=== PATIENT | female | born 1965 | race Caucasian/White ===

== ENCOUNTER → 2019-04-11 10:49 | Outpatient (BNVA) | payer MEDICARE, MEDICAID, SELFPAY | PROVIDERS: Family Provider Nurse Practitioner Family; PCP Nurse Practitioner Family | DX: N39.0 Urinary tract infection, site not specified (principal) | CPT/HCPCS: 87086 ==

== ENCOUNTER → 2019-04-29 16:14 | Outpatient (BNVA) | payer MEDICARE, MEDICAID, SELFPAY | PROVIDERS: PCP Nurse Practitioner Family; Visit Provider Nurse Practitioner Family | DX: E11.65 Type 2 diabetes mellitus with hyperglycemia (principal); Z79.4 Long term (current) use of insulin; I10 Essential (primary) hypertension; E03.9 Hypothyroidism, unspecified; H66.90 Otitis media, unspecified, unspecified ear | CPT/HCPCS: 80053; 83036; 84443 ==

== ENCOUNTER → 2019-04-30 09:46 | Outpatient (BNVA) | payer MEDICARE, MEDICAID, SELFPAY | PROVIDERS: PCP Nurse Practitioner Family; Visit Provider Nurse Practitioner Family | DX: E11.65 Type 2 diabetes mellitus with hyperglycemia (principal); Z79.4 Long term (current) use of insulin; I10 Essential (primary) hypertension; E03.9 Hypothyroidism, unspecified; H66.90 Otitis media, unspecified, unspecified ear | CPT/HCPCS: 82044 ==

== ENCOUNTER → 2019-05-22 00:01 | Outpatient (BNVA) | payer MEDICARE, MEDICAID, SELFPAY | PROVIDERS: PCP Nurse Practitioner Family; Visit Provider Nurse Practitioner Family | DX: N39.0 Urinary tract infection, site not specified (principal) | CPT/HCPCS: 87077; 87086; 87186 ==

== ENCOUNTER → 2019-08-01 10:38 | Outpatient (BNVA) | payer MEDICARE, MEDICAID, SELFPAY | PROVIDERS: Family Provider Nurse Practitioner Family; PCP Nurse Practitioner Family; Visit Provider Nurse Practitioner Family | DX: E11.9 Type 2 diabetes mellitus without complications (principal) | CPT/HCPCS: 80053; 80061; 83036 ==

== ENCOUNTER → 2019-08-02 10:33 | Outpatient (BNVA) | payer MEDICARE, MEDICAID, SELFPAY | PROVIDERS: Family Provider Nurse Practitioner Family; PCP Nurse Practitioner Family; Visit Provider Nurse Practitioner Family | DX: N39.0 Urinary tract infection, site not specified (principal); E11.9 Type 2 diabetes mellitus without complications; E11.51 Type 2 diabetes mellitus with diabetic peripheral angiopathy without gangrene; E11.65 Type 2 diabetes mellitus with hyperglycemia | CPT/HCPCS: 81000; 82044 ==

== ENCOUNTER → 2019-08-13 10:17 | Outpatient (BNVA) | payer MEDICARE, MEDICAID, SELFPAY | PROVIDERS: Family Provider Nurse Practitioner Family; PCP Nurse Practitioner Family; Visit Provider Nurse Practitioner Family | DX: N39.0 Urinary tract infection, site not specified (principal) | CPT/HCPCS: 81000 ==

== ENCOUNTER → 2019-08-27 10:22 | Outpatient (BNVA) | payer MEDICARE, MEDICAID, SELFPAY | PROVIDERS: Family Provider Nurse Practitioner Family; PCP Nurse Practitioner Family; Visit Provider Nurse Practitioner Family | DX: E11.8 Type 2 diabetes mellitus with unspecified complications (principal); S21.009A Unspecified open wound of unspecified breast, initial encounter; N61.1 Abscess of the breast and nipple; L03.90 Cellulitis, unspecified; X58.XXXA Exposure to other specified factors, initial encounter | CPT/HCPCS: 87070; 87077; 87186 ==

== ENCOUNTER → 2019-10-28 09:58 | Outpatient (BNVA) | payer MEDICARE, MEDICAID, SELFPAY | PROVIDERS: Family Provider Nurse Practitioner Family; PCP Nurse Practitioner Family; Visit Provider Nurse Practitioner Family | DX: R31.9 Hematuria, unspecified (principal) | CPT/HCPCS: 80053; 87077; 87086; 87186 ==

== ENCOUNTER → 2019-11-18 11:35 | Outpatient (BNVA) | payer MEDICARE, MEDICAID, SELFPAY | PROVIDERS: Family Provider Nurse Practitioner Family; PCP Nurse Practitioner Family; Visit Provider Nurse Practitioner Family | DX: E11.8 Type 2 diabetes mellitus with unspecified complications (principal); N39.0 Urinary tract infection, site not specified; R31.9 Hematuria, unspecified | CPT/HCPCS: 81000; 83036 ==

== ENCOUNTER → 2019-12-03 14:40 | Outpatient (BNVA) | payer MEDICARE, MEDICAID, SELFPAY | PROVIDERS: Family Provider Nurse Practitioner Family; PCP Nurse Practitioner Family; Visit Provider Nurse Practitioner Family | DX: L02.91 Cutaneous abscess, unspecified (principal); L03.90 Cellulitis, unspecified; G89.28 Other chronic postprocedural pain | CPT/HCPCS: 87070; 87077; 87186 ==

== ENCOUNTER → 2020-01-29 09:03 | Outpatient (BNVA) | payer MEDICARE, MEDICAID, SELFPAY | PROVIDERS: Family Provider Nurse Practitioner Family; PCP Nurse Practitioner Family; Visit Provider Nurse Practitioner Family | DX: R31.9 Hematuria, unspecified (principal) | CPT/HCPCS: 80053; 87077; 87086; 87184 ==

== ENCOUNTER → 2020-02-06 14:27 | Outpatient (BNVA) | payer MEDICARE, MEDICAID, SELFPAY | PROVIDERS: Family Provider Nurse Practitioner Family; PCP Nurse Practitioner Family; Visit Provider Family Medicine | DX: G89.28 Other chronic postprocedural pain (principal); G54.6 Phantom limb syndrome with pain; M06.9 Rheumatoid arthritis, unspecified; E11.65 Type 2 diabetes mellitus with hyperglycemia; Z79.4 Long term (current) use of insulin; R32 Unspecified urinary incontinence | CPT/HCPCS: 80053 ==

== ENCOUNTER → 2020-02-24 14:24 | Outpatient (BNVA) | payer MEDICARE, MEDICAID, SELFPAY | PROVIDERS: Family Provider Nurse Practitioner Family; PCP Nurse Practitioner Family; Visit Provider Nurse Practitioner Family | DX: N39.0 Urinary tract infection, site not specified (principal); R32 Unspecified urinary incontinence | CPT/HCPCS: 81003; 87077; 87086; 87184 ==

== ENCOUNTER → 2020-04-08 13:50 | Outpatient (BNVA) | payer MEDICARE, MEDICAID, SELFPAY | PROVIDERS: Family Provider Nurse Practitioner Family; PCP Nurse Practitioner Family; Visit Provider Urology | DX: N39.0 Urinary tract infection, site not specified (principal); R32 Unspecified urinary incontinence | CPT/HCPCS: 81003 ==

== ENCOUNTER → 2020-04-14 11:34 | Outpatient (BNVA) | payer MEDICARE, MEDICAID, SELFPAY | PROVIDERS: Family Provider Nurse Practitioner Family; PCP Nurse Practitioner Family; Visit Provider Nurse Practitioner Family | DX: Z03.818 Encounter for observation for suspected exposure to other biological agents ruled out (principal); R05 Cough | CPT/HCPCS: 87635 ==

== ENCOUNTER → 2020-04-23 10:09 | Outpatient (BNVA) | payer MEDICARE, MEDICAID, SELFPAY | PROVIDERS: Family Provider Nurse Practitioner Family; PCP Nurse Practitioner Family; Visit Provider Nurse Practitioner Family | DX: R04.0 Epistaxis (principal); J01.90 Acute sinusitis, unspecified; J01.10 Acute frontal sinusitis, unspecified | CPT/HCPCS: 85025 ==

== ENCOUNTER → 2020-05-08 11:09 | Outpatient (BNVA) | payer MEDICARE, MEDICAID, SELFPAY | PROVIDERS: Family Provider Nurse Practitioner Family; PCP Nurse Practitioner Family; Visit Provider Nurse Practitioner Family | DX: N39.0 Urinary tract infection, site not specified (principal); E11.8 Type 2 diabetes mellitus with unspecified complications; E03.9 Hypothyroidism, unspecified; Z51.81 Encounter for therapeutic drug level monitoring | CPT/HCPCS: 80053; 82550; 83036; 84443; 87077; 87086; 87184 ==

== ENCOUNTER → 2020-06-12 09:24 | Outpatient (BNVA) | payer MEDICARE, MEDICAID, SELFPAY | PROVIDERS: Family Provider Nurse Practitioner Family; PCP Nurse Practitioner Family; Referring Provider Nurse Practitioner Family; Visit Provider Internal Medicine | DX: B37.3 Candidiasis of vulva and vagina (principal); E03.9 Hypothyroidism, unspecified; E11.9 Type 2 diabetes mellitus without complications; N39.0 Urinary tract infection, site not specified | CPT/HCPCS: 95251; 99204 ==

== ENCOUNTER → 2020-07-02 13:32 | Outpatient (BNVA) | payer OTHER, SELFPAY | PROVIDERS: Family Provider Nurse Practitioner Family; PCP Nurse Practitioner Family; Visit Provider Psychiatry & Neurology Psychiatry | DX: F33.2 Major depressive disorder, recurrent severe without psychotic features (principal); Z79.899 Other long term (current) drug therapy | CPT/HCPCS: 80061; 83036 ==

== ENCOUNTER → 2020-07-13 10:02 | Outpatient (BNVA) | payer MEDICAID, SELFPAY ==
[2020-07-06 14:19] VITALS: BP 105/68
== END ==
PROVIDERS: Family Provider Nurse Practitioner Family; PCP Nurse Practitioner Family; Visit Provider Nurse Practitioner Family
DX: R31.9 Hematuria, unspecified (principal)
CPT/HCPCS: 87077; 87086; 87184

== ENCOUNTER → 2020-07-16 08:52 | Outpatient (BNVA) | payer MEDICAID, SELFPAY ==
[2020-07-06 14:19] VITALS: BP 105/68
== END ==
PROVIDERS: Family Provider Nurse Practitioner Family; PCP Nurse Practitioner Family; Visit Provider Nurse Practitioner Family
DX: R04.0 Epistaxis (principal)
CPT/HCPCS: 85025

== ENCOUNTER → 2020-08-04 13:27 | Outpatient (BNVA) | payer SELFPAY ==
[2020-07-06 14:19] VITALS: BP 105/68
== END ==
PROVIDERS: Family Provider Nurse Practitioner Family; PCP Nurse Practitioner Family; Visit Provider Psychiatry & Neurology Psychiatry
DX: F33.2 Major depressive disorder, recurrent severe without psychotic features (principal); Z72.820 Sleep deprivation; F41.9 Anxiety disorder, unspecified
CPT/HCPCS: 90792

== ENCOUNTER → 2020-08-10 10:34 | Outpatient (BNVA) | payer MEDICARE, MEDICAID, SELFPAY ==
[2020-07-06 14:19] VITALS: BP 105/68
== END ==
PROVIDERS: Family Provider Nurse Practitioner Family; PCP Nurse Practitioner Family; Visit Provider Nurse Practitioner Family
DX: N39.41 Urge incontinence (principal)
CPT/HCPCS: 87086

== ENCOUNTER → 2020-08-24 11:11 | Outpatient (BNVA) | payer MEDICARE, MEDICAID, SELFPAY ==
[2020-07-06 14:19] VITALS: BP 105/68
== END ==
PROVIDERS: Family Provider Nurse Practitioner Family; PCP Nurse Practitioner Family; Visit Provider Nurse Practitioner Family
DX: N39.0 Urinary tract infection, site not specified (principal)
CPT/HCPCS: 87077; 87086; 87184

== ENCOUNTER → 2020-09-29 13:49 | Outpatient (BNVA) | payer MEDICARE, MEDICAID, SELFPAY ==
[2020-07-06 14:19] VITALS: BP 105/68
== END ==
PROVIDERS: Family Provider Nurse Practitioner Family; PCP Nurse Practitioner Family; Visit Provider Nurse Practitioner
DX: F33.2 Major depressive disorder, recurrent severe without psychotic features (principal)
CPT/HCPCS: 99214

== ENCOUNTER → 2020-10-21 10:25 | Outpatient (BNVA) | payer MEDICARE, MEDICAID, SELFPAY ==
[2020-10-21 10:02] VITALS: BP 105/68
== END ==
PROVIDERS: Family Provider Nurse Practitioner Family; PCP Nurse Practitioner Family; Visit Provider Nurse Practitioner Family
DX: N39.0 Urinary tract infection, site not specified (principal)
CPT/HCPCS: 81000; 87077; 87086; 87184; A9270

== ENCOUNTER → 2020-11-02 14:26 | Outpatient (BNVA) | payer MEDICARE, MEDICAID, SELFPAY ==
[2020-10-21 10:02] VITALS: BP 105/68
== END ==
PROVIDERS: Family Provider Nurse Practitioner Family; PCP Nurse Practitioner Family; Visit Provider Nurse Practitioner Family
DX: R31.9 Hematuria, unspecified (principal); N39.0 Urinary tract infection, site not specified; L03.90 Cellulitis, unspecified
CPT/HCPCS: 87070; 87077; 87086; 87184

== ENCOUNTER → 2020-11-12 09:46 | Outpatient (BNVA) | payer MEDICARE, MEDICAID, SELFPAY ==
[2020-10-21 10:02] VITALS: BP 105/68
== END ==
PROVIDERS: Family Provider Nurse Practitioner Family; PCP Nurse Practitioner Family; Visit Provider Internal Medicine
DX: E11.65 Type 2 diabetes mellitus with hyperglycemia (principal); E03.9 Hypothyroidism, unspecified; Z79.4 Long term (current) use of insulin
CPT/HCPCS: 83036; 84439; 84443

== ENCOUNTER → 2020-11-24 11:31 | Outpatient (BNVA) | payer MEDICARE, MEDICAID, SELFPAY ==
[2020-10-21 10:02] VITALS: BP 105/68
== END ==
PROVIDERS: Family Provider Nurse Practitioner Family; PCP Nurse Practitioner Family; Visit Provider Nurse Practitioner Family
DX: N39.0 Urinary tract infection, site not specified (principal); R35.0 Frequency of micturition
CPT/HCPCS: 81000; 87086

== ENCOUNTER → 2020-12-31 08:29 | Outpatient (BNVA) | payer MEDICARE, MEDICAID, SELFPAY ==
[2020-10-21 10:02] VITALS: BP 105/68
== END ==
PROVIDERS: Family Provider Nurse Practitioner Family; PCP Nurse Practitioner Family; Visit Provider Nurse Practitioner Family
DX: N39.0 Urinary tract infection, site not specified (principal)
CPT/HCPCS: 87086

== ENCOUNTER → 2021-01-19 09:28 | Outpatient (BNVA) | payer MEDICARE, MEDICAID, SELFPAY ==
[2020-10-21 10:02] VITALS: BP 105/68
== END ==
PROVIDERS: Family Provider Nurse Practitioner Family; PCP Nurse Practitioner Family; Visit Provider Nurse Practitioner Family
DX: R39.9 Unspecified symptoms and signs involving the genitourinary system (principal); R31.9 Hematuria, unspecified; N39.0 Urinary tract infection, site not specified
CPT/HCPCS: 81000; 87077; 87086; 87184

== ENCOUNTER → 2021-02-16 10:11 | Outpatient (BNVA) | payer MEDICARE, MEDICAID, SELFPAY ==
[2020-10-21 10:02] VITALS: BP 105/68
== END ==
PROVIDERS: Family Provider Nurse Practitioner Family; PCP Nurse Practitioner Family; Visit Provider Internal Medicine
DX: E03.9 Hypothyroidism, unspecified (principal); E11.65 Type 2 diabetes mellitus with hyperglycemia; N39.0 Urinary tract infection, site not specified; Z79.4 Long term (current) use of insulin
CPT/HCPCS: 80053; 80061; 83036; 84439; 84443; 87077; 87086; 87184

== ENCOUNTER → 2021-02-18 07:57 | Outpatient (BNVA) | payer MEDICARE, MEDICAID, SELFPAY ==
[2020-10-21 10:02] VITALS: BP 105/68
== END ==
PROVIDERS: Family Provider Nurse Practitioner Family; PCP Nurse Practitioner Family; Visit Provider Nurse Practitioner
DX: F41.9 Anxiety disorder, unspecified (principal); F33.2 Major depressive disorder, recurrent severe without psychotic features; Z72.820 Sleep deprivation
CPT/HCPCS: 99214

== ENCOUNTER → 2021-02-25 08:50 | Outpatient (BNVA) | payer MEDICARE, MEDICAID, SELFPAY ==
[2020-10-21 10:02] VITALS: BP 105/68
== END ==
PROVIDERS: Family Provider Nurse Practitioner Family; PCP Nurse Practitioner Family; Visit Provider Nurse Practitioner Family
DX: N39.0 Urinary tract infection, site not specified (principal)
CPT/HCPCS: 87086

== ENCOUNTER → 2021-03-19 10:33 | Outpatient (BNVA) | payer MEDICARE, MEDICAID, SELFPAY ==
[2020-10-21 10:02] VITALS: BP 105/68
== END ==
PROVIDERS: Family Provider Nurse Practitioner Family; PCP Nurse Practitioner Family; Visit Provider Nurse Practitioner Family
DX: E78.2 Mixed hyperlipidemia (principal); E03.9 Hypothyroidism, unspecified; E11.65 Type 2 diabetes mellitus with hyperglycemia; Z79.4 Long term (current) use of insulin
CPT/HCPCS: 80053; 83036

== ENCOUNTER → 2021-03-24 14:32 | Outpatient (BNVA) | payer MEDICARE, MEDICAID, SELFPAY ==
[2020-10-21 10:02] VITALS: BP 105/68
== END ==
PROVIDERS: Family Provider Nurse Practitioner Family; PCP Nurse Practitioner Family; Visit Provider Internal Medicine
DX: E11.8 Type 2 diabetes mellitus with unspecified complications (principal); E03.9 Hypothyroidism, unspecified; N39.0 Urinary tract infection, site not specified; Z79.4 Long term (current) use of insulin; F17.210 Nicotine dependence, cigarettes, uncomplicated
CPT/HCPCS: 99214

== ENCOUNTER → 2021-06-30 15:02 | Outpatient (BNVA) | payer MEDICARE, MEDICAID, SELFPAY ==
[2020-10-21 10:02] VITALS: BP 105/68
== END ==
PROVIDERS: Family Provider Nurse Practitioner Family; PCP Nurse Practitioner Family; Visit Provider Internal Medicine Cardiovascular Disease
DX: L03.90 Cellulitis, unspecified (principal); I25.10 Atherosclerotic heart disease of native coronary artery without angina pectoris; I10 Essential (primary) hypertension; F17.210 Nicotine dependence, cigarettes, uncomplicated
CPT/HCPCS: 99213

== ENCOUNTER → 2021-07-20 13:50 | Outpatient (BNVA) | payer MEDICARE, MEDICAID, SELFPAY ==
[2020-10-21 10:02] VITALS: BP 105/68
== END ==
PROVIDERS: Family Provider Nurse Practitioner Family; PCP Nurse Practitioner Family; Visit Provider Nurse Practitioner
DX: F33.2 Major depressive disorder, recurrent severe without psychotic features (principal); F41.9 Anxiety disorder, unspecified; Z72.820 Sleep deprivation
CPT/HCPCS: 99214

== ENCOUNTER → 2021-07-22 14:16 | Outpatient (BNVA) | payer MEDICARE, MEDICAID, SELFPAY ==
[2021-07-20 15:27] VITALS: BP 94/67
== END ==
PROVIDERS: Family Provider Nurse Practitioner Family; PCP Nurse Practitioner Family; Visit Provider Family Medicine
DX: N39.0 Urinary tract infection, site not specified (principal)
CPT/HCPCS: 81000; 87077; 87086; 87184

== ENCOUNTER → 2021-09-14 13:53 | Outpatient (BNVA) | payer MEDICARE, MEDICAID, SELFPAY ==
[2021-07-20 15:27] VITALS: BP 94/67
== END ==
PROVIDERS: Family Provider Nurse Practitioner Family; PCP Nurse Practitioner Family; Visit Provider Internal Medicine
DX: E11.9 Type 2 diabetes mellitus without complications (principal); E03.9 Hypothyroidism, unspecified; E78.2 Mixed hyperlipidemia; I25.10 Atherosclerotic heart disease of native coronary artery without angina pectoris; N39.0 Urinary tract infection, site not specified; F17.210 Nicotine dependence, cigarettes, uncomplicated; Z79.4 Long term (current) use of insulin
CPT/HCPCS: 99214

== ENCOUNTER → 2022-01-12 10:57 | Outpatient (BNVA) | payer MEDICARE, MEDICAID, SELFPAY ==
[2021-07-20 15:27] VITALS: BP 94/67
== END ==
PROVIDERS: Family Provider Nurse Practitioner Family; PCP Nurse Practitioner Family; Visit Provider Nurse Practitioner Family
DX: N39.0 Urinary tract infection, site not specified (principal); R31.9 Hematuria, unspecified
CPT/HCPCS: 81000; 87077; 87086; 87184

== ENCOUNTER → 2022-01-13 14:24 | Outpatient (BNVA) | payer MEDICARE, MEDICAID, SELFPAY ==
[2022-01-13 15:31] VITALS: BP 94/67
== END ==
PROVIDERS: Family Provider Nurse Practitioner Family; PCP Nurse Practitioner Family; Visit Provider Internal Medicine
DX: E11.8 Type 2 diabetes mellitus with unspecified complications (principal); E03.9 Hypothyroidism, unspecified; E78.2 Mixed hyperlipidemia; I25.10 Atherosclerotic heart disease of native coronary artery without angina pectoris; F33.2 Major depressive disorder, recurrent severe without psychotic features; N39.0 Urinary tract infection, site not specified; Z79.4 Long term (current) use of insulin; F17.210 Nicotine dependence, cigarettes, uncomplicated
CPT/HCPCS: 99214

== ENCOUNTER → 2022-01-21 10:31 | Outpatient (BNVA) | payer MEDICARE, MEDICAID, SELFPAY ==
[2022-01-13 15:31] VITALS: BP 94/67
== END ==
PROVIDERS: Family Provider Nurse Practitioner Family; PCP Nurse Practitioner Family; Visit Provider Nurse Practitioner Family
DX: N39.0 Urinary tract infection, site not specified (principal)
CPT/HCPCS: 87077; 87086; 87184

== ENCOUNTER → 2022-02-02 09:55 | Outpatient (BNVA) | payer MEDICAID, SELFPAY ==
[2022-01-13 15:31] VITALS: BP 94/67
== END ==
PROVIDERS: Family Provider Nurse Practitioner Family; PCP Nurse Practitioner Family; Visit Provider Nurse Practitioner Family
DX: R31.9 Hematuria, unspecified (principal)
CPT/HCPCS: 87077; 87086; 87184

== ENCOUNTER → 2022-02-21 10:46 | Outpatient (BNVA) | payer MEDICAID, SELFPAY ==
[2022-01-13 15:31] VITALS: BP 94/67
== END ==
PROVIDERS: Family Provider Nurse Practitioner Family; PCP Nurse Practitioner Family; Visit Provider Nurse Practitioner Family
DX: N39.0 Urinary tract infection, site not specified (principal)
CPT/HCPCS: 87086

== ENCOUNTER 2022-04-02 14:16 | Inpatient (IN) | payer MEDICARE, MEDICAID, SELFPAY ==
[2022-01-13 15:31] VITALS: BP 94/67
[2022-04-02] VITALS (42 sets, daily range): BP systolic 61–116; BP diastolic 38–90; PULSE 109–130; RESP 12–33; O2SAT 84–100; BMI 82.0
--- NOTE | 2022-04-02 14:25 | XRR_ITS ---
PROCEDURE INFORMATION: Exam: XR Chest Exam date and time: 04/02/2022 2:35 PM Age: 56 years old Clinical indication: Cough and dyspnea; Prior surgery; Surgery type: Both arms and legs; Additional info: Dyspnea/cough TECHNIQUE: Imaging protocol: Radiologic exam of the chest. Views: 1 view. COMPARISON: CR XR chest 1V [id number] 01/13/2017 3:30 PM FINDINGS: Lungs: Ill-defined patchy opacities in bilateral lung bases may suggest bilateral pneumonia. Pleural spaces: Unremarkable. No pleural effusion. No pneumothorax. Heart/Mediastinum: No cardiomegaly. Bones/joints: No acute findings. XR/XR chest 1V portable [id number] IMPRESSION: Ill-defined patchy opacities in bilateral lung bases may suggest bilateral pneumonia.
--- NOTE | 2022-04-02 14:25 | ECG_ITS ---
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 Measurements Intervals [place] Rate: 125 P: 12 MD: 168 QRS: -62 QRSD: 95 T: 68 QT: 322 QTc: 464 Interpretive Statements SINUS TACHYCARDIA LOW QRS VOLTAGE IN PRECORDIAL LEADS [QRS DEFLECTION < 1.0 mV IN CHEST LEADS] POSSIBLE ANTERIOR MYOCARDIAL INFARCTION , OF INDETERMINATE AGE [30 ms Q WAVE IN V3/V4, OR R < 0.2 mV IN V4] INFERIOR MYOCARDIAL INFARCTION , PROBABLY OLD Compared to ECG 01/13/2017 17:23:20 Low QRS voltage now present Myocardial infarct finding still present Electronically Signed On 04-03-2022 8:20:34 BENCH MOLDER APPRENTICE by Elsa Sebastian M.D. [id number] f
--- NOTE | 2022-04-02 14:26 | ECG_ITS ---
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 Measurements Intervals [place] Rate: 125 P: 8 MD: 163 QRS: -65 QRSD: 98 T: 72 QT: 327 QTc: 473 Interpretive Statements SINUS TACHYCARDIA LOW QRS VOLTAGE IN PRECORDIAL LEADS [QRS DEFLECTION < 1.0 mV IN CHEST LEADS] POSSIBLE ANTERIOR MYOCARDIAL INFARCTION , OF INDETERMINATE AGE [30 ms Q WAVE IN V3/V4, OR R < 0.2 mV IN V4] INFERIOR MYOCARDIAL INFARCTION , PROBABLY OLD Compared to ECG 01/13/2017 17:23:20 Low QRS voltage now present Myocardial infarct finding still present Electronically Signed On 04-03-2022 8:20:52 PATHOLOGY TECHNICIAN by Elsa Sebastian M.D. [id number] f
--- NOTE | 2022-04-02 14:34 | W.ED.GENADLT ---
HPI - General Adult General: Chief complaint: ER Hold Stated complaint: CHEST PAIN Time Seen by Provider: 04/02/22 14:24 Source: patient Mode of arrival: EMS History of Present Illness: 56-year-old female transferred to our ER from [place]. Patient was sent here as a possible STEMI. She has not had chest pain in more than a week. She does have history of coronary disease and multiple previous stents. She presented to the emergency room there complaining of shortness of breath. When I asked her if she had any chest pain at all today she said she did not her heart rate and an EKG there was in the 140s and 150s and showed a showed rate related changes this time EKG was done she did not have any chest pain. She did past positive for flu and COVID and was hypoxic normally does not wear oxygen is now requiring oxygen at 3 L/min. Patient has a history of previous hospitalization for sepsis with prolonged treatment with vasopressors resulting in amputation of all 4 extremities she does have an upper arm stump bilaterally that were able to get her blood pressure is on. She has a positional IV in the stump on the left. She remains tachycardic. This most recent illness began over the last 2-3 days. On arrival here patient is hypotensive and tachycardic Onset (ago): day(s) Relieving factors: none Exacerbating factors: none Associated symptoms: Reports cough, decreased appetite, dyspnea, fevers/chills, headache(s), malaise, nausea, palpitations, short of breath and weakness; Deny chest pain, confusion, diaphoresis, rash or vomiting Treatments prior to arrival: none Review of Systems Const: Reports: fever(s), chills, fatigue and malaise; Denies: diaphoresis ENMT: Denies: throat pain, ear or mastoid pain, nasal discharge or nasal congestion Card: Reports: palpitations; Denies: chest pain Resp: Reports: dyspnea GI: Reports: nausea; Denies: abdominal pain, vomiting or diarrhea : Denies: flank pain, difficulty voiding, dysuria, urinary frequency or urinary urgency Skin/Breast: Denies: rash or pruritus Neuro: Reports: headache(s); Denies: confusion PFSH ED PFSH: Medical History Above knee amputation of left lower extremity Above knee amputation of right lower extremity Amputation, hand, bilateral Anxiety Below-elbow amputation of left upper extremity Below-elbow amputation of right upper extremity Chronic pain Complete amputation of bilateral legs Coronary artery disease DM type 2 causing complication Enrolled in chronic care management History of amputation of lower extremity HTN (hypertension), benign Hx of sepsis Hyperlipemia, mixed Hypothyroidism Major depressive disorder, 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 Polyuria Psychiatric care Recurrent UTI Rheumatoid arthritis Urgency incontinence 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 Surgical History History of amputation of finger of both hands History of appendectomy Family History Father , at age 47 CAD (coronary artery disease) Hypertension Mother , at age 64 Diabetes Sister Diabetes Brother Diabetes Social History Smoking and tobacco status: current every day smoker cigarettes Packs smoked per day: 1.5 Years cigarettes smoked: 44 Quit status (tobacco): has tried quititng Number of times tried to quit tobacco: 3 Second hand smoke exposure: Yes Alcohol intake: current Alcohol intake frequency: holidays/special occasions only Alcohol type: wine Desire information about substance/drug rehabilitation?: No Adopted: No Caregiver/support person: No Lives independently: Yes Household members: significant other and family Housing: House Marital status: Single Marital status details: Life partner of 43 years Number of children: 0 Number of grandchildren: 0 Highest education level completed: High School Graduate service: No Current occupational status: disabled Pets and animals: Yes (lab, yorkie, beagle) Pets & animals: dog(s) History of recent travel: No Leisure activites: art and other Leisure activities details: writing, watch TV Sexually active: Yes Current gender identity: Female Keyonna/Synagogue: None Special keyonna needs: No Agree to transfusion: Yes Financial difficulty paying for basics: Not Very Hard Female Reproductive History: Para: 0 Physical Exam Const: GENERAL APPEARANCE: cooperative and comfortable ORIENTATION/CONSCIOUSNESS: Yes awake, Yes oriented to person, Yes oriented to place and Yes oriented to time HENMT: COMMON NORMALS: normocephalic, atraumatic and hearing grossly normal bilaterally HEAD & SCALP: normocephalic and atraumatic Eye: COMMON NORMALS: Equal, round and reactive pupils present, EOMs intact bilaterally, conjunctivae normal and no scleral icterus CONJUNCTIVA: Yes conjunctivae normal PUPIL: Yes Equal, round and reactive pupils present Neck/C-Spine: COMMON NORMALS: full ROM, no lymphadenopathy and supple Lymph: LYMPHATIC: no lymphadenopathy noted and no lymphedema noted Resp: AUSCULTATION: rhonchi and wheezes Cardio: RATE: tachycardic GI: COMMON NORMALS: Soft to palpation and No hepatosplenomegaly present AUSCULTATION: Yes normoactive bowel sounds PALPATION: Yes Soft to palpation, No Tenderness to palpation present (GI), No Guarding due to palpation present (GI) and Yes No hepatosplenomegaly present Extremity: OTHER: Amputation of all 4 extremities all 4 extremities at the stumps are cyanotic appearing this is chronic. Neuro: SENSORIUM/ORIENTATION: Yes oriented to person, Yes oriented to place and Yes oriented to time Skin: OTHER: Decubitus ulcer left buttock Procedures Central Line Placement Right IJ: Time Out Performed: Yes Patient Placed on Monitor/Pulse Ox: Yes MD Prep: mask, gown and gloves Central Line Prep: Chlorhexidine scrub Local Anesthetic: lidocaine 1% Amount of anesthesia used (mL): 5 Ultrasound Used for Placement: Yes Central Line Lumen Inserted: triple Post Procedure: sutured in place, good blood return, all ports aspirated, flushed, capped and sterile dressing applied Post Procedure X-Ray: tip of catheter in good position and no pneumothorax seen Patient Tolerated Procedure: well Complications: none Course Vital Signs: Vital signs: Vital Signs Temperature 99.9 F H 04/04/22 03:05 Pulse Rate 84 04/04/22 05:30 Respiratory Rate 13 04/04/22 05:30 Blood Pressure 91/53 04/04/22 05:30 Pulse Oximetry 94 04/04/22 05:30 Oxygen Delivery Me thod 04/04/22 03:05 Oxygen Flow Rate 6 04/03/22 23:30 Fraction of Inspir ed Oxygen 45 04/04/22 04:00 MDM - General Adult Medical Decision Making COVID and influenza B positive. The EKG changes were rate related and resolved with fluids. Central line placed early in the course there was a positional peripheral line in the stump on the right but we could not get it to except significant amounts of fluid which the patient did require. She was given several liters of fluid in the emergency room then converted to a maintenance dose. Started on pressors will admit to the ICU as her blood pressure has been weak. She has been started on remdesivir and Decadron because of the COVID will cover with Zithromax and ceftriaxone. Her Chirinos was replaced and urine repeated and will be cultured. Discussed with the hospitalist orders written Medical Records I reviewed the patient's medical records. Lab Data I reviewed the patient's lab results. 04/02/22 15:20 04/02/22 15:20 Radiology Impressions Chest X-Ray 04/02/22 16:22 IMPRESSION: 1. Bilateral pulmonary opacities are similar to the prior study. 2. Tip of the central venous catheter projects over the right atrium. Chest/Abdomen/Pelvis CT 04/02/22 18:05 IMPRESSION: 1. Bilateral pneumonia. 2. Multivessel atherosclerotic disease which involves the coronary arteries. IMPRESSION: No acute findings.Non acute findings as described above. Laboratory Results WBC 6.8 10^3/uL (4.0-10.0) 04/02/22 15:20 RBC 4.58 10^6/uL (4.1-5.3) 04/02/22 15:20 Hgb 12.8 g/dL (11.5-15.3) 04/02/22 15:20 Hct 38.5 % (37.0-47.0) 04/02/22 15:20 MCV 84.1 fl (81-99) 04/02/22 15:20 MCH 27.9 pg (28.0-34.0) L 04/02/22 15:20 MCHC 33.2 g/dL (30.0-36.0) 04/02/22 15:20 RDW 16.3 % (12.1-15.1) H 04/02/22 15:20 Plt Count 313 10^3/cmm (130-400) 04/02/22 15:20 MPV 10.4 fL (7.4-10.4) 04/02/22 15:20 Neut % (Auto) 81.3 % 04/02/22 15:20 Lymph % (Auto) 11.7 % 04/02/22 15:20 [place] % (Auto) 6.1 % 04/02/22 15:20 Eos % (Auto) 0.1 % 04/02/22 15:20 Baso % (Auto) 0.1 % 04/02/22 15:20 Neut # (Auto) 5.48 10^3/uL (1.8-7.7) 04/02/22 15:20 Lymph # (Auto) 0.8 10^3/uL (0.8-4.8) 04/02/22 15:20 [place] # (Auto) 0.4 10^3/uL (0.2-0.9) 04/02/22 15:20 Eos # (Auto) 0.0 10^3/uL (0.0-0.8) 04/02/22 15:20 Baso # (Auto) 0.0 10^3/uL (0.0-0.1) 04/02/22 15:20 Nucleated RBC % (auto) 0 % 04/02/22 15:20 Nucleated RBCs # 0.0 /100WBC 04/02/22 15:20 D-Dimer 7.66 ug/mIFEU (0-0.59) H 04/02/22 15:20 Sodium 132 mmol/L (136-145) L 04/02/22 15:20 Potassium 4.3 mmol/L (3.5-5.1) 04/02/22 15:20 Chloride 103 mmol/L (98-107) 04/02/22 15:20 Carbon Dioxide 18 mmol/L (22-29) L 04/02/22 15:20 Anion Gap 15.3 (5-19) 04/02/22 15:20 BUN 33 mg/dL (6-20) H 04/02/22 15:20 Creatinine 1.4 mg/dL (0.5-0.9) H 04/02/22 15:20 GFR Calculation 38.6 mL/min (90-130) L 04/02/22 15:20 Glucose 289 mg/dL (65-115) H 04/02/22 15:20 Calculated Osmolality 292 mOsm/kg (285-295) 04/02/22 15:20 Lactic Acid 1.4 mmol/L (0.5-2.2) 04/02/22 15:20 Calcium 7.2 mg/dL (8.5-10.5) L 04/02/22 15:20 Magnesium 1.8 mg/dL (1.7-2.3) 04/02/22 15:20 Total Bilirubin 0.5 mg/dL (0.15-1.2) 04/02/22 15:20 AST 33 U/L (0-32) H 04/02/22 15:20 ALT 19 U/L (0-33) 04/02/22 15:20 Alkaline Phosphatase 106 U/L (35-105) H 04/02/22 15:20 Creatine Kinase 852 U/L (26-192) H* 04/02/22 15:20 Troponin T Baseline 83 ng/L (0-10) H 04/02/22 15:20 NT-Pro-B Natriuret Pep 434 pg/mL (0-125) H 04/02/22 15:20 Total Protein 5.2 g/dL (6.6-8.7) L 04/02/22 15:20 Albumin 2.4 g/dL (3.5-5.2) L 04/02/22 15:20 Globulin 2.8 g/dL (1.3-4.6) 04/02/22 15:20 Procalcitonin 22.10 ng/mL (0-0.5) H 04/02/22 15:20 TSH 1.08 uIU/mL (0.27-4.20) 04/02/22 15:20 Random Cortisol 37.41 ug/dL (2.47-19.5) H 04/02/22 15:20 Urine Color Yellow (Yellow) 04/02/22 17:25 Urine Appearance Sl hazy (CLEAR) A 04/02/22 17:25 Urine pH 5 (5-7) 04/02/22 17:25 Ur Specific [place] 1.010 (1.005-1.030) 04/02/22 17:25 Urine Protein Neg (Negative) 04/02/22 17:25 Urine Glucose (UA) Trace (Normal) H 04/02/22 17:25 Urine Ketones Negative (Negative) 04/02/22 17:25 Urine Blood 2+ (Negative) H 04/02/22 17:25 Urine Nitrate Negative (Negative) 04/02/22 17:25 Urine Bilirubin Neg (Negative) 04/02/22 17:25 Urine Urobilinogen Norm mg/dL (Negative) 04/02/22 17:25 Ur Leukocyte Esterase Negative (Negative) 04/02/22 17:25 Ur Microscopic Indic Cancelled 04/02/22 17:25 Urine RBC 0-4 /hpf (0-2) H 04/02/22 17:25 Urine WBC 15-25 /hpf (0-5) H 04/02/22 17:25 Ur Squamous Epith Cells 0-4 /hpf (0-5) H 04/02/22 17:25 Amorphous Sediment Not Reportable 04/02/22 17:25 Urine Bacteria 1+ /hpf (NONE) H 04/02/22 17:25 Urine Yeast Trace /hpf 04/02/22 17:25 Urine Opiates Screen Positive ng/mL (Negative) H 04/02/22 00:05 Ur Barbiturates Screen Negative ng/mL (Negative) 04/02/22 00:05 Ur Phencyclidine Scrn Negative ng/mL (Negative) 04/02/22 00:05 Ur Amphetamines Screen Negative ng/mL (Negative) 04/02/22 00:05 U Benzodiazepines Scrn Negative ng/mL (Negative) 04/02/22 00:05 Urine Cocaine Screen Negative ng/mL (Negative) 04/02/22 00:05 U Marijuana (THC) Screen Negative ng/mL (Negative) 04/02/22 00:05 Critical Care Time Critical Care Time: Critical Care Time: Yes Total Critical Care Time: 45 Attestation: The high probability of a clinically significant, sudden or life threatening deterioration of the patient's cardiovascular respiratory system(s) required my full and direct attention, intervention and personal management. The critical care time is as shown. This time is in addition to time spent performing any reported procedures but includes the following: [x] Data and vital sign review and interpretation [x] Patient assessment, examination and intervention [x] Documentation [x] Medication orders and management Discharge Plan Discharge Patient Disposition: Admitted As Inpatient Admit Provider: Haylie Tobar Clinical Impression: Influenza B, Hypovolemic shock, COVID-19, Diabetes mellitus, Bilateral pneumonia, Recurrent UTI, Stage II pressure ulcer of left buttock Condition: Stable Coding Level of Care Code ED Instrumentation And Controls Technician for Chg Fwd Exam Comprehensive
[2022-04-02] MEDS: sodium chloride 0.9% 1,000 ML 999 ML IV ×2 (14:44→15:31)
[2022-04-02 15:01] LABS: Add Urine Microscopic? YES; Bilirubin Urine 1+ (Negative); Blood Urine 3+ (Negative); Glucose Urine UA 2+ (Normal); Ketones Urine 1+ (Negative); Leukocyte Esterase Urine 2+ (Negative); Nitrate Urine Positive (Negative); Protein Urine 1+ (Negative); Urine Appearance Cloudy (CLEAR); Urine Color Dark Yellow (Yellow); Urobilinogen Urine 1 mg/dL (Negative); pH Urine 5 (5-7)
[2022-04-02 15:05] LABS: Add Urine Culture? Yes; Bacteria Urine 2+ /hpf; WBC Urine >100 /hpf (0-5)
[2022-04-02 15:35] LABS: Basophils % 0.1 %; Eosinophils % 0.1 %; Hematocrit 38.5 % (37.0-47.0); Hemoglobin 12.8 g/dL (11.5-15.3); Lymphocytes # 0.8 10^3/uL (0.8-4.8); Lymphocytes % 11.7 %; Mean Corpuscular HGB Conc 33.2 g/dL (30.0-36.0); Mean Corpuscular Hemoglobin 27.9 pg (28.0-34.0); Mean Corpuscular Volume 84.1 fl (81-99); Mean Platelet Volume 10.4 fL (7.4-10.4); Monocytes # 0.4 10^3/uL (0.2-0.9); Monocytes % 6.1 %; Neutrophils # 5.48 10^3/uL (1.8-7.7); Neutrophils % 81.3 %; Nucleated Red Blood Cells % 0 %; Platelet Count 313 10^3/cmm (130-400); Red Blood Count 4.58 10^6/uL (4.1-5.3); Red Cell Distribution Width 16.3 % (12.1-15.1); White Blood Count 6.8 10^3/uL (4.0-10.0)
[2022-04-02 16:04] LABS: Lactic Sepsis W/Reflex 1.4 mmol/L (0.5-2.2)
[2022-04-02 16:05] LABS: Alanine Aminotransferase 19 U/L (0-33); Albumin Level 2.4 g/dL (3.5-5.2); Alkaline Phosphatase 106 U/L (35-105); Anion Gap 15.3 (5-19); Aspartate Amino Transferase 33 U/L (0-32); Blood Urea Nitrogen 33 mg/dL (6-20); Calcium 7.2 mg/dL (8.5-10.5); Carbon Dioxide 18 mmol/L (22-29); Chloride 103 mmol/L (98-107); Globulin 2.8 g/dL (1.3-4.6); Glomerular Filtration Rate 38.6 mL/min (90-130); Glucose 289 mg/dL (65-115); Magnesium 1.8 mg/dL (1.7-2.3); Osmolality Calculated 292 mOsm/kg (285-295); Potassium 4.3 mmol/L (3.5-5.1); Sodium 132 mmol/L (136-145); Total Bilirubin 0.5 mg/dL (0.15-1.2); Total Protein 5.2 g/dL (6.6-8.7)
[2022-04-02 16:06] LABS: Troponin(5th) Baseline 83 ng/L (0-10)
[2022-04-02 16:21] LABS: Creatine Phosphokinase 852 U/L (26-192)
--- NOTE | 2022-04-02 16:22 | XRR_ITS ---
PROCEDURE INFORMATION: Exam: XR Chest Exam date and time: 04/02/2022 4:30 PM Age: 56 years old Clinical indication: Device placement; Other: Central line placement; Prior surgery TECHNIQUE: Imaging protocol: Radiologic exam of the chest. Views: 1 view. COMPARISON: CR (CHEST, ) 04/02/2022 2:35 PM FINDINGS: Tubes, catheters and devices: Tip of the central venous catheter projects over the right atrium. Lungs: Bilateral pulmonary opacities are similar to the prior study. Pleural spaces: Unremarkable. No pleural effusion. No pneumothorax. Heart/Mediastinum: Unremarkable. No cardiomegaly. Bones/joints: Unremarkable. XR/XR chest 1V portable [id number] IMPRESSION: 1. Bilateral pulmonary opacities are similar to the prior study. 2. Tip of the central venous catheter projects over the right atrium.
--- NOTE | 2022-04-02 16:23 | ECG_ITS ---
[facility] Test Date: 2022-04-02 Pat Name: Delia Winter Department: Room: Gender: Female Processing Associate: : 1965 Requested By: Cecil Faith Order Number: [id number] Reid MD: Elsa Sebastian M.D. Measurements Intervals [place] Rate: 113 P: 26 TX: 186 QRS: -48 QRSD: 101 T: 60 QT: 338 QTc: 464 Interpretive Statements SINUS TACHYCARDIA LOW QRS VOLTAGE IN PRECORDIAL LEADS [QRS DEFLECTION < 1.0 mV IN CHEST LEADS] LEFT ANTERIOR FASCICULAR BLOCK [QRS AXIS <= -45, QR IN I, RS IN II] POSSIBLE ANTERIOR MYOCARDIAL INFARCTION , OF INDETERMINATE AGE [30 ms Q WAVE IN V3/V4, OR R < 0.2 mV IN V4] Compared to ECG 04/02/2022 14:23:05 Left anterior fascicular block now present Myocardial infarct finding still present Electronically Signed On 04-03-2022 8:27:26 BATTING MACHINE OPERATOR INSULATION by Elsa Sebastian M.D. [id number]
[2022-04-02 17:26] LABS: D Dimer 7.66 ug/mIFEU (0-0.59)
[2022-04-02 17:34] LABS: NT Pro B Type Natriuretic Pept 434 pg/mL (0-125); Thyroid Stimulating Hormone 1.08 uIU/mL (0.27-4.20)
[2022-04-02 17:35] LABS: Cortisol Random 37.41 ug/dL (2.47-19.5)
[2022-04-02] MEDS: dexamethasone 10 mg/mL INJ IVP (17:45)
[2022-04-02] MEDS: remdesivir 200 MG in sodium chloride 0.9% (100 ml) 60 ML 100 MG IV (17:45)
[2022-04-02 17:51] LABS: Bilirubin Urine Neg (Negative); Blood Urine 2+ (Negative); Glucose Urine UA Trace (Normal); Ketones Urine Negative (Negative); Leukocyte Esterase Urine Negative (Negative); Nitrate Urine Negative (Negative); Protein Urine Neg (Negative); RBC Urine 0-4 /hpf (0-2); Urine Appearance SL Hazy (CLEAR); Urine Color Yellow (Yellow); Urobilinogen Urine Norm (Negative); pH Urine 5 (5-7)
[2022-04-02 17:52] LABS: Bacteria Urine 1+ /hpf; Squamous Epithelial Cell Urine 0-4 /hpf (0-5); WBC Urine 15-25 /hpf (0-5)
[2022-04-02 17:53] LABS: Add Urine Culture? Yes
--- NOTE | 2022-04-02 18:03 | PM.HP ---
Providers/Chief Complaint Primary Care Provider: ANUJ Hernández Chief Complaint: CHEST PAIN History of Present Illness Delia Winter is a 56 year old female Medications/Allergies Home Medications Medication Instructions Recorded Confirmed Last Taken Type prosthetic hands Bilateral #1 ea 05/02/19 03/30/22 Unknown Rx nitroglycerin 0.4 mg sublingual 0.4 mg sublingual Q5M PRN chest 01/28/20 03/30/22 Unknown Rx tablet pain #30 tabs blood-glucose sensor #3 ea 05/08/20 03/30/22 Unknown Rx flash glucose scanning reader #1 ea 06/14/20 03/30/22 Unknown Rx (FreeStyle Maria M 2 [place]) pen needle, diabetic 31 gauge x #450 ea 07/01/20 03/30/22 Unknown Rx 3/16 (Sure-Fine Pen [place]) prosthetic legs #1 ea 12/11/20 03/30/22 Unknown Rx methenamine hippurate 1 gram tablet 1 g PO BID #60 tabs 03/19/21 03/30/22 Unknown Rx liraglutide 0.6 mg/0.1 mL (18 mg/3 See Rx Instructions SUBCUT DAILY 06/01/21 03/30/22 Unknown Rx mL) subcutaneous pen injector #27 mL (TapInkoza 3-Christiano) fenofibrate 160 mg tablet 160 mg PO DAILY #90 tabs 06/02/21 03/30/22 Unknown Rx insulin lispro 100 unit/mL See Rx Instructions SUBCUT TID 06/11/21 03/30/22 Unknown History subcutaneous pen (Humalog KwikPen (U-100) Insulin) albuterol sulfate 2.5 mg/3 mL 2.5 mg inhalation Q6H PRN 06/30/21 03/30/22 Unknown History (0.083 %) solution for nebulization mupirocin 2 % topical ointment 1 applic topical BID PRN 06/30/21 03/30/22 Unknown History fluticasone propionate 50 1 spray intranasal Q12H #15.8 mL 07/22/21 03/30/22 Unknown Rx mcg/actuation nasal spray,suspension calcium alginate-honey 4 X 5 #10 ea 08/20/21 03/30/22 Unknown Rx bandage (MediHoney (calcium alginate-honey)) insulin detemir U-100 100 unit/mL 100 unit SUBCUT BID #170 mL 09/15/21 03/30/22 Unknown Rx (3 mL) subcutaneous pen (Levemir FlexTouch U-100 Insulin) rivaroxaban 20 mg tablet (Xarelto) See Rx Instructions .Route 10/12/21 03/30/22 Unknown Rx .COMPLEX #90 tabs flash glucose sensor (FreeStyle #6 ea 10/19/21 03/30/22 Unknown Rx Maria M 2 Sensor kit) albuterol sulfate 2.5 mg/3 mL 2.5 mg (3 mL) inhalation QID PRN 11/19/21 03/30/22 Unknown Rx (0.083 %) solution for nebulization shortness of breath or wheezing #180 mL aripiprazole 5 mg tablet (Abilify) 5 mg PO DAILY #30 tabs 12/14/21 03/30/22 Unknown Rx clonazepam 0.5 mg tablet 0.5 mg PO DAILY PRN anxiety 30 12/14/21 03/30/22 Unknown Rx days #30 tabs duloxetine 60 mg capsule,delayed 60 mg PO BID #60 caps 12/14/21 03/30/22 Unknown Rx release zolpidem 5 mg tablet 5 mg PO .qhs PRN insomnia 30 days 12/14/21 03/30/22 Unknown Rx #30 tabs clopidogrel 75 mg tablet See Rx Instructions .Route 01/19/22 03/30/22 Unknown Rx .COMPLEX #90 tabs lovastatin 40 mg tablet See Rx Instructions .Route 01/31/22 03/30/22 Unknown Rx .COMPLEX #90 tabs metoprolol tartrate 25 mg tablet See Rx Instructions .Route 02/14/22 03/30/22 Unknown Rx .COMPLEX #90 tabs gabapentin 600 mg tablet See Rx Instructions .Route 03/10/22 03/30/22 Unknown Rx .COMPLEX #90 tabs lisinopril 20 mg tablet See Rx Instructions .Route 03/14/22 03/30/22 Unknown Rx .COMPLEX #90 tabs oxycodone 10 mg tablet 10 mg PO TID PRN pain 30 days #70 03/14/22 03/30/22 Unknown Rx tabs azithromycin 250 mg tablet See Rx Instructions PO .COMPLEX #6 03/30/22 03/30/22 Unknown Rx (Zithromax Z-Christiano) tabs levothyroxine 112 mcg tablet See Rx Instructions .Route 03/30/22 Unknown Rx .COMPLEX #90 tabs promethazine-DM 6.25 mg-15 mg/5 mL 5 ml PO Q6H #118 mL 03/30/22 03/30/22 Unknown Rx oral syrup Allergies Allergy/AdvReac Type Severity Reaction Status Date / Time cephalexin [From Keflex] Allergy Mild DIARRHEA Verified 04/02/22 14:29 metformin Allergy Mild SWELLING Verified 04/02/22 14:29 PFSH Acute PFSH: Medical History Above knee amputation of left lower extremity Above knee amputation of right lower extremity Amputation, hand, bilateral Anxiety Below-elbow amputation of left upper extremity Below-elbow amputation of right upper extremity Chronic pain Complete amputation of bilateral legs Coronary artery disease DM type 2 causing complication Enrolled in chronic care management History of amputation of lower extremity HTN (hypertension), benign Hx of sepsis Hyperlipemia, mixed Hypothyroidism Major depressive disorder, 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 Polyuria Psychiatric care Recurrent UTI Rheumatoid arthritis Urgency incontinence 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 Surgical History History of amputation of finger of both hands History of appendectomy Family History Father , at age 47 CAD (coronary artery disease) Hypertension Mother , at age 64 Diabetes Sister Diabetes Brother Diabetes Social History Smoking and tobacco status: current every day smoker cigarettes Packs smoked per day: 1.5 Years cigarettes smoked: 44 Quit status (tobacco): has tried quititng Number of times tried to quit tobacco: 3 Second hand smoke exposure: Yes Alcohol intake: current Alcohol intake frequency: holidays/special occasions only Alcohol type: wine Desire information about substance/drug rehabilitation?: No Adopted: No Caregiver/support person: No Lives independently: Yes Household members: significant other and family Housing: House Marital status: Single Marital status details: Life partner of 43 years Number of children: 0 Number of grandchildren: 0 Highest education level completed: High School Graduate service: No Current occupational status: disabled Pets and animals: Yes (lab, yorkie, beagle) Pets & animals: dog(s) History of recent travel: No Leisure activites: art and other Leisure activities details: writing, watch TV Sexually active: Yes Current gender identity: Female Keyonna/Jain: None Special keyonna needs: No Agree to transfusion: Yes Financial difficulty paying for basics: Not Very Hard Female Reproductive History: Para: 0 Vitals/I&O/Wt Last Vital Signs Pulse 117 H 04/02/22 17:45 Resp 25 H 04/02/22 17:45 BP 80/59 04/02/22 17:45 Pulse Ox 84 L 04/02/22 17:45 O2 Del Method 04/02/22 17:00 O2 Flow Rate 4 04/02/22 17:00 04/02/22 04/02/22 04/02/22 06:59 14:59 22:59 Intake Total 4585.75 / 4585.75 Balance 4585.75 / 4585.75 Weight last 48 hrs Weight 93.44 kg Data 04/02/22 15:20 04/02/22 15:20 Micro: Microbiology 04/02/22 15:20 Blood Culture - Preliminary Blood SPECIMEN COLLECTED Coding Level of Care Code Acute Regulatory Affairs Assistant for Chg Janna
--- NOTE | 2022-04-02 18:05 | CTR_ITS ---
PROCEDURE INFORMATION: Exam: CTA Chest With Contrast Exam date and time: 04/02/2022 6:47 PM Age: 56 years old Clinical indication: Other: Shock TECHNIQUE: Imaging protocol: Computed tomographic angiography of the chest with contrast. 3D rendering (Not supervised by radiologist): MIP and/or 3D reconstructed images were created by the technologist. Radiation optimization: All CT scans at this facility use at least one of these dose optimization techniques: automated exposure control; mA and/or kV adjustment per patient size (includes targeted exams where dose is matched to clinical indication); or iterative reconstruction. Contrast material: OMNI 350; Contrast volume: 75 ml; Contrast route: INTRAVENOUS (IV); COMPARISON: CT angio chest PE protcl [id number] 01/13/2017 5:40 PM RADIATION DOSE METRICS: Total DLP (mGy-cm): 1428.33 FINDINGS: Tubes, catheters and devices: Right jugular approach central venous catheter tip terminates in the right atrium. Pulmonary arteries: Images are somewhat suboptimal/grainy making evaluation for pulmonary embolus difficult. No pulmonary embolus is visualized. Aorta: Unremarkable. No aortic aneurysm. No aortic dissection. Lungs: Multifocal patchy bilateral pulmonary infiltrates. Pleural spaces: Unremarkable. No pneumothorax. No pleural effusion. Heart: Unremarkable. No cardiomegaly. No pericardial effusion. Coronary arteries: Multivessel atherosclerotic disease which involves the coronary arteries. Lymph nodes: Multiple mediastinal and perihilar lymph nodes. Largest lymph node is pretracheal and measures 2.4 x 2.4 cm. Bones/joints: Unremarkable. No acute fracture. Soft tissues: Unremarkable. PROCEDURE INFORMATION: Exam: CT Abdomen And Pelvis With Contrast Exam date and time: 04/02/2022 6:47 PM Age: 56 years old Clinical indication: Other: Shock TECHNIQUE: Imaging protocol: Computed tomography of the abdomen and pelvis with contrast. Radiation optimization: All CT scans at this facility use at least one of these dose optimization techniques: automated exposure control; mA and/or kV adjustment per patient size (includes targeted exams where dose is matched to clinical indication); or iterative reconstruction. Contrast material: OMNI 350; Contrast volume: 75 ml; Contrast route: INTRAVENOUS (IV); COMPARISON: CT angio chest PE protcl [id number] 01/13/2017 5:40 PM RADIATION DOSE METRICS: Total DLP (mGy-cm): 1428.33 FINDINGS: Liver: The liver is enlarged measuring 17.6 cm. Gallbladder and bile ducts: Normal. No calcified stones. No ductal dilation. Pancreas: Normal. No ductal dilation. Spleen: Normal. No splenomegaly. Adrenal glands: Normal. No mass. Kidneys and ureters: Normal. No hydronephrosis. Stomach and bowel: Unremarkable. No obstruction. No mucosal thickening. Appendix: No evidence of appendicitis. Intraperitoneal space: Unremarkable. No free air. No significant fluid collection. Vasculature: Unremarkable. No abdominal aortic aneurysm. Lymph nodes: Unremarkable. No enlarged lymph nodes. Urinary bladder: There is a Chirinos catheter and air in the bladder. Reproductive: Unremarkable as visualized. Bones/joints: There are degenerative changes in the visualized spine. There are degenerative changes across the hip joints. There are degenerative changes in the visualized spine. Soft tissues: Right spigelian hernia. Other findings: Motion artifact does moderately limit the sensitivity of this examination. CT/CT angio chest w abd pel w con IMPRESSION: 1. Bilateral pneumonia. 2. Multivessel atherosclerotic disease which involves the coronary arteries. IMPRESSION: No acute findings.Non acute findings as described above.
--- NOTE | 2022-04-02 18:13 | PM.CONSULT ---
Providers/Reason For Consult Primary Care Provider: ANUJ Hernández History of Present Illness History of Present Illness Delia Winter is a 56 year old female Medications/Allergies Home Medications Medication Instructions Recorded Confirmed Last Taken Type prosthetic hands Bilateral #1 ea 05/02/19 03/30/22 Unknown Rx nitroglycerin 0.4 mg sublingual 0.4 mg sublingual Q5M PRN chest 01/28/20 03/30/22 Unknown Rx tablet pain #30 tabs blood-glucose sensor #3 ea 05/08/20 03/30/22 Unknown Rx flash glucose scanning reader #1 ea 06/14/20 03/30/22 Unknown Rx (FreeStyle Maria M 2 [place]) pen needle, diabetic 31 gauge x #450 ea 07/01/20 03/30/22 Unknown Rx 3/16 (Sure-Fine Pen [place]) prosthetic legs #1 ea 12/11/20 03/30/22 Unknown Rx methenamine hippurate 1 gram tablet 1 g PO BID #60 tabs 03/19/21 03/30/22 Unknown Rx liraglutide 0.6 mg/0.1 mL (18 mg/3 See Rx Instructions SUBCUT DAILY 06/01/21 03/30/22 Unknown Rx mL) subcutaneous pen injector #27 mL (Lloydgoff.comza 3-Christiano) fenofibrate 160 mg tablet 160 mg PO DAILY #90 tabs 06/02/21 03/30/22 Unknown Rx insulin lispro 100 unit/mL See Rx Instructions SUBCUT TID 06/11/21 03/30/22 Unknown History subcutaneous pen (Humalog KwikPen (U-100) Insulin) albuterol sulfate 2.5 mg/3 mL 2.5 mg inhalation Q6H PRN 06/30/21 03/30/22 Unknown History (0.083 %) solution for nebulization mupirocin 2 % topical ointment 1 applic topical BID PRN 06/30/21 03/30/22 Unknown History fluticasone propionate 50 1 spray intranasal Q12H #15.8 mL 07/22/21 03/30/22 Unknown Rx mcg/actuation nasal spray,suspension calcium alginate-honey 4 X 5 #10 ea 08/20/21 03/30/22 Unknown Rx bandage (MediHoney (calcium alginate-honey)) insulin detemir U-100 100 unit/mL 100 unit SUBCUT BID #170 mL 09/15/21 03/30/22 Unknown Rx (3 mL) subcutaneous pen (Levemir FlexTouch U-100 Insulin) rivaroxaban 20 mg tablet (Xarelto) See Rx Instructions .Route 10/12/21 03/30/22 Unknown Rx .COMPLEX #90 tabs flash glucose sensor (FreeStyle #6 ea 10/19/21 03/30/22 Unknown Rx Maria M 2 Sensor kit) albuterol sulfate 2.5 mg/3 mL 2.5 mg (3 mL) inhalation QID PRN 11/19/21 03/30/22 Unknown Rx (0.083 %) solution for nebulization shortness of breath or wheezing #180 mL aripiprazole 5 mg tablet (Abilify) 5 mg PO DAILY #30 tabs 12/14/21 03/30/22 Unknown Rx clonazepam 0.5 mg tablet 0.5 mg PO DAILY PRN anxiety 30 12/14/21 03/30/22 Unknown Rx days #30 tabs duloxetine 60 mg capsule,delayed 60 mg PO BID #60 caps 12/14/21 03/30/22 Unknown Rx release zolpidem 5 mg tablet 5 mg PO .qhs PRN insomnia 30 days 12/14/21 03/30/22 Unknown Rx #30 tabs clopidogrel 75 mg tablet See Rx Instructions .Route 01/19/22 03/30/22 Unknown Rx .COMPLEX #90 tabs lovastatin 40 mg tablet See Rx Instructions .Route 01/31/22 03/30/22 Unknown Rx .COMPLEX #90 tabs metoprolol tartrate 25 mg tablet See Rx Instructions .Route 02/14/22 03/30/22 Unknown Rx .COMPLEX #90 tabs gabapentin 600 mg tablet See Rx Instructions .Route 03/10/22 03/30/22 Unknown Rx .COMPLEX #90 tabs lisinopril 20 mg tablet See Rx Instructions .Route 03/14/22 03/30/22 Unknown Rx .COMPLEX #90 tabs oxycodone 10 mg tablet 10 mg PO TID PRN pain 30 days #70 03/14/22 03/30/22 Unknown Rx tabs azithromycin 250 mg tablet See Rx Instructions PO .COMPLEX #6 03/30/22 03/30/22 Unknown Rx (Zithromax Z-Christiano) tabs levothyroxine 112 mcg tablet See Rx Instructions .Route 03/30/22 Unknown Rx .COMPLEX #90 tabs promethazine-DM 6.25 mg-15 mg/5 mL 5 ml PO Q6H #118 mL 03/30/22 03/30/22 Unknown Rx oral syrup Allergies Allergy/AdvReac Type Severity Reaction Status Date / Time cephalexin [From Keflex] Allergy Mild DIARRHEA Verified 04/02/22 14:29 metformin Allergy Mild SWELLING Verified 04/02/22 14:29 Current Medications Generic Name Dose Route Start Last Admin Trade Name Hellen PRN Reason Stop Dose Admin Remdesivir 200 mg/ Sodium 100 mls @ 100 mls/hr 04/02/22 18:00 04/02/22 17:45 Chloride IV 04/02/22 18:59 100 mls/hr ONCE ONE Administration PFSH Acute PFSH: Medical History Above knee amputation of left lower extremity Above knee amputation of right lower extremity Amputation, hand, bilateral Anxiety Below-elbow amputation of left upper extremity Below-elbow amputation of right upper extremity Chronic pain Complete amputation of bilateral legs Coronary artery disease DM type 2 causing complication Enrolled in chronic care management History of amputation of lower extremity HTN (hypertension), benign Hx of sepsis Hyperlipemia, mixed Hypothyroidism Major depressive disorder, 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 Polyuria Psychiatric care Recurrent UTI Rheumatoid arthritis Urgency incontinence 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 Surgical History History of amputation of finger of both hands History of appendectomy Family History Father , at age 47 CAD (coronary artery disease) Hypertension Mother , at age 64 Diabetes Sister Diabetes Brother Diabetes Social History Smoking and tobacco status: current every day smoker cigarettes Packs smoked per day: 1.5 Years cigarettes smoked: 44 Quit status (tobacco): has tried quititng Number of times tried to quit tobacco: 3 Second hand smoke exposure: Yes Alcohol intake: current Alcohol intake frequency: holidays/special occasions only Alcohol type: wine Desire information about substance/drug rehabilitation?: No Adopted: No Caregiver/support person: No Lives independently: Yes Household members: significant other and family Housing: House Marital status: Single Marital status details: Life partner of 43 years Number of children: 0 Number of grandchildren: 0 Highest education level completed: High School Graduate service: No Current occupational status: disabled Pets and animals: Yes (lab, yorkie, beagle) Pets & animals: dog(s) History of recent travel: No Leisure activites: art and other Leisure activities details: writing, watch TV Sexually active: Yes Current gender identity: Female Keyonna/Restoration: None Special keyonna needs: No Agree to transfusion: Yes Financial difficulty paying for basics: Not Very Hard Female Reproductive History: Para: 0 Vitals/I&O/Wt Last Vital Signs Pulse 117 H 04/02/22 17:45 Resp 25 H 04/02/22 17:45 BP 80/59 04/02/22 17:45 Pulse Ox 84 L 04/02/22 17:45 O2 Del Method 04/02/22 17:00 O2 Flow Rate 4 04/02/22 17:00 04/02/22 04/02/22 04/02/22 06:59 14:59 22:59 Intake Total 4585.75 / 4585.75 Balance 4585.75 / 4585.75 Weight last 48 hrs Weight 93.44 kg Data 04/02/22 15:20 04/02/22 15:20 Micro: Microbiology 04/02/22 15:20 Blood Culture - Preliminary Blood SPECIMEN COLLECTED Coding Level of Care Code Acute 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
[2022-04-02] MEDS: iohexol 350 mg/mL 500 mL Btl (per mL) IV (18:16)
--- NOTE | 2022-04-02 19:11 | PC.NURSE ---
After this nurse completed the sepsis bolus, the patient started to have audible crackles and increased WOB. This nurse then increased the NC from 3L to 6L. after 30 minutes the patient started to have decreased WOB and the crackles was no longer audible.
--- NOTE | 2022-04-02 19:36 | P.HP_ITS ---
Providers/Chief Complaint Admitting Physician: Haylie Tobar MD Primary Care Provider: ANUJ Hernández Chief Complaint: CHEST PAIN History of Present Illness Delia Winter is a 56 year old female who got transferred from [place] [facility] for concern of STEMI. 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 In last 24 hours he has noticed 3-4 episodes of emesis. Her shortness of breath gradually got worse. She experienced 1 episode of chest pain on Monday only, which she is describing as sharp pain which did not recur. She was evaluated by Dr. Mcelroy in the ER she does not have EKG changes consistent with STEMI She is extremely hypertensive, she seems to be in hypovolemic shock Received multiple boluses of IV fluid No leukocytosis or fever does not meet sepsis criteria however she has been given antibiotics for possible pneumonia In the ER she has been diagnosed with COVID-19 pneumonia I have requested CTA chest abdomen pelvis after seeing high D-dimer which did not show PE it is consistent with bilateral pneumonia No active chest pain, no signs of obstructive shock, hemoglobin is stable no signs of bleeding, Baseline troponin 83, without significant delta 434 BNP, UA showing signs of UTI Review of Systems Const: Reports: fever(s) and chills Eyes: Denies: change in vision ENMT: Denies: throat pain Card: Reports: chest pain and orthopnea Resp: Reports: dyspnea and productive cough GI: Reports: abdominal pain, nausea and diarrhea : Denies: flank pain Musc: Denies: neck pain Skin/Breast: Denies: skin tenderness Neuro: Denies: headache(s) Psych: Reports: anxiety Endo: Denies: polyuria [place]/Lymph: Denies: easy bruising All/Imm: Denies: urticaria Medications/Allergies Home Medications Medication Instructions Recorded Confirmed Last Taken Type prosthetic hands Bilateral #1 ea 05/02/19 03/30/22 Unknown Rx nitroglycerin 0.4 mg sublingual 0.4 mg sublingual Q5M PRN chest 01/28/20 03/30/22 Unknown Rx tablet pain #30 tabs blood-glucose sensor #3 ea 05/08/20 03/30/22 Unknown Rx flash glucose scanning reader #1 ea 06/14/20 03/30/22 Unknown Rx (FreeStyle Maria M 2 [place]) pen needle, diabetic 31 gauge x #450 ea 07/01/20 03/30/22 Unknown Rx 3/16 (Sure-Fine Pen [place]) prosthetic legs #1 ea 12/11/20 03/30/22 Unknown Rx methenamine hippurate 1 gram tablet 1 g PO BID #60 tabs 03/19/21 03/30/22 Unknown Rx liraglutide 0.6 mg/0.1 mL (18 mg/3 See Rx Instructions SUBCUT DAILY 06/01/21 03/30/22 Unknown Rx mL) subcutaneous pen injector #27 mL (Victoza 3-Christiano) fenofibrate 160 mg tablet 160 mg PO DAILY #90 tabs 06/02/21 03/30/22 Unknown Rx insulin lispro 100 unit/mL See Rx Instructions SUBCUT TID 06/11/21 03/30/22 Unknown History subcutaneous pen (Humalog KwikPen (U-100) Insulin) albuterol sulfate 2.5 mg/3 mL 2.5 mg inhalation Q6H PRN 06/30/21 03/30/22 Unknown History (0.083 %) solution for nebulization mupirocin 2 % topical ointment 1 applic topical BID PRN 06/30/21 03/30/22 Unknown History fluticasone propionate 50 1 spray intranasal Q12H #15.8 mL 07/22/21 03/30/22 Unknown Rx mcg/actuation nasal spray,suspension calcium alginate-honey 4 X 5 #10 ea 08/20/21 03/30/22 Unknown Rx bandage (MediHoney (calcium alginate-honey)) insulin detemir U-100 100 unit/mL 100 unit SUBCUT BID #170 mL 09/15/21 03/30/22 Unknown Rx (3 mL) subcutaneous pen (Levemir FlexTouch U-100 Insulin) rivaroxaban 20 mg tablet (Xarelto) See Rx Instructions .Route 10/12/21 03/30/22 Unknown Rx .COMPLEX #90 tabs flash glucose sensor (FreeStyle #6 ea 10/19/21 03/30/22 Unknown Rx Maria M 2 Sensor kit) albuterol sulfate 2.5 mg/3 mL 2.5 mg (3 mL) inhalation QID PRN 11/19/21 03/30/22 Unknown Rx (0.083 %) solution for nebulization shortness of breath or wheezing #180 mL aripiprazole 5 mg tablet (Abilify) 5 mg PO DAILY #30 tabs 12/14/21 03/30/22 Unknown Rx clonazepam 0.5 mg tablet 0.5 mg PO DAILY PRN anxiety 30 12/14/21 03/30/22 Unknown Rx days #30 tabs duloxetine 60 mg capsule,delayed 60 mg PO BID #60 caps 12/14/21 03/30/22 Unknown Rx release zolpidem 5 mg tablet 5 mg PO .qhs PRN insomnia 30 days 12/14/21 03/30/22 Unknown Rx #30 tabs clopidogrel 75 mg tablet See Rx Instructions .Route 01/19/22 03/30/22 Unknown Rx .COMPLEX #90 tabs lovastatin 40 mg tablet See Rx Instructions .Route 01/31/22 03/30/22 Unknown Rx .COMPLEX #90 tabs metoprolol tartrate 25 mg tablet See Rx Instructions .Route 02/14/22 03/30/22 Unknown Rx .COMPLEX #90 tabs gabapentin 600 mg tablet See Rx Instructions .Route 03/10/22 03/30/22 Unknown Rx .COMPLEX #90 tabs lisinopril 20 mg tablet See Rx Instructions .Route 03/14/22 03/30/22 Unknown Rx .COMPLEX #90 tabs oxycodone 10 mg tablet 10 mg PO TID PRN pain 30 days #70 03/14/22 03/30/22 Unknown Rx tabs azithromycin 250 mg tablet See Rx Instructions PO .COMPLEX #6 03/30/22 03/30/22 Unknown Rx (Zithromax Z-Christiano) tabs levothyroxine 112 mcg tablet See Rx Instructions .Route 03/30/22 Unknown Rx .COMPLEX #90 tabs promethazine-DM 6.25 mg-15 mg/5 mL 5 ml PO Q6H #118 mL 03/30/22 03/30/22 Unknown Rx oral syrup Allergies Allergy/AdvReac Type Severity Reaction Status Date / Time cephalexin [From Keflex] Allergy Mild DIARRHEA Verified 04/02/22 14:29 metformin Allergy Mild SWELLING Verified 04/02/22 14:29 PFSH Acute PFSH: Medical History Above knee amputation of left lower extremity Above knee amputation of right lower extremity Amputation, hand, bilateral Anxiety Below-elbow amputation of left upper extremity Below-elbow amputation of right upper extremity Chronic pain Complete amputation of bilateral legs Coronary artery disease DM type 2 causing complication Enrolled in chronic care management History of amputation of lower extremity HTN (hypertension), benign Hx of sepsis Hyperlipemia, mixed Hypothyroidism Major depressive disorder, 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 Polyuria Psychiatric care Recurrent UTI Rheumatoid arthritis Urgency incontinence 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 Surgical History History of amputation of finger of both hands History of appendectomy Family History Father , at age 47 CAD (coronary artery disease) Hypertension Mother , at age 64 Diabetes Sister Diabetes Brother Diabetes Social History Smoking and tobacco status: current every day smoker cigarettes Packs smoked per day: 1.5 Years cigarettes smoked: 44 Quit status (tobacco): has tried quititng Number of times tried to quit tobac co: 3 Second hand smoke exposure: Yes Alcohol intake: current Alcohol intake frequency: holidays/special occasions only Alcohol type: wine Desire information about substance/drug rehabilitation?: No Adopted: No Caregiver/support person: No Lives independently: Yes Household members: significant other and family Housing: House Marital status: Single Marital status details: Life partner of 43 years Number of children: 0 Number of grandchildren: 0 Highest education level completed: High School Graduate service: No Current occupational status: disabled Pets and animals: Yes (lab, yorkie, beagle) Pets & animals: dog(s) History of recent travel: No Leisure activites: art and other Leisure activities details: writing, watch TV Sexually active: Yes Current gender identity: Female Keyonna/Zoroastrianism: None Special keyonna needs: No Agree to transfusion: Yes Financial difficulty paying for basics: Not Very Hard Female Reproductive History: Para: 0 Vitals/I&O/Wt Last Vital Signs Pulse 128 H 04/02/22 19:15 Resp 33 H 04/02/22 19:15 BP 116/90 04/02/22 18:15 Pulse Ox 89 L 04/02/22 19:15 O2 Del Method 04/02/22 18:58 O2 Flow Rate 6 04/02/22 18:58 04/02/22 04/02/22 04/02/22 06:59 14:59 22:59 Intake Total 4685.75 / 4685.75 Balance 4685.75 / 4685.75 Weight last 48 hrs Weight 93.44 kg Physical Exam Narrative: Patient is currently on 6 L nasal cannula Bilateral breath sounds with crackles and rhonchi Awake and alert GCS 15 No respiratory distress no conversational dyspnea at the time of evaluation Skin is mottled towards her back She has not complaining every chest pain S1, S2 sinus tachycardia, no signs of active fluid overload EOMI, PERRLA Nonfocal neuro exam Quadruple limb amputation noted Abdomen distended, visceral obesity nontender Chirinos catheter draining concentrated urine Clinically patient looks dehydrated Anxious. Significant other at the bedside Right-sided IJ in place Urinary Catheter Management: Chirinos: Cath Placed During This Visit: yes Reason for Continuing Indwelling Catheter: Accurate Measurement of Urinary Output in Critically Ill Patients Urinary Catheter Date of Insertion: 04/02/22 Urinary Catheter Time of Insertion: 16:50 Data 04/02/22 15:20 04/02/22 15:20 Micro: Microbiology 04/02/22 18:22 Blood Culture - Preliminary Blood SPECIMEN COLLECTED 04/02/22 15:20 Blood Culture - Preliminary Blood SPECIMEN COLLECTED A&P Assessment and plan (1) Hypovolemic shock: (2) COVID-19: (3) UTI (urinary tract infection): (4) Pressure sore on buttocks: (5) Stage II pressure ulcer of left buttock: (6) Amputation leg, bilat: Qualifiers: Encounter type: sequela Qualified Code(s): S88.911S - Complete traumatic amputation of right lower leg, level unspecified, sequela; S88.912S - Complete traumatic amputation of left lower leg, level unspecified, sequela (7) Anxiety: (8) Major depressive disorder, recurrent severe without psychotic features: (9) Recurrent UTI: (10) Rheumatoid arthritis: Qualifiers: Rheumatoid arthritis location: multiple sites Rheumatoid factor presence: unspecified presence Qualified Code(s): M06.9 - Rheumatoid arthritis, unspecified (11) DM type 2 causing complication: (12) HTN (hypertension), benign: (13) Hypothyroidism: (14) Diabetes mellitus: Qualifiers: Diabetes mellitus type: type 2 Diabetes mellitus snf insulin use: with termite control representative use Diabetes mellitus complication status: with hyperglycemia Qualified Code(s): E11.65 - Type 2 diabetes mellitus with hyperglycemia; Z79.4 - vermin exterminator (current) use of insulin Plan Hypovolemic shock Patient is responding to IV fluids Cortisol normal, TSH normal No active chest pain, no signs of PE No signs of bleeding This most likely is related to hypovolemia, related to poor p.o. intake, diarrhea Admit to ICU Use vasopressors if needed Right IJ placed by the ER physician Check echo in the morning Mild normal anion gap metabolic acidosis could be related to diarrhea, mild hyponatremia noted as well with high chloride level UTI: No active signs of sepsis, abnormal UA noted, no signs of hydronephrosis, lactic acid is normal no leukocytosis Currently on antibiotic COVID-19 related pneumonia Acute hypoxia related to COVID-19 Currently on 6 L Requested ABG High D-dimer however no signs of PE She takes Xarelto at home If her creatinine worsens more than 1.5, creatinine clearance decreasing less than 30 we might have to change Xarelto dose or switch to heparin Start remdesivir and Decadron Concern for postviral bacterial pneumonia procalcitonin is high, added cefepime and vancomycin, check MRSA PCR Type 2 diabetes Reduce the dose of long-acting insulin because of poor p.o. intake Moderate dose sliding scale Consistent carb diet Active smoker: No acute agitation Would use nicotine patch if needed Sinus tachycardia: No signs of STEMI, troponin without significant delta No active chest pain Patient is full code discussed with her and her significant other Attestations Medical Necessity Statement*: Anticipating more than 2 midnights for management of hypovolemic shock Time Spent in Patient Care: 40 Coding Level of Care Code Acute Concession Cashier for Sidra Saldivar Diagnoses Hypovolemic shock R57.1 COVID-19 U07.1 UTI (urinary tract infection) N39.0 Pressure sore on buttocks L89.309 Stage II pressure ulcer of left buttock L89.322 Amputation leg, bilat S88.911S; S88.912S Encounter type: sequela Anxiety F41.9 Major depressive disorder, recurrent severe without psychotic features F33.2 Recurrent UTI N39.0 Rheumatoid arthritis M06.9 Rheumatoid arthritis location: multiple sites Rheumatoid factor presence: unspecified presence DM type 2 causing complication E11.8 HTN (hypertension), benign I10 Hypothyroidism E03.9 Diabetes mellitus E11.65; Z79.4 Diabetes mellitus type: type 2 Diabetes mellitus termite control representative insulin use: with termite control representative use Diabetes mellitus complication status: with hyperglycemia
[2022-04-02 20:06] LABS: ABG PCO2 27.5 mmHg (35-45); ABG PH Result 7.31 (7.35-7.45); Arterial Blood Gas Hematocrit 38.6 % (37-47); Base Excess ABG -10.8 mmol/L (-2.0-2.0); Blood Gas Allen Test Pos; Blood Gas Sample Site Brachial, right; Blood Gas Sample Type Arterial; HCO3 ABG 13.9 mmol/L (22-26); Oxygen Device NC
[2022-04-02] MEDS: morphine IR 15 mg Tablet PO (20:21)
--- NOTE | 2022-04-02 20:26 | ECG_ITS ---
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 Measurements Intervals [place] Rate: 119 P: 262 FL: 128 QRS: -37 QRSD: 98 T: 37 QT: 355 QTc: 501 Interpretive Statements SINUS TACHYCARDIA LEFT AXIS DEVIATION [QRS AXIS < -30] LOW QRS VOLTAGE IN PRECORDIAL LEADS [QRS DEFLECTION < 1.0 mV IN CHEST LEADS] POSSIBLE ANTERIOR MYOCARDIAL INFARCTION , OF INDETERMINATE AGE [30 ms Q WAVE IN V3/V4, OR R < 0.2 mV IN V4] Compared to ECG 04/02/2022 16:23:12 Left-axis deviation now present Sinus tachycardia no longer present Left anterior fascicular block no longer present Myocardial infarct finding still present Electronically Signed On 04-03-2022 8:25:13 HAIR CUTTER by Elsa Sebastian M.D. [id number]
[2022-04-02] MEDS: albuterol 2.5 mg/3 mL Neb INHALATION (20:37)
[2022-04-02 21:19] LABS: Lactate (Lactic Acid level) 2.1 mmol/L (0.5-2.2)
[2022-04-02 21:21] LABS: Troponin 5 6HR 86.36 ng/L (0-10)
[2022-04-02 21:22] LABS: Troponin 5 6HR Delta 3.36 ng/L (0-12)
[2022-04-02 21:39] LABS: Procalcitonin 33.73 ng/mL (0-0.5); Thyroid Stimulating Hormone 0.79 uIU/mL (0.27-4.20); Vitamin B12 462 pg/mL (232-1245)
[2022-04-02] MEDS: sodium bicarbonate 8.4% 1 mEq/mL 50mL Syr 100 MEQ IVP (21:39)
[2022-04-02 21:50] LABS: Alanine Aminotransferase 30 U/L (0-33); Albumin Level 2.3 g/dL (3.5-5.2); Alkaline Phosphatase 122 U/L (35-105); Anion Gap 16.9 (5-19); Aspartate Amino Transferase 64 U/L (0-32); Blood Urea Nitrogen 23 mg/dL (6-20); Calcium 6.8 mg/dL (8.5-10.5); Carbon Dioxide 13 mmol/L (22-29); Chloride 106 mmol/L (98-107); Globulin 3.5 g/dL (1.3-4.6); Glomerular Filtration Rate 56.9 mL/min (90-130); Glucose 314 mg/dL (65-115); Osmolality Calculated 288 mOsm/kg (285-295); Potassium 4.9 mmol/L (3.5-5.1); Sodium 131 mmol/L (136-145); Total Bilirubin 0.6 mg/dL (0.15-1.2); Total Protein 5.8 g/dL (6.6-8.7)
[2022-04-02] MEDS: calcium gluconate 0.9% NaCL 1 GM/50 ML PREMIX IV (21:53)
[2022-04-02] MEDS: cefepime 1,000 MG in sodium chloride 0.9% (plus) 50 ML 100 MG IV (21:53)
[2022-04-02] MEDS: sodium bicarbonate 150 MEQ in dextrose 5% 1,000 ML 100 MEQ IV (22:58)
[2022-04-02] MEDS: vancomycin 500 MG in sodium chloride 0.9% (plus) 100 ML 200 MG IV (23:07)
[2022-04-02] MEDS: sodium chloride 0.9% 1,000 ML 100 ML IV (23:23)
[2022-04-03] VITALS (84 sets, daily range): BP systolic 77–135; BP diastolic 45–98; PULSE 92–126; RESP 11–43; TEMP 36.8–38.6; O2SAT 64–99; BMI 44.4
[2022-04-03] MEDS: acetaminophen 325 mg Tablet 650 MG PO (01:21)
[2022-04-03 01:51] LABS: Base Excess VBG -4.6 mmol/L (-3.0-3.0); Blood Gas Operator Identificat JB; Blood Gas Sample Site Not specified; Blood Gas Sample Type Venous; HCO3 VBG 19.3 mmol/L (24-28); Oxygen Device HAG; PCO2 VBG 30.9 mmHg (41-51); PO2 VBG 38.1 mmHg (25-40)
[2022-04-03 01:53] LABS: Hematocrit 34.9 % (37.0-47.0); Hemoglobin 11.4 g/dL (11.5-15.3); Mean Corpuscular HGB Conc 32.7 g/dL (30.0-36.0); Mean Corpuscular Hemoglobin 27.3 pg (28.0-34.0); Mean Corpuscular Volume 83.5 fl (81-99); Mean Platelet Volume 10.6 fL (7.4-10.4); Platelet Count 338 10^3/cmm (130-400); Red Blood Count 4.18 10^6/uL (4.1-5.3); Red Cell Distribution Width 16.6 % (12.1-15.1); White Blood Count 8.1 10^3/uL (4.0-10.0)
[2022-04-03 02:04] LABS: Amphetamines Screen Urine Negative (Negative); Barbiturates Screen Urine Negative (Negative); Benzodiazepines Screen Urine Negative (Negative); Cocaine Screen Urine Negative (Negative); Opiate Screen Urine Positive (Negative); PCP Screen Urine Negative (Negative); THC Screen Urine Negative (Negative)
[2022-04-03 02:22] LABS: Alanine Aminotransferase 28 U/L (0-33); Albumin Level 2.1 g/dL (3.5-5.2); Alkaline Phosphatase 97 U/L (35-105); Anion Gap 18.5 (5-19); Aspartate Amino Transferase 47 U/L (0-32); Blood Urea Nitrogen 19 mg/dL (6-20); C Reactive Protein 226.8 mg/L (0.0-4.9); Calcium 7.4 mg/dL (8.5-10.5); Carbon Dioxide 17 mmol/L (22-29); Chloride 101 mmol/L (98-107); Globulin 3.6 g/dL (1.3-4.6); Glomerular Filtration Rate 73.7 mL/min (90-130); Glucose 322 mg/dL (65-115); Magnesium 1.6 mg/dL (1.7-2.3); Osmolality Calculated 289 mOsm/kg (285-295); Phosphorus 2.2 mg/dL (2.5-4.5); Potassium 4.5 mmol/L (3.5-5.1); Sodium 132 mmol/L (136-145); Total Bilirubin 0.6 mg/dL (0.15-1.2); Total Protein 5.7 g/dL (6.6-8.7)
[2022-04-03] MEDS: morphine IR 15 mg Tablet PO (02:22)
[2022-04-03 02:24] LABS: Lactate (Lactic Acid level) 2.3 mmol/L (0.5-2.2)
[2022-04-03 02:35] LABS: Slide Review Slide Review Perform
[2022-04-03 02:40] LABS: Absolute Neutrophil 6.7 10^3/cmm (1.4-6.5); Absolute Segmented Neutrophil 3.2 10/cmm (1.6-7.1); Band Neutrophils Absolute 3.6 10^3/cmm (0.0-1.2); Eosinophils 0 %; Lymphocytes 5 %; Lymphocytes Absolute 0.4 10^3/cmm (1.2-3.4); Monocytes Absolute 0.4 10^3/cmm (0.1-0.6); Platelet Estimate Normal (Normal); Segmented Neutrophils 39 %; Total Cells Counted 100 (0-100); Toxic Granulation 2+
[2022-04-03 04:12] LABS: Glucose Point of Care 369 mg/dL (70-110)
--- NOTE | 2022-04-03 04:17 | PC.NURSE ---
Pt arrived to ICU 10 from ER via stretcher on continuos monitoring and oxygen via NC 11L @0318. Continuos monitoring continued. Oxygen decreased to 6L NC. HR 103. SpO2. 99%. RR 16.
--- NOTE | 2022-04-03 06:00 | USCV_ITS ---
Delia Winter Age: 56 Gender: F : 1965 Exam Date: 04/03/2022 06:34 Ordering Phys: Haylie Tobar MD Technologist: Espinoza Resendiz [place] [facility] [place]: [place] BP: 94 / 57 HR: 99 Rhythm: Sinus Technical Quality: Adequate MEASUREMENTS (Male / Female) Normal Values 2D ECHO LV Diastolic Diameter PLAX 3.6 cm 4.2 - 5.9 / 3.9 - 5.3 cm LV Systolic Diameter PLAX 2.6 cm IVS Diastolic Thickness 0.9 cm 0.6 - 1.0 / 0.6 - 0.9 cm IVS Systolic Thickness 1.6 cm LVPW Diastolic Thickness 1.1 cm 0.6 - 1.0 / 0.6 - 0.9 cm LVPW Systolic Thickness 1.3 cm LVOT Diameter 2.1 cm LV Ejection Fraction 2D Teich 54.2 % LA Diameter 3.5 cm IVC Diameter 1.3 cm M-MODE Aortic Annulus Diameter 3.3 cm LA Ao Ratio MM 1.3 MV E Point Septal Separation 0.3 cm DOPPLER AV Peak Velocity 147.0 cm/s LVOT Peak Velocity 90.0 cm/s AV Area Cont Eq vti 2.7 cm squared AV Area Cont Eq pk 2.0 cm squared MV Area PHT 5.0 cm squared Mitral E to A Ratio 4.8 MV E' Velocity 70.0 cm/s Mitral E to MV E' Ratio 23.0 Mitral E to LV E' Lateral Ratio 21.2 Mitral E to LV E' Septal Ratio 25.7 TR Peak Velocity 130.0 cm/s TR Peak Gradient 6.8 mmHg TV Peak E Velocity 132.0 cm/s Right Atrial Pressure 3.0 mmHg Pulmonary Artery Systolic Pressu 9.8 mmHg PV Peak Velocity 77.0 cm/s RV Acceleration Time 0.1 s FINDINGS Left Ventricle Normal left ventricular size, systolic function and wall thickness, with no regional wall motion abnormalities. Left ventricular ejection fraction is estimated at 65 %. EA fusion due to tachycardia. Right Ventricle Normal right ventricular size and systolic function. RVSP could not be calculated due to incomplete tricuspid regurgitation velocity profile. Right Atrium Normal right atrial size. Left Atrium Normal left atrial size. Mitral Valve Structurally normal mitral valve. No mitral valve stenosis. No mitral valve regurgitation. Aortic Valve Aortic valve not well visualized. No aortic valve stenosis. No aortic valve regurgitation. Tricuspid Valve Structurally normal tricuspid valve. No tricuspid valve stenosis. Trace tricuspid valve regurgitation. Pulmonic Valve Pulmonic valve not well visualized. No pulmonary valve stenosis. No pulmonary valve regurgitation. Pericardium No pericardial effusion. Aorta Normal size aortic root and proximal ascending aorta. IVC Normal IVC dimension with >50% respiratory change of the inferior vena cava. CONCLUSIONS 1. Normal left ventricular size, systolic function and wall thickness, with no regional wall motion abnormalities. Left ventricular ejection fraction is estimated at 65 %. 2. Normal right ventricular size and systolic function. 3. No prior similar studies to compare. Elsa Sebastian MD (Electronically Signed) Final Date: 03 April 2022 11:10 S
[2022-04-03 06:25] LABS: Ferritin 641 ng/mL (15-150)
[2022-04-03 08:29] LABS: Glucose Point of Care 332 mg/dL (70-110)
[2022-04-03] MEDS: sodium chloride 0.9% 1,000 ML 100 ML IV (08:33)
[2022-04-03] MEDS: cefepime 1,000 MG in sodium chloride 0.9% (plus) 50 ML 100 MG IV ×2 (08:33→19:12)
[2022-04-03] MEDS: ascorbic acid 500 mg Tablet PO (08:34)
[2022-04-03] MEDS: insulin lispro 100 unit/1 mL SUBCUT ×3 (08:34→17:34)
[2022-04-03] MEDS: zinc gluconate 50 mg Tablet PO (08:35)
[2022-04-03] MEDS: pantoprazole 40 mg SDV IVP ×2 (08:35→17:34)
[2022-04-03] MEDS: levothyroxine 112 mcg Tablet PO (08:35)
[2022-04-03] MEDS: rivaroxaban 10 mg Tablet 20 MG PO (08:35)
[2022-04-03] MEDS: calcium gluconate 0.9% NaCL 1 GM/50 ML PREMIX IV (08:35)
[2022-04-03] MEDS: dexamethasone 4 mg Tablet 6 MG PO (08:36)
[2022-04-03 09:41] LABS: ABG PCO2 35.1 mmHg (35-45); ABG PH Result 7.43 (7.35-7.45); Arterial Blood Gas Hematocrit 37.5 % (37-47); Base Excess ABG -0.6 mmol/L (-2.0-2.0); Blood Gas Operator Identificat GD; Blood Gas Sample Site Brachial, right; Blood Gas Sample Type Arterial; HCO3 ABG 23.3 mmol/L (22-26); Oxygen Device NC; PO2 ABG 56.8 mmHg (80.0-100.0)
[2022-04-03] MEDS: sodium bicarbonate 150 MEQ in dextrose 5% 1,000 ML 100 MEQ IV (09:54)
[2022-04-03] MEDS: insulin glargine 100 units/1 mL 64 UNIT SUBCUT ×2 (09:54→17:34)
--- NOTE | 2022-04-03 10:11 | PM.PN ---
Subjective Subjective: Seen this morning. Patient has been on a bicarb drip since last night. Urine culture positive for gram-negative rods. She is still on 4 mics of Levophed at this time. However awake alert sitting up in bed appearing comfortable. On 3 L nasal cannula. Does not use any nasal cannula at home. Chirinos catheter was placed on admission. Patient currently on cefepime along with vancomycin. Patient is COVID-positive. Vitals/I&O/Wt Last Vital Signs Temp 99.0 F 04/03/22 05:30 Pulse 102 H 04/03/22 08:57 Resp 18 04/03/22 08:57 BP 85/49 04/03/22 06:00 Pulse Ox 95 04/03/22 08:57 O2 Del Method 04/03/22 08:57 O2 Flow Rate 2 04/03/22 08:57 FiO2 60 04/03/22 01:33 04/02/22 04/03/22 04/03/22 22:59 06:59 14:59 Intake Total 4685.75 / 4685.75 532.296 / 5218.046 2075.532 / 2075.532 Output Total 3550 / 3550 Balance 4685.75 / 4685.75 -3017.704 / 9236.945 8077.532 / 2075.532 Weight last 48 hrs Weight 50.53 kg Weight 93.44 kg Physical Exam Narrative: Patient is currently on 3 L nasal cannula Lungs mainly clear to auscultation with very mild rhonchi present. I do not appreciate any crackles at this time. Patient not in any respiratory distress, no conversational dyspnea. Appears fairly comfortable. Denies any chest pain at this time. Nonfocal neuro exam. Regular rate and rhythm, S1-S2. Quadruple limb palpitation noted. Abdomen obese rounded, nontender, no guarding present. Chirinos catheter draining concentrated urine. Patient appears somewhat euvolemic. Right-sided IJ in place Urinary Catheter Management: Chirinos: Cath Placed During This Visit: yes Reason for Continuing Indwelling Catheter: Accurate Measurement of Urinary Output in Critically Ill Patients Urinary Catheter Date of Insertion: 04/02/22 Urinary Catheter Time of Insertion: 16:50 Data 04/03/22 01:45 04/03/22 01:45 Micro: Microbiology 04/02/22 17:25 Urine Culture - Preliminary Urine,Clean Catch Gram Negative Rods 04/02/22 17:25 Bacterial Antigens - Final Urine,Voided 04/02/22 17:25 Legionella Urinary Antigen - Final Urine Catheterized 04/02/22 18:22 Blood Culture - Preliminary Blood SPECIMEN COLLECTED 04/02/22 15:20 Blood Culture - Preliminary Blood SPECIMEN COLLECTED A&P Assessment and plan (1) Hypovolemic shock: (2) COVID-19: (3) UTI (urinary tract infection): (4) Pressure sore on buttocks: (5) Stage II pressure ulcer of left buttock: (6) Amputation leg, bilat: Qualifiers: Encounter type: sequela Qualified Code(s): S88.911S - Complete traumatic amputation of right lower leg, level unspecified, sequela; S88.912S - Complete traumatic amputation of left lower leg, level unspecified, sequela (7) Anxiety: (8) Major depressive disorder, recurrent severe without psychotic features: (9) Recurrent UTI: (10) Rheumatoid arthritis: Qualifiers: Rheumatoid arthritis location: multiple sites Rheumatoid factor presence: unspecified presence Qualified Code(s): M06.9 - Rheumatoid arthritis, unspecified (11) DM type 2 causing complication: (12) HTN (hypertension), benign: (13) Hypothyroidism: (14) Diabetes mellitus: Qualifiers: Diabetes mellitus type: type 2 Diabetes mellitus half-way insulin use: with long term care social worker use Diabetes mellitus complication status: with hyperglycemia Qualified Code(s): E11.65 - Type 2 diabetes mellitus with hyperglycemia; Z79.4 - snf (current) use of insulin Plan #Septic shock #Hypovolemic shock #Sepsis secondary to UTI #COVID-19 related pneumonia #Acute hypoxia related to COVID-19 #Diabetes type 2 #Insulin-dependent #History of coronary artery disease #Hypothyroidism #Reported arthritis #Chronic pain #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 Await sensitivity ? Positive for bandemia, severe metabolic acidosis ? Hypovolemic shock responsive to fluids and eventually requiring pressors ? Cortisol normal, TSH normal. ? PE ruled out ? Patient also reported diarrhea at home however that has improved at this time. This is most likely secondary to COVID. ? Stop bicarb drip at this time as bicarb has normalized. ? Wean off Levophed as able ? Continue remdesivir and Decadron ? Continue vancomycin, cefepime, check MRSA nares PCR ? Moderate dose sliding scale ? Consistent carbohydrate diet ? Patient actively smoke. ? Continue aripiprazole, Plavix, levothyroxine, metoprolol tartrate 25 daily, Xarelto. Full code DVT prophylaxis: On Xarelto Attestations Medical Necessity Statement*: Continue care in the ICU. Patient is critically ill requiring vasopressor support. Expect 48 to 72-hour stay in the hospital. Critical Care Time: 60 Coding Level of Care Code Acute Pharmacy Graduate Intern for g Fwd Diagnoses Hypovolemic shock R57.1 COVID-19 U07.1 UTI (urinary tract infection) N39.0 Pressure sore on buttocks L89.309 Stage II pressure ulcer of left buttock L89.322 Amputation leg, bilat S88.911S; S88.912S Encounter type: sequela Anxiety F41.9 Major depressive disorder, recurrent severe without psychotic features F33.2 Recurrent UTI N39.0 Rheumatoid arthritis M06.9 Rheumatoid arthritis location: multiple sites Rheumatoid factor presence: unspecified presence DM type 2 causing complication E11.8 HTN (hypertension), benign I10 Hypothyroidism E03.9 Diabetes mellitus E11.65; Z79.4 Diabetes mellitus type: type 2 Diabetes mellitus half-way insulin use: with half-way use Diabetes mellitus complication status: with hyperglycemia
[2022-04-03 12:06] LABS: Glucose Point of Care 300 mg/dL (70-110)
[2022-04-03 15:44] LABS: Basophils # 0.1 10^3/uL (0.0-0.1); Basophils % 0.7 %; Hematocrit 33.8 % (37.0-47.0); Hemoglobin 11.6 g/dL (11.5-15.3); Lymphocytes # 0.9 10^3/uL (0.8-4.8); Lymphocytes % 8.7 %; Mean Corpuscular HGB Conc 34.3 g/dL (30.0-36.0); Mean Corpuscular Volume 81.4 fl (81-99); Monocytes # 0.3 10^3/uL (0.2-0.9); Monocytes % 2.8 %; Neutrophils # 8.12 10^3/uL (1.8-7.7); Neutrophils % 77.6 %; Nucleated Red Blood Cells % 0 %; Platelet Count 311 10^3/cmm (130-400); Red Blood Count 4.15 10^6/uL (4.1-5.3); Red Cell Distribution Width 16.2 % (12.1-15.1); White Blood Count 10.5 10^3/uL (4.0-10.0)
[2022-04-03] MEDS: sodium chloride 0.9% 1,000 ML 30 ML IV (15:50)
[2022-04-03 16:06] LABS: Alanine Aminotransferase 25 U/L (0-33); Albumin Level 2.1 g/dL (3.5-5.2); Alkaline Phosphatase 99 U/L (35-105); Anion Gap 12.1 (5-19); Aspartate Amino Transferase 34 U/L (0-32); Blood Urea Nitrogen 14 mg/dL (6-20); Calcium 8.1 mg/dL (8.5-10.5); Carbon Dioxide 27 mmol/L (22-29); Chloride 100 mmol/L (98-107); Creatinine Clr Calc Pharmacy 97.8317; Globulin 3.7 g/dL (1.3-4.6); Glomerular Filtration Rate 126.7 mL/min (90-130); Glucose 286 mg/dL (65-115); Osmolality Calculated 291 mOsm/kg (285-295); Potassium 4.1 mmol/L (3.5-5.1); Sodium 135 mmol/L (136-145); Total Bilirubin 0.5 mg/dL (0.15-1.2); Total Protein 5.8 g/dL (6.6-8.7)
[2022-04-03 16:13] LABS: Procalcitonin 21.94 ng/mL (0-0.5)
[2022-04-03 17:33] LABS: Glucose Point of Care 241 mg/dL (70-110)
[2022-04-03] MEDS: remdesivir 100 MG in sodium chloride 0.9% (100 ml) 100 ML IV (18:00)
[2022-04-03] MEDS: ipratropium-albuterol 3 mL Neb INHALATION (18:36)
[2022-04-03 21:24] LABS: Glucose Point of Care 181 mg/dL (70-110)
[2022-04-03] MEDS: vancomycin 500 MG in sodium chloride 0.9% (plus) 100 ML 200 MG IV (22:20)
--- NOTE | 2022-04-03 22:49 | PC.NURSE ---
During 2200 assessment patient's lungs were noticeably more crackled throughout. Patient reported difficulty breathing, however Sp02 was in the low 90s. Dr. Delacruz was contacted and order to stop fluids and one time dose of lasix received.
[2022-04-03] MEDS: FUROsemide 10 mg/mL SDV 4mL 40 MG IVP (23:00)
--- NOTE | 2022-04-03 23:29 | P.MISC_ITS ---
Miscellaneous Note Purpose of Documentation: response to CDI query for admission 04/02/2022 Note: patient came in from [facility] for concern of STEMI. At that hospital, she was found to be covid positive. We did not repeat test once patient arrived here. She had COVID 19 pneumonia.
[2022-04-04] VITALS (81 sets, daily range): BP systolic 91–171; BP diastolic 45–101; PULSE 65–97; RESP 9–30; TEMP 36.4–36.9; O2SAT 86–99
[2022-04-04] MEDS: morphine IR 15 mg Tablet PO ×3 (02:04→22:06)
--- NOTE | 2022-04-04 03:57 | PM.PN ---
Subjective Subjective: Afebrile since04/03 Overnight IV fluids were held, she was given Lasix, negative fluid balance Mild leukocytosis Echo showed preserved ejection fraction Acidosis has improved Bicarb drip turned off Currently on 6 L nasal cannula Vitals/I&O/Wt Last Vital Signs Temp 98.2 F 04/03/22 19:00 Pulse 90 04/04/22 00:15 Resp 26 H 04/04/22 02:04 BP 118/63 04/04/22 00:15 Pulse Ox 90 04/04/22 02:04 O2 Del Method 04/03/22 23:30 O2 Flow Rate 6 04/03/22 23:30 FiO2 60 04/03/22 01:33 04/03/22 04/03/22 04/04/22 14:59 22:59 06:59 Intake Total 2939.644 / 2939.644 200 / 3139.644 Output Total 1800 / 1800 900 / 2700 300 / 3000 Balance 1139.644 / 1139.644 -700 / 439.644 -300 / 139.644 Weight last 48 hrs Weight 50.53 kg Weight 93.44 kg Physical Exam Narrative: History of extremity amputation related to vasospastic complication related to vasopressors in the past Skin mottling has improved Currently on 6 L nasal cannula Crackles noted on lung auscultation Right IJ in place Abdomen soft nontender Indwelling Chirinos catheter EOMI, PERRLA Awake alert x3 GCS 15 No significant skin ulcers Urinary Catheter Management: Chirinos: Cath Placed During This Visit: yes Reason for Continuing Indwelling Catheter: Accurate Measurement of Urinary Output in Critically Ill Patients Urinary Catheter Date of Insertion: 04/02/22 Urinary Catheter Time of Insertion: 16:50 Data 04/03/22 15:10 04/03/22 15:10 Micro: Microbiology 04/02/22 18:22 Blood Culture - Preliminary Blood 04/02/22 15:20 Blood Culture - Preliminary Blood NEGATIVE TO DATE 04/03/22 01:45 MRSA Culture - Final Nose 04/02/22 17:25 Urine Culture - Preliminary Urine,Clean Catch Gram Negative Rods 04/02/22 17:25 Bacterial Antigens - Final Urine,Voided 04/02/22 17:25 Legionella Urinary Antigen - Final Urine Catheterized A&P Assessment and plan (1) Hypovolemic shock: (2) COVID-19: (3) UTI (urinary tract infection): (4) Pressure sore on buttocks: (5) Stage II pressure ulcer of left buttock: (6) Amputation leg, bilat: Qualifiers: Encounter type: sequela Qualified Code(s): S88.911S - Complete traumatic amputation of right lower leg, level unspecified, sequela; S88.912S - Complete traumatic amputation of left lower leg, level unspecified, sequela (7) Anxiety: (8) Major depressive disorder, recurrent severe without psychotic features: (9) Recurrent UTI: (10) Rheumatoid arthritis: Qualifiers: Rheumatoid arthritis location: multiple sites Rheumatoid factor presence: unspecified presence Qualified Code(s): M06.9 - Rheumatoid arthritis, unspecified (11) DM type 2 causing complication: (12) HTN (hypertension), benign: (13) Hypothyroidism: (14) Diabetes mellitus: Qualifiers: Diabetes mellitus complication status: with hyperglycemia Diabetes mellitus half-way insulin use: with half-way use Diabetes mellitus type: type 2 Qualified Code(s): E11.65 - Type 2 diabetes mellitus with hyperglycemia; Z79.4 - alf (current) use of insulin Assessment & Plan (1) Hypovolemic shock: Code(s): R57.1 - Hypovolemic shock Category: Medical Status: Acute (2) COVID-19: Code(s): U07.1 - COVID-19 Category: Medical Status: Acute (3) UTI (urinary tract infection): Code(s): N39.0 - Urinary tract infection, site not specified Category: Medical Status: Acute (4) Pressure sore on buttocks: Code(s): L89.309 - Pressure ulcer of unspecified buttock, unspecified stage Category: Medical Status: Acute (5) Stage II pressure ulcer of left buttock: Code(s): L89.322 - Pressure ulcer of left buttock, stage 2 Category: Medical Status: Acute (6) Amputation leg, bilat: Code(s): S88.911A - Complete traumatic amputation of right lower leg, level unspecified, initial encounter; S88.912A - Complete traumatic amputation of left lower leg, level unspecified, initial encounter Category: Medical Qualifiers: Encounter type: sequela Qualified Code(s): S88.911S - Complete traumatic amputation of right lower leg, level unspecified, sequela; S88.912S - Complete traumatic amputation of left lower leg, level unspecified, sequela Status: Acute (7) Anxiety: Code(s): F41.9 - Anxiety disorder, unspecified Category: Medical Status: Acute (8) Major depressive disorder, recurrent severe without psychotic features: Code(s): F33.2 - Major depressive disorder, recurrent severe without psychotic features Category: Medical Status: Acute (9) Recurrent UTI: Code(s): N39.0 - Urinary tract infection, site not specified Category: Medical Status: Acute (10) Rheumatoid arthritis: Code(s): M06.9 - Rheumatoid arthritis, unspecified Category: Medical Qualifiers: Rheumatoid arthritis location: multiple sites Rheumatoid factor presence: unspecified presence Qualified Code(s): M06.9 - Rheumatoid arthritis, unspecified Status: Acute (11) DM type 2 causing complication: Code(s): E11.8 - Type 2 diabetes mellitus with unspecified complications Category: Medical Status: Acute (12) HTN (hypertension), benign: Code(s): I10 - Essential (primary) hypertension Category: Medical Status: Acute (13) Hypothyroidism: Code(s): E03.9 - Hypothyroidism, unspecified Category: Medical Status: Acute (14) Diabetes mellitus: Code(s): E11.9 - Type 2 diabetes mellitus without complications Category: Medical Qualifiers: Diabetes mellitus complication status: with hyperglycemia Diabetes mellitus half-way insulin use: with half-way use Diabetes mellitus type: type 2 Qualified Code(s): E11.65 - Type 2 diabetes mellitus with hyperglycemia; 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.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 Status: Acute Patient Instructions: Sepsis/hypovolemic shock Vasopressors weaned off Urine culture gram-negative rods, blood culture most likely contamination Gram-positive delmis Continue cefepime and vancomycin MRSA PCR negative once we have final blood culture report then will discontinue vancomycin Continue cefepime for Metabolic acidosis related to lactic acidemia improved bicarb drip turned off COVID-19 related hypoxia Currently on 6 L nasal cannula Monitor for superimposed bacterial infection high procalcitonin noted Finish 5 days remdesivir and Decadron course Type 2 diabetes with hyperglycemia, adjust insulin regimen Patient is on Xarelto Creatinine has not worsened, continue same dose Full code Consistent carb diet Fluids turned off today she was given 1 dose of Lasix monitor for any signs of fluid overload with underlying COVID-19 which can develop into ARDS She can potentially be transferred out of ICU however last night she required Levophed for short amount of time, hopefully will be able to transfer out by tomorrow Did tell the patient that we will be able to discharge her if her oxygen saturations remains above 92% on supplemental oxygen below 5 L Attestations Medical Necessity Statement*: Continue ICU management Time Spent in Patient Care: 40 Critical Care Time: 35mins Coding Level of Care Code Acute Lollypop Machine Operator for g Fwd Diagnoses Hypovolemic shock R57.1 COVID-19 U07.1 UTI (urinary tract infection) N39.0 Pressure sore on buttocks L89.309 Stage II pressure ulcer of left buttock L89.322 Amputation leg, bilat S88.911S; S88.912S Encounter type: sequela Anxiety F41.9 Major depressive disorder, recurrent severe without psychotic features F33.2 Recurrent UTI N39.0 Rheumatoid arthritis M06.9 Rheumatoid arthritis location: multiple sites Rheumatoid factor presence: unspecified presence DM type 2 causing complication E11.8 HTN (hypertension), benign I10 Hypothyroidism E03.9 Diabetes mellitus E11.65; Z79.4 Diabetes mellitus complication status: with hyperglycemia Diabetes mellitus half-way insulin use: with termite treater use Diabetes mellitus type: type 2
[2022-04-04 04:20] LABS: Creatine Phosphokinase 167 U/L (26-192); Lactate Dehydrogenase 432 U/L (135-214)
[2022-04-04 04:22] LABS: Anion Gap 11.9 (5-19); Blood Urea Nitrogen 16 mg/dL (6-20); Calcium 8.5 mg/dL (8.5-10.5); Carbon Dioxide 29 mmol/L (22-29); Chloride 101 mmol/L (98-107); Glomerular Filtration Rate 102.7 mL/min (90-130); Glucose 134 mg/dL (65-115); Osmolality Calculated 289 mOsm/kg (285-295); Potassium 3.9 mmol/L (3.5-5.1); Sodium 138 mmol/L (136-145)
[2022-04-04 04:34] LABS: Troponin(5th) Baseline 39 ng/L (0-10)
[2022-04-04 04:41] LABS: Basophils # 0.1 10^3/uL (0.0-0.1); Basophils % 0.7 %; Eosinophils % 0.2 %; Hematocrit 34.8 % (37.0-47.0); Hemoglobin 11.7 g/dL (11.5-15.3); Lymphocytes # 1.4 10^3/uL (0.8-4.8); Lymphocytes % 10.9 %; Mean Corpuscular HGB Conc 33.6 g/dL (30.0-36.0); Mean Corpuscular Hemoglobin 27.1 pg (28.0-34.0); Mean Corpuscular Volume 80.7 fl (81-99); Mean Platelet Volume 11.3 fL (7.4-10.4); Monocytes # 0.5 10^3/uL (0.2-0.9); Monocytes % 3.7 %; Neutrophils # 10.47 10^3/uL (1.8-7.7); Neutrophils % 81.5 %; Nucleated Red Blood Cells % 0 %; Platelet Count 298 10^3/cmm (130-400); Red Blood Count 4.31 10^6/uL (4.1-5.3); Red Cell Distribution Width 16.1 % (12.1-15.1); White Blood Count 12.8 10^3/uL (4.0-10.0)
[2022-04-04] MEDS: sodium chloride 0.9% 250 ML IV (05:04)
[2022-04-04 05:16] LABS: Slide Review Slide Review Perform
[2022-04-04 07:42] LABS: Troponin 5 2HR 33.86 ng/L (0-10)
[2022-04-04 07:43] LABS: Troponin 5 2HR Delta -5.14 ABS# (0-10)
--- NOTE | 2022-04-04 07:46 | ECG_ITS ---
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 Measurements Intervals [place] Rate: 87 P: 47 RI: 214 QRS: -21 QRSD: 104 T: 21 QT: 390 QTc: 471 Interpretive Statements SINUS RHYTHM WITH FIRST DEGREE AV BLOCK WITH OCCASIONAL VENTRICULAR PREMATURE COMPLEXES LOW QRS VOLTAGE [QRS DEFLECTION < 0.5/1.0 mV IN LIMB/CHEST LEADS] POSSIBLE ANTERIOR MYOCARDIAL INFARCTION , OF INDETERMINATE Compared to ECG 04/02/2022 20:37:32 Ventricular premature complex(es) now present First degree AV block now present Sinus tachycardia no longer present Left-axis deviation no longer present Myocardial infarct finding still present Electronically Signed On 04-04-2022 6:05:35 RETAIL ASSISTANT STORE MANAGER by Elsa Sebastian M.D. [id number]
[2022-04-04] MEDS: rivaroxaban 10 mg Tablet 20 MG PO (08:09)
[2022-04-04] MEDS: zinc gluconate 50 mg Tablet PO (08:09)
[2022-04-04] MEDS: dexamethasone 4 mg Tablet 6 MG PO (08:09)
[2022-04-04] MEDS: ascorbic acid 500 mg Tablet PO (08:09)
[2022-04-04] MEDS: levothyroxine 112 mcg Tablet PO (08:09)
[2022-04-04 08:10] LABS: Glucose Point of Care 94 mg/dL (70-110)
[2022-04-04] MEDS: pantoprazole 40 mg SDV IVP ×2 (08:10→17:39)
[2022-04-04] MEDS: insulin glargine 100 units/1 mL 64 UNIT SUBCUT ×2 (08:10→17:39)
[2022-04-04] MEDS: cefepime 1,000 MG in sodium chloride 0.9% (plus) 50 ML 100 MG IV (08:10)
--- NOTE | 2022-04-04 09:37 | PC.CHAP ---
Pastoral Care Encounter/Spiritual Assessment Type of Contact [] Declined hall director visit [] Patient/Family/Request visit [] Outpatient visit [] Follow-up visit [] Physician referral [] Code/Alert [x] Routine visit [] Staff referral [] Actively dying [] Patient sleeping [] Family support [] [] Out of room [] Palliative care [] [x] Receiving care in room [] Pre-surgical visit [] Trauma [] Long length of stay [x] ICU visit [] Other: Relational/Emotional Strength [] Patient feels connected with others/family/visitors/staff [] Distress [] Loneliness/isolation [] Abandonment Spirituality of Patient [] Person of Keyonna [] Attends Yarsani of their Keyonna [] Believes in Prayer [] Reads Bible or Christianity materials [] There are Spiritual issues to be addressed Can Line Operator Interventions [x] Prayer [] Active listening [] Non-anxious presence [] Spiritual/emotional support [] Crisis/trauma care [] Spiritual counseling [] Bereavement support [] Provided bereavement packet [] Provided Bible/devotional materials [] Provided toy/stuffed animal, coloring book to patient or family member [] Provided Communion [] Anointing/[place] [] Salvation [x] Completed spiritual assessment [] Other: Impact on Illness or Injury [] Angry [] Fearful [] Anxious [] Often cries [] Exhaustion [] Unable to work [] Unable to attend amish [] Unable to walk/stand [] Unable to read [] Unable to drive [] Unable to eat/drink [] Unable to sleep [] Unable to be with family [] Patient intubated [] Other: Summary Time spent with patient
--- NOTE | 2022-04-04 10:30 | PC.RESP ---
pt unable to give sputum sample at this time
[2022-04-04 11:30] LABS: Troponin 5 6HR 32.92 ng/L (0-10)
[2022-04-04 11:35] LABS: Troponin 5 6HR Delta -6.08 ng/L (0-12)
[2022-04-04 12:47] LABS: Glucose Point of Care 137 mg/dL (70-110)
[2022-04-04 16:40] LABS: Glucose Point of Care 138 mg/dL (70-110)
[2022-04-04] MEDS: remdesivir 100 MG in sodium chloride 0.9% (100 ml) 80 ML IV (18:03)
[2022-04-04 21:36] LABS: Glucose Point of Care 125 mg/dL (70-110)
[2022-04-04 21:53] LABS: Vancomycin Trough < 4.0 ug/mL (10-15)
[2022-04-04] MEDS: vancomycin 500 MG in sodium chloride 0.9% (plus) 100 ML 100 MG IV (22:09)
[2022-04-05] VITALS (40 sets, daily range): BP systolic 135–181; BP diastolic 71–98; PULSE 60–86; RESP 12–29; TEMP 36.4–36.8; O2SAT 88–98
[2022-04-05 02:10] LABS: Basophils % 0.2 %; Hematocrit 32.8 % (37.0-47.0); Lymphocytes # 1.7 10^3/uL (0.8-4.8); Lymphocytes % 12.9 %; Mean Corpuscular HGB Conc 33.5 g/dL (30.0-36.0); Mean Corpuscular Hemoglobin 27.4 pg (28.0-34.0); Mean Corpuscular Volume 81.8 fl (81-99); Mean Platelet Volume 10.5 fL (7.4-10.4); Monocytes # 0.5 10^3/uL (0.2-0.9); Monocytes % 3.7 %; Neutrophils # 10.84 10^3/uL (1.8-7.7); Neutrophils % 82.9 %; Nucleated Red Blood Cells % 0 %; Platelet Count 278 10^3/cmm (130-400); Red Blood Count 4.01 10^6/uL (4.1-5.3); Red Cell Distribution Width 16.2 % (12.1-15.1); White Blood Count 13.1 10^3/uL (4.0-10.0)
[2022-04-05 02:39] LABS: Anion Gap 9.8 (5-19); Blood Urea Nitrogen 20 mg/dL (6-20); Calcium 8.6 mg/dL (8.5-10.5); Carbon Dioxide 29 mmol/L (22-29); Chloride 100 mmol/L (98-107); Creatine Phosphokinase 59 U/L (26-192); Creatinine Clr Calc Pharmacy 97.8317; Glomerular Filtration Rate 126.7 mL/min (90-130); Glucose 115 mg/dL (65-115); Lactate Dehydrogenase 396 U/L (135-214); Osmolality Calculated 284 mOsm/kg (285-295); Potassium 3.8 mmol/L (3.5-5.1); Sodium 135 mmol/L (136-145)
[2022-04-05] MEDS: morphine IR 15 mg Tablet PO ×2 (06:12→21:05)
[2022-04-05 08:23] LABS: Glucose Point of Care 124 mg/dL (70-110)
[2022-04-05] MEDS: cefepime 1,000 MG in sodium chloride 0.9% (plus) 50 ML 100 MG IV (08:24)
[2022-04-05] MEDS: pantoprazole 40 mg SDV IVP ×2 (09:24→17:38)
[2022-04-05] MEDS: levothyroxine 112 mcg Tablet PO (09:24)
[2022-04-05] MEDS: rivaroxaban 10 mg Tablet 20 MG PO (09:24)
[2022-04-05] MEDS: ascorbic acid 500 mg Tablet PO (09:24)
[2022-04-05] MEDS: zinc gluconate 50 mg Tablet PO (09:24)
[2022-04-05] MEDS: acetaminophen 325 mg Tablet 650 MG PO (09:25)
[2022-04-05] MEDS: insulin glargine 100 units/1 mL 64 UNIT SUBCUT ×2 (09:25→17:54)
--- NOTE | 2022-04-05 10:56 | PC.CHAP ---
Pastoral Care Encounter/Spiritual Assessment Type of Contact [] Declined field assembly supervisor visit [] Patient/Family/Request visit [] Outpatient visit [] Follow-up visit [] Physician referral [] Code/Alert [x] Routine visit [] Staff referral [] Actively dying [] Patient sleeping [] Family support [] [] Out of room [] Palliative care [] [x] Receiving care in room [] Pre-surgical visit [] Trauma [] Long length of stay [x] ICU visit [x] Other: not resting well... pt has no hands Relational/Emotional Strength [] Patient feels connected with others/family/visitors/staff [] Distress [] Loneliness/isolation [] Abandonment Spirituality of Patient [] Person of Keyonna [] Attends Bahai of their Keyonna [] Believes in Prayer [] Reads Bible or Faith materials [] There are Spiritual issues to be addressed Osteologist Interventions [x] Prayer [] Active listening [] Non-anxious presence [] Spiritual/emotional support [] Crisis/trauma care [] Spiritual counseling [] Bereavement support [] Provided bereavement packet [] Provided Bible/devotional materials [] Provided toy/stuffed animal, coloring book to patient or family member [] Provided Communion [] Anointing/[place] [] Salvation [x] Completed spiritual assessment [] Other: Impact on Illness or Injury [] Angry [] Fearful [] Anxious [] Often cries [] Exhaustion [] Unable to work [] Unable to attend evangelical [] Unable to walk/stand [] Unable to read [] Unable to drive [] Unable to eat/drink [] Unable to sleep [] Unable to be with family [] Patient intubated [] Other: Summary Time spent with patient
[2022-04-05 11:25] LABS: Glucose Point of Care 96 mg/dL (70-110)
--- NOTE | 2022-04-05 12:35 | PM.PN ---
Subjective Subjective: Patient is doing well on 5 L nasal cannula Good adequate urine output Diarrhea improved No significant febrile events in last 24 hours Patient can be moved out of ICU to [facility] [place] As per the nursing staff she required Levophed for short period of time last night Vitals/I&O/Wt Last Vital Signs Temp 97.6 F 04/05/22 08:00 Pulse 74 04/05/22 08:00 Resp 20 H 04/05/22 08:00 BP 165/80 04/05/22 08:00 Pulse Ox 97 04/05/22 08:00 O2 Del Method 04/05/22 08:00 O2 Flow Rate 4 04/05/22 08:00 FiO2 45 04/04/22 04:00 04/04/22 04/05/22 04/05/22 22:59 06:59 14:59 Intake Total 220 / 870 100 / 970 120 / 120 Output Total 550 / 550 600 / 1150 Balance -330 / 320 -500 / -180 120 / 120 Physical Exam Narrative: Patient is not complaining of active pain Rash noted on her face Currently doing well on 5 L nasal cannula Abdomen soft Nonfocal neuro exam Hemodynamically stable Pleasant and cooperative Skin mottling has improved Urine catheter draining yellow-colored urine Urinary Catheter Management: Chirinos: Cath Placed During This Visit: yes Reason for Continuing Indwelling Catheter: Accurate Measurement of Urinary Output in Critically Ill Patients Urinary Catheter Date of Insertion: 04/02/22 Urinary Catheter Time of Insertion: 16:50 Data 04/05/22 01:55 04/05/22 01:55 Micro: Microbiology 04/02/22 17:25 Urine Culture - Final Urine,Clean Catch Enterobacter cloacae A&P Assessment and plan (1) Influenza B: (2) Bilateral pneumonia: (3) UTI (urinary tract infection): (4) COVID-19: (5) Hypovolemic shock: (6) UTI (urinary tract infection): Qualifiers: Urinary tract infection type: acute cystitis Hematuria presence: with hematuria Qualified Code(s): N30.01 - Acute cystitis with hematuria (7) Anxiety: (8) Major depressive disorder, recurrent severe without psychotic features: Plan Hypovolemic and sepsis/Shock Resolved Leukocytosis related to his use of Decadron Patient has been afebrile in last 24 hours discontinue vancomycin continue cefepime, MRSA PCR Urine culture showing Enterobacter Blood culture negative Most likely will need Levaquin at the time of discharge Patient requires vasopressors on and off however I think it is related to blood pressure cuff on her system Hemodynamically stable I will transfer her out of ICU to [facility] [place] COVID-19 pneumonia finished remdesivir and Decadron regimen Hypoxia related to COVID-19 currently doing well on 5 L nasal cannula Continue Xarelto Full code Consistent carb diet IV fluids discontinued Attestations Medical Necessity Statement*: Possible discharge in next 40 hours Critical Care Time: 30 Coding Level of Care Code 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
--- NOTE | 2022-04-05 13:01 | PC.SOCIAL ---
Imm update Imm updated with friend Mckenna by phone. Copy of page 2 provided. Mckenna verbalized understanding. Copy in chart initialed, dated and timed.
--- NOTE | 2022-04-05 13:35 | PC.NURSE ---
1315 Got patient up into bedside chair via goldy lift. Tolerated well. Call light and phone in patients reach.
[2022-04-05] MEDS: vancomycin 750 MG in sodium chloride 0.9% 250 ML 250 MG IV (14:04)
--- NOTE | 2022-04-05 15:31 | PC.NURSE ---
1515 Placed patient back into bed via goldy lift. Tolerated well. Got patient comfortable and phone and call light in reach.
[2022-04-05 16:48] LABS: Glucose Point of Care 49 mg/dL (70-110)
[2022-04-05] MEDS: remdesivir 100 MG in sodium chloride 0.9% (100 ml) 80 ML IV (17:38)
[2022-04-05 21:46] LABS: Glucose Point of Care 60 mg/dL (70-110)
--- NOTE | 2022-04-05 22:43 | PC.NURSE ---
TRANSFER FROM ICU Pt was transferred to floor from ICU. Is alert and oriented. Anxious and reported that she calls for nurses west. Already has asked if we can sit and talk with her. Pt has amputations of all 4 extremties. Can use the flat call light provided. Uses stylus in R arm stump to use phone. Needs assist with drinks. Fan in room and air down low. She likes room to be cold. Stumps of both of her arms turn dark purple and says this is normal for her. O2 in place at 5l per NC. Has triple lumen CVL to R IJ. On isolation for COVIC and FLU+. Chirinos cath in place.
[2022-04-06] VITALS (8 sets, daily range): BP systolic 113–173; BP diastolic 56–94; PULSE 77–89; RESP 17–22; TEMP 36.4–36.6; O2SAT 88–98
[2022-04-06 00:28] LABS: Glucose Point of Care 49 mg/dL (70-110)
--- NOTE | 2022-04-06 00:46 | PC.NURSE ---
[facility] ICU had called to say BS earlier was 60 and had not received anything for it. Accucheck done and was 49. Pt alert and able to drink. Drinking juice and snack offered but did not want anything to eat. Consented to drink carton of Ensure. Will recheck Zach
[2022-04-06 01:21] LABS: Glucose Point of Care 99 mg/dL (70-110)
--- NOTE | 2022-04-06 01:21 | PC.NURSE ---
ACCUCHECK Accucheck is now 99
[2022-04-06] MEDS: morphine IR 15 mg Tablet PO (03:01)
[2022-04-06 04:26] LABS: Basophils % 0.3 %; Eosinophils % 0.1 %; Hematocrit 37.5 % (37.0-47.0); Hemoglobin 12.6 g/dL (11.5-15.3); Lymphocytes # 2.9 10^3/uL (0.8-4.8); Lymphocytes % 19.3 %; Mean Corpuscular HGB Conc 33.6 g/dL (30.0-36.0); Mean Corpuscular Hemoglobin 27.2 pg (28.0-34.0); Mean Platelet Volume 10.7 fL (7.4-10.4); Monocytes # 0.5 10^3/uL (0.2-0.9); Monocytes % 3.2 %; Neutrophils # 11.51 10^3/uL (1.8-7.7); Neutrophils % 76.6 %; Nucleated Red Blood Cells % 0 %; Platelet Count 308 10^3/cmm (130-400); Red Blood Count 4.63 10^6/uL (4.1-5.3); Red Cell Distribution Width 16.4 % (12.1-15.1)
[2022-04-06 04:49] LABS: Anion Gap 11.1 (5-19); Blood Urea Nitrogen 14 mg/dL (6-20); Calcium 8.2 mg/dL (8.5-10.5); Carbon Dioxide 27 mmol/L (22-29); Chloride 98 mmol/L (98-107); Creatine Phosphokinase 59 U/L (26-192); Glomerular Filtration Rate 163.9 mL/min (90-130); Glucose 112 mg/dL (65-115); Lactate Dehydrogenase 373 U/L (135-214); Osmolality Calculated 277 mOsm/kg (285-295); Potassium 3.1 mmol/L (3.5-5.1); Sodium 133 mmol/L (136-145)
[2022-04-06 06:33] LABS: Glucose Point of Care 43 mg/dL (70-110)
--- NOTE | 2022-04-06 06:45 | PC.NURSE ---
ACCUCHECK Accucheck back to 43 this morning. Awake and drank 8oz Anderson juice. Will recheck
[2022-04-06 07:29] LABS: Glucose Point of Care 81 mg/dL (70-110)
[2022-04-06] MEDS: ascorbic acid 500 mg Tablet PO (08:48)
[2022-04-06] MEDS: levothyroxine 112 mcg Tablet PO (08:49)
[2022-04-06] MEDS: zinc gluconate 50 mg Tablet PO (08:49)
[2022-04-06] MEDS: rivaroxaban 10 mg Tablet 20 MG PO (08:49)
[2022-04-06] MEDS: pantoprazole 40 mg SDV IVP (08:49)
[2022-04-06] MEDS: cefepime 1,000 MG in sodium chloride 0.9% (plus) 50 ML 100 MG IV (09:56)
[2022-04-06] MEDS: ipratropium-albuterol 3 mL Neb INHALATION (10:04)
[2022-04-06 10:43] LABS: Glucose Point of Care 141 mg/dL (70-110)
--- NOTE | 2022-04-06 11:17 | P.DS_ITS ---
Discharge Providers Date of Admission: 04/02/22 18:04 Date of Discharge: April 06, 2022 Attending Provider at Admission: Haylie Tobar MD Attending Provider at Discharge: Haylie Tobar MD Primary Care Provider: ANUJ Hernández Diagnoses at Discharge Discharge Diagnosis (1) Influenza B: Status: Acute (2) Bilateral pneumonia: Status: Acute (3) UTI (urinary tract infection): Status: Acute (4) COVID-19: Status: Acute (5) Hypovolemic shock: Status: Acute (6) UTI (urinary tract infection): Status: Acute Qualifiers: Hematuria presence: with hematuria Urinary tract infection type: acute cystitis Qualified Code(s): N30.01 - Acute cystitis with hematuria (7) Anxiety: Status: Acute (8) Major depressive disorder, recurrent severe without psychotic features: Status: Acute Reason for Visit Reason for Visit: CHEST PAIN Hospital Course Hospital Course 56-year female with 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 She was admitted to ICU for septic shock received aggressive IV fluid hydration along Levophed. Urine culture showed Enterobacter, pansensitive. Her oxygen requirement was 6 L on admission which gradually improved to 4 L at the time of discharge. Blood culture showing contamination. Please note she was transferred from an outside facility for concern of STEMI however there was no ischemic or infarctive changes on EKG she was evaluated by the bench machine operator in the ER. CTA did not show any signs of PE. She has high D- dimer related to sepsis. She never complained of any chest pain. Echo showed EF 65%. Patient will be discharged home on 4 L nasal cannula, Levaquin for her UTI. She does have inhalers at home, she was counseled not to smoke. She does not want to go to any skilled nursing. Chirinos catheter will be removed before discharge Physical Exam Narrative: Patient is not complaining of active pain Rash noted on her face Currently doing well on 4 L nasal cannula Abdomen soft Nonfocal neuro exam Hemodynamically stable Pleasant and cooperative Skin mottling has improved Urine catheter draining yellow-colored urine Urinary Catheter Management: Chirinos: Cath Placed During This Visit: yes, but has since been removed by the nurse Reason for Continuing Indwelling Catheter: Decision to DC Catheter Urinary Catheter Date of Insertion: 04/02/22 Urinary Catheter Time of Insertion: 16:50 Date Urinary Catheter Removed: 04/06/22 Time Urinary Catheter Discontinued: 09:50 Discharge Data Studies Completed and Pending Completed Studies During Hospitalization Category Date Time Status CT angio chest w abd pel w con Stat Cat Scan 04/02/22 18:05 Completed XR chest 1V portable [id number] Stat Exams 04/02/22 14:25 Completed XR chest 1V portable [id number] Stat Exams 04/02/22 16:22 Completed CV. echo complete* [id number] Routine Ultrasound 04/03/22 06:00 Completed Pending at discharge Category Date Time Status Blood Culture Stat Lab 04/02/22 18:22 Results Sputum Culture and Gram Stain Stat Lab 04/02/22 16:35 Uncollected Sputum Culture and Gram Stain Stat Lab 04/02/22 19:50 Uncollected Sputum Culture and Gram Stain Stat Lab 04/03/22 14:53 Uncollected Radiology Impressions Chest X-Ray 04/02/22 16:22 IMPRESSION: 1. Bilateral pulmonary opacities are similar to the prior study. 2. Tip of the central venous catheter projects over the right atrium. Chest/Abdomen/Pelvis CT 04/02/22 18:05 IMPRESSION: 1. Bilateral pneumonia. 2. Multivessel atherosclerotic disease which involves the coronary arteries. IMPRESSION: No acute findings.Non acute findings as described above. Laboratory Results WBC 15.0 10^3/uL (4.0-10.0) H 04/06/22 04:02 RBC 4.63 10^6/uL (4.1-5.3) 04/06/22 04:02 Hgb 12.6 g/dL (11.5-15.3) 04/06/22 04:02 Hct 37.5 % (37.0-47.0) 04/06/22 04:02 MCV 81.0 fl (81-99) 04/06/22 04:02 MCH 27.2 pg (28.0-34.0) L 04/06/22 04:02 MCHC 33.6 g/dL (30.0-36.0) 04/06/22 04:02 RDW 16.4 % (12.1-15.1) H 04/06/22 04:02 Plt Count 308 10^3/cmm (130-400) 04/06/22 04:02 MPV 10.7 fL (7.4-10.4) H 04/06/22 04:02 Neut % (Auto) 76.6 % 04/06/22 04:02 Lymph % (Auto) 19.3 % 04/06/22 04:02 [place] % (Auto) 3.2 % 04/06/22 04:02 Eos % (Auto) 0.1 % 04/06/22 04:02 Baso % (Auto) 0.3 % 04/06/22 04:02 Neut # (Auto) 11.51 10^3/uL (1.8-7.7) H 04/06/22 04:02 Lymph # (Auto) 2.9 10^3/uL (0.8-4.8) 04/06/22 04:02 [place] # (Auto) 0.5 10^3/uL (0.2-0.9) 04/06/22 04:02 Eos # (Auto) 0.0 10^3/uL (0.0-0.8) 04/06/22 04:02 Baso # (Auto) 0.0 10^3/uL (0.0-0.1) 04/06/22 04:02 Nucleated RBC % (auto) 0 % 04/06/22 04:02 Total Counted 100 (0-100) 04/03/22 01:45 Atypical Lymphs % 0.0 % (0-5) 04/03/22 01:45 Absolute Neutrophils 6.7 10^3/cmm (1.4-6.5) H 04/03/22 01:45 Segmented Neutrophils 39 % 04/03/22 01:45 Abs Segm Neuts (Man) 3.2 10/cmm (1.6-7.1) 04/03/22 01:45 Band Neutrophils 44.0 % 04/03/22 01:45 Abs Band Neuts (Man) 3.6 10^3/cmm (0.0-1.2) H 04/03/22 01:45 Absolute Lymphocytes 0.4 10^3/cmm (1.2-3.4) L 04/03/22 01:45 Lymphocytes (Manual) 5 % 04/03/22 01:45 Monocytes (Manual) 5.0 % 04/03/22 01:45 Absolute Monocytes 0.4 10^3/cmm (0.1-0.6) 04/03/22 01:45 Eosinophils (Manual) 0 % 04/03/22 01:45 Absolute Eosinophils 0.0 10^3/cmm (0.0-0.7) 04/03/22 01:45 Basophils (Manual) 0.0 % 04/03/22 01:45 Absolute Basophils 0.0 10^3/cmm (0.0-0.2) 04/03/22 01:45 Metamyelocytes 6.0 % 04/03/22 01:45 Myelocytes 1.0 % 04/03/22 01:45 Nucleated RBCs # 0.0 /100WBC 04/06/22 04:02 Toxic Granulation 2+ H 04/03/22 01:45 Platelet Estimate Normal (Normal) 04/03/22 01:45 D-Dimer 7.66 ug/mIFEU (0-0.59) H 04/02/22 15:20 Specimen Type Arterial 04/03/22 09:20 Sample Site Brachial, right 04/03/22 09:20 ABG pH 7.43 (7.35-7.45) 04/03/22 09:20 ABG pCO2 35.1 mmHg (35-45) 04/03/22 09:20 ABG pO2 56.8 mmHg (80.0-100.0) L 04/03/22 09:20 ABG HCO3 23.3 mmol/L (22-26) 04/03/22 09:20 ABG Base Excess -0.6 mmol/L (-2.0-2.0) 04/03/22 09:20 Eduard Test N/a 04/03/22 09:20 VBG pH 7.40 (7.32-7.42) 04/03/22 01:45 VBG pCO2 30.9 mmHg (41-51) L 04/03/22 01:45 VBG pO2 38.1 mmHg (25-40) 04/03/22 01:45 VBG HCO3 19.3 mmol/L (24-28) L 04/03/22 01:45 VBG Base Excess -4.6 mmol/L (-3.0-3.0) L 04/03/22 01:45 VBG Hematocrit 36.0 % (37-47) L 04/03/22 01:45 Hematocrit 37.5 % (37-47) 04/03/22 09:20 O2 Delivery Device Nc 04/03/22 09:20 O2 Liters/Min 2.0 % 04/03/22 09:20 FiO2 28.0 % 04/03/22 09:20 Optical Instrument Specialist ID Gd 04/03/22 09:20 Sodium 133 mmol/L (136-145) L 04/06/22 04:02 Potassium 3.1 mmol/L (3.5-5.1) L 04/06/22 04:02 Chloride 98 mmol/L (98-107) 04/06/22 04:02 Carbon Dioxide 27 mmol/L (22-29) 04/06/22 04:02 Anion Gap 11.1 (5-19) 04/06/22 04:02 BUN 14 mg/dL (6-20) 04/06/22 04:02 Creatinine 0.4 mg/dL (0.5-0.9) L 04/06/22 04:02 GFR Calculation 163.9 mL/min (90-130) H 04/06/22 04:02 Glucose 112 mg/dL (65-115) 04/06/22 04:02 POC Glucose 141 mg/dL (70-110) H 04/06/22 10:36 Calculated Osmolality 277 mOsm/kg (285-295) L 04/06/22 04:02 Lactic Acid 1.4 mmol/L (0.5-2.2) 04/02/22 15:20 Lactate 2.3 mmol/L (0.5-2.2) H 04/03/22 01:45 Calcium 8.2 mg/dL (8.5-10.5) L 04/06/22 04:02 Phosphorus 2.2 mg/dL (2.5-4.5) L 04/03/22 01:45 Magnesium 1.6 mg/dL (1.7-2.3) L 04/03/22 01:45 Ferritin 641 ng/mL (15-150) H 04/03/22 01:45 Total Bilirubin 0.5 mg/dL (0.15-1.2) 04/03/22 15:10 AST 34 U/L (0-32) H 04/03/22 15:10 ALT 25 U/L (0-33) 04/03/22 15:10 Alkaline Phosphatase 99 U/L (35-105) 04/03/22 15:10 Lactate Dehydrogenase 373 U/L (135-214) H 04/06/22 04:02 Creatine Kinase 59 U/L (26-192) 04/06/22 04:02 Troponin T Baseline 39 ng/L (0-10) H 04/04/22 02:13 Troponin T 120 Minute 33.86 ng/L (0-10) H 04/04/22 06:36 Delta Troponin T -5.14 ABS# (0-10) L 04/04/22 06:36 Troponin T Hi Sens 6Hr 32.92 ng/L (0-10) H 04/04/22 10:26 Troponin T Hi Sens 6Hr Delta -6.08 ng/L (0-12) L 04/04/22 10:26 C-Reactive Protein 226.8 mg/L (0.0-4.9) H 04/03/22 01:45 NT-Pro-B Natriuret Pep 434 pg/mL (0-125) H 04/02/22 15:20 Total Protein 5.8 g/dL (6.6-8.7) L 04/03/22 15:10 Albumin 2.1 g/dL (3.5-5.2) L 04/03/22 15:10 Globulin 3.7 g/dL (1.3-4.6) 04/03/22 15:10 Vitamin B12 462 pg/mL (232-1245) 04/02/22 20:50 Procalcitonin 21.94 ng/mL (0-0.5) H 04/03/22 15:10 TSH 0.79 uIU/mL (0.27-4.20) 04/02/22 20:50 Random Cortisol 37.41 ug/dL (2.47-19.5) H 04/02/22 15:20 Urine Color Yellow (Yellow) 04/02/22 17:25 Urine Appearance Sl hazy (CLEAR) A 04/02/22 17:25 Urine pH 5 (5-7) 04/02/22 17:25 Ur Specific [place] 1.010 (1.005-1.030) 04/02/22 17:25 Urine Protein Neg (Negative) 04/02/22 17:25 Urine Glucose (UA) Trace (Normal) H 04/02/22 17:25 Urine Ketones Negative (Negative) 04/02/22 17:25 Urine Blood 2+ (Negative) H 04/02/22 17:25 Urine Nitrate Negative (Negative) 04/02/22 17:25 Urine Bilirubin Neg (Negative) 04/02/22 17:25 Urine Urobilinogen Norm mg/dL (Negative) 04/02/22 17:25 Ur Leukocyte Esterase Negative (Negative) 04/02/22 17:25 Ur Microscopic Indic Cancelled 04/02/22 17:25 Urine RBC 0-4 /hpf (0-2) H 04/02/22 17:25 Urine WBC 15-25 /hpf (0-5) H 04/02/22 17:25 Ur Squamous Epith Cells 0-4 /hpf (0-5) H 04/02/22 17:25 Amorphous Sediment Not Reportable 04/02/22 17:25 Urine Bacteria 1+ /hpf (NONE) H 04/02/22 17:25 Urine Yeast Trace /hpf 04/02/22 17:25 Vancomycin Trough < 4.0 ug/mL (10-15) L 04/04/22 21:13 Urine Opiates Screen Positive ng/mL (Negative) H 04/02/22 00:05 Ur Barbiturates Screen Negative ng/mL (Negative) 04/02/22 00:05 Ur Phencyclidine Scrn Negative ng/mL (Negative) 04/02/22 00:05 Ur Amphetamines Screen Negative ng/mL (Negative) 04/02/22 00:05 U Benzodiazepines Scrn Negative ng/mL (Negative) 04/02/22 00:05 Urine Cocaine Screen Negative ng/mL (Negative) 04/02/22 00:05 U Marijuana (THC) Screen Negative ng/mL (Negative) 04/02/22 00:05 Vitals Last Vital Signs Temp 97.5 F L 04/06/22 03:43 Pulse 89 04/06/22 10:17 Resp 18 04/06/22 10:05 BP 173/94 04/06/22 07:28 Pulse Ox 96 04/06/22 10:05 O2 Del Method 04/06/22 10:05 O2 Flow Rate 4 04/06/22 10:05 FiO2 45 04/04/22 04:00 Discharge Plan Discharge Patient Disposition: Home Condition: Stable Prescriptions: New albuterol sulfate 90 mcg/actuation HFA aerosol inhaler 2 inh inhalation Q8H PRN (Reason: shortness of breath or wheezing) Qty: 8.5 2RF levofloxacin 750 mg tablet 750 mg PO DAILY 7 Days Qty: 7 0RF Continued (DME) blood-glucose sensor Device See Rx Instructions .ROUTE .MEDSUPPLY Qty: 3 0RF Rx Instructions: As directed mupirocin 2 % ointment 1 applic TOPICAL BID (DME) prosthetic legs See Rx Instructions .Route .MEDSUPPLY Qty: 1 0RF Rx Instructions: As directed methenamine hippurate 1 gram tablet 1 g PO BID Qty: 60 12RF Victoza 3-Christiano 0.6 mg/0.1 mL (18 mg/3 mL) pen injector See Rx Instructions SUBCUT DAILY Qty: 27 3RF Rx Instructions: 1.8 mg subcutaneously once daily fenofibrate 160 mg tablet 160 mg PO DAILY Qty: 90 3RF Rx Instructions: Take one tablet by mouth daily. insulin lispro [Humalog KwikPen Insulin] 100 unit/mL insulin pen See Rx Instructions SUBCUT TID Rx Instructions: 25 units with breakfast, 20 units at lunch, and 25 units at dinner SUBCUT, as directed per sliding scale max units 68 per day, takes with meals albuterol sulfate 2.5 mg /3 mL (0.083 %) solution for nebulization 2.5 mg INHALATION Q6H PRN (Reason: Shortness Of Breath) nitroglycerin 0.4 mg tablet, sublingual 0.4 mg SUBLINGUAL Q5M PRN (Reason: chest pain) Qty: 30 0RF (DME) FreeStyle Maria M 2 [place] Misc See Rx Instructions .ROUTE .MEDSUPPLY Qty: 1 0RF Rx Instructions: As directed clonazepam 0.5 mg tablet 0.5 mg PO DAILY PRN (Reason: anxiety) 30 Days Qty: 30 2RF aripiprazole [Abilify] 5 mg tablet 5 mg PO DAILY Qty: 30 2RF duloxetine 60 mg capsule,delayed release(DR/EC) 60 mg PO BID Qty: 60 2RF zolpidem 5 mg tablet 5 mg PO .qhs PRN (Reason: insomnia) 30 Days Qty: 30 2RF fluticasone propionate 50 mcg/actuation spray,suspension 1 spray intranasal Q12H Qty: 15.8 1RF Rx Instructions: administer into each nostril Levemir FlexTouch U-100 Insuln 100 unit/mL (3 mL) insulin pen 100 unit SUBCUT BID Qty: 170 3RF Rx Instructions: Administer 100 units subcut twice a day. promethazine-DM 6.25-15 mg/5 mL syrup 5 ml PO Q6H Qty: 118 0RF (DME) prosthetic hands Bilateral Qty: 1 0RF Rx Instructions: As directed (DME) pen needle, diabetic [Sure-Fine Pen [place]] 31 gauge x 3/16 needle See Rx Instructions .ROUTE .MEDSUPPLY Qty: 450 3RF Rx Instructions: uses 5 times a day (DME) MediHoney (hawk alginate-honey) 4 X 5 bandage See Rx Instructions .Route Qty: 10 0RF Rx Instructions: As directed Xarelto 20 mg tablet See Rx Instructions .ROUTE .COMPLEX Qty: 90 0RF Dose Instruction: Take 1 tablet by mouth once daily Rx Instructions: Take 1 tablet by mouth once daily (DME) FreeStyle Maria M 2 Sensor Kit See Rx Instructions .ROUTE .MEDSUPPLY Qty: 6 3RF Rx Instructions: Change every 14 days. albuterol sulfate 2.5 mg /3 mL (0.083 %) solution for nebulization 2.5 mg inhalation QID PRN (Reason: shortness of breath or wheezing) Qty: 180 0RF clopidogrel 75 mg tablet See Rx Instructions .ROUTE .COMPLEX Qty: 90 0RF Dose Instruction: Take 1 tablet by mouth once daily Rx Instructions: Take 1 tablet by mouth once daily lovastatin 40 mg tablet See Rx Instructions .ROUTE .COMPLEX Qty: 90 0RF Dose Instruction: Take 1 tablet by mouth once daily Rx Instructions: Take 1 tablet by mouth once daily metoprolol tartrate 25 mg tablet See Rx Instructions .ROUTE .COMPLEX Qty: 90 0RF Dose Instruction: Take 1 tablet by mouth once daily Rx Instructions: Take 1 tablet by mouth once daily gabapentin 600 mg tablet See Rx Instructions .ROUTE .COMPLEX Qty: 90 0RF Dose Instruction: TAKE 1 TABLET BY MOUTH THREE TIMES DAILY Rx Instructions: TAKE 1 TABLET BY MOUTH THREE TIMES DAILY lisinopril 20 mg tablet See Rx Instructions .ROUTE .COMPLEX Qty: 90 0RF Dose Instruction: Take 1 tablet by mouth once daily Rx Instructions: Take 1 tablet by mouth once daily oxycodone 10 mg tablet 10 mg PO TID PRN (Reason: pain) 30 Days Qty: 70 0RF Rx Instructions: May fill if 30 days since prior Rx levothyroxine 112 mcg tablet See Rx Instructions .ROUTE .COMPLEX Qty: 90 0RF Dose Instruction: Take 1 tablet by mouth once daily Rx Instructions: Take 1 tablet by mouth once daily Discontinued azithromycin [Zithromax Z-Christiano] 250 mg tablet See Rx Instructions PO .COMPLEX Qty: 6 0RF Rx Instructions: For 250 mg dose pack: take 500 mg today (day 1), then 250 mg for 4 days (days 2-5) PO Discharge Orders: Discharge Order (Routine); Ordered 04/06/22 Ordered By: Haylie Tobar Other Ambulatory Orders: DME: Oxygen (Order) Location: None Selected Ordered By: Haylie Tobar Referrals: Franca Garza FNP [Primary Care Provider] - 04/12/22 9:45 am Discharge Diet: Cardiac Discharge Activity: Resume usual activity Patient Instructions: Opioid Safety Discharge Attestations Time Spent in Discharge Care*: less than 30 min Quality Metrics Clinical Quality Measures [ No reported AMI, CVA or VTE this stay] Coding Level of Care Code Acute [facility] note Diagnoses Influenza B J10.1 Bilateral pneumonia J18.9 UTI (urinary tract infection) N39.0 COVID-19 U07.1 Hypovolemic shock R57.1 UTI (urinary tract infection) N30.01 Hematuria presence: with hematuria Urinary tract infection type: acute cystitis Anxiety F41.9 Major depressive disorder, recurrent severe without psychotic features F33.2
== END 2022-04-06 16:42 | disposition home health service (06) | DRG 871 ==
LOC: ER 16:33 → ER IP 18:42 → ICU 04-03 01:06 → MEDSURG 04-05 22:07
PROVIDERS: Internal Medicine; Admitting Provider Internal Medicine; Emergency Provider Family Medicine; PCP Nurse Practitioner Family; Visit Provider Internal Medicine
DX: A41.9 Sepsis, unspecified organism (principal); J12.82 Pneumonia due to coronavirus disease 2019; R65.21 Severe sepsis with septic shock; U07.1 COVID-19; R57.1 Hypovolemic shock; N30.01 Acute cystitis with hematuria; E87.20 Acidosis, unspecified; B96.89 Other specified bacterial agents as the cause of diseases classified elsewhere; J10.1 Influenza due to other identified influenza virus with other respiratory manifestations; F17.210 Nicotine dependence, cigarettes, uncomplicated; J44.9 Chronic obstructive pulmonary disease, unspecified; Z79.4 Long term (current) use of insulin; Z79.51 Long term (current) use of inhaled steroids; Z79.01 Long term (current) use of anticoagulants; Z79.02 Long term (current) use of antithrombotics/antiplatelets; Z79.891 Long term (current) use of opiate analgesic; L89.322 Pressure ulcer of left buttock, stage 2; R32 Unspecified urinary incontinence; M06.9 Rheumatoid arthritis, unspecified; E03.9 Hypothyroidism, unspecified; I25.10 Atherosclerotic heart disease of native coronary artery without angina pectoris; I10 Essential (primary) hypertension; E11.65 Type 2 diabetes mellitus with hyperglycemia; Z89.612 Acquired absence of left leg above knee; Z89.611 Acquired absence of right leg above knee; Z89.212 Acquired absence of left upper limb below elbow; Z89.211 Acquired absence of right upper limb below elbow; Z95.5 Presence of coronary angioplasty implant and graft
CPT/HCPCS: 36415; 36416; 36556; 36592; 36600; 51702; 71045; 71275; 74177; 80048; 80053; 80202; 80306; 81001; 82533; 82550; 82607; 82728; 82803; 82962; 83605; 83615; 83735; 83880; 84100; 84145; 84443; 84484; 85007; 85025; 85378; 86140; 86403; 87040; 87077; 87086; 87186; 87449; 87641; 93005; 93306; 94640; 94664; 94760; 96365; 96366; 96367; 96372; 96375; 97161; 99291; C9113; J0248; J0610; J0692; J1100; J1815; J1940; J3370; J3475; J7030; J7050; J7060; J7070; J7613; J8540; Q9967

== ENCOUNTER → 2022-04-12 15:04 | Outpatient (BNVA) | payer MEDICARE, MEDICAID, SELFPAY ==
[2022-01-13 15:31] VITALS: BP 94/67
== END ==
PROVIDERS: Family Provider Nurse Practitioner Family; PCP Nurse Practitioner Family; Visit Provider Internal Medicine Cardiovascular Disease
DX: R07.9 Chest pain, unspecified (principal); I25.10 Atherosclerotic heart disease of native coronary artery without angina pectoris; I10 Essential (primary) hypertension; F17.210 Nicotine dependence, cigarettes, uncomplicated; N39.0 Urinary tract infection, site not specified
CPT/HCPCS: 81000; 87086; 87106; 99214; Q3014

== ENCOUNTER → 2022-06-08 13:47 | Outpatient (BNVA) | payer MEDICARE, MEDICAID, SELFPAY ==
[2022-05-16 08:49] VITALS: BP 94/67
== END ==
PROVIDERS: Family Provider Nurse Practitioner Family; PCP Nurse Practitioner Family; Visit Provider Nurse Practitioner Family
DX: R05.9 Cough, unspecified (principal); R39.9 Unspecified symptoms and signs involving the genitourinary system; J06.9 Acute upper respiratory infection, unspecified; N39.0 Urinary tract infection, site not specified
CPT/HCPCS: 87077; 87086; 87184

== ENCOUNTER → 2022-06-16 08:27 | Outpatient (BNVA) | payer MEDICARE, MEDICAID, SELFPAY ==
[2022-05-16 08:49] VITALS: BP 94/67
== END ==
PROVIDERS: Family Provider Nurse Practitioner Family; PCP Nurse Practitioner Family; Visit Provider Nurse Practitioner Family
DX: N39.0 Urinary tract infection, site not specified (principal); R39.81 Functional urinary incontinence
CPT/HCPCS: 81000; 87077; 87086; 87184

== ENCOUNTER → 2022-06-27 10:20 | Outpatient (BNVA) | payer MEDICARE, MEDICAID, SELFPAY ==
[2022-05-16 08:49] VITALS: BP 94/67
== END ==
PROVIDERS: Family Provider Nurse Practitioner Family; PCP Nurse Practitioner Family; Visit Provider Nurse Practitioner Family
DX: N39.0 Urinary tract infection, site not specified (principal)
CPT/HCPCS: 87077; 87086; 87184

== ENCOUNTER → 2022-07-05 16:14 | Outpatient (BNVA) | payer MEDICAID, SELFPAY ==
[2022-05-16 08:49] VITALS: BP 94/67
== END ==
PROVIDERS: Family Provider Nurse Practitioner Family; PCP Nurse Practitioner Family; Visit Provider Psychiatry & Neurology Neurology
DX: Z79.899 Other long term (current) drug therapy (principal)
CPT/HCPCS: 80061; 83036

== ENCOUNTER → 2022-07-07 08:38 | Outpatient (BNVA) | payer MEDICARE, MEDICAID, SELFPAY ==
[2022-05-16 08:49] VITALS: BP 94/67
== END ==
PROVIDERS: Family Provider Nurse Practitioner Family; PCP Nurse Practitioner Family; Visit Provider Nurse Practitioner Family
DX: N39.0 Urinary tract infection, site not specified (principal)
CPT/HCPCS: 87086

== ENCOUNTER → 2022-08-01 10:23 | Outpatient (BNVA) | payer MEDICARE, MEDICAID, SELFPAY ==
[2022-05-16 08:49] VITALS: BP 94/67
== END ==
PROVIDERS: Family Provider Nurse Practitioner Family; PCP Nurse Practitioner Family; Visit Provider Nurse Practitioner Family
DX: N39.0 Urinary tract infection, site not specified (principal)
CPT/HCPCS: 81000; 87086

== ENCOUNTER → 2022-09-06 14:13 | Outpatient (BNVA) | payer MEDICARE, MEDICAID, SELFPAY ==
[2022-08-25 11:25] VITALS: BP 94/67
== END ==
PROVIDERS: Family Provider Nurse Practitioner Family; PCP Nurse Practitioner Family; Visit Provider Nurse Practitioner Family
DX: Z51.89 Encounter for other specified aftercare (principal)
CPT/HCPCS: 99212

== ENCOUNTER → 2022-09-08 10:10 | Outpatient (BNVA) | payer MEDICARE, MEDICAID, SELFPAY ==
[2022-08-25 11:25] VITALS: BP 94/67
== END ==
PROVIDERS: Family Provider Nurse Practitioner Family; PCP Nurse Practitioner Family; Visit Provider Nurse Practitioner Family
DX: R39.9 Unspecified symptoms and signs involving the genitourinary system (principal); M06.9 Rheumatoid arthritis, unspecified
CPT/HCPCS: 81000; 87077; 87086; 87184

== ENCOUNTER → 2022-09-13 14:19 | Outpatient (BNVA) | payer MEDICARE, MEDICAID, SELFPAY ==
[2022-08-25 11:25] VITALS: BP 94/67
== END ==
PROVIDERS: Family Provider Nurse Practitioner Family; PCP Nurse Practitioner Family; Visit Provider Nurse Practitioner Family
DX: L89.153 Pressure ulcer of sacral region, stage 3 (principal)
CPT/HCPCS: 97597; A6212

== ENCOUNTER → 2022-09-20 13:38 | Outpatient (BNVA) | payer MEDICARE, MEDICAID, SELFPAY ==
[2022-08-25 11:25] VITALS: BP 94/67
== END ==
PROVIDERS: Family Provider Nurse Practitioner Family; PCP Nurse Practitioner Family; Visit Provider Nurse Practitioner Family
DX: I96 Gangrene, not elsewhere classified (principal); L89.153 Pressure ulcer of sacral region, stage 3
CPT/HCPCS: 11042

== ENCOUNTER → 2022-09-27 13:11 | Outpatient (BNVA) | payer MEDICARE, MEDICAID, SELFPAY ==
[2022-08-25 11:25] VITALS: BP 94/67
== END ==
PROVIDERS: Family Provider Nurse Practitioner Family; PCP Nurse Practitioner Family; Visit Provider Nurse Practitioner Family
DX: I96 Gangrene, not elsewhere classified (principal); L89.153 Pressure ulcer of sacral region, stage 3
CPT/HCPCS: 11042

== ENCOUNTER → 2022-10-17 14:17 | Outpatient (BNVA) | payer MEDICARE, MEDICAID, SELFPAY ==
[2022-08-25 11:25] VITALS: BP 94/67
== END ==
PROVIDERS: Family Provider Nurse Practitioner Family; PCP Nurse Practitioner Family; Visit Provider Internal Medicine Cardiovascular Disease
DX: I25.10 Atherosclerotic heart disease of native coronary artery without angina pectoris (principal); I10 Essential (primary) hypertension; E11.9 Type 2 diabetes mellitus without complications; Z79.4 Long term (current) use of insulin; F17.200 Nicotine dependence, unspecified, uncomplicated
CPT/HCPCS: 99214

== ENCOUNTER → 2022-10-18 13:46 | Outpatient (BNVA) | payer MEDICARE, MEDICAID, SELFPAY ==
[2022-08-25 11:25] VITALS: BP 94/67
== END ==
PROVIDERS: Family Provider Nurse Practitioner Family; PCP Nurse Practitioner Family; Visit Provider Nurse Practitioner Family
DX: I96 Gangrene, not elsewhere classified (principal); L89.153 Pressure ulcer of sacral region, stage 3
CPT/HCPCS: 11044; A6446

== ENCOUNTER → 2022-10-24 10:14 | Outpatient (BNVA) | payer MEDICARE, MEDICAID, SELFPAY ==
[2022-08-25 11:25] VITALS: BP 94/67
== END ==
PROVIDERS: Family Provider Nurse Practitioner Family; PCP Nurse Practitioner Family; Visit Provider Nurse Practitioner Family
DX: L89.159 Pressure ulcer of sacral region, unspecified stage (principal)
CPT/HCPCS: 80053

== ENCOUNTER → 2022-10-25 14:14 | Outpatient (BNVA) | payer MEDICARE, MEDICAID, SELFPAY ==
[2022-08-25 11:25] VITALS: BP 94/67
== END ==
PROVIDERS: Family Provider Nurse Practitioner Family; PCP Nurse Practitioner Family; Visit Provider Nurse Practitioner Family
DX: I96 Gangrene, not elsewhere classified (principal); L89.153 Pressure ulcer of sacral region, stage 3
CPT/HCPCS: 11042; A6212

== ENCOUNTER → 2022-11-01 15:13 | Outpatient (BNVA) | payer MEDICARE, MEDICAID, SELFPAY ==
[2022-08-25 11:25] VITALS: BP 94/67
== END ==
PROVIDERS: Family Provider Nurse Practitioner Family; PCP Nurse Practitioner Family; Visit Provider Nurse Practitioner Family
DX: L89.153 Pressure ulcer of sacral region, stage 3 (principal)
CPT/HCPCS: 11042; 87070; A6446

== ENCOUNTER → 2022-11-08 14:52 | Outpatient (BNVA) | payer MEDICARE, MEDICAID, SELFPAY ==
[2022-08-25 11:25] VITALS: BP 94/67
== END ==
PROVIDERS: Family Provider Nurse Practitioner Family; PCP Nurse Practitioner Family; Visit Provider Nurse Practitioner Family
DX: I96 Gangrene, not elsewhere classified (principal); L89.153 Pressure ulcer of sacral region, stage 3
CPT/HCPCS: 11042; A6237; A6446

== ENCOUNTER → 2022-11-14 14:24 | Outpatient (BNVA) | payer MEDICARE, MEDICAID, SELFPAY ==
[2022-08-25 11:25] VITALS: BP 94/67
== END ==
PROVIDERS: Family Provider Nurse Practitioner Family; PCP Nurse Practitioner Family; Visit Provider Thoracic Surgery (Cardiothoracic Vascular Surgery)
DX: I96 Gangrene, not elsewhere classified (principal); L89.153 Pressure ulcer of sacral region, stage 3
CPT/HCPCS: 11042; 87070; 87176; 87205; A6446

== ENCOUNTER → 2022-11-22 14:55 | Outpatient (BNVA) | payer MEDICARE, MEDICAID, SELFPAY ==
[2022-08-25 11:25] VITALS: BP 94/67
== END ==
PROVIDERS: Family Provider Nurse Practitioner Family; PCP Nurse Practitioner Family; Visit Provider Nurse Practitioner Family
DX: I96 Gangrene, not elsewhere classified (principal); L89.153 Pressure ulcer of sacral region, stage 3
CPT/HCPCS: 11042; A6446

== ENCOUNTER → 2022-12-06 13:53 | Outpatient (BNVA) | payer MEDICARE, MEDICAID, SELFPAY ==
[2022-08-25 11:25] VITALS: BP 94/67
== END ==
PROVIDERS: Family Provider Nurse Practitioner Family; PCP Nurse Practitioner Family; Visit Provider Nurse Practitioner Family
DX: I96 Gangrene, not elsewhere classified (principal); L89.153 Pressure ulcer of sacral region, stage 3; E11.8 Type 2 diabetes mellitus with unspecified complications; E03.9 Hypothyroidism, unspecified; E78.2 Mixed hyperlipidemia; N39.0 Urinary tract infection, site not specified; Z79.4 Long term (current) use of insulin; Z79.890 Hormone replacement therapy
CPT/HCPCS: 11042; 99214; A6446

== ENCOUNTER → 2022-12-08 13:57 | Outpatient (BNVA) | payer MEDICARE, MEDICAID, SELFPAY ==
[2022-08-25 11:25] VITALS: BP 94/67
== END ==
PROVIDERS: Family Provider Nurse Practitioner Family; PCP Nurse Practitioner Family; Visit Provider Surgery
DX: L89.309 Pressure ulcer of unspecified buttock, unspecified stage (principal)
CPT/HCPCS: 99203

== ENCOUNTER → 2022-12-13 15:32 | Outpatient (BNVA) | payer MEDICARE, MEDICAID, SELFPAY ==
[2022-08-25 11:25] VITALS: BP 94/67
== END ==
PROVIDERS: Family Provider Nurse Practitioner Family; PCP Nurse Practitioner Family; Visit Provider Nurse Practitioner Family
DX: I96 Gangrene, not elsewhere classified (principal); L89.153 Pressure ulcer of sacral region, stage 3
CPT/HCPCS: 11042

== ENCOUNTER → 2022-12-16 10:08 | Outpatient (BNVA) | payer MEDICARE, MEDICAID, SELFPAY ==
[2022-08-25 11:25] VITALS: BP 94/67
== END ==
PROVIDERS: Family Provider Nurse Practitioner Family; PCP Nurse Practitioner Family; Visit Provider Nurse Practitioner Family
DX: R05.9 Cough, unspecified (principal); R68.89 Other general symptoms and signs; Z20.822 Contact with and (suspected) exposure to COVID-19
CPT/HCPCS: 87400; 87426

== ENCOUNTER → 2022-12-27 11:20 | Outpatient (BNVA) | payer MEDICARE, MEDICAID, SELFPAY ==
[2022-08-25 11:25] VITALS: BP 94/67
== END ==
PROVIDERS: Family Provider Nurse Practitioner Family; PCP Nurse Practitioner Family; Referring Provider Nurse Practitioner Family; Visit Provider Internal Medicine Rheumatology
DX: M06.9 Rheumatoid arthritis, unspecified (principal); Z79.899 Other long term (current) drug therapy; E11.9 Type 2 diabetes mellitus without complications; Z89.612 Acquired absence of left leg above knee; Z89.611 Acquired absence of right leg above knee; Z89.212 Acquired absence of left upper limb below elbow; Z89.211 Acquired absence of right upper limb below elbow; L89.159 Pressure ulcer of sacral region, unspecified stage
CPT/HCPCS: 11042; 36415; 72040; 72100; 72170; 73070; 80076; 82306; 82565; 82947; 85025; 85651; 86140; 86200; 86431; 99205

== ENCOUNTER → 2022-12-30 10:08 | Outpatient (BNVA) | payer MEDICARE, MEDICAID, SELFPAY ==
[2022-08-25 11:25] VITALS: BP 94/67
== END ==
PROVIDERS: Family Provider Nurse Practitioner Family; PCP Nurse Practitioner Family; Visit Provider Nurse Practitioner Family
DX: R32 Unspecified urinary incontinence (principal); N39.0 Urinary tract infection, site not specified
CPT/HCPCS: 81000; 87077; 87086; 87184

== ENCOUNTER → 2023-01-10 15:29 | Outpatient (BNVA) | payer MEDICARE, MEDICAID, SELFPAY ==
[2022-08-25 11:25] VITALS: BP 94/67
== END ==
PROVIDERS: Family Provider Nurse Practitioner Family; PCP Nurse Practitioner Family; Visit Provider Nurse Practitioner Family
DX: I96 Gangrene, not elsewhere classified (principal); L89.153 Pressure ulcer of sacral region, stage 3
CPT/HCPCS: 11042; A6219

== ENCOUNTER → 2023-01-12 09:14 | Outpatient (BNVA) | payer MEDICARE, MEDICAID, SELFPAY ==
[2022-08-25 11:25] VITALS: BP 94/67
== END ==
PROVIDERS: Family Provider Nurse Practitioner Family; PCP Nurse Practitioner Family; Visit Provider Nurse Practitioner Family
DX: N39.0 Urinary tract infection, site not specified (principal)
CPT/HCPCS: 81000; 87077; 87086; 87184

== ENCOUNTER → 2023-01-24 15:30 | Outpatient (BNVA) | payer MEDICARE, MEDICAID, SELFPAY ==
[2022-08-25 11:25] VITALS: BP 94/67
== END ==
PROVIDERS: Family Provider Nurse Practitioner Family; PCP Nurse Practitioner Family; Visit Provider Nurse Practitioner Family
DX: L89.153 Pressure ulcer of sacral region, stage 3 (principal)
CPT/HCPCS: 11042; A6212

== ENCOUNTER → 2023-01-31 14:50 | Outpatient (BNVA) | payer MEDICARE, MEDICAID, SELFPAY ==
[2022-08-25 11:25] VITALS: BP 94/67
== END ==
PROVIDERS: Family Provider Nurse Practitioner Family; PCP Nurse Practitioner Family; Visit Provider Nurse Practitioner Family
DX: L89.153 Pressure ulcer of sacral region, stage 3 (principal)
CPT/HCPCS: 11042; A6212

== ENCOUNTER → 2023-02-14 15:22 | Outpatient (BNVA) | payer MEDICARE, SELFPAY ==
[2022-08-25 11:25] VITALS: BP 94/67
== END ==
PROVIDERS: Visit Provider Nurse Practitioner Family
DX: L89.153 Pressure ulcer of sacral region, stage 3 (principal)
CPT/HCPCS: 11042

== ENCOUNTER → 2023-02-15 11:14 | Outpatient (BNVA) | payer MEDICARE, SELFPAY ==
[2022-08-25 11:25] VITALS: BP 94/67
== END ==
PROVIDERS: PCP Nurse Practitioner Family; Visit Provider Nurse Practitioner Family
DX: E07.9 Disorder of thyroid, unspecified (principal); E11.9 Type 2 diabetes mellitus without complications; E55.9 Vitamin D deficiency, unspecified
CPT/HCPCS: 82306; 83036; 84443

== ENCOUNTER 2023-02-20 06:00 | Outpatient (RCR) | payer MEDICARE, SELFPAY ==
[2022-08-25 11:25] VITALS: BP 94/67
== END 2023-03-09 23:59 | disposition home or self-care (01) ==
LOC: SOT 06:00
PROVIDERS: PCP Nurse Practitioner Family; Visit Provider Nurse Practitioner Family
DX: Z89.612 Acquired absence of left leg above knee (principal); Z89.611 Acquired absence of right leg above knee; S78.11 Complete traumatic amputation at level between hip and knee; X58.XXXS Exposure to other specified factors, sequela
CPT/HCPCS: 97167

== ENCOUNTER → 2023-02-28 15:03 | Outpatient (BNVA) | payer MEDICARE, SELFPAY ==
[2022-08-25 11:25] VITALS: BP 94/67
== END ==
PROVIDERS: PCP Nurse Practitioner Family; Visit Provider Thoracic Surgery (Cardiothoracic Vascular Surgery)
DX: L89.153 Pressure ulcer of sacral region, stage 3 (principal)
CPT/HCPCS: 11042

== ENCOUNTER 2023-03-07 21:46 | Inpatient (IN) | payer MEDICARE, SELFPAY ==
[2022-08-25 11:25] VITALS: BP 94/67
--- NOTE | 2023-03-07 21:48 | ECG_ITS ---
[facility] Test Date: 2023-03-07 Pat Name: Delia Winter Department: Room: Gender: Female Doctor Of Naturopathic Medicine: : 1965 Requested By: Anil Rondon Order Number: [id number] Reid MD: Elsa Sebastian M.D. Measurements Intervals [place] Rate: 96 P: 19 WI: 183 QRS: -55 QRSD: 104 T: 78 QT: 375 QTc: 475 Interpretive Statements SINUS RHYTHM LEFT VENTRICULAR HYPERTROPHY AND ST-T CHANGE [VOLTAGE CRITERIA PLUS ST/T ABNORMALITY] POSSIBLE ANTERIOR MYOCARDIAL INFARCTION , OF INDETERMINATE AGE [30 ms Q WAVE IN V3/V4, OR R < 0.2 mV IN V4] INFERIOR MYOCARDIAL INFARCTION , OF INDETERMINATE AGE [40+ ms Q WAVE AND/OR ST/T ABNORMALITY IN II/aVF] Compared to ECG 04/04/2022 01:06:27 Left ventricular hypertrophy now present ST (T wave) deviation now present First degree AV block no longer present Myocardial infarct finding still present Electronically Signed On 03-09-2023 15:33:58 [employer] by Elsa Sebastian M.D. [email or web address]
--- NOTE | 2023-03-07 21:48 | XRR_ITS ---
PROCEDURE INFORMATION: Exam: XR Chest Exam date and time: 03/07/2023 10:08 PM Age: 57 years old Clinical indication: Pain; Other: Heartburn; Additional info: Cp TECHNIQUE: Imaging protocol: Radiologic exam of the chest. Views: 1 view. COMPARISON: CT angio chest w abd pel w con 04/02/2022 6:47 PM FINDINGS: Lungs: Mildly coarse lung markings in the bilateral lower lungs. No focal consolidation. Pleural spaces: No large pleural effusion. No pneumothorax. Heart/Mediastinum: Unremarkable cardiomediastinal silhouette. Bones/joints: No acute abnormality. XR/XR chest 1V portable [id number] IMPRESSION: Mildly coarse lung markings bilaterally, may represent scarring. No consolidation.
[2023-03-07 21:49] VITALS: BP 109/68; PULSE 93; RESP 17; TEMP 36.7; O2SAT 95; BMI 115.2
--- NOTE | 2023-03-07 21:53 | ED_ITS ---
HPI - Chest Pain 2 General: Chief Complaint: Chest Pain Stated Complaint: heartburn, chest discomfort Time Seen by Provider: 03/07/23 21:48 Source: patient and EMS Mode of arrival: EMS Limitations: no limitations History of Present Illness: 57-year-old female who has extensive his tory and states she ate some spaghetti started having some epigastric and chest pain. States she took Tums called EMS due to history of cardiac disease. States that after taking this Tums over pain resolved after about 15 minutes she has been pain-free since then denies any diaphoresis denies any nausea denies any shortness of breath. Associated symptoms: Deny abdominal pain, dyspnea, fever(s), nausea or vomiting Review of Systems 2 Const: Denies: fever(s), chills, body aches or change in appetite ENMT: Denies: throat pain or dental pain Card: Reports: chest pain Resp: Denies: dyspnea GI: Denies: abdominal pain, nausea, vomiting or diarrhea : Denies: dysuria Musc: Denies: neck pain or back pain Skin/Breast: Denies: rash Neuro: Denies: headache(s) PFSH ED 2 PFSH: Medical History Above knee amputation of left lower extremity Above knee amputation of right lower extremity Amputation leg, bilat Amputation, hand, bilateral Anxiety Below-elbow amputation of left upper extremity Below-elbow amputation of right upper extremity Bilateral pneumonia Chronic pain 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 Coronary artery disease COVID-19 Diabetes mellitus DM type 2 causing complication Enrolled in chronic care management History of amputation of lower extremity HTN (hypertension), benign Hx of sepsis Hyperlipemia, mixed Hypothyroidism Hypovolemic shock Influenza B Major depressive disorder, 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 Polyuria Pressure sore on buttocks Psychiatric care Recurrent UTI Rheumatoid arthritis Stage II pressure ulcer of left buttock Urgency incontinence 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 UTI (urinary tract infection) UTI (urinary tract infection) Surgical History History of amputation of finger of both hands History of appendectomy History of skin graft Family History Father , at age 47 CAD (coronary artery disease) Hypertension Mother , at age 64 Diabetes Lung disease Sister Diabetes Brother Diabetes Denies family history of Dementia Cancer Stroke Social History Smoking and tobacco/nicotine status: current every day tobacco/nicotine user Quit status (tobacco/nicotine): has tried quititng Second hand smoke exposure: Yes Alcohol intake: current Alcohol intake frequency: holidays/special occasions only Alcohol type: wine Substance/Drug Use: never Adopted: No Caregiver/support person: No Lives independently: Yes Household members: significant other and family Housing: House Marital status: Single Marital status details: Life partner of 43 years Number of children: 0 Number of grandchildren: 0 Highest education level completed: High School Graduate service: No Current occupational status: disabled Pets and animals: Yes (lab, yorkie, beagle) Pets & animals: dog(s) Leisure activites: art and other Leisure activities details: writing, watch TV Sexually active: Yes Do you think of yourself as: Straight/Heterosexual Current gender identity: Female Keyonna/Zoroastrianism: None Special keyonna needs: No Agree to transfusion: Yes Female Reproductive History: Para: 0 Physical Exam 2 Const: COMMON NORMALS: no acute distress, patient oriented x3 and healthy appearing HENMT: COMMON NORMALS: normocephalic and atraumatic HEAD & SCALP: n ormocephalic and atraumatic Neck/C-Spine: COMMON NORMALS: full ROM and supple Chest: COMMONS NORMALS: normal inspection of the chest and normal palpation of entire chest wall Resp: COMMON NORMALS: normal respiratory effort, No retractions, No use of accessory muscles and clear to auscultation bilaterally AUSCULTATION: clear to auscultation bilaterally Cardio: COMMON NORMALS: regular rate, regular rhythm and No murmurs present (Cardio) RATE: regular rate RHYTHM: regular rhythm GI: COMMON NORMALS: Normal to inspection, nondistended, normoactive bowel sounds present, Soft to palpation, non-tender and no masses PALPATION: Yes Soft to palpation Extremity: COMMON NORMALS: normal to inspection Neuro: COMMON NORMALS: patient oriented x3 Psych: COMMON NORMALS: mental status grossly normal, Normal thought process present and cooperative THOUGHT PROCESS: Normal thought process present Skin: COMMON NORMALS: no rashes or lesions noted and no wounds GENERAL SKIN EXAM: no rashes or lesions noted Course 2 Vital Signs: Vital signs: Vital Signs Temperature 98.1 F 03/07/23 21:49 Pulse Rate 90 03/08/23 00:39 Respiratory Rate 20 H 03/08/23 00:39 Blood Pressure 110/76 03/08/23 00:39 Pulse Oximetry 97 03/08/23 00:39 Oxygen Delivery Me thod Room Air 03/07/23 21:49 MDM - Chest Pain Medical Decision Making Patient presents here with chest pain repeat troponin did have a positive delta consistent with an NSTEMI she has been pain-free here. We will give Lovenox I spoke to the hospitalist and will admit. Medical Records I reviewed the patient's medical records. Lab Data I reviewed the patient's lab results. 03/07/23 21:57 03/07/23 21:57 Radiology Impressions Chest X-Ray 03/07/23 21:48 IMPRESSION: Mildly coarse lung markings bilaterally, may represent scarring. No consolidation. Laboratory Results WBC 7.42 10^3/uL (3.29-11.43) 03/07/23 21:57 RBC 4.84 10^6/uL (3.85-5.65) 03/07/23 21:57 Hgb 12.00 g/dL (11.27-16.99) 03/07/23 21:57 Hct 37.6 % (36-47) 03/07/23 21:57 MCV 77.7 fl (85-98) L 03/07/23 21:57 MCH 24.8 pg (27-33) L 03/07/23 21:57 MCHC 31.9 g/dL (30-55) 03/07/23 21:57 RDW 17.7 % (12.1-15.1) H 03/07/23 21:57 Plt Count 410 10^3/cmm (157-399) H 03/07/23 21:57 MPV 9.8 fL (7.4-10.4) 03/07/23 21:57 Neut % (Auto) 57.0 % 03/07/23 21:57 Lymph % (Auto) 31.0 % 03/07/23 21:57 [place] % (Auto) 6.6 % 03/07/23 21:57 Eos % (Auto) 4.6 % 03/07/23 21:57 Baso % (Auto) 0.7 % 03/07/23 21:57 Neut # (Auto) 4.23 10^3/uL (1.8-7.7) 03/07/23 21:57 Lymph # (Auto) 2.3 10^3/uL (0.8-4.8) 03/07/23 21:57 [place] # (Auto) 0.5 10^3/uL (0.2-0.9) 03/07/23 21:57 Eos # (Auto) 0.3 10^3/uL (0.0-0.8) 03/07/23 21:57 Baso # (Auto) 0.1 10^3/uL (0.0-0.1) 03/07/23 21:57 Nucleated RBC % (auto) 0 % 03/07/23 21:57 Nucleated RBCs # 0.0 /100WBC 03/07/23 21:57 Sodium 131 mmol/L (136-145) L 03/07/23 21:57 Potassium 4.2 mmol/L (3.5-5.1) 03/07/23 21:57 Chloride 94 mmol/L (98-107) L 03/07/23 21:57 Carbon Dioxide 25 mmol/L (22-29) 03/07/23 21:57 Anion Gap 16.2 (5-19) 03/07/23 21:57 BUN 13 mg/dL (6-20) 03/07/23 21:57 Creatinine 0.5 mg/dL (0.5-0.9) 03/07/23 21:57 GFR Calculation 126.3 mL/min (90-130) 03/07/23 21:57 Glucose 475 mg/dL (65-115) H 03/07/23 21:57 POC Glucose 461 mg/dL (70-110) H 03/07/23 23:24 Calculated Osmolality 293 mOsm/kg (285-295) 03/07/23 21:57 Calcium 9.0 mg/dL (8.5-10.5) 03/07/23 21:57 Total Bilirubin 0.2 mg/dL (0.15-1.2) 03/07/23 21:57 AST 17 U/L (0-32) 03/07/23 21:57 ALT 13 U/L (0-33) 03/07/23 21:57 Alkaline Phosphatase 139 U/L (35-105) H 03/07/23 21:57 Troponin T Baseline 70 ng/L (0-10) H 03/07/23 21:57 Troponin T 120 Minute 144.2 ng/L (0-10) H 03/07/23 23:45 Delta Troponin T 74.2 ABS# (0-10) H* 03/07/23 23:45 Total Protein 6.6 g/dL (6.6-8.7) 03/07/23 21:57 Albumin 2.9 g/dL (3.5-5.2) L 03/07/23 21:57 Globulin 3.7 g/dL (1.3-4.6) 03/07/23 21:57 Lipase 296 U/L (13-60) H 03/07/23 21:57 All radiology interpretation(s) finalized by discharge EKG Data EKG 1: I personally reviewed and interpreted this EKG as follows: EKG interpretation date: 03/07/23 EKG interpretation time: 21:47 Interpretation: nsr hr [address] or t wave abnormalities qrs 104 qtc 429 Discharge Plan Discharge Patient Disposition: Admitted As Inpatient Clinical Impression: Non-ST elevation [place] (NSTEMI) Condition: Stable Prescriptions: No Action (DME) blood-glucose sensor Device See Rx Instructions .ROUTE .MEDSUPPLY Qty: 3 0RF Rx Instructions: As directed (DME) prosthetic legs See Rx Instructions .Route .MEDSUPPLY Qty: 1 0RF Rx Instructions: As directed Victoza 3-Christiano 0.6 mg/0.1 mL (18 mg/3 mL) pen injector See Rx Instructions SUBCUT DAILY Qty: 27 3RF Rx Instructions: 1.8 mg subcutaneously once daily albuterol sulfate 2.5 mg /3 mL (0.083 %) solution for nebulization 2.5 mg INHALATION Q6H PRN (Reason: Shortness Of Breath) (DME) [employer] Maria M 2 [facility] [place] Rx Instructions .ROUTE .MEDSUPPLY Qty: 1 0RF Rx Instructions: As directed nitroglycerin 0.4 mg tablet, sublingual 0.4 mg SUBLINGUAL Q5M PRN (Reason: chest pain) Qty: 25 3RF albuterol sulfate 90 mcg/actuation HFA aerosol inhaler 2 puff inhalation QID PRN (Reason: shortness of breath or wheezing) Qty: 6.7 0RF aripiprazole [Abilify] 5 mg tablet 5 mg PO DAILY Qty: 30 2RF cllzvkut-yyciejehh-FB 3.5-10,000-1 mg/mL-unit/mL-% drops,suspension 4 drp otic (ear) Q8H Qty: 10 0RF Dakin's Solution 0.5 % solution 1 applic topical BID Qty: 473 0RF acetaminophen 325 mg tablet 325 mg PO QID PRN diphenhydramine HCl [Benadryl Allergy] 25 mg tablet 25 mg PO TID PRN (DME) wheelchair motorized See Rx Instructions .Route .MEDSUPPLY Qty: 1 0RF Rx Instructions: As directed ([facility]) prosthetic hands Bilateral Qty: 1 0RF Rx Instructions: As directed ([facility]) pen needle, diabetic [Sure-Fine Pen [place]] 31 gauge x 3/16 needle See Rx Instructions .ROUTE .MEDSUPPLY Qty: 450 3RF Rx Instructions: uses 5 times a day ([facility]) FreeStyle Maria M 2 Sensor Kit See Rx Instructions .ROUTE .MEDSUPPLY Qty: 6 3RF Rx Instructions: Change every 14 days. ([facility]) Ear Pulse Ox See Rx Instructions .Route .MEDSUPPLY Qty: 1 0RF Rx Instructions: As directed; continuous pulse ox clonazepam 0.5 mg tablet 0.5 mg PO DAILY PRN (Reason: anxiety) 30 Days Qty: 30 2RF zolpidem 5 mg tablet 5 mg PO .qhs PRN (Reason: insomnia) 30 Days Qty: 30 2RF lovastatin 40 mg tablet See Rx Instructions .ROUTE .COMPLEX Qty: 90 1RF Dose Instruction: Take 1 tablet by mouth once daily Rx Instructions: Take 1 tablet by mouth once daily gabapentin 600 mg tablet See Rx Instructions .ROUTE .COMPLEX Qty: 90 2RF Dose Instruction: TAKE 1 TABLET BY MOUTH THREE TIMES DAILY Rx Instructions: TAKE 1 TABLET BY MOUTH THREE TIMES DAILY leflunomide 20 mg tablet 20 mg PO DAILY Qty: 30 3RF nitrofurantoin monohyd/m-cryst [Macrobid] 100 mg capsule 100 mg PO Q12H 7 Days Qty: 14 0RF Rx Instructions: must administer with a meal/food Humulin R U-500 (Conc) Kwikpen 500 unit/mL (3 mL) insulin pen 100 unit SUBCUT BID 90 Days Qty: 36 0RF Xarelto 20 mg tablet See Rx Instructions .ROUTE .COMPLEX Qty: 90 0RF Dose Instruction: Take 1 tablet by mouth once daily Rx Instructions: Take 1 tablet by mouth once daily levothyroxine 112 mcg tablet See Rx Instructions .ROUTE .COMPLEX Qty: 90 0RF Dose Instruction: Take 1 tablet by mouth once daily Rx Instructions: Take 1 tablet by mouth once daily oxycodone 10 mg tablet 10 mg PO TID PRN (Reason: pain) 30 Days Qty: 70 0RF cholecalciferol (vitamin D3) 1,250 mcg (50,000 unit) capsule 50,000 unit PO .weekly Qty: 4 2RF fenofibrate 160 mg tablet See Rx Instructions .ROUTE .COMPLEX Qty: 90 0RF Dose Instruction: Take 1 tablet by mouth once daily Rx Instructions: Take 1 tablet by mouth once daily clopidogrel 75 mg tablet See Rx Instructions .ROUTE .COMPLEX Qty: 90 0RF Dose Instruction: Take 1 tablet by mouth once daily Rx Instructions: Take 1 tablet by mouth once daily duloxetine 60 mg capsule,delayed release(DR/EC) See Rx Instructions .ROUTE .COMPLEX Qty: 60 2RF Dose Instruction: Take 1 capsule by mouth twice daily Rx Instructions: Take 1 capsule by mouth twice daily bupropion HCl [Wellbutrin XL] 150 mg tablet extended release 24 hr 150 mg PO QAM Qty: 30 2RF Referrals: Franca Garza FNP [Primary Care Provider] - Coding Level of Care Code ED Admissions Gate Attendant for Sidra Saldivar
[2023-03-07 22:02] LABS: Basophils # 0.1 10^3/uL (0.0-0.1); Basophils % 0.7 %; Eosinophils # 0.3 10^3/uL (0.0-0.8); Eosinophils % 4.6 %; Hematocrit 37.6 % (36-47); Lymphocytes # 2.3 10^3/uL (0.8-4.8); Mean Corpuscular HGB Conc 31.9 g/dL (30-55); Mean Corpuscular Hemoglobin 24.8 pg (27-33); Mean Corpuscular Volume 77.7 fl (85-98); Mean Platelet Volume 9.8 fL (7.4-10.4); Monocytes # 0.5 10^3/uL (0.2-0.9); Monocytes % 6.6 %; Neutrophils # 4.23 10^3/uL (1.8-7.7); Nucleated Red Blood Cells % 0 %; Platelet Count 410 10^3/cmm (157-399); Red Blood Count 4.84 10^6/uL (3.85-5.65); Red Cell Distribution Width 17.7 % (12.1-15.1); White Blood Count 7.42 10^3/uL (3.29-11.43)
[2023-03-07 22:17] LABS: Alanine Aminotransferase 13 U/L (0-33); Albumin Level 2.9 g/dL (3.5-5.2); Alkaline Phosphatase 139 U/L (35-105); Anion Gap 16.2 (5-19); Aspartate Amino Transferase 17 U/L (0-32); Blood Urea Nitrogen 13 mg/dL (6-20); Carbon Dioxide 25 mmol/L (22-29); Chloride 94 mmol/L (98-107); Globulin 3.7 g/dL (1.3-4.6); Glomerular Filtration Rate 126.3 mL/min (90-130); Glucose 475 mg/dL (65-115); Lipase 296 U/L (13-60); Osmolality Calculated 293 mOsm/kg (285-295); Potassium 4.2 mmol/L (3.5-5.1); Sodium 131 mmol/L (136-145); Total Bilirubin 0.2 mg/dL (0.15-1.2); Total Protein 6.6 g/dL (6.6-8.7)
[2023-03-07 22:20] LABS: Troponin(5th) Baseline 70 ng/L (0-10)
--- NOTE | 2023-03-07 23:25 | ECG_ITS ---
[facility] Test Date: 2023-03-07 Pat Name: Delia Winter Department: Room: Gender: Female Communications Technician: : 1965 Requested By: Anil Rondon Order Number: [id number] Reid MD: Elsa Sebastian M.D. Measurements Intervals [place] Rate: 86 P: 3 SD: 206 QRS: -67 QRSD: 97 T: 66 QT: 397 QTc: 476 Interpretive Statements SINUS RHYTHM LOW QRS VOLTAGE IN PRECORDIAL LEADS [QRS DEFLECTION < 1.0 mV IN CHEST LEADS] LEFT ANTERIOR FASCICULAR BLOCK [QRS AXIS <= -45, QR IN I, RS IN II] POSSIBLE ANTERIOR MYOCARDIAL INFARCTION , PROBABLY OLD [30 ms Q WAVE IN V3/V4, OR R < 0.2 mV IN V4] Compared to ECG 04/04/2022 01:06:27 Left anterior fascicular block now present First degree AV block no longer present Myocardial infarct finding still present Electronically Signed On 03-09-2023 15:32:47 BAG END SEWER by Elsa Sebastian M.D. [email or web address]
--- NOTE | 2023-03-07 23:28 | PC.NURSE ---
blood sugar 461. Dr. Rondon aware.
[2023-03-07 23:31] LABS: Glucose Point of Care 461 mg/dL (70-110)
[2023-03-07] MEDS: insulin regular-human 100 units/1 mL 8 UNIT IVP (23:32)
[2023-03-07] MEDS: sodium chloride 0.9% 1,000 ML 999 ML IV (23:35)
[2023-03-07 23:48] VITALS: BP 96/52; PULSE 84; RESP 17; O2SAT 98
[2023-03-08] VITALS (27 sets, daily range): BP systolic 92–156; BP diastolic 51–106; PULSE 79–106; RESP 12–28; TEMP 37–37.1; O2SAT 95–100
[2023-03-08 00:19] LABS: Troponin 5 2HR 144.2 ng/L (0-10)
[2023-03-08 00:22] LABS: Troponin 5 2HR Delta 74.2 ABS# (0-10)
[2023-03-08] MEDS: enoxaparin 80 mg/0.8 mL Syringe 70 MG SUBCUT ×2 (01:32→14:20)
--- NOTE | 2023-03-08 03:48 | ECG_ITS ---
[facility] Test Date: 2023-03-08 Pat Name: Delia Winter Department: Room: EDIP Gender: Female Technical Architect: : 1965 Requested By: Anil Rondon Order Number: [id number] Reid MD: Elsa Sebastian M.D. Measurements Intervals [place] Rate: 90 P: 1 [place]: 205 QRS: -59 QRSD: 99 T: 116 QT: 385 QTc: 473 Interpretive Statements SINUS RHYTHM LEFT ANTERIOR FASCICULAR BLOCK [QRS AXIS <= -45, QR IN I, RS IN II] POSSIBLE ANTERIOR MYOCARDIAL INFARCTION , PROBABLY OLD [30 ms Q WAVE IN V3/V4, OR R < 0.2 mV IN V4] Compared to ECG 03/07/2023 23:25:13 No significant changes Electronically Signed On 03-09-2023 15:32:23 GROCERY WORKER by Elsa Sebastian M.D. [id number]
[2023-03-08 04:33] LABS: Troponin 5 6HR 201.1 ng/L (0-10); Troponin 5 6HR Delta 131.1 ng/L (0-12)
--- NOTE | 2023-03-08 05:56 | P.HP_ITS ---
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 Patient is stating that she has 6-7 stents, she is an active smoker. Lives with her family. Patient is stating that after supper she started experiencing epigastric discomfort at 6:30 PM which she is describing as burning, got relieved with Tums. Patient never had recurrence of symptoms, she did not experience nausea, vomiting diaphoresis or radiation of her chest discomfort. In the ER she was diagnosed with non-STEMI considering significant delta troponin she was given therapeutic Lovenox. Review of Systems 2 Const: Denies: fever(s) Eyes: Denies: change in vision ENMT: Denies: throat pain Card: Reports: chest pain Resp: Denies: dyspnea GI: Reports: bloating; Denies: abdominal pain Medications/Allergies Home Medications Medication Instructions Recorded Confirmed Last Taken Type prosthetic hands Bilateral #1 ea 05/02/19 02/15/23 Unknown Rx blood-glucose sensor #3 ea 05/08/20 02/15/23 Unknown Rx flash glucose scanning reader #1 ea 06/14/20 02/15/23 Unknown Rx (FreeStyle Maria M 2 [place]) pen needle, diabetic 31 gauge x #450 ea 07/01/20 02/15/23 Unknown Rx 3/16 (Sure-Fine Pen [place]) prosthetic legs #1 ea 12/11/20 02/15/23 Unknown Rx liraglutide 0.6 mg/0.1 mL (18 mg/3 See Rx Instructions SUBCUT DAILY 06/01/21 02/15/23 Unknown Rx mL) subcutaneous pen injector #27 mL (Victoza 3-Christiano) albuterol sulfate 2.5 mg/3 mL 2.5 mg inhalation Q6H PRN 06/30/21 02/15/23 Unknown History (0.083 %) solution for nebulization Shortness Of Breath flash glucose sensor (FreeStyle #6 ea 10/19/21 02/15/23 Unknown Rx Maria M 2 Sensor kit) nitroglycerin 0.4 mg sublingual 0.4 mg sublingual Q5M PRN chest 04/12/22 02/15/23 Unknown Rx tablet pain #25 tabs Ear Pulse Ox #1 ea 04/25/22 02/15/23 Unknown Rx albuterol sulfate 90 mcg/actuation 2 puff inhalation QID PRN 06/08/22 02/15/23 Unknown Rx aerosol inhaler shortness of breath or wheezing #6.7 grams clonazepam 0.5 mg tablet 0.5 mg PO DAILY PRN anxiety 30 09/21/22 02/15/23 Unknown Rx days #30 tabs zolpidem 5 mg tablet 5 mg PO .qhs PRN insomnia 30 days 09/21/22 02/15/23 Unknown Rx #30 tabs acetaminophen 325 mg tablet 325 mg PO QID PRN 10/17/22 02/15/23 Unknown History diphenhydramine HCl 25 mg tablet 25 mg PO TID PRN 10/17/22 02/15/23 Unknown History (Benadryl Allergy) lovastatin 40 mg tablet See Rx Instructions .Route 11/17/22 02/15/23 Unknown Rx .COMPLEX #90 tabs towwghpt-zlxscjfbe-kpcbwgvpf 3.5 4 drp otic (ear) Q8H #10 mL 11/21/22 02/15/23 Unknown Rx mg-10,000 unit/mL-1 % ear drops,susp wheelchair motorized #1 ea 12/16/22 02/15/23 Unknown Rx gabapentin 600 mg tablet See Rx Instructions .Route 12/19/22 02/15/23 Unknown Rx .COMPLEX #90 tabs aripiprazole 5 mg tablet (Abilify) 5 mg PO DAILY #30 tabs 12/28/22 02/15/23 Unknown Rx leflunomide 20 mg tablet 20 mg PO DAILY #30 tabs 01/04/23 02/15/23 Unknown Rx nitrofurantoin 100 mg PO Q12H 7 days #14 caps 01/16/23 02/15/23 Unknown Rx monohydrate/macrocrystals 100 mg capsule (Macrobid) insulin regular hum U-500 conc 500 100 unit (0.2 mL) SUBCUT BID 90 01/30/23 02/15/23 Unknown Rx unit/mL(3 mL) subcut pen (Humulin days #36 mL R U-500 (Conc) Insulin Kwikpen) sodium hypochlorite 0.5 % solution 1 applic topical BID #473 mL 01/31/23 02/15/23 Unknown Rx (Dakin's Solution) levothyroxine 112 mcg tablet See Rx Instructions .Route 02/13/23 02/15/23 Unknown Rx .COMPLEX #90 tabs oxycodone 10 mg tablet 10 mg PO TID PRN pain 30 days #70 02/13/23 02/15/23 Unknown Rx tabs rivaroxaban 20 mg tablet (Xarelto) See Rx Instructions .Route 02/13/23 02/15/23 Unknown Rx .COMPLEX #90 tabs cholecalciferol (vitamin D3) 1,250 50,000 unit PO .weekly #4 caps 02/16/23 Unknown Rx mcg (50,000 unit) capsule fenofibrate 160 mg tablet See Rx Instructions .Route 02/17/23 Unknown Rx .COMPLEX #90 tabs clopidogrel 75 mg tablet See Rx Instructions .Route 02/23/23 Unknown Rx .COMPLEX #90 tabs bupropion HCl 150 mg 24 hr tablet, 150 mg PO QAM #30 tabs 02/27/23 Unknown Rx extended release (Wellbutrin XL) duloxetine 60 mg capsule,delayed See Rx Instructions .Route 02/27/23 Unknown Rx release .COMPLEX #60 ea Allergies Allergy/AdvReac Type Severity Reaction Status Date / Time cephalexin [From Keflex] Allergy Mild DIARRHEA Verified 02/15/23 10:40 metformin Allergy Mild SWELLING Verified 02/15/23 10:40 PFSH Acute 2 PFSH: Medical History Bilateral pneumonia Influenza B UTI (urinary tract infection) COVID-19 Hypovolemic shock Pressure sore on buttocks Stage II pressure ulcer of left buttock UTI (urinary tract infection) Amputation leg, bilat Psychiatric care Anxiety Major depressive disorder, recurrent severe without psychotic features Coronary artery disease Polyuria Polydipsia Urgency incontinence Recurrent UTI Below-elbow amputation of right upper extremity Below-elbow amputation of left upper extremity 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 Enrolled in chronic care management Rheumatoid arthritis History of amputation of lower extremity Phantom pain after amputation of lower extremity Chronic pain 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 Diabetes mellitus Hypothyroidism Hyperlipemia, mixed HTN (hypertension), benign DM type 2 causing complication 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, hand, bilateral Hx of sepsis Surgical History History of skin graft History of appendectomy History of amputation of finger of both hands Family History Father , at age 47 CAD (coronary artery disease) Hypertension Mother , at age 64 Diabetes Lung disease Sister Diabetes Brother Diabetes Denies family history of Dementia Cancer Stroke Social History Smoking and tobacco/nicotine status: current every day tobacco/nicotine user Quit status (tobacco/nicotine): has tried quititng Second hand smoke exposure: Yes Alcohol intake: current Alcohol intake frequency: holidays/special occasions only Alcohol type: wine Substance/Drug Use: never Adopted: No Caregiver/support person: No Lives independently: Yes Household members: significant other and family Housing: House Marital status: Single Marital status details: Life partner of 43 years Number of children: 0 Number of grandchildren: 0 Highest education level completed: High School Graduate service: No Current occupational status: disabled Pets and animals: Yes (lab, yorkie, beagle) Pets & animals: dog(s) Leisure activites: art and other Leisure activities details: writing, watch TV Sexually active: Yes Do you think of yourself as: Straight/Heterosexual Current gender identity: Female Keyonna/Restoration: None Special keyonna needs: No Agree to transfusion: Yes Female Reproductive History: Para: 0 Vitals/I&O/Wt Last Vital Signs Temp 98.1 F 03/07/23 21:49 Pulse 97 03/08/23 05:31 Resp 16 03/08/23 05:31 BP 143/76 03/08/23 05:29 Pulse Ox 97 03/08/23 03:08 O2 Del Method Room Air 03/08/23 03:08 03/07/23 03/07/23 03/08/23 14:59 22:59 06:59 Intake Total 1000 / 1000 Balance 1000 / 1000 Weight last 48 hrs Weight 73.936 kg Weight 131.088 kg Physical Exam 2 Narrative: Quadruple amputee Awake and alert No chest pain Hemodynamically stable Currently on room air Pleasant calm Abdomen soft S1, S2 Pleasant and cooperative Data 03/07/23 21:57 03/07/23 21:57 A&P Assessment and plan (1) Non-ST elevation [place] (NSTEMI): (2) Complete amputation of bilateral legs: Qualifiers: Encounter type: subsequent encounter Qualified Code(s): S88.911D - Complete traumatic amputation of right lower leg, level unspecified, subsequent encounter; S88.912D - Complete traumatic amputation of left lower leg, level unspecified, subsequent encounter (3) Below-elbow amputation of right upper extremity: (4) Below-elbow amputation of left upper extremity: (5) Rheumatoid arthritis: Qualifiers: Rheumatoid arthritis location: multiple sites Rheumatoid factor presence: unspecified presence Qualified Code(s): M06.9 - Rheumatoid arthritis, unspecified (6) Decubitus ulcer of coccyx: Plan Non-STEMI Significant delta troponin Start ACS protocol Requested echo We will give loading dose of aspirin Plavix Therapeutic Lovenox Patient hemodynamic stable Patient carries history of CABG coronary disease with 6 stents stents in the past, she is an active smoker She is diabetic Hyperglycemia, requested A1c level We will keep her on cardiac consistent carb diet with insulin sliding scale Patient is stating that she is DNI/DNI She lives with her family History of hypothyroidism continue levothyroxine History of rheumatoid arthritis she takes leflunomide Active smoker, requires oxygen intermittently at home Noncompliant Hold off on rivaroxaban that patient was taking at home Attestations 2 Medical Necessity Statement*: Continue medical management Diagnoses Non-ST elevation [place] (NSTEMI) I21.4 Complete amputation of both lower extremities, subsequent encounter S88.911D; S88.912D Encounter type: subsequent encounter Below-elbow amputation of right upper extremity S58.111A Below-elbow amputation of left upper extremity S58.112A Rheumatoid arthritis involving multiple sites, unspecified whether rheumatoid factor present M06.9 Rheumatoid arthritis location: multiple sites Rheumatoid factor presence: unspecified presence Decubitus ulcer of coccyx L89.159
--- NOTE | 2023-03-08 07:10 | USCV_ITS ---
Delia Winter Age: 57 Gender: F : 1965 Exam Date: 03/08/2023 07:57 Ordering Phys: Haylie Tobar MD Technologist: Espinoza Resendiz [place] [facility] [place]: BP: 138 / 95 HR: 96 Rhythm: Sinus Technical Quality: Adequate MEASUREMENTS (Male / Female) Normal Values 2D ECHO LV Diastolic Diameter PLAX 3.4 cm 4.2 - 5.9 / 3.9 - 5.3 cm LV Systolic Diameter PLAX 2.1 cm IVS Diastolic Thickness 1.3 cm 0.6 - 1.0 / 0.6 - 0.9 cm IVS Systolic Thickness 1.6 cm LVPW Diastolic Thickness 1.2 cm 0.6 - 1.0 / 0.6 - 0.9 cm LVPW Systolic Thickness 1.3 cm LVOT Diameter 2.0 cm LV Ejection Fraction 2D Teich 69.0 % LV Ejection Fraction MOD 2C 69.3 % LV Ejection Fraction 2C AL 68.1 % LA Diameter 3.1 cm IVC Diameter 1.8 cm M-MODE Aortic Annulus Diameter 2.8 cm LA Ao Ratio MM 1.2 MV E Point Septal Separation 0.7 cm DOPPLER AV Peak Velocity 141.0 cm/s LVOT Peak Velocity 95.0 cm/s AV Area Cont Eq vti 2.7 cm squared AV Area Cont Eq pk 2.2 cm squared MV Area PHT 5.0 cm squared Mitral E to A Ratio 2.7 MV E' Velocity 60.0 cm/s Mitral E to MV E' Ratio 19.2 Mitral E to LV E' Lateral Ratio 16.4 Mitral E to LV E' Septal Ratio 23.6 TR Peak Velocity 111.0 cm/s TR Peak Gradient 4.9 mmHg TV Peak E Velocity 100.0 cm/s Right Atrial Pressure 3.0 mmHg Pulmonary Artery Systolic Pressu 7.9 mmHg RV Acceleration Time 0.1 s FINDINGS Left Ventricle Mild left ventricular hypertrophy. Mildly reduced LV systolic function with mid distal anterior anteroseptal hypokinesis. Overall LVEF 50%. Grade 2 diastolic dysfunction. Right Ventricle Normal right ventricular size and systolic function. Right Atrium Normal right atrial size. Left Atrium Normal left atrial size. Mitral Valve Structurally normal mitral valve. Aortic Valve Structurally normal trileaflet aortic valve. Tricuspid Valve Structurally normal tricuspid valve. Trace tricuspid valve regurgitation. Pulmonic Valve Pulmonic valve not well visualized. Trace pulmonary valve regurgitation. Pericardium No pericardial effusion. Aorta Normal size aortic root and proximal ascending aorta. IVC Normal IVC dimension with >50% respiratory change of the inferior vena cava. CONCLUSIONS Mild concentric LVH. LVEF is mildly reduced with the mid-distal anterior and and anteroseptal hypokinesis. Estimated LVEF at 50%. No significant valvular abnormality noted. Normal right heart and pulmonary pressures. Compared to previous echo report, the LVEF is reduced Sol Salazar MD (Electronically Signed) Final Date: 08 March 2023 16:10 S
[2023-03-08 08:10] LABS: Glucose Point of Care 323 mg/dL (70-110)
[2023-03-08] MEDS: aspirin 325 mg EC Tablet PO (08:14)
[2023-03-08] MEDS: clopidogrel 300 mg Tablet PO (08:14)
[2023-03-08] MEDS: insulin lispro 100 unit/1 mL SUBCUT ×2 (08:14→19:29)
[2023-03-08] MEDS: ARIPiprazole 10 mg Tablet 5 MG PO (08:16)
[2023-03-08] MEDS: atorvastatin 40 mg Tablet 80 MG PO (08:16)
[2023-03-08] MEDS: clopidogrel 75 mg Tablet PO (08:17)
[2023-03-08 09:04] LABS: Estmated Average Glucose 240
--- NOTE | 2023-03-08 09:59 | PC.NURSE ---
pharmacy called to ask for synthroid to be brought down.
--- NOTE | 2023-03-08 10:13 | ECG_ITS ---
[facility] Test Date: 2023-03-08 Pat Name: Delia Winter Department: Room: EDIP Gender: Female Rn Sane: : 1965 Requested By: Will Upton Order Number: [id number] Reid MD: Elsa Sebastian M.D. Measurements Intervals Tiro Rate: 98 P: 13 [place]: 215 QRS: -51 QRSD: 99 T: 120 QT: 363 QTc: 464 Interpretive Statements SINUS RHYTHM WITH FIRST DEGREE AV BLOCK LOW QRS VOLTAGE IN PRECORDIAL LEADS [QRS DEFLECTION < 1.0 mV IN CHEST LEADS] POSSIBLE ANTERIOR MYOCARDIAL INFARCTION , PROBABLY OLD INFERIOR MYOCARDIAL INFARCTION , OF INDETERMINATE AGE MODERATE T-WAVE ABNORMALITY, CONSIDER LATERAL ISCHEMIA Compared to ECG 03/08/2023 04:01:08 First degree AV block now present Low QRS voltage now present T-wave abnormality now present Possible ischemia now present Left anterior fascicular block no longer present Myocardial infarct finding still present Electronically Signed On 03-09-2023 15:33:38 [employer]ME[employer] by Elsa Sebastian M.D. [id number]
[2023-03-08] MEDS: buPROPion XL (24 HR) 150 mg Tablet PO (10:45)
[2023-03-08] MEDS: levothyroxine 112 mcg Tablet PO (10:45)
[2023-03-08] MEDS: metoprolol tartrate 25 mg Tablet PO ×2 (10:46→20:27)
[2023-03-08] MEDS: nitroglycerin 1 gm/inch oint Pkt 1 INCH TOPICAL ×3 (10:46→23:12)
[2023-03-08 11:09] LABS: Troponin(5th) Baseline 253 ng/L (0-10)
--- NOTE | 2023-03-08 11:55 | PM.CONSULT ---
Providers/Reason For Consult Consulting Physician/Specialty*: Cardiology Reason for Consult*: ACS/NSTEMI Requesting Physician: Dr. 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 She was admitted and last night with an episode of chest pain yesterday afternoon. On admission the EKG showed ST changes and elevated cardiac troponin enzyme, ACS/NSTEMI. I saw her in the ER, clinically she is asymptomatic. No further chest pain. Patient is bed bound due to her comorbidities, she is to smoke about half pack a day and her diabetes is poorly controlled. At present her vitals are stable within normal range and patient is comfortably resting on her bed. Review of Systems Narrative: Detailed 10 point systemic review is unremarkable except for as mentioned above in the history point tenderness. She continues to smoke in spite of and lost all 4 limbs related to vasculopathy. Her diabetes remains poorly controlled as well. Medications/Allergies Home Medications Medication Instructions Recorded Confirmed Last Taken Type prosthetic hands Bilateral #1 ea 05/02/19 03/08/23 Unknown Rx blood-glucose sensor #3 ea 05/08/20 03/08/23 Unknown Rx flash glucose scanning reader #1 ea 06/14/20 03/08/23 Unknown Rx (FreeStyle Maria M 2 [place]) pen needle, diabetic 31 gauge x #450 ea 07/01/20 03/08/23 Unknown Rx 3/16 (Sure-Fine Pen [place]) prosthetic legs #1 ea 12/11/20 03/08/23 Unknown Rx albuterol sulfate 2.5 mg/3 mL 2.5 mg inhalation Q6H PRN 06/30/21 03/08/23 Unknown History (0.083 %) solution for nebulization Shortness Of Breath flash glucose sensor (FreeStyle #6 ea 10/19/21 03/08/23 Unknown Rx Maria M 2 Sensor kit) nitroglycerin 0.4 mg sublingual 0.4 mg sublingual Q5M PRN chest 04/12/22 03/08/23 Unknown Rx tablet pain #25 tabs Ear Pulse Ox #1 ea 04/25/22 03/08/23 Unknown Rx albuterol sulfate 90 mcg/actuation 2 puff inhalation QID PRN 06/08/22 03/08/23 Unknown Rx aerosol inhaler shortness of breath or wheezing #6.7 grams clonazepam 0.5 mg tablet 0.5 mg PO DAILY PRN anxiety 30 09/21/22 03/08/23 Unknown Rx days #30 tabs zolpidem 5 mg tablet 5 mg PO .qhs PRN insomnia 30 days 09/21/22 03/08/23 Unknown Rx #30 tabs acetaminophen 325 mg tablet 325 mg PO QID PRN Pain 10/17/22 03/08/23 Unknown History diphenhydramine HCl 25 mg tablet 25 mg PO TID PRN Allergy Symptoms 10/17/22 03/08/23 Unknown History (Benadryl Allergy) wheelchair motorized #1 ea 12/16/22 03/08/23 Unknown Rx aripiprazole 5 mg tablet (Abilify) 5 mg PO DAILY #30 tabs 12/28/22 03/08/23 Unknown Rx leflunomide 20 mg tablet 20 mg PO DAILY #30 tabs 01/04/23 03/08/23 Unknown Rx sodium hypochlorite 0.5 % solution 1 applic topical BID #473 mL 01/31/23 03/08/23 Unknown Rx (Dakin's Solution) levothyroxine 112 mcg tablet See Rx Instructions .Route 02/13/23 03/08/23 Unknown Rx .COMPLEX #90 tabs oxycodone 10 mg tablet 10 mg PO TID PRN pain 30 days #70 02/13/23 03/08/23 Unknown Rx tabs cholecalciferol (vitamin D3) 1,250 50,000 unit PO .weekly #4 caps 02/16/23 03/08/23 Unknown Rx mcg (50,000 unit) capsule bupropion HCl 150 mg 24 hr tablet, 150 mg PO QAM #30 tabs 02/27/23 03/08/23 Unknown Rx extended release (Wellbutrin XL) clopidogrel 75 mg tablet 75 mg PO DAILY 03/08/23 03/08/23 Unknown History duloxetine 60 mg capsule,delayed 60 mg PO BID 03/08/23 03/08/23 Unknown History release fenofibrate 160 mg tablet 160 mg PO DAILY 03/08/23 03/08/23 Unknown History gabapentin 600 mg tablet 600 mg PO TID 03/08/23 03/08/23 Unknown History insulin regular hum U-500 conc 500 100 - 120 unit SUBCUT BID 03/08/23 03/08/23 Unknown History unit/mL(3 mL) subcut pen (Humulin R U-500 (Conc) Insulin Kwikpen) lovastatin 40 mg tablet 40 mg PO DAILY 03/08/23 03/08/23 Unknown History rivaroxaban 20 mg tablet (Xarelto) 20 mg PO DAILY 03/08/23 03/08/23 Unknown History Allergies Allergy/AdvReac Type Severity Reaction Status Date / Time cephalexin [From Keflex] Allergy Mild DIARRHEA Verified 02/15/23 10:40 metformin Allergy Mild SWELLING Verified 02/15/23 10:40 Current Medications Generic Name Dose Route Start Last Admin Trade Name Philq PRN Reason Stop Dose Admin Aripiprazole 5 mg 03/08/23 09:00 03/08/23 08:16 Aripiprazole 10 Mg Tablet PO 5 mg DAILY EVELIO Administration Atorvastatin Calcium 80 mg 03/08/23 09:00 03/08/23 08:16 Atorvastatin 40 Mg Tablet PO 80 mg DAILY EVELIO Administration Bupropion HCl 150 mg 03/08/23 09:30 03/08/23 10:45 Bupropion Xl (24 Hr) 150 Mg Tablet PO 150 mg QAM EVELIO Administration Clopidogrel Bisulfate 75 mg 03/08/23 09:00 03/08/23 08:17 Clopidogrel 75 Mg Tablet PO 75 mg DAILY EVELIO Administration Insulin Human Lispro 0 unit 03/08/23 08:00 03/08/23 08:14 Insulin Lispro 100 Unit/1 Ml SUBCUT 12 unit TIDWM EVELIO Administration Protocol Levothyroxine Sodium 112 mcg 03/08/23 09:45 03/08/23 10:45 Levothyroxine 112 Mcg Tablet PO 112 mcg QAM EVELIO Administration Metoprolol Tartrate 25 mg 03/08/23 10:45 03/08/23 10:46 Metoprolol Tartrate 25 Mg Tablet PO 25 mg Q12H EVELIO Administration Nitroglycerin 1 inch 03/08/23 10:45 03/08/23 10:46 Nitroglycerin 1 Gm/Inch Oint Pkt TOPICAL 1 inch Q6H EVELIO Administration PFSH Acute PFSH: Medical History Bilateral pneumonia Influenza B UTI (urinary tract infection) COVID-19 Hypovolemic shock Pressure sore on buttocks Stage II pressure ulcer of left buttock UTI (urinary tract infection) Amputation leg, bilat Psychiatric care Anxiety Major depressive disorder, recurrent severe without psychotic features Coronary artery disease Polyuria Polydipsia Urgency incontinence Recurrent UTI Below-elbow amputation of right upper extremity Below-elbow amputation of left upper extremity 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 Enrolled in chronic care management Rheumatoid arthritis History of amputation of lower extremity Phantom pain after amputation of lower extremity Chronic pain 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 Diabetes mellitus Hypothyroidism Hyperlipemia, mixed HTN (hypertension), benign DM type 2 causing complication 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, hand, bilateral Hx of sepsis Surgical History History of skin graft History of appendectomy History of amputation of finger of both hands Family History Father , at age 47 CAD (coronary artery disease) Hypertension Mother , at age 64 Diabetes Lung disease Sister Diabetes Brother Diabetes Denies family history of Dementia Cancer Stroke Social History Smoking and tobacco/nicotine status: current every day tobacco/nicotine user Quit status (tobacco/nicotine): has tried quititng Second hand smoke exposure: Yes Alcohol intake: current Alcohol intake frequency: holidays/special occasions only Alcohol type: wine Substance/Drug Use: never Adopted: No Caregiver/support person: No Lives independently: Yes Household members: significant other and family Housing: House Marital status: Single Marital status details: Life partner of 43 years Number of children: 0 Number of grandchildren: 0 Highest education level completed: High School Graduate service: No Current occupational status: disabled Pets and animals: Yes (lab, yorkie, beagle) Pets & animals: dog(s) Leisure activites: art and other Leisure activities details: writing, watch TV Sexually active: Yes Do you think of yourself as: Straight/Heterosexual Current gender identity: Female Keyonna/Tenriism: None Special keyonna needs: No Agree to transfusion: Yes Female Reproductive History: Para: 0 Vitals/I&O/Wt Last Vital Signs Temp 98.1 F 03/07/23 21:49 Pulse 103 H 03/08/23 11:12 Resp 16 03/08/23 11:12 BP 138/76 03/08/23 11:12 Pulse Ox 97 03/08/23 11:12 O2 Del Method Room Air 03/08/23 07:44 03/07/23 03/08/23 03/08/23 22:59 06:59 14:59 Intake Total 1000 / 1000 Balance 1000 / 1000 Weight last 48 hrs Weight 163 lb Weight 289 lb Physical Exam Narrative: Patient laying comfortably on her bed. No respiratory distress. Asymptomatic. Vitals reveal pulse 98/min regular. Blood pressure 114/74. There is no JVD. HENMT unremarkable. Eyes normal. Lung auscultation reveals decreased air entry at the bases. No added sounds. Cardiac ablation normal first and second heart sounds. No added sounds Abdominal soft nontender bowel sounds audible. Extremities: Amputation of all 4 extremities lower extremities above-knee and upper extremities above elbows. Neuro grossly intact Skin warm and dry. Data 03/07/23 21:57 03/07/23 21:57 A&P Assessment and plan (1) Non-ST elevation [place] (NSTEMI): Plan 57-year-old female patient with significant comorbidities, bedbound due to amputation of all 4 limbs, now admitted with ACS/NSTEMI. Clinically she is stable. No further angina and clinically no heart failure since admission. Blood sugar remains poorly controlled and she still have ongoing smoking. Recommendation: 1. Echocardiogram 2. Considering her overall clinical status and significant comorbidities, I recommend aggressive medical management unless there is any refractory angina or any significant new finding on the echo. Thanks for asking me to see this patient consultation. Coding Level of Care Code [facility] Diagnoses Non-ST elevation [place] (NSTEMI) I21.4 Time Spent (min) 40
--- NOTE | 2023-03-08 12:24 | US_ITS ---
WS: [id number] RIGHT UPPER QUADRANT ULTRASOUND HISTORY: ruq pain COMPARISON: None available. Liver: 21.3 cm in length. Markedly enlarged liver with diffuse coarse echotexture and increased echog enicity. No mass and no bile duct dilatation. Portal Vein: Normal hepatopetal flow with monophasic waveform. Gallbladder: Normally distended gallbladder with no stones or wall thickening. CBD: 0.2 cm Pancreas: Normal size and echogenicity. Right kidney: 13.1 cm in length. Normal size and echogenicity. No hydronephrosis or mass. Aorta and IVC: Unremarkable abdominal aorta and IVC. No ascites. IMPRESSION: 1. Normal gallbladder. 2. Marked hepatomegaly and mild hepatic steatosis.
[2023-03-08 13:07] LABS: Basophils # 0.1 10^3/uL (0.0-0.1); Basophils % 0.8 %; Eosinophils # 0.3 10^3/uL (0.0-0.8); Hematocrit 41.5 % (36-47); Lymphocytes # 1.9 10^3/uL (0.8-4.8); Lymphocytes % 21.8 %; Mean Corpuscular HGB Conc 31.3 g/dL (30-55); Mean Corpuscular Hemoglobin 24.8 pg (27-33); Mean Corpuscular Volume 79.2 fl (85-98); Mean Platelet Volume 9.9 fL (7.4-10.4); Monocytes # 0.5 10^3/uL (0.2-0.9); Monocytes % 6.2 %; Neutrophils # 5.75 10^3/uL (1.8-7.7); Nucleated Red Blood Cells % 0 %; Platelet Count 468 10^3/cmm (157-399); Red Blood Count 5.24 10^6/uL (3.85-5.65); White Blood Count 8.58 10^3/uL (3.29-11.43)
[2023-03-08 13:36] LABS: Alanine Aminotransferase 12 U/L (0-33); Albumin Level 2.9 g/dL (3.5-5.2); Alkaline Phosphatase 140 U/L (35-105); Anion Gap 16.9 (5-19); Aspartate Amino Transferase 18 U/L (0-32); Blood Urea Nitrogen 10 mg/dL (6-20); C Reactive Protein 46.6 mg/L (0.0-4.9); Calcium 9.1 mg/dL (8.5-10.5); Carbon Dioxide 22 mmol/L (22-29); Chloride 100 mmol/L (98-107); Gamma Glutamyl Transferase 75 U/L (5-36); Globulin 4.3 g/dL (1.3-4.6); Glomerular Filtration Rate 126.3 mL/min (90-130); Glucose 388 mg/dL (65-115); Lipase 264 U/L (13-60); Osmolality Calculated 295 mOsm/kg (285-295); Potassium 3.9 mmol/L (3.5-5.1); Sodium 135 mmol/L (136-145); Total Bilirubin 0.3 mg/dL (0.15-1.2); Total Protein 7.2 g/dL (6.6-8.7)
[2023-03-08 13:41] LABS: Procalcitonin 2.03 ng/mL (0-0.5)
[2023-03-08 13:46] LABS: Troponin 5 2HR 241.1 ng/L (0-10); Troponin 5 2HR Delta -11.9 ABS# (0-10)
--- NOTE | 2023-03-08 14:04 | P.PN_ITS ---
Subjective 2 Subjective: Patient was seen this morning, she denies any fevers, chills, no current chest pain, she did have breakfast this morning, Vitals/I&O/Wt Last Vital Signs Temp 98.1 F 03/07/23 21:49 Pulse 87 03/08/23 12:30 Resp 17 03/08/23 12:30 BP 94/69 03/08/23 12:30 Pulse Ox 97 03/08/23 12:30 O2 Del Method Room Air 03/08/23 07:44 03/07/23 03/08/23 03/08/23 22:59 06:59 14:59 Intake Total 1000 / 1000 Balance 1000 / 1000 Weight last 48 hrs Weight 73.936 kg Weight 131.088 kg Physical Exam 2 Const: COMMON NORMALS: no acute distress and patient oriented x3 Resp: COMMON NORMALS: normal respiratory effort, No retractions, No use of accessory muscles and clear to auscultation bilaterally AUSCULTATION: clear to auscultation bilaterally Cardio: COMMON NORMALS: regular rate, regular rhythm, S1 normal heart sound present and S2 normal heart sound present RATE: regular rate RHYTHM: r egular rhythm HEART SOUNDS: S1 normal heart sound present and S2 normal heart sound present GI: COMMON NORMALS: Normal to inspection, nondistended, normoactive bowel sounds present and non-tender Extremity: COMMON NORMALS: no pedal edema Neuro: COMMON NORMALS: patient oriented x3 Psych: COMMON NORMALS: mental status grossly normal Data 03/08/23 12:48 03/08/23 12:48 A&P Assessment and plan (1) Non-ST elevation [place] (NSTEMI): (2) Complete amputation of bilateral legs: Qualifiers: Encounter type: subsequent encounter Qualified Code(s): S88.911D - Complete traumatic amputation of right lower leg, level unspecified, subsequent encounter; S88.912D - Complete traumatic amputation of left lower leg, level unspecified, subsequent encounter (3) Below-elbow amputation of right upper extremity: (4) Below-elbow amputation of left upper extremity: (5) Rheumatoid arthritis: Qualifiers: Rheumatoid arthritis location: multiple sites Rheumatoid factor presence: unspecified presence Qualified Code(s): M06.9 - Rheumatoid arthritis, unspecified (6) Decubitus ulcer of coccyx: (7) Elevated lipase: Plan Non-STEMI Significant delta troponin Start ACS protocol Requested echo Status post loading dose of aspirin Plavix, ? Resume aspirin 81 mg once daily, Plavix 75 mg once daily, add metoprolol 25 twice daily ? Continue statin Therapeutic Lovenox Patient hemodynamic stable Patient carries history of CABG coronary disease with 6 stents stents in the past, she is an active smoker She is diabetic Hyperglycemia, requested A1c level 10 We will keep her on cardiac consistent carb diet with insulin sliding scale Currently n.p.o., repeat troponin trend, await cardiac echo, spoke to cardiology, await recommendations Patient is stating that she is DNR/DNI She lives with her family History of hypothyroidism continue levothyroxine History of rheumatoid arthritis she takes leflunomide Active smoker, requires oxygen intermittently at home Noncompliant Elevated lipase, alk phos, elevated Pro-Isidoro, right upper quadrant ultrasound Attestations 2 Medical Necessity Statement*: Patient requires hospitalization for NSTEMI Diagnoses Non-ST elevation [place] (NSTEMI) I21.4 Complete amputation of both lower extremities, subsequent encounter S88.911D; S88.912D Encounter type: subsequent encounter Below-elbow amputation of right upper extremity S58.111A Below-elbow amputation of left upper extremity S58.112A Rheumatoid arthritis involving multiple sites, unspecified whether rheumatoid factor present M06.9 Rheumatoid arthritis location: multiple sites Rheumatoid factor presence: unspecified presence Decubitus ulcer of coccyx L89.159 Elevated lipase R74.8
[2023-03-08] MEDS: sucralfate 1 gm Tablet PO ×2 (17:03→20:27)
[2023-03-08] MEDS: pantoprazole 40 mg SDV IVP (17:04)
[2023-03-08] MEDS: duloxetine 60 mg Capsule PO (17:05)
[2023-03-08 18:52] LABS: Glucose Point of Care 292 mg/dL (70-110)
[2023-03-08 19:44] LABS: Hematocrit 39.2 % (36-47)
[2023-03-08 20:15] LABS: Troponin 5 6HR 211.3 ng/L (0-10)
[2023-03-08] MEDS: morphine 4 mg/mL SDV 1 mL 2 MG IVP (20:24)
[2023-03-08] MEDS: gabapentin 300 mg Capsule 600 MG PO (20:27)
[2023-03-09 00:42] LABS: Hematocrit 36.7 % (36-47)
[2023-03-09] MEDS: enoxaparin 80 mg/0.8 mL Syringe 70 MG SUBCUT (01:13)
[2023-03-09] MEDS: zolpidem 5 mg Tablet PO (01:15)
[2023-03-09 03:00] VITALS: BP 113/61; PULSE 87; RESP 18; TEMP 37.4
[2023-03-09] MEDS: sucralfate 1 gm Tablet PO ×2 (03:04→08:59)
[2023-03-09] MEDS: nitroglycerin 1 gm/inch oint Pkt 1 INCH TOPICAL (04:50)
--- NOTE | 2023-03-09 04:53 | PC.NURSE ---
Called regarding patient asking if was ok to transfer pt to same day surgery center. said patient can be transfered to same day surgery center. Called report to Joann ABREU, patient transfered via bed with all belongings and chart.
[2023-03-09 05:00] VITALS: BP 145/81; PULSE 86; RESP 17; TEMP 36.7
[2023-03-09] MEDS: levothyroxine 112 mcg Tablet PO (05:48)
[2023-03-09] MEDS: buPROPion XL (24 HR) 150 mg Tablet PO (05:48)
[2023-03-09 05:58] LABS: Glucose Point of Care 235 mg/dL (70-110)
[2023-03-09 06:00] VITALS: PULSE 86; BMI 61.0
[2023-03-09 06:48] LABS: Basophils # 0.1 10^3/uL (0.0-0.1); Basophils % 1.1 %; Eosinophils # 0.3 10^3/uL (0.0-0.8); Eosinophils % 5.2 %; Hematocrit 38.1 % (36-47); Lymphocytes # 2.1 10^3/uL (0.8-4.8); Lymphocytes % 33.1 %; Mean Corpuscular HGB Conc 31.8 g/dL (30-55); Mean Corpuscular Hemoglobin 24.6 pg (27-33); Mean Corpuscular Volume 77.6 fl (85-98); Mean Platelet Volume 9.9 fL (7.4-10.4); Monocytes # 0.4 10^3/uL (0.2-0.9); Neutrophils # 3.46 10^3/uL (1.8-7.7); Neutrophils % 54.3 %; Nucleated Red Blood Cells % 0 %; Platelet Count 439 10^3/cmm (157-399); Red Blood Count 4.91 10^6/uL (3.85-5.65); Red Cell Distribution Width 17.6 % (12.1-15.1); White Blood Count 6.37 10^3/uL (3.29-11.43)
[2023-03-09 07:09] LABS: Alanine Aminotransferase 10 U/L (0-33); Albumin Level 2.8 g/dL (3.5-5.2); Alkaline Phosphatase 134 U/L (35-105); Anion Gap 15.1 (5-19); Aspartate Amino Transferase 13 U/L (0-32); Blood Urea Nitrogen 10 mg/dL (6-20); C Reactive Protein 34.7 mg/L (0.0-4.9); Calcium 9.1 mg/dL (8.5-10.5); Carbon Dioxide 23 mmol/L (22-29); Chloride 99 mmol/L (98-107); Globulin 4.2 g/dL (1.3-4.6); Glomerular Filtration Rate 126.3 mL/min (90-130); Glucose 351 mg/dL (65-115); Magnesium 2.1 mg/dL (1.7-2.3); Osmolality Calculated 289 mOsm/kg (285-295); Potassium 4.1 mmol/L (3.5-5.1); Sodium 133 mmol/L (136-145); Total Bilirubin 0.4 mg/dL (0.15-1.2)
[2023-03-09 07:19] LABS: NT Pro B Type Natriuretic Pept 1207 pg/mL (0-125); Procalcitonin 1.44 ng/mL (0-0.5)
[2023-03-09 07:20] LABS: Troponin T (5th) Once 174 ng/L (0-10)
[2023-03-09 07:33] VITALS: PULSE 86; RESP 16; O2SAT 95
[2023-03-09 08:06] VITALS: BP 137/77; PULSE 86; RESP 20; TEMP 36.7; O2SAT 99
--- NOTE | 2023-03-09 08:23 | PM.PN ---
Subjective Subjective: Overnight patient is doing well, no further chest pain. She denies any shortness of air. Her vitals are stable. We originally thought about a possible angiogram however further detailed review of her clinical status, with significant comorbidities, including amputation of all four limbs, with difficult to get arterial access, it was decided for medical management. Additionally patient also does not want angiogram procedure done and they would prefer medical management. Will plan to optimize her cardiac medications. She will likely be discharged home today with a follow-up in the cardiology clinic in 2 weeks. Medications: Medication Review Details: Medications reviewed and adjusted. Vitals/I&O/Wt Last Vital Signs Temp 98.0 F 03/09/23 08:06 Pulse 86 03/09/23 08:06 Resp 20 H 03/09/23 08:06 BP 137/77 03/09/23 08:06 Pulse Ox 99 03/09/23 08:06 O2 Del Method Nasal Cannula 03/09/23 08:06 03/08/23 03/09/23 03/09/23 22:59 06:59 14:59 Intake Total 240 / 240 Balance 240 / 240 Weight last 48 hrs Weight 153 lb 2 oz Weight 152 lb 1.903 oz Weight 163 lb Weight 289 lb Physical Exam Narrative: Vital stable, blood pressure 128/76, pulse 80/min regular. There is no JVD HEENT: Unremarkable. Lungs clear to auscultation bilaterally. Cardiac admission normal first and second heart sounds. No added sounds. Data 03/09/23 06:30 03/09/23 06:30 Micro: Microbiology 03/08/23 15:42 Blood Culture - Preliminary Blood SPECIMEN COLLECTED 03/08/23 15:39 Blood Culture - Preliminary Blood SPECIMEN COLLECTED A&P Assessment and plan (1) Non-ST elevation [place] (NSTEMI): Plan Ms. Marysol Winter who admitted with NSTEMI, doing well, asymptomatic. She has been managed medically considering her significant comorbidities . Additionally patient also did not want to have an angiogram done and prefer for medical management. Plan: Optimize her treatment, I added a oral nitrates Imdur 30 mg once a day and she will continue rest of medication. From cardiac standpoint of view she is okay to be discharged home follow-up in the cardiology clinic in 2 weeks. Thanks Attestations Medical Necessity Statement*: NSTEMI Coding Level of Care Code Acute Code for [facility] Diagnoses Non-ST elevation [place] (NSTEMI) I21.4 Time Spent (min) 25
[2023-03-09] MEDS: insulin lispro 100 unit/1 mL SUBCUT ×2 (08:54→11:48)
[2023-03-09] MEDS: isosorbide mononitrate ER 30 mg Tablet PO (08:57)
[2023-03-09] MEDS: pantoprazole DR 40 mg Tablet PO (08:58)
[2023-03-09] MEDS: gabapentin 300 mg Capsule 600 MG PO (08:58)
[2023-03-09] MEDS: ARIPiprazole 10 mg Tablet 5 MG PO (08:59)
[2023-03-09] MEDS: atorvastatin 40 mg Tablet PO (08:59)
[2023-03-09] MEDS: aspirin 81 mg EC Tablet PO (08:59)
[2023-03-09] MEDS: duloxetine 60 mg Capsule PO (09:02)
[2023-03-09] MEDS: clopidogrel 75 mg Tablet PO (09:02)
--- NOTE | 2023-03-09 09:03 | PC.NURSE ---
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
--- NOTE | 2023-03-09 09:45 | P.DS_ITS ---
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 Patient is stating that she has 6-7 stents, she is an active smoker. Lives with her family. Patient is stating that after supper she started experiencing epigastric discomfort at 6:30 PM which she is describing as burning, got relieved with Tums. Patient never had recurrence of symptoms, she did not experience nausea, vomiting diaphoresis or radiation of her chest discomfort. In the ER she was diagnosed with non-STEMI considering significant delta troponin she was given therapeutic Lovenox. Patient was admitted to [facility] for non-STEMI, with positive delta troponin, monitor with ACS protocol, loading dose of aspirin, Plavix, therapeutic Lovenox, cardiac echocardiogram showed CONCLUSIONS Mild concentric LVH. LVEF is mildly reduced with the mid-distal anterior and and anteroseptal hypokinesis. Estimated LVEF at 50%. No significant valvular abnormality noted. Normal right heart and pulmonary pressures. Compared to previous echo report, the LVEF is reduced After shared decision making with patient, and cardiology, decision was made to pursue medical management of patient's ACS/Nstemi, she was monitored as inpatient, no recurrent chest pain, discharged on Plavix, her home Xarelto, beta-giovanny, Imdur, if any recurrent chest pain please go to emergency room, follow-up with cardiology as outpatient for decision a of stress testing versus angiogram, -if any recurrent chest pain, go to ER For patient's elevated lipase, advised to hydrate well, avoid alcohol, follow-up with primary care provider for recheck liver function in 1 week gallbladder US IMPRESSION: 1. Normal gallbladder. 2. Marked hepatomegaly and mild hepatic steatosis. Physical Exam Const: COMMON NORMALS: no acute distress and patient oriented x3 Resp: COMMON NORMALS: normal respiratory effort, No retractions, No use of accessory muscles and clear to auscultation bilaterally AUSCULTATION: clear to auscultation bilaterally Cardio: COMMON NORMALS: regular rate, regular rhythm, S1 normal heart sound present and S2 normal heart sound present RATE: regular rate RHYTHM: regular rhythm HEART SOUNDS: S1 normal heart sound present and S2 normal heart sound present GI: COMMON NORMALS: Normal to inspection, nondistended, normoactive bowel sounds present and non-tender Extremity: COMMON NORMALS: no pedal edema Neuro: COMMON NORMALS: patient oriented x3 Psych: COMMON NORMALS: mental status grossly normal Discharge Data Studies Completed and Pending Completed Studies During Hospitalization Category Date Time Status XR chest 1V portable [id number] Stat Exams 03/07/23 21:48 Completed CV. echo complete* [id number] Routine Ultrasound 03/08/23 07:10 Completed US gall bladder [id number] Routine Ultrasound 03/08/23 12:24 Completed Pending at discharge Category Date Time Status Blood Culture Stat Lab 03/08/23 15:42 Results C Reactive Protein AM LABS Lab 03/10/23 04:00 Ordered C Reactive Protein AM LABS Lab 03/11/23 04:00 Ordered Comprehensive Metabolic Panel AM LABS Lab 03/10/23 04:00 Ordered Comprehensive Metabolic Panel AM LABS Lab 03/11/23 04:00 Ordered NT Pro B Type Natriuretic Pept QAM Lab 03/10/23 06:00 Ordered NT Pro B Type Natriuretic Pept QAM Lab 03/11/23 06:00 Ordered Procalcitonin AM LABS Lab 03/10/23 04:00 Ordered Procalcitonin AM LABS Lab 03/11/23 04:00 Ordered Urinalysis Routine Lab 03/08/23 14:05 Uncollected Radiology Impressions Chest X-Ray 03/07/23 21:48 IMPRESSION: Mildly coarse lung markings bilaterally, may represent scarring. No consolidation. Laboratory Results WBC 6.37 10^3/uL (3.29-11.43) 03/09/23 06:30 RBC 4.91 10^6/uL (3.85-5.65) 03/09/23 06:30 Hgb 12.10 g/dL (11.27-16.99) 03/09/23 06:30 Hct 38.1 % (36-47) 03/09/23 06:30 MCV 77.6 fl (85-98) L 03/09/23 06:30 MCH 24.6 pg (27-33) L 03/09/23 06:30 MCHC 31.8 g/dL (30-55) 03/09/23 06:30 RDW 17.6 % (12.1-15.1) H 03/09/23 06:30 Plt Count 439 10^3/cmm (157-399) H 03/09/23 06:30 MPV 9.9 fL (7.4-10.4) 03/09/23 06:30 Neut % (Auto) 54.3 % 03/09/23 06:30 Lymph % (Auto) 33.1 % 03/09/23 06:30 Pike % (Auto) 6.0 % 03/09/23 06:30 Eos % (Auto) 5.2 % 03/09/23 06:30 Baso % (Auto) 1.1 % 03/09/23 06:30 Neut # (Auto) 3.46 10^3/uL (1.8-7.7) 03/09/23 06:30 Lymph # (Auto) 2.1 10^3/uL (0.8-4.8) 03/09/23 06:30 Pike # (Auto) 0.4 10^3/uL (0.2-0.9) 03/09/23 06:30 Eos # (Auto) 0.3 10^3/uL (0.0-0.8) 03/09/23 06:30 Baso # (Auto) 0.1 10^3/uL (0.0-0.1) 03/09/23 06:30 Nucleated RBC % (auto) 0 % 03/09/23 06:30 Nucleated RBCs # 0.0 /100WBC 03/09/23 06:30 Sodium 133 mmol/L (136-145) L 03/09/23 06:30 Potassium 4.1 mmol/L (3.5-5.1) 03/09/23 06:30 Chloride 99 mmol/L (98-107) 03/09/23 06:30 Carbon Dioxide 23 mmol/L (22-29) 03/09/23 06:30 Anion Gap 15.1 (5-19) 03/09/23 06:30 BUN 10 mg/dL (6-20) 03/09/23 06:30 Creatinine 0.5 mg/dL (0.5-0.9) 03/09/23 06:30 GFR Calculation 126.3 mL/min (90-130) 03/09/23 06:30 Glucose 351 mg/dL (65-115) H 03/09/23 06:30 POC Glucose 235 mg/dL (70-110) H 03/08/23 21:47 Estimat Average Glucose 240 03/07/23 21:57 Hemoglobin A1c 10.0 % (4.0-6.0) H 03/07/23 21:57 Calculated Osmolality 289 mOsm/kg (285-295) 03/09/23 06:30 Calcium 9.1 mg/dL (8.5-10.5) 03/09/23 06:30 Magnesium 2.1 mg/dL (1.7-2.3) 03/09/23 06:30 Total Bilirubin 0.4 mg/dL (0.15-1.2) 03/09/23 06:30 GGT 75 U/L (5-36) H 03/08/23 12:48 AST 13 U/L (0-32) 03/09/23 06:30 ALT 10 U/L (0-33) 03/09/23 06:30 Alkaline Phosphatase 134 U/L (35-105) H 03/09/23 06:30 Troponin T 5th Gen ng/L 174 ng/L (0-10) H* 03/09/23 06:30 Troponin T Baseline 253 ng/L (0-10) H* 03/08/23 10:35 Troponin T 120 Minute 241.1 ng/L (0-10) H 03/08/23 12:48 Delta Troponin T -11.9 ABS# (0-10) L 03/08/23 12:48 Troponin T Hi Sens 6Hr 211.3 ng/L (0-10) H 03/08/23 19:34 Troponin T Hi Sens 6Hr Delta -41.7 ng/L (0-12) L 03/08/23 19:34 C-Reactive Protein 34.7 mg/L (0.0-4.9) H 03/09/23 06:30 NT-Pro-B Natriuret Pep 1207 pg/mL (0-125) H 03/09/23 06:30 Total Protein 7.0 g/dL (6.6-8.7) 03/09/23 06:30 Albumin 2.8 g/dL (3.5-5.2) L 03/09/23 06:30 Globulin 4.2 g/dL (1.3-4.6) 03/09/23 06:30 Lipase 264 U/L (13-60) H 03/08/23 12:48 Procalcitonin 1.44 ng/mL (0-0.5) H 03/09/23 06:30 Vitals Last Vital Signs Temp 98.0 F 03/09/23 08:06 Pulse 86 03/09/23 08:06 Resp 20 H 03/09/23 08:06 BP 137/77 03/09/23 08:06 Pulse Ox 99 03/09/23 08:06 O2 Del Method Nasal Cannula 03/09/23 08:06 Discharge Plan Discharge Patient Disposition: Home Condition: Stable Prescriptions: New atorvastatin 40 mg Tablet 40 mg PO DAILY 30 Days Qty: 30 0RF isosorbide mononitrate 30 mg Tablet Extended Release 24 Hr 30 mg PO DAILY 30 Days Qty: 30 0RF metoprolol tartrate 25 mg Tablet 12.5 mg PO Q12H 30 Days Qty: 30 0RF Continued (DME) blood-glucose sensor Device See Rx Instructions .ROUTE .MEDSUPPLY Qty: 3 0RF Rx Instructions: As directed (DME) prosthetic legs See Rx Instructions .Route .MEDSUPPLY Qty: 1 0RF Rx Instructions: As directed albuterol sulfate 2.5 mg /3 mL (0.083 %) solution for nebulization 2.5 mg INHALATION Q6H PRN (Reason: Shortness Of Breath) (DME) FreeStyle Maria M 2 [facility] [place] See Rx Instructions .ROUTE .MEDSUPPLY Qty: 1 0RF Rx Instructions: As directed nitroglycerin 0.4 mg tablet, sublingual 0.4 mg SUBLINGUAL Q5M PRN (Reason: chest pain) Qty: 25 3RF albuterol sulfate 90 mcg/actuation HFA aerosol inhaler 2 puff inhalation QID PRN (Reason: shortness of breath or wheezing) Qty: 6.7 0RF aripiprazole [Abilify] 5 mg tablet 5 mg PO DAILY Qty: 30 2RF Dakin's Solution 0.5 % solution 1 applic topical BID Qty: 473 0RF acetaminophen 325 mg tablet 325 mg PO QID PRN (Reason: Pain) diphenhydramine HCl [Benadryl Allergy] 25 mg tablet 25 mg PO TID PRN (Reason: Allergy Symptoms) (DME) wheelchair motorized See Rx Instructions .Route .MEDSUPPLY Qty: 1 0RF Rx Instructions: As directed (DME) prosthetic hands Bilateral Qty: 1 0RF Rx Instructions: As directed (DME) pen needle, diabetic [Sure-Fine Pen Bend] 31 gauge x 3/16 needle See Rx Instructions .ROUTE .MEDSUPPLY Qty: 450 3RF Rx Instructions: uses 5 times a day (DME) FreeStyle Maria M 2 Sensor Kit See Rx Instructions .ROUTE .MEDSUPPLY Qty: 6 3RF Rx Instructions: Change every 14 days. (DME) Ear Pulse Ox See Rx Instructions .Route .MEDSUPPLY Qty: 1 0RF Rx Instructions: As directed; continuous pulse ox clonazepam 0.5 mg tablet 0.5 mg PO DAILY PRN (Reason: anxiety) 30 Days Qty: 30 2RF zolpidem 5 mg tablet 5 mg PO .qhs PRN (Reason: insomnia) 30 Days Qty: 30 2RF leflunomide 20 mg tablet 20 mg PO DAILY Qty: 30 3RF levothyroxine 112 mcg tablet See Rx Instructions .ROUTE .COMPLEX Qty: 90 0RF Dose Instruction: Take 1 tablet by mouth once daily Rx Instructions: Take 1 tablet by mouth once daily oxycodone 10 mg tablet 10 mg PO TID PRN (Reason: pain) 30 Days Qty: 70 0RF cholecalciferol (vitamin D3) 1,250 mcg (50,000 unit) capsule 50,000 unit PO .weekly Qty: 4 2RF Rx Instructions: ON MONDAY bupropion HCl [Wellbutrin XL] 150 mg tablet extended release 24 hr 150 mg PO QAM Qty: 30 2RF gabapentin 600 mg tablet 600 mg PO TID lovastatin 40 mg tablet 40 mg PO DAILY clopidogrel 75 mg tablet 75 mg PO DAILY duloxetine 60 mg capsule,delayed release(DR/EC) 60 mg PO BID fenofibrate 160 mg tablet 160 mg PO DAILY Xarelto 20 mg tablet 20 mg PO DAILY Humulin R U-500 (Conc) Kwikpen 500 unit/mL (3 mL) insulin pen 100 - 120 unit SUBCUT BID Discharge Orders: Discharge Order (Routine); Ordered 03/09/23 Ordered By: Will Upton Referrals: Franca Garza FNP [Primary Care Provider] - 1-3 days (We have notified your physician's clinic of the need for a follow-up appointment to be scheduled. If you have not heard from them within the next 2 business days, please call them directly. ) Cleve Gates MD [Physician] - 03/16/23 9:00 am () Discharge Diet: Cardiac Discharge Activity: Resume usual activity Patient Instructions: Metoprolol (By mouth), Isosorbide Mononitrate (By mouth), Atorvastatin (By mouth), Heart Attack (GEN), Opioid Safety Activity Restrictions/Additional Instructions: - If you have recurrent chest pain please go to emergency room ? Please follow-up cardiology in 1 week Discharge Attestations Time Spent in Discharge Care*: greater than 30 min Quality Metrics Clinical Quality Measures [ No reported AMI, CVA or VTE this stay] Coding Level of Care Code 93482 Total time (in minutes) for Discharge: 45 Diagnoses Non-ST elevation MT (NSTEMI) I21.4
[2023-03-09] MEDS: metoprolol tartrate 25 mg Tablet 12.5 MG PO (10:18)
--- NOTE | 2023-03-09 10:53 | PC.CHAP ---
Pastoral Care Encounter/Spiritual Assessment Type of Contact [x] Declined organ grinder visit [] Patient/Family/Request visit [] Outpatient visit [] Follow-up visit [] Physician referral [] Code/Alert [] Routine visit [] Staff referral [] Actively dying [] Patient sleeping [] Family support [] [] Out of room [] Palliative care [] [] Receiving care in room [] Pre-surgical visit [] Trauma [] Long length of stay [] ICU visit [] Other: Relational/Emotional Strength [] Patient feels connected with others/family/visitors/staff [] Distress [] Loneliness/isolation [] Abandonment Spirituality of Patient [] Person of [place] [] Attends L[employer] of their [place] [] Believes in Prayer [] Reads Bible or Methodist materials [] There are Spiritual issues to be addressed Civil Estimator Interventions [] Prayer [] Active listening [] Non-anxious presence [] Spiritual/emotional support [] Crisis/trauma care [] Spiritual counseling [] Bereavement support [] Provided bereavement packet [] Provided Bible/devotional materials [] Provided toy/stuffed animal, coloring book to patient or family member [] Provided Communion [] Anointing/[place] [] Salvation [] Completed spiritual assessment [] Other: Impact on Illness or Injury [] Angry [] Fearful [] Anxious [] Often cries [] Exhaustion [] Unable to work [] Unable to attend baptism [] Unable to walk/stand [] Unable to read [] Unable to drive [] Unable to eat/drink [] Unable to sleep [] Unable to be with family [] Patient intubated [] Other: Summary Declined organ grinder visit Time spent with patient 5 mins
[2023-03-09 11:26] LABS: Glucose Point of Care 337 mg/dL (70-110)
== END 2023-03-09 12:59 | disposition home health service (06) | DRG 281 ==
LOC: ER 03-08 00:50 → ER IP 03-08 04:15 → CSU 03-08 17:00 → MEDSURG 03-09 05:12
PROVIDERS: Admitting Provider Internal Medicine; Emergency Provider Emergency Medicine; PCP Nurse Practitioner Family; Visit Provider Family Medicine
DX: I21.4 Non-ST elevation (NSTEMI) myocardial infarction (principal); F33.9 Major depressive disorder, recurrent, unspecified; F41.9 Anxiety disorder, unspecified; G89.29 Other chronic pain; G54.6 Phantom limb syndrome with pain; I25.10 Atherosclerotic heart disease of native coronary artery without angina pectoris; Z95.5 Presence of coronary angioplasty implant and graft; Z95.1 Presence of aortocoronary bypass graft; Z86.16 Personal history of COVID-19; E11.9 Type 2 diabetes mellitus without complications; I10 Essential (primary) hypertension; E78.5 Hyperlipidemia, unspecified; E03.9 Hypothyroidism, unspecified; Z99.81 Dependence on supplemental oxygen; Z91.199 Patient's noncompliance with other medical treatment and regimen due to unspecified reason; Z74.01 Bed confinement status; M06.9 Rheumatoid arthritis, unspecified; F17.210 Nicotine dependence, cigarettes, uncomplicated; J44.9 Chronic obstructive pulmonary disease, unspecified; Z66 Do not resuscitate; L89.322 Pressure ulcer of left buttock, stage 2; L89.159 Pressure ulcer of sacral region, unspecified stage; Z89.612 Acquired absence of left leg above knee; Z89.611 Acquired absence of right leg above knee; Z89.212 Acquired absence of left upper limb below elbow; Z89.211 Acquired absence of right upper limb below elbow
CPT/HCPCS: 36415; 36416; 71045; 76705; 80053; 82962; 82977; 83036; 83690; 83735; 83880; 84145; 84484; 85014; 85018; 85025; 86140; 87040; 93005; 93306; 96361; 96372; 96374; 99285; C9113; J1650; J1815; J2270; J7030

== ENCOUNTER → 2023-03-14 14:50 | Outpatient (BNVA) | payer MEDICARE, SELFPAY ==
[2022-08-25 11:25] VITALS: BP 94/67
== END ==
PROVIDERS: PCP Nurse Practitioner Family; Visit Provider Nurse Practitioner Family
DX: L89.153 Pressure ulcer of sacral region, stage 3 (principal)
CPT/HCPCS: 11042; 99212; A6219

== ENCOUNTER → 2023-03-21 12:54 | Outpatient (BNVA) | payer MEDICARE, SELFPAY ==
[2023-03-20 10:19] VITALS: BP 94/67
== END ==
PROVIDERS: PCP Nurse Practitioner Family; Visit Provider Nurse Practitioner Family
DX: I96 Gangrene, not elsewhere classified (principal); L89.153 Pressure ulcer of sacral region, stage 3; L02.414 Cutaneous abscess of left upper limb
CPT/HCPCS: 11042; 87070; 87075; 87077; 87186; 87205; 97597; A6219

== ENCOUNTER → 2023-03-28 13:47 | Outpatient (BNVA) | payer MEDICARE, SELFPAY ==
[2023-03-20 10:19] VITALS: BP 94/67
== END ==
PROVIDERS: PCP Nurse Practitioner Family; Visit Provider Thoracic Surgery (Cardiothoracic Vascular Surgery)
DX: I96 Gangrene, not elsewhere classified (principal); L89.153 Pressure ulcer of sacral region, stage 3; L02.414 Cutaneous abscess of left upper limb
CPT/HCPCS: 11042; 97597; A6212

== ENCOUNTER 2023-05-15 14:58 | Outpatient (CLI) | payer MEDICARE, MEDICAID, SELFPAY ==
[2023-04-04 15:14] VITALS: BP 126/80; BMI 61.0
[2023-05-15 15:11] LABS: Basophils # 0.1 10^3/uL (0.0-0.1); Basophils % 0.6 %; Eosinophils # 0.6 10^3/uL (0.0-0.8); Eosinophils % 7.7 %; Hematocrit 24.8 % (36-47); Lymphocytes # 2.5 10^3/uL (0.8-4.8); Lymphocytes % 31.5 %; Mean Corpuscular HGB Conc 31.9 g/dL (30-55); Mean Corpuscular Hemoglobin 25.5 pg (27-33); Mean Platelet Volume 10.1 fL (7.4-10.4); Monocytes # 0.4 10^3/uL (0.2-0.9); Monocytes % 5.6 %; Neutrophils # 4.26 10^3/uL (1.8-7.7); Neutrophils % 54.3 %; Nucleated Red Blood Cells % 0 %; Platelet Count 440 10^3/cmm (157-399); White Blood Count 7.84 10^3/uL (3.29-11.43)
[2023-05-15 15:41] LABS: Alanine Aminotransferase 9 U/L (0-33); Albumin Level 2.6 g/dL (3.5-5.2); Alkaline Phosphatase 159 U/L (35-105); Anion Gap 12.7 (5-19); Aspartate Amino Transferase 13 U/L (0-32); Blood Urea Nitrogen 5 mg/dL (8-23); Calcium 8.5 mg/dL (8.5-10.5); Carbon Dioxide 26 mmol/L (22-29); Chloride 100 mmol/L (98-107); Globulin 3.2 g/dL (1.3-4.6); Glomerular Filtration Rate 125.9 mL/min (90-130); Glucose 197 mg/dL (65-115); Osmolality Calculated 283 mOsm/kg (285-295); Potassium 3.7 mmol/L (3.5-5.1); Sodium 135 mmol/L (136-145); Total Bilirubin 0.2 mg/dL (0.15-1.2); Total Protein 5.8 g/dL (6.6-8.7)
== END 2023-05-15 14:59 | disposition home or self-care (01) ==
LOC: LAB 15:00
PROVIDERS: PCP Nurse Practitioner Family; Visit Provider Nurse Practitioner Family
DX: M46.28 Osteomyelitis of vertebra, sacral and sacrococcygeal region (principal)
CPT/HCPCS: 80053; 85025

== ENCOUNTER 2023-05-22 14:46 | Outpatient (CLI) | payer MEDICARE, MEDICAID, SELFPAY ==
[2023-04-04 15:14] VITALS: BP 126/80; BMI 61.0
[2023-05-22 15:01] LABS: Basophils # 0.1 10^3/uL (0.0-0.1); Basophils % 0.8 %; Eosinophils # 0.3 10^3/uL (0.0-0.8); Eosinophils % 3.9 %; Hematocrit 31.6 % (36-47); Lymphocytes # 1.7 10^3/uL (0.8-4.8); Lymphocytes % 25.5 %; Mean Corpuscular HGB Conc 30.4 g/dL (30-55); Mean Corpuscular Hemoglobin 24.4 pg (27-33); Mean Corpuscular Volume 80.2 fl (85-98); Mean Platelet Volume 10.2 fL (7.4-10.4); Monocytes # 0.4 10^3/uL (0.2-0.9); Monocytes % 5.9 %; Neutrophils # 4.19 10^3/uL (1.8-7.7); Neutrophils % 63.6 %; Nucleated Red Blood Cells % 0 %; Platelet Count 517 10^3/cmm (157-399); Red Blood Count 3.94 10^6/uL (3.85-5.65); Red Cell Distribution Width 18.8 % (12.1-15.1); White Blood Count 6.59 10^3/uL (3.29-11.43)
[2023-05-22 15:27] LABS: Alanine Aminotransferase 7 U/L (0-33); Alkaline Phosphatase 179 U/L (35-105); Anion Gap 17.3 (5-19); Aspartate Amino Transferase 13 U/L (0-32); Blood Urea Nitrogen 6 mg/dL (8-23); Calcium 8.1 mg/dL (8.5-10.5); Carbon Dioxide 23 mmol/L (22-29); Chloride 98 mmol/L (98-107); Globulin 4.1 g/dL (1.3-4.6); Glomerular Filtration Rate 162.8 mL/min (90-130); Glucose 302 mg/dL (65-115); Osmolality Calculated 287 mOsm/kg (285-295); Potassium 4.3 mmol/L (3.5-5.1); Sodium 134 mmol/L (136-145); Total Bilirubin 0.2 mg/dL (0.15-1.2); Total Protein 7.1 g/dL (6.6-8.7)
== END 2023-05-22 14:47 | disposition home or self-care (01) ==
LOC: LAB 14:51
PROVIDERS: PCP Nurse Practitioner Family; Visit Provider Nurse Practitioner Family
DX: M46.28 Osteomyelitis of vertebra, sacral and sacrococcygeal region (principal)
CPT/HCPCS: 80053; 85025

== ENCOUNTER 2023-05-29 16:25 | Outpatient (CLI) | payer MEDICARE, MEDICAID, SELFPAY ==
[2023-04-04 15:14] VITALS: BP 126/80; BMI 61.0
[2023-05-29 16:52] LABS: Basophils # 0.1 10^3/uL (0.0-0.1); Basophils % 0.9 %; Eosinophils # 0.4 10^3/uL (0.0-0.8); Eosinophils % 4.7 %; Hematocrit 33.3 % (36-47); Lymphocytes # 2.1 10^3/uL (0.8-4.8); Lymphocytes % 23.7 %; Mean Corpuscular Hemoglobin 23.9 pg (27-33); Mean Corpuscular Volume 79.5 fl (85-98); Mean Platelet Volume 10.4 fL (7.4-10.4); Monocytes # 0.5 10^3/uL (0.2-0.9); Monocytes % 6.2 %; Neutrophils # 5.63 10^3/uL (1.8-7.7); Neutrophils % 64.3 %; Nucleated Red Blood Cells % 0 %; Platelet Count 560 10^3/cmm (157-399); Red Blood Count 4.19 10^6/uL (3.85-5.65); Red Cell Distribution Width 18.2 % (12.1-15.1); White Blood Count 8.76 10^3/uL (3.29-11.43)
[2023-05-29 17:07] LABS: Alanine Aminotransferase 8 U/L (0-33); Albumin Level 3.1 g/dL (3.5-5.2); Alkaline Phosphatase 141 U/L (35-105); Aspartate Amino Transferase 24 U/L (0-32); Blood Urea Nitrogen 9 mg/dL (8-23); Calcium 8.6 mg/dL (8.5-10.5); Carbon Dioxide 25 mmol/L (22-29); Chloride 96 mmol/L (98-107); Globulin 4.2 g/dL (1.3-4.6); Glomerular Filtration Rate 162.8 mL/min (90-130); Glucose 219 mg/dL (65-115); Osmolality Calculated 281 mOsm/kg (285-295); Sodium 133 mmol/L (136-145); Total Bilirubin 0.2 mg/dL (0.15-1.2); Total Protein 7.3 g/dL (6.6-8.7)
[2023-05-29 17:16] LABS: Anion Gap 16.9 (5-19); Potassium 4.9 mmol/L (3.5-5.1)
== END 2023-05-29 16:26 | disposition home or self-care (01) ==
PROVIDERS: PCP Nurse Practitioner Family; Visit Provider Internal Medicine
DX: M46.28 Osteomyelitis of vertebra, sacral and sacrococcygeal region (principal)
CPT/HCPCS: 80053; 85025

== ENCOUNTER 2023-06-05 11:05 | Outpatient (CLI) | payer MEDICARE, SELFPAY ==
[2023-04-04 15:14] VITALS: BP 126/80; BMI 61.0
[2023-06-05 11:30] LABS: Basophils # 0.1 10^3/uL (0.0-0.1); Basophils % 0.9 %; Eosinophils # 0.5 10^3/uL (0.0-0.8); Eosinophils % 6.7 %; Hematocrit 33.1 % (36-47); Lymphocytes # 1.8 10^3/uL (0.8-4.8); Lymphocytes % 23.6 %; Mean Corpuscular HGB Conc 30.5 g/dL (30-55); Mean Corpuscular Hemoglobin 23.5 pg (27-33); Monocytes # 0.5 10^3/uL (0.2-0.9); Monocytes % 6.6 %; Neutrophils # 4.75 10^3/uL (1.8-7.7); Neutrophils % 61.7 %; Nucleated Red Blood Cells % 0 %; Platelet Count 502 10^3/cmm (157-399); Red Cell Distribution Width 17.8 % (12.1-15.1); White Blood Count 7.71 10^3/uL (3.29-11.43)
[2023-06-05 11:50] LABS: Alanine Aminotransferase 16 U/L (0-33); Alkaline Phosphatase 186 U/L (35-105); Aspartate Amino Transferase 24 U/L (0-32); Blood Urea Nitrogen 9 mg/dL (8-23); Calcium 8.9 mg/dL (8.5-10.5); Carbon Dioxide 24 mmol/L (22-29); Chloride 100 mmol/L (98-107); Globulin 4.1 g/dL (1.3-4.6); Glomerular Filtration Rate 125.9 mL/min (90-130); Glucose 297 mg/dL (65-115); Osmolality Calculated 290 mOsm/kg (285-295); Sodium 135 mmol/L (136-145); Total Bilirubin 0.2 mg/dL (0.15-1.2); Total Protein 7.1 g/dL (6.6-8.7)
== END 2023-06-05 11:06 | disposition home or self-care (01) ==
LOC: LAB 11:07
PROVIDERS: PCP Nurse Practitioner Family; Visit Provider Nurse Practitioner Family
DX: M46.28 Osteomyelitis of vertebra, sacral and sacrococcygeal region (principal)
CPT/HCPCS: 80053; 85025

== ENCOUNTER → 2023-06-21 12:59 | Outpatient (BNVA) | payer MEDICAID, SELFPAY ==
[2023-06-20 14:23] VITALS: BP 126/80; BMI 61.0
== END ==
PROVIDERS: PCP Nurse Practitioner Family; Visit Provider Thoracic Surgery (Cardiothoracic Vascular Surgery)
DX: I96 Gangrene, not elsewhere classified (principal); L89.154 Pressure ulcer of sacral region, stage 4
CPT/HCPCS: 11044; 87070; 87176; 87205; 99213

== ENCOUNTER → 2023-06-28 13:24 | Outpatient (BNVA) | payer MEDICARE, MEDICAID, SELFPAY ==
[2023-06-20 14:23] VITALS: BP 126/80; BMI 61.0
== END ==
PROVIDERS: PCP Nurse Practitioner Family; Visit Provider Thoracic Surgery (Cardiothoracic Vascular Surgery)
DX: I96 Gangrene, not elsewhere classified (principal); L89.154 Pressure ulcer of sacral region, stage 4
CPT/HCPCS: 11042; 87070; 87176; 87205

== ENCOUNTER → 2023-07-05 13:39 | Outpatient (BNVA) | payer MEDICARE, MEDICAID, SELFPAY ==
[2023-06-20 14:23] VITALS: BP 126/80; BMI 61.0
== END ==
PROVIDERS: PCP Nurse Practitioner Family; Visit Provider Thoracic Surgery (Cardiothoracic Vascular Surgery)
DX: I96 Gangrene, not elsewhere classified (principal); L89.154 Pressure ulcer of sacral region, stage 4
CPT/HCPCS: 11042; A6446

== ENCOUNTER → 2023-07-12 13:30 | Outpatient (BNVA) | payer MEDICARE, MEDICAID, SELFPAY ==
[2023-06-20 14:23] VITALS: BP 126/80; BMI 61.0
== END ==
PROVIDERS: PCP Nurse Practitioner Family; Visit Provider Thoracic Surgery (Cardiothoracic Vascular Surgery)
DX: I96 Gangrene, not elsewhere classified (principal); L89.154 Pressure ulcer of sacral region, stage 4
CPT/HCPCS: 11042; 87070; 87077; 87176; 87186; 87205; A6251; A6446

== ENCOUNTER → 2023-07-19 14:01 | Outpatient (BNVA) | payer MEDICARE, MEDICAID, SELFPAY ==
[2023-06-20 14:23] VITALS: BP 126/80; BMI 61.0
== END ==
PROVIDERS: PCP Nurse Practitioner Family; Visit Provider Thoracic Surgery (Cardiothoracic Vascular Surgery)
DX: L89.314 Pressure ulcer of right buttock, stage 4 (principal); I96 Gangrene, not elsewhere classified
CPT/HCPCS: 99213

== ENCOUNTER 2023-07-26 12:12 | Outpatient (CLI) | payer MEDICARE, MEDICAID, SELFPAY ==
[2023-06-20 14:23] VITALS: BP 126/80; BMI 61.0
--- NOTE | 2023-07-26 12:30 | CT_ITS ---
WS: [id number] CT PELVIS WITH CONTRAST HISTORY: non-healing ulcer; rule out ostemyelitis TECHNIQUE: Contiguous imaging is performed of the pelvis with contrast. Coronal and sagittal reformat s are reviewed. All CT scans at [facility] use at least one of these dose optimization techni ques: automated exposure control; mA and/or kV adjustment per patient size (includes targeted exams w here dose is matched to clinical indication); or iterative reconstruction. DLP: 244.57 mGy.cm COMPARISON: 04/02/2022 Contrast: Omnipaque 350; 100 cc. Soft tissue ulceration with tract noted along the posterior mid sacrum. The tract contains air and th ere is mild wall thickening with mild enhancement. No fluid collection. The tract does extend to the sacrum. The air is closely associated with the sacrum but there is no change in bone density. Additional focal 1.3 cm diameter fluid collection with enhancing margin at the sacrococcygeal junctio n. There is loss of the normal bony cortex extending over a length of 1.9 cm suspicious for an area o f osteomyelitis. Patient has a known large RIGHT lateral abdominal wall hernia. Through the hernia is small bowel and colon but there is no obstruction. Small amount of air in the urinary bladder is likely from self-cat heterization. No free fluid in the pelvis. Muscles of the pelvis are markedly atrophied. There is an additional sclerotic pattern involving the RIGHT inferior pubic rami which is new since 04/02/2022. I suspect this is probably a healing fracture. Mild anterior wedging of L4 and L5. Degenerative air in the disc space of L3-4 and L4-5. These fractures L4 and L5 are new since 12/27/2022. No soft tissue i nflammation surrounding the vertebral bodies to suggest this is infection at the L4-5 disc level. IMPRESSION: 1. Superficial soft tissue ulceration at the level of the sacrococcygeal junction with associated ab scess measuring 1.3 cm. Loss of the normal cortical bone consistent with osteomyelitis. 2. There is an additional ulcerated tract extending to the mid sacrum but no evidence for osteomyeli tis by CT. No enhancing abscess. 3. Large RIGHT abdominal wall hernia containing nonobstructed GI tract. 4. New fractures noted at L4 and L5. Probably osteoporotic. These fractures were not evident on 12/27.
[2023-07-26] MEDS: iohexol 350 mg/mL 500 mL Btl (per mL) IV (13:09)
== END 2023-07-26 12:13 | disposition home or self-care (01) ==
PROVIDERS: PCP Nurse Practitioner Family; Visit Provider Thoracic Surgery (Cardiothoracic Vascular Surgery)
DX: L89.314 Pressure ulcer of right buttock, stage 4 (principal); K43.9 Ventral hernia without obstruction or gangrene; S32.049A Unspecified fracture of fourth lumbar vertebra, initial encounter for closed fracture; S32.059A Unspecified fracture of fifth lumbar vertebra, initial encounter for closed fracture; X58.XXXA Exposure to other specified factors, initial encounter
CPT/HCPCS: 11044; 72193; 87070; 87077; 87176; 87186; 87205; Q9967

== ENCOUNTER → 2023-08-02 15:00 | Outpatient (BNVA) | payer MEDICARE, MEDICAID, SELFPAY ==
[2023-06-20 14:23] VITALS: BP 126/80; BMI 61.0
== END ==
PROVIDERS: PCP Nurse Practitioner Family; Visit Provider Thoracic Surgery (Cardiothoracic Vascular Surgery)
DX: I96 Gangrene, not elsewhere classified (principal); L89.154 Pressure ulcer of sacral region, stage 4
CPT/HCPCS: 11042; A6220; A6446

== ENCOUNTER → 2023-08-09 14:56 | Outpatient (BNVA) | payer MEDICARE, MEDICAID, SELFPAY ==
[2023-06-20 14:23] VITALS: BP 126/80; BMI 61.0
== END ==
PROVIDERS: PCP Nurse Practitioner Family; Visit Provider Thoracic Surgery (Cardiothoracic Vascular Surgery)
DX: I96 Gangrene, not elsewhere classified (principal); L89.154 Pressure ulcer of sacral region, stage 4
CPT/HCPCS: 97597; A6446

== ENCOUNTER 2023-08-15 19:39 | Outpatient (CLI) | payer MEDICARE, MEDICAID, SELFPAY ==
[2023-06-20 14:23] VITALS: BP 126/80; BMI 61.0
[2023-08-15 20:00] LABS: Basophils # 0.1 10^3/uL (0.0-0.1); Basophils % 0.6 %; Eosinophils # 0.1 10^3/uL (0.0-0.8); Eosinophils % 1.2 %; Lymphocytes # 2.5 10^3/uL (0.8-4.8); Lymphocytes % 22.9 %; Mean Corpuscular HGB Conc 29.7 g/dL (30-55); Mean Corpuscular Hemoglobin 19.5 pg (27-33); Mean Corpuscular Volume 65.8 fl (85-98); Mean Platelet Volume 9.7 fL (7.4-10.4); Monocytes % 8.8 %; Neutrophils # 7.32 10^3/uL (1.8-7.7); Neutrophils % 66.1 %; Nucleated Red Blood Cells % 0 %; Platelet Count 774 10^3/cmm (157-399); Red Blood Count 4.86 10^6/uL (3.85-5.65); Red Cell Distribution Width 21.1 % (12.1-15.1); White Blood Count 11.07 10^3/uL (3.29-11.43)
[2023-08-15 20:10] LABS: Erythrocyte Sedimentation Rate > 130 mm/hr (0-15)
[2023-08-15 21:03] LABS: Anion Gap 20.8 (5-19); Blood Urea Nitrogen 14 mg/dL (8-23); C Reactive Protein 76.3 mg/L (0.0-4.9); Calcium 9.1 mg/dL (8.5-10.5); Carbon Dioxide 21 mmol/L (22-29); Chloride 95 mmol/L (98-107); Glomerular Filtration Rate 162.8 mL/min (90-130); Glucose 139 mg/dL (65-115); Osmolality Calculated 275 mOsm/kg (285-295); Potassium 5.8 mmol/L (3.5-5.1); Sodium 131 mmol/L (136-145)
== END 2023-08-15 19:40 | disposition home or self-care (01) ==
PROVIDERS: PCP Nurse Practitioner Family; Visit Provider Thoracic Surgery (Cardiothoracic Vascular Surgery)
DX: M86.9 Osteomyelitis, unspecified (principal); L89.92 Pressure ulcer of unspecified site, stage 2; L08.9 Local infection of the skin and subcutaneous tissue, unspecified; A49.8 Other bacterial infections of unspecified site
CPT/HCPCS: 80048; 85025; 85651; 86140

== ENCOUNTER → 2023-08-23 13:52 | Outpatient (BNVA) | payer MEDICARE, MEDICAID, SELFPAY ==
[2023-06-20 14:23] VITALS: BP 126/80; BMI 61.0
== END ==
PROVIDERS: PCP Nurse Practitioner Family; Visit Provider Thoracic Surgery (Cardiothoracic Vascular Surgery)
DX: L89.154 Pressure ulcer of sacral region, stage 4 (principal)
CPT/HCPCS: 11042; A6446

== ENCOUNTER → 2023-08-25 10:52 | Outpatient (BNVA) | payer MEDICARE, MEDICAID, SELFPAY ==
[2023-06-20 14:23] VITALS: BP 126/80; BMI 61.0
== END ==
PROVIDERS: PCP Nurse Practitioner Family; Visit Provider Nurse Practitioner Family
DX: N39.0 Urinary tract infection, site not specified (principal)
CPT/HCPCS: 81000; 87077; 87086; 87184

== ENCOUNTER → 2023-08-30 15:52 | Outpatient (BNVA) | payer MEDICARE, MEDICAID, SELFPAY ==
[2023-06-20 14:23] VITALS: BP 126/80; BMI 61.0
== END ==
PROVIDERS: PCP Nurse Practitioner Family; Visit Provider Thoracic Surgery (Cardiothoracic Vascular Surgery)
DX: L89.154 Pressure ulcer of sacral region, stage 4 (principal); I96 Gangrene, not elsewhere classified
CPT/HCPCS: 97597

== ENCOUNTER → 2023-09-06 15:53 | Outpatient (BNVA) | payer MEDICARE, MEDICAID, SELFPAY ==
[2023-09-05 13:33] VITALS: BP 126/80; BMI 61.0
== END ==
PROVIDERS: PCP Nurse Practitioner Family; Visit Provider Thoracic Surgery (Cardiothoracic Vascular Surgery)
DX: I96 Gangrene, not elsewhere classified (principal); L89.154 Pressure ulcer of sacral region, stage 4
CPT/HCPCS: 97597; A6446

== ENCOUNTER → 2023-09-08 10:54 | Outpatient (BNVA) | payer MEDICARE, MEDICAID, SELFPAY ==
[2023-09-05 13:33] VITALS: BP 126/80; BMI 61.0
== END ==
PROVIDERS: PCP Nurse Practitioner Family; Visit Provider Nurse Practitioner Family
DX: N39.0 Urinary tract infection, site not specified (principal)
CPT/HCPCS: 87077; 87086; 87184

== ENCOUNTER → 2023-09-15 09:50 | Outpatient (BNVA) | payer MEDICARE, MEDICAID, SELFPAY ==
[2023-09-05 13:33] VITALS: BP 126/80; BMI 61.0
== END ==
PROVIDERS: PCP Nurse Practitioner Family; Visit Provider Thoracic Surgery (Cardiothoracic Vascular Surgery)
DX: L02.413 Cutaneous abscess of right upper limb (principal); L89.154 Pressure ulcer of sacral region, stage 4; E11.52 Type 2 diabetes mellitus with diabetic peripheral angiopathy with gangrene; E11.622 Type 2 diabetes mellitus with other skin ulcer; L98.491 Non-pressure chronic ulcer of skin of other sites limited to breakdown of skin
CPT/HCPCS: 11042; 87070; 87075; 87205; 97597; A6219

== ENCOUNTER → 2023-09-21 14:01 | Outpatient (BNVA) | payer MEDICARE, MEDICAID, SELFPAY ==
[2023-09-05 13:33] VITALS: BP 126/80; BMI 61.0
== END ==
PROVIDERS: PCP Nurse Practitioner Family; Visit Provider Thoracic Surgery (Cardiothoracic Vascular Surgery)
DX: L02.413 Cutaneous abscess of right upper limb (principal); L89.154 Pressure ulcer of sacral region, stage 4; E11.52 Type 2 diabetes mellitus with diabetic peripheral angiopathy with gangrene; E11.622 Type 2 diabetes mellitus with other skin ulcer; L98.492 Non-pressure chronic ulcer of skin of other sites with fat layer exposed
CPT/HCPCS: 11042; 87070; 87075; 87077; 87186; 87205; 97597

== ENCOUNTER → 2023-10-10 14:58 | Outpatient (BNVA) | payer MEDICARE, MEDICAID, SELFPAY ==
[2023-09-05 13:33] VITALS: BP 126/80; BMI 61.0
== END ==
PROVIDERS: PCP Nurse Practitioner Family; Visit Provider Thoracic Surgery (Cardiothoracic Vascular Surgery)
DX: L89.154 Pressure ulcer of sacral region, stage 4 (principal); E11.52 Type 2 diabetes mellitus with diabetic peripheral angiopathy with gangrene; E11.622 Type 2 diabetes mellitus with other skin ulcer; L98.491 Non-pressure chronic ulcer of skin of other sites limited to breakdown of skin
CPT/HCPCS: 11042; 97597; A6446

== ENCOUNTER 2023-11-08 15:12 | Inpatient (IN) | payer MEDICARE, MEDICAID, SELFPAY ==
[2023-09-05 13:33] VITALS: BP 126/80; BMI 61.0
[2023-11-08] VITALS (9 sets, daily range): BP systolic 80–115; BP diastolic 52–72; PULSE 83–104; RESP 16; TEMP 37.2; O2SAT 91–99; BMI 44.2
--- NOTE | 2023-11-08 15:32 | ED_ITS ---
HPI - Wound/Laceration 2 General: Chief Complaint: Wound/Laceration Stated Complaint: wounds Time Seen by Provider: 11/08/23 15:22 History of Present Illness: 58-year-old female who presents to the e mergency room from wound care. Patient was treated for sepsis and was on vasopressors for a prolonged period of time resulting in ischemic lams she has bilateral upper and lower extremity amputations. She has a tunneling sacral ulcer and a left lower leg ulcer both of which are open and draining. The sacral ulcers become foul-smelling. She also has excoriation and breakdown of the skin in the groin creases and genital area. No fever generally she has been feeling very poorly. She has been being followed by wound care 2 days ago was started on antibiotics has not improved. Associated symptoms: Denies chills or fever(s) Review of Systems 2 Const: Denies: fever(s) or chills Card: Denies: chest pain Resp: Denies: dyspnea GI: Denies: abdominal pain : Denies: dysuria, urinary frequency or urinary urgency Musc: Denies: neck pain or back pain Skin/Breast: Denies: rash PFSH ED 2 PFSH: Medical History Stage II pressure ulcer of left buttock DM type 2 causing complication Diabetes mellitus Bilateral pneumonia Influenza B UTI (urinary tract infection) COVID-19 Hypovolemic shock Pressure sore on buttocks UTI (urinary tract infection) Amputation leg, bilat Psychiatric care Anxiety Major depressive disorder, recurrent severe without psychotic features Coronary artery disease Polyuria Polydipsia Urgency incontinence Recurrent UTI Below-elbow amputation of right upper extremity Below-elbow amputation of left upper extremity 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 Enrolled in chronic care management Rheumatoid arthritis Phantom pain after amputation of lower extremity Chronic pain 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 Hypothyroidism Hyperlipemia, mixed HTN (hypertension), benign (~11/2022) 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, hand, bilateral Hx of sepsis Surgical History History of amputation of lower extremity History of skin graft History of appendectomy History of amputation of finger of both hands Family History Father , at age 47 CAD (coronary artery disease) Hypertension Mother , at age 64 Diabetes Lung disease Sister Diabetes Brother Diabetes Denies family history of Dementia Cancer Stroke Social History Smoking and tobacco/nicotine status: current every day tobacco/nicotine user cigarettes Packs smoked per day: 0.5 Years cigarettes smoked: 48 Quit status (tobacco/nicotine): has tried quititng Second hand smoke exposure: Yes Alcohol intake: current Alcohol intake frequency: holidays/special occasions only Alcohol type: wine Substance/Drug Use: never Adopted: No Caregiver/support person: Yes Lives independently: Yes Household members: significant other and family Housing: House Marital status: Single Marital status details: Life partner of 45 years Number of children: 0 Number of grandchildren: 0 Highest education level completed: High School Graduate service: No Current occupational status: disabled Pets and animals: Yes (lab, yorkie, beagle) Pets & animals: cat(s) and dog(s) Leisure activites: art, fishing and other Leisure activities details: writing, watch TV Sexually active: Yes Do you think of yourself as: Straight/Heterosexual Current gender identity: Female Keyonna/Anabaptism: None Special keyonna needs: No Agree to transfusion: Yes Female Reproductive History: Para: 0 Physical Exam 2 Const: COMMON NORMALS: no acute distress GENERAL APPEARANCE: cooperative and comfortable ORIENTATION/CONSCIOUSNESS: Yes awake, Yes oriented to person, Yes oriented to place and Yes oriented to time HENMT: COMMON NORMALS: normocephalic, atraumatic and hearing grossly normal bilaterally HEAD & SCALP: normocephalic and atraumatic Resp: COMMON NORMALS: normal respiratory effort, No retractions, No use of accessory muscles and clear to auscultation bilaterally AUSCULTATION: clear to auscultation bilaterally Cardio: COMMON NORMALS: regular rate, regular rhythm and No murmurs present (Cardio) RATE: regular rate RHYTHM: regular rhythm GI: COMMON NORMALS: Soft to palpation and No hepatosplenomegaly present A USCULTATION: Yes normoactive bowel sounds PALPATION: Yes Soft to palpation, No Tenderness to palpation present (GI), No Guarding due to palpation present (GI) and Yes No hepatosplenomegaly present Extremity: OTHER: Amputation of all 4 extremities there is an open wound with slight serous drainage in the anterior portion of the stump of the left leg. There is a tunneling sacral ulcer with foul-smelling discharge pink granulation bed. Neuro: SENSORIUM/ORIENTATION: Yes oriented to person, Yes oriented to place and Yes oriented to time Skin: OTHER: Tunneling sacral decubital ulcer with foul-smelling drainage. Course 2 Vital Signs: Vital signs: Vital Signs Temperature 98.9 F 11/08/23 15:15 Pulse Rate 95 11/08/23 15:15 Respiratory Rate 16 11/08/23 15:15 Blood Pressure 87/60 11/08/23 15:15 Pulse Oximetry 99 11/08/23 15:15 Oxygen Delivery Me thod Room Air 11/08/23 15:15 MDM - Wound/Laceration Medical Decision Making CT shows sacral abscess there is evidence of previous osteomyelitis but no active osteomyelitis present. White count is elevated lactic acid normal blood pressure has been soft. She given stress dose hydrocortisone will admit to the ICU. Medical Records I reviewed the patient's medical records. Lab Data I reviewed the patient's lab results. 11/08/23 15:40 11/08/23 15:[address] 11/08/23 15:46 IMPRESSION: 1. Sacral decubitus ulcer/abscess seen extending into the left gluteal soft tissues. 2. Eroded coccyx with the distal portion of the sacrum directly adjacent to the sacral ulceration. No evident sequela of acute osteomyelitis. 3. Gas noted within the intervertebral disc of L4-L5 and anterior/inferior endplate of L4, most likely degenerative. Laboratory Results WBC 14.11 10^3/uL (3.29-11.43) H 11/08/23 15:40 RBC 3.73 10^6/uL (3.85-5.65) L 11/08/23 15:40 Hgb 8.30 g/dL (11.27-16.99) L 11/08/23 15:40 Hct 27.0 % (36-47) L 11/08/23 15:40 MCV 72.4 fl (85-98) L 11/08/23 15:40 MCH 22.3 pg (27-33) L 11/08/23 15:40 MCHC 30.7 g/dL (30-55) 11/08/23 15:40 RDW 19.7 % (12.1-15.1) H 11/08/23 15:40 Plt Count 733 10^3/cmm (157-399) H 11/08/23 15:40 MPV 9.3 fL (7.4-10.4) 11/08/23 15:40 Neut % (Auto) 80.5 % 11/08/23 15:40 Lymph % (Auto) 11.4 % 11/08/23 15:40 [place] % (Auto) 5.7 % 11/08/23 15:40 Eos % (Auto) 1.3 % 11/08/23 15:40 Baso % (Auto) 0.5 % 11/08/23 15:40 Neut # (Auto) 11.36 10^3/uL (1.8-7.7) H 11/08/23 15:40 Lymph # (Auto) 1.6 10^3/uL (0.8-4.8) 11/08/23 15:40 [place] # (Auto) 0.8 10^3/uL (0.2-0.9) 11/08/23 15:40 Eos # (Auto) 0.2 10^3/uL (0.0-0.8) 11/08/23 15:40 Baso # (Auto) 0.1 10^3/uL (0.0-0.1) 11/08/23 15:40 Nucleated RBC % (auto) 0 % 11/08/23 15:40 Nucleated RBCs # 0.0 /100WBC 11/08/23 15:40 Sodium 131 mmol/L (136-145) L 11/08/23 15:40 Potassium 3.4 mmol/L (3.5-5.1) L 11/08/23 15:40 Chloride 96 mmol/L (98-107) L 11/08/23 15:40 Carbon Dioxide 23 mmol/L (22-29) 11/08/23 15:40 Anion Gap 15.4 (5-19) 11/08/23 15:40 BUN 13 mg/dL (8-23) 11/08/23 15:40 Creatinine 0.4 mg/dL (0.5-0.9) L 11/08/23 15:40 GFR Calculation 162.8 mL/min (90-130) H 11/08/23 15:40 Glucose 227 mg/dL (65-115) H 11/08/23 15:40 Calculated Osmolality 279 mOsm/kg (285-295) L 11/08/23 15:40 Lactic Acid 2.0 mmol/L (0.5-2.2) 11/08/23 15:40 Calcium 8.4 mg/dL (8.5-10.5) L 11/08/23 15:40 Magnesium 1.7 mg/dL (1.7-2.3) 11/08/23 15:40 Total Bilirubin 0.4 mg/dL (0.15-1.2) 11/08/23 15:40 AST 9 U/L (0-32) 11/08/23 15:40 ALT < 5 U/L (0-33) 11/08/23 15:40 Alkaline Phosphatase 168 U/L (35-105) H 11/08/23 15:40 Total Protein 6.3 g/dL (6.6-8.7) L 11/08/23 15:40 Albumin 2.2 g/dL (3.5-5.2) L 11/08/23 15:40 Globulin 4.1 g/dL (1.3-4.6) 11/08/23 15:40 All radiology interpretation(s) finalized by discharge Discharge Plan Discharge Patient Disposition: Admitted As Inpatient Clinical Impression: Decubitus ulcer of sacral region, stage 4, Mobility impaired, Abscess of buttock, left, Diabetes mellitus, Hypotension Condition: Stable Prescriptions: No Action (DME) blood-glucose sensor Device See Rx Instructions .ROUTE .MEDSUPPLY Qty: 3 0RF Rx Instructions: As directed (DME) prosthetic legs See Rx Instructions .Route .MEDSUPPLY Qty: 1 0RF Rx Instructions: As directed albuterol sulfate 2.5 mg /3 mL (0.083 %) solution for nebulization 2.5 mg INHALATION Q6H PRN (Reason: Shortness Of Breath) (DME) FreeStyle Maria M 2 [facility] [place] See Rx Instructions .ROUTE .MEDSUPPLY Qty: 1 0RF Rx Instructions: As directed nitroglycerin 0.4 mg tablet, sublingual 0.4 mg SUBLINGUAL Q5M PRN (Reason: chest pain) Qty: 25 3RF albuterol sulfate 90 mcg/actuation HFA aerosol inhaler 2 puff inhalation QID PRN (Reason: shortness of breath or wheezing) Qty: 6.7 0RF atorvastatin 40 mg tablet 40 mg PO DAILY Qty: 90 1RF hydrocodone-acetaminophen 5-325 mg tablet 1 tab PO BID PRN (Reason: pain) 7 Days Qty: 14 0RF levofloxacin 500 mg tablet 500 mg PO DAILY Qty: 20 0RF Hold Instructions: Doctor's Order nitrofurantoin monohyd/m-cryst [Macrobid] 100 mg capsule 100 mg PO Q12H 7 Days Qty: 14 0RF Rx Instructions: must administer with a meal/food acetaminophen 325 mg tablet 325 mg PO QID PRN (Reason: Pain) diphenhydramine HCl [Benadryl Allergy] 25 mg tablet 25 mg PO TID PRN (Reason: Allergy Symptoms) (DME) wheelchair motorized See Rx Instructions .Route .MEDSUPPLY Qty: 1 0RF Rx Instructions: As directed Dakin's Solution 0.125 % solution 1 applic topical BID Qty: 473 2RF sulfamethoxazole-trimethoprim 800-160 mg tablet 1 tab PO BID Qty: 28 0RF (DME) prosthetic hands Bilateral Qty: 1 0RF Rx Instructions: As directed (DME) pen needle, diabetic [Sure-Fine Pen Calcium] 31 gauge x 3/16 needle See Rx Instructions .ROUTE .MEDSUPPLY Qty: 450 3RF Rx Instructions: uses 5 times a day (DME) FreeStyle Maria M 2 Sensor Kit See Rx Instructions .ROUTE .MEDSUPPLY Qty: 6 3RF Rx Instructions: Change every 14 days. (DME) Ear Pulse Ox See Rx Instructions .Route .MEDSUPPLY Qty: 1 0RF Rx Instructions: As directed; continuous pulse ox clonazepam 0.5 mg tablet 0.5 mg PO DAILY PRN (Reason: anxiety) 30 Days Qty: 30 2RF zolpidem 5 mg tablet 5 mg PO .qhs PRN (Reason: insomnia) 30 Days Qty: 30 2RF aripiprazole [Abilify] 5 mg tablet 5 mg PO DAILY Qty: 30 2RF leflunomide 20 mg tablet 20 mg PO DAILY Qty: 30 3RF Humulin R U-500 (Conc) Kwikpen 500 unit/mL (3 mL) insulin pen 100 unit SUBCUT BID Qty: 6 0RF levothyroxine 112 mcg tablet See Rx Instructions .ROUTE .COMPLEX Qty: 90 0RF Dose Instruction: Take 1 tablet by mouth once daily Rx Instructions: Take 1 tablet by mouth once daily Xarelto 20 mg tablet See Rx Instructions .ROUTE .COMPLEX Qty: 90 0RF Dose Instruction: Take 1 tablet by mouth once daily Rx Instructions: Take 1 tablet by mouth once daily fenofibrate 160 mg tablet See Rx Instructions .ROUTE .COMPLEX Qty: 30 0RF Dose Instruction: Take 1 tablet by mouth once daily Rx Instructions: Take 1 tablet by mouth once daily fluconazole 150 mg tablet 150 mg PO Q3D Qty: 2 0RF Rx Instructions: may repeat second dose 72 hrs after first dose if symptoms persist bupropion HCl [Wellbutrin XL] 150 mg tablet extended release 24 hr 150 mg PO QAM Qty: 30 2RF cholecalciferol (vitamin D3) 1,250 mcg (50,000 unit) capsule See Rx Instructions .ROUTE .COMPLEX Qty: 4 0RF Dose Instruction: Take 1 capsule by mouth once a week Rx Instructions: Take 1 capsule by mouth once a week duloxetine 60 mg capsule,delayed release(DR/EC) 60 mg PO BID Qty: 60 2RF clotrimazole 10 mg jaci 10 mg mucous membrane TID Qty: 15 0RF Mounjaro 2.5 mg/0.5 mL pen injector See Rx Instructions .ROUTE .COMPLEX Qty: 4 0RF Dose Instruction: INJECT 2.5 ML SUBCUTANEOUSLY EVERY 7 DAYS. Rx Instructions: INJECT 2.5mg SUBCUTANEOUSLY EVERY 7 DAYS. clopidogrel 75 mg tablet See Rx Instructions .ROUTE .COMPLEX Qty: 90 0RF Dose Instruction: Take 1 tablet by mouth once daily Rx Instructions: Take 1 tablet by mouth once daily fluconazole 150 mg tablet 150 mg PO Q3D Qty: 2 0RF gabapentin 600 mg tablet See Rx Instructions .ROUTE .COMPLEX Qty: 90 0RF Dose Instruction: TAKE 1 TABLET BY MOUTH THREE TIMES DAILY Rx Instructions: TAKE 1 TABLET BY MOUTH THREE TIMES DAILY isosorbide mononitrate 30 mg tablet extended release 24 hr See Rx Instructions .ROUTE .COMPLEX Qty: 90 0RF Dose Instruction: Take 1 tablet by mouth once daily Rx Instructions: Take 1 tablet by mouth once daily metoprolol tartrate 25 mg tablet See Rx Instructions .ROUTE .COMPLEX Qty: 90 0RF Dose Instruction: Take 1 tablet by mouth once daily Rx Instructions: Take 1 tablet by mouth once daily (DME) Dexcom G7 Supervisor Type Disk Quality Control Misc See Rx Instructions .Route Qty: 1 0RF Rx Instructions: As directed (DME) Dexcom G7 Sensor Device See Rx Instructions .Route Qty: 1 1RF Rx Instructions: As directed nystatin 100,000 unit/mL suspension 500,000 unit buccal DAILY Qty: 250 0RF Rx Instructions: administer 1/2 of dose in each side of the mouth oxycodone 10 mg tablet 10 mg PO TID PRN (Reason: pain) 30 Days Qty: 90 0RF Referrals: Franca Garza FNP [Primary Care Provider] - Coding Level of Care Code ED Electrophysiology Technologist for Sidra Saldivar
--- NOTE | 2023-11-08 15:46 | CTR_ITS ---
PROCEDURE INFORMATION: Exam: CT Pelvis With Contrast Exam date and time: 11/08/2023 4:39 PM Age: 58 years old Clinical indication: Swelling or effusion of joint; Bilateral; Additional info: Sacral ulcer tunneling TECHNIQUE: Imaging protocol: Computed tomography of the pelvis with contrast. Radiation optimization: All CT scans at this facility use at least one of these dose optimization techniques: automated exposure control; mA and/or kV adjustment per patient size (includes targeted exams where dose is matched to clinical indication); or iterative reconstruction. Contrast material: OMNI 350; Contrast volume: 100 ml; Contrast route: INTRAVENOUS (IV); COMPARISON: CT pelvis w con* [id number] 07/26/2023 12:55 PM RADIATION DOSE METRICS: Total DLP (mGy-cm): 343.9 FINDINGS: Intestine: Visualized small and large intestine are unremarkable. Appendix: No evidence of appendicitis. Intraperitoneal space: Unremarkable. No free air. No significant fluid collection. Lymph nodes: Unremarkable. No enlarged lymph nodes. Reproductive: Normal as visualized. Urinary bladder: Normal. No mass. Bones/joints: Eroded coccyx. The distal portion of the sacrum is directly adjacent to the sacral ulceration. No evident sequela of acute osteomyelitis. Degenerative changes at the L4-L5 disc space with gas noted within the intervertebral disc anterior/inferior endplate L4, most likely degenerative. Left above the knee amputation changes. Soft tissues: Unremarkable. Sacral decubitus ulcer/abscess seen extending into the left gluteal soft tissues. Difficult to accurately measure the dimensions of the abscess given morphology/positioning. Hernia noted along right anterolateral abdominal wall containing mesenteric fat and several loops of bowel. CT/CT pelvis w con* [id number] IMPRESSION: 1. Sacral decubitus ulcer/abscess seen extending into the left gluteal soft tissues. 2. Eroded coccyx with the distal portion of the sacrum directly adjacent to the sacral ulceration. No evident sequela of acute osteomyelitis. 3. Gas noted within the intervertebral disc of L4-L5 and anterior/inferior endplate of L4, most likely degenerative.
--- NOTE | 2023-11-08 15:56 | ECG_ITS ---
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 Measurements Intervals [place] Rate: 96 P: 37 MD: 189 QRS: -25 QRSD: 116 T: 81 QT: 376 QTc: 477 Interpretive Statements SINUS RHYTHM INFERIOR MYOCARDIAL INFARCTION , OF INDETERMINATE AGE [40+ ms Q WAVE AND/OR ST/T ABNORMALITY IN II/aVF] Compared to ECG 03/08/2023 10:13:50 First degree AV block no longer present T-wave abnormality no longer present Possible ischemia no longer present Myocardial infarct finding still present Electronically Signed On 11-08-2023 17:12:50 CDT by Shine Mcelroy M.D. [id number]
[2023-11-08 16:17] LABS: Alanine Aminotransferase < 5 U/L (0-33); Anion Gap 15.4 (5-19); Aspartate Amino Transferase 9 U/L (0-32); Blood Urea Nitrogen 13 mg/dL (8-23); Carbon Dioxide 23 mmol/L (22-29); Creatinine Clr Calc Pharmacy 118.8796; Globulin 4.1 g/dL (1.3-4.6); Magnesium 1.7 mg/dL (1.7-2.3); Total Bilirubin 0.4 mg/dL (0.15-1.2)
[2023-11-08 16:27] LABS: Chloride 96 mmol/L (98-107); Glomerular Filtration Rate 162.8 mL/min (90-130); Glucose 227 mg/dL (65-115); Osmolality Calculated 279 mOsm/kg (285-295); Potassium 3.4 mmol/L (3.5-5.1); Sodium 131 mmol/L (136-145)
[2023-11-08 16:28] LABS: Albumin Level 2.2 g/dL (3.5-5.2); Alkaline Phosphatase 168 U/L (35-105); Calcium 8.4 mg/dL (8.5-10.5); Total Protein 6.3 g/dL (6.6-8.7)
[2023-11-08] MEDS: iohexol 350 mg/mL 500 mL Btl (per mL) IV (16:44)
[2023-11-08 16:57] LABS: Basophils # 0.1 10^3/uL (0.0-0.1); Basophils % 0.5 %; Eosinophils # 0.2 10^3/uL (0.0-0.8); Eosinophils % 1.3 %; Lymphocytes # 1.6 10^3/uL (0.8-4.8); Lymphocytes % 11.4 %; Mean Corpuscular HGB Conc 30.7 g/dL (30-55); Mean Corpuscular Hemoglobin 22.3 pg (27-33); Mean Corpuscular Volume 72.4 fl (85-98); Mean Platelet Volume 9.3 fL (7.4-10.4); Monocytes # 0.8 10^3/uL (0.2-0.9); Monocytes % 5.7 %; Neutrophils # 11.36 10^3/uL (1.8-7.7); Neutrophils % 80.5 %; Nucleated Red Blood Cells % 0 %; Platelet Count 733 10^3/cmm (157-399); Red Blood Count 3.73 10^6/uL (3.85-5.65); Red Cell Distribution Width 19.7 % (12.1-15.1); White Blood Count 14.11 10^3/uL (3.29-11.43)
[2023-11-08] MEDS: piperacillin-tazobactam 3.375 GM in sodium chloride 0.9% (plus) 50 ML IV (17:48)
[2023-11-08] MEDS: SODIUM CHLORIDE 0.9% 1510.47 ML IV (17:53)
[2023-11-08] MEDS: vancomycin 1,000 MG in sodium chloride 0.9% 250 ML 250 MG IV (18:22)
[2023-11-08] MEDS: fentaNYL 50 mcg/mL INJ 2mL 25 MCG IVP (18:24)
[2023-11-08] MEDS: hydrocortisone 100 mg/2 mL SDV IVP (18:25)
--- NOTE | 2023-11-08 18:46 | P.HP_ITS ---
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 In the ER she has been given septic bolus, vancomycin given as well along Zosyn blood cultures taken. Patient is afebrile, patient stating that she lives with her significant other, stating that she gets frequent position changes every 3-4 hours, follows up with wound care once a week. She has been sent from the wound care clinic for worsening of her wounds. There is purulent cellulitis and concern for osteomyelitis of left buttocks ulcer with tunneling all the way down to bone. She has been given stress dose steroids, she will need extensive debridement and possible wound VAC, Dr. Aguiar consulted. Review of Systems 2 Const: Denies: fever(s) Eyes: Denies: change in vision ENMT: Denies: throat pain Card: Denies: chest pain Resp: Denies: dyspnea GI: Denies: abdominal pain : Denies: flank pain Musc: Reports: back pain Skin/Breast: Reports: rash, skin tenderness and non-healing lesions Medications/Allergies Home Medications Medication Instructions Recorded Confirmed Last Taken Type prosthetic hands Bilateral #1 ea 05/02/19 09/26/23 Unknown Rx blood-glucose sensor #3 ea 05/08/20 09/26/23 Unknown Rx flash glucose scanning reader #1 ea 06/14/20 09/26/23 Unknown Rx (FreeStyle Maria M 2 [place]) pen needle, diabetic 31 gauge x #450 ea 07/01/20 09/26/23 Unknown Rx 3/16 (Sure-Fine Pen [place]) prosthetic legs #1 ea 12/11/20 09/26/23 Unknown Rx albuterol sulfate 2.5 mg/3 mL 2.5 mg inhalation Q6H PRN 06/30/21 09/26/23 Unknown History (0.083 %) solution for nebulization Shortness Of Breath flash glucose sensor (FreeStyle #6 ea 10/19/21 09/26/23 Unknown Rx Maria M 2 Sensor kit) nitroglycerin 0.4 mg sublingual 0.4 mg sublingual Q5M PRN chest 04/12/22 09/26/23 Unknown Rx tablet pain #25 tabs Ear Pulse Ox #1 ea 04/25/22 09/26/23 Unknown Rx albuterol sulfate 90 mcg/actuation 2 puff inhalation QID PRN 06/08/22 09/26/23 Unknown Rx aerosol inhaler shortness of breath or wheezing #6.7 grams clonazepam 0.5 mg tablet 0.5 mg PO DAILY PRN anxiety 30 09/21/22 09/26/23 Unknown Rx days #30 tabs zolpidem 5 mg tablet 5 mg PO .qhs PRN insomnia 30 days 09/21/22 09/26/23 Unknown Rx #30 tabs acetaminophen 325 mg tablet 325 mg PO QID PRN Pain 10/17/22 09/26/23 Unknown History diphenhydramine HCl 25 mg tablet 25 mg PO TID PRN Allergy Symptoms 10/17/22 09/26/23 Unknown History (Benadryl Allergy) wheelchair motorized #1 ea 12/16/22 09/26/23 Unknown Rx aripiprazole 5 mg tablet (Abilify) 5 mg PO DAILY #30 tabs 04/11/23 09/26/23 Unknown Rx atorvastatin 40 mg tablet 40 mg PO DAILY #90 tabs 04/14/23 09/26/23 Unknown Rx leflunomide 20 mg tablet 20 mg PO DAILY #30 tabs 04/17/23 09/26/23 Unknown Rx insulin regular hum U-500 conc 500 100 unit (0.2 mL) SUBCUT BID #6 mL 05/02/23 09/26/23 Unknown Rx unit/mL(3 mL) subcut pen (Humulin R U-500 (Conc) Insulin Kwikpen) levothyroxine 112 mcg tablet See Rx Instructions .Route 05/11/23 09/26/23 Unknown Rx .COMPLEX #90 tabs rivaroxaban 20 mg tablet (Xarelto) See Rx Instructions .Route 05/11/23 09/26/23 Unknown Rx .COMPLEX #90 tabs fenofibrate 160 mg tablet See Rx Instructions .Route 05/15/23 09/26/23 Unknown Rx .COMPLEX #30 tabs fluconazole 150 mg tablet 150 mg PO Q3D 2 doses #2 tabs 06/05/23 09/26/23 Unknown Rx bupropion HCl 150 mg 24 hr tablet, 150 mg PO QAM #30 tabs 06/07/23 09/26/23 Unknown Rx extended release (Wellbutrin XL) sodium hypochlorite 0.125 % 1 applic topical BID open wound 06/21/23 09/26/23 Unknown Rx solution (Dakin's Solution) #473 mL cholecalciferol (vitamin D3) 1,250 See Rx Instructions .Route 06/27/23 09/26/23 Unknown Rx mcg (50,000 unit) capsule .COMPLEX #4 caps duloxetine 60 mg capsule,delayed 60 mg PO BID #60 caps 06/29/23 09/26/23 Unknown Rx release clotrimazole 10 mg jaci 10 mg mucous membrane TID #15 tabs 07/04/23 09/26/23 Unknown Rx tirzepatide 2.5 mg/0.5 mL See Rx Instructions .Route 07/25/23 09/26/23 Unknown Rx subcutaneous pen injector .COMPLEX #4 mL (Jorgeunbarak) hydrocodone 5 mg-acetaminophen 325 1 tab PO BID PRN pain 7 days #14 08/09/23 09/26/23 Unknown Rx mg tablet tabs levofloxacin 500 mg tablet 500 mg PO DAILY #20 tabs 08/09/23 09/26/23 Unknown Rx clopidogrel 75 mg tablet See Rx Instructions .Route 08/16/23 09/26/23 Unknown Rx .COMPLEX #90 tabs fluconazole 150 mg tablet 150 mg PO Q3D 2 doses #2 tabs 09/01/23 09/26/23 Unknown Rx nitrofurantoin 100 mg PO Q12H 7 days #14 caps 09/08/23 09/26/23 Unknown Rx monohydrate/macrocrystals 100 mg capsule (Macrobid) sulfamethoxazole 800 1 tab PO BID #28 tabs 09/15/23 09/26/23 Unknown Rx mg-trimethoprim 160 mg tablet gabapentin 600 mg tablet See Rx Instructions .Route 09/19/23 09/26/23 Unknown Rx .COMPLEX #90 tabs isosorbide mononitrate 30 mg See Rx Instructions .Route 10/05/23 Unknown Rx tablet,extended release 24 hr .COMPLEX #90 tabs metoprolol tartrate 25 mg tablet See Rx Instructions .Route 10/05/23 Unknown Rx .COMPLEX #90 tabs blood-glucose meter,continuous #1 ea 10/30/23 Unknown Rx (Dexcom G7 Retoucher [employer]engraving) blood-glucose sensor (Dexcom G7 #1 ea 10/30/23 Unknown Rx Sensor device) nystatin 100,000 unit/mL oral 500,000 unit (5 mL) buccal DAILY 11/03/23 Unknown Rx suspension #250 mL oxycodone 10 mg tablet 10 mg PO TID PRN pain 30 days #90 11/06/23 Unknown Rx tabs Allergies Allergy/AdvReac Type Severity Reaction Status Date / Time cephalexin Allergy Unknown Not Verified 09/26/23 14:31 Entered,Swelling,Diarrhea metformin Allergy Unknown Diarrhea,Not Verified 09/26/23 14:31 Entered,SWELLING PFSH Acute 2 PFSH: Medical History Stage II pressure ulcer of left buttock DM type 2 causing complication Diabetes mellitus Bilateral pneumonia Influenza B UTI (urinary tract infection) COVID-19 Hypovolemic shock Pressure sore on buttocks UTI (urinary tract infection) Amputation leg, bilat Psychiatric care Anxiety Major depressive disorder, recurrent severe without psychotic features Coronary artery disease Polyuria Polydipsia Urgency incontinence Recurrent UTI Below-elbow amputation of right upper extremity Below-elbow amputation of left upper extremity 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 Enrolled in chronic care management Rheumatoid arthritis Phantom pain after amputation of lower extremity Chronic pain 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 Hypothyroidism Hyperlipemia, mixed HTN (hypertension), benign (~11/2022) 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, hand, bilateral Hx of sepsis Surgical History History of amputation of lower extremity History of skin graft History of appendectomy History of amputation of finger of both hands Family History Father , at age 47 CAD (coronary artery disease) Hypertension Mother , at age 64 Diabetes Lung disease Sister Diabetes Brother Diabetes Denies family history of Dementia Cancer Stroke Social History Smoking and tobacco/nicotine status: current every day tobacco/nicotine user cigarettes Packs smoked per day: 0.5 Years cigarettes smoked: 48 Quit status (tobacco/nicotine): has tried quititng Second hand smoke exposure: Yes Alcohol intake: current Alcohol intake frequency: holidays/special occasions only Alcohol type: wine Substance/Drug Use: never Adopted: No Caregiver/support person: Yes Lives independently: Yes Household members: significant other and family Housing: House Marital status: Single Marital status details: Life partner of 45 years Number of children: 0 Number of grandchildren: 0 Highest education level completed: High School Graduate service: No Current occupational status: disabled Pets and animals: Yes (lab, yorkie, beagle) Pets & animals: cat(s) and dog(s) Leisure activites: art, fishing and other Leisure activities details: writing, watch TV Sexually active: Yes Do you think of yourself as: Straight/Heterosexual Current gender identity: Female Keyonna/Confucianism: None Special keyonna needs: No Agree to transfusion: Yes Female Reproductive History: Para: 0 Vitals/I&O/Wt Last Vital Signs Temp 98.9 F 11/08/23 15:15 Pulse 104 H 11/08/23 18:26 Resp 16 11/08/23 18:26 BP 85/54 11/08/23 18:31 Pulse Ox 94 11/08/23 18:31 O2 Del Method Nasal Cannula 11/08/23 18:31 O2 Flow Rate 3 11/08/23 18:31 Weight last 48 hrs Weight 50.349 kg Physical Exam 2 Narrative: Multiple extremity amputations Currently laying supine Left buttocks area ulcer with deep tunneling all the way down to bone Purulent discharge noted Purulent discharge with cellulitis of left stump anterior with necrotic tissue Patient looks dehydrated Awake and alert Able to answer my questions Tachycardic Currently on 3 L Data 11/08/23 15:40 11/08/23 15:40 Micro: Microbiology 11/08/23 15:20 Blood Culture - Preliminary Blood SPECIMEN COLLECTED 11/08/23 15:40 Blood Culture - Preliminary Blood SPECIMEN COLLECTED A&P Assessment and plan (1) Septic shock: (2) Diabetes mellitus: Qualifiers: Diabetes mellitus type: type 2 Diabetes mellitus half-way insulin use: with half-way use Diabetes mellitus complication status: with circulatory complication Diabetes mellitus complication detail: with other circulatory complications Qualified Code(s): E11.59 - Type 2 diabetes mellitus with other circulatory complications; Z79.4 - custodial (current) use of insulin (3) Abscess of buttock, left: (4) Rheumatoid arthritis: Qualifiers: Rheumatoid arthritis location: multiple sites Rheumatoid factor presence: unspecified presence Qualified Code(s): M06.9 - Rheumatoid arthritis, unspecified (5) Abscess of left buttock: (6) Infected pressure ulcer: Qualifiers: Pressure injury stage: stage 2 Qualified Code(s): L89.92 - Pressure ulcer of unspecified site, stage 2; L08.9 - Local infection of the skin and subcutaneous tissue, unspecified (7) Decubitus ulcer of sacral region, stage 4: (8) Decubital ulcer: Qualifiers: Pressure injury location: buttock Pressure injury stage: stage 4 L aterality: unspecified laterality Qualified Code(s): L89.304 - Pressure ulcer of unspecified buttock, stage 4 (9) Below-elbow amputation of left upper extremity: (10) Complete amputation of bilateral legs: Qualifiers: Encounter type: subsequent encounter Qualified Code(s): S88.911D - Complete traumatic amputation of right lower leg, level unspecified, subsequent encounter; S88.912D - Complete traumatic amputation of left lower leg, level unspecified, subsequent encounter (11) Pressure ulcer of buttock: (12) Chronic pain: Qualifiers: Chronic pain type: other chronic postprocedural pain Qualified Code(s): G89.28 - Other chronic postprocedural pain Plan Septic shock Purulent cellulitis of left stump with concern for osteomyelitis Gas noted around L4-L5 like related to tunneling of her left gluteal wound Admit to ICU Criteria met with fever tachypnea tachycardia Patient has not responded adequately to IV fluids Start Levophed Stress dose steroids administered Blood cultures taken Repeat lactic acid Acute exacerbation of COPD Currently on 3 L does not use oxygen at home Active smoker Diastolic CHF without acute exacerbation Monitor fluid status for now Non-STEMI in the past which was managed medically Anticoagulating agent Xarelto on board. Patient is stating that she has not taken any anticoagulating agent recently History of hypertension, diabetes Insulin sliding scale will be used for now N.p.o. after midnight Dr. Aguiar consulted Patient will need extensive debridement She is full code Consistent carb diet for now until midnight Frequent nursing care frequent position changing every 3-4 hours Chirinos catheter will be placed Wound care dressing Dakin's solution will be used Continue broad-spectrum antibiotic Attestations 2 Medical Necessity Statement*: More than 2 midnights anticipated Diagnoses Septic shock A41.9; R65.21 Type 2 diabetes mellitus with other circulatory complication, with long-term current use of insulin E11.59; Z79.4 Diabetes mellitus type: type 2 Diabetes mellitus half-way insulin use: with intermodal customer service use Diabetes mellitus complication status: with circulatory complication Diabetes mellitus complication detail: with other circulatory complications Abscess of buttock, left L02.31 Rheumatoid arthritis involving multiple sites, unspecified whether rheumatoid factor present M06.9 Rheumatoid arthritis location: multiple sites Rheumatoid factor presence: unspecified presence Pressure injury, stage 2, with infection L89.92; L08.9 Pressure injury stage: stage 2 Decubitus ulcer of sacral region, stage 4 L89.154 Pressure injury of buttock, stage 4, unspecified laterality L89.304 Pressure injury location: buttock Pressure injury stage: stage 4 Laterality: unspecified laterality Below-elbow amputation of left upper extremity S58.112A Complete amputation of both lower extremities, subsequent encounter S88.911D; S88.912D Encounter type: subsequent encounter Pressure ulcer of buttock L89.309 Other chronic postprocedural pain G89.28 Chronic pain type: other chronic postprocedural pain
[2023-11-08] MEDS: sodium chloride 0.9% 1,000 ML 100 ML IV (21:32)
[2023-11-08] MEDS: HYDROcodone-acetaminophen 5-325 mg Tablet 1 TAB PO (21:32)
[2023-11-09] VITALS (32 sets, daily range): BP systolic 111–167; BP diastolic 60–101; PULSE 0–120; RESP 12–24; TEMP 36.6–37.7; O2SAT 87–100; BMI 44.2
[2023-11-09] MEDS: piperacillin-tazobactam 3.375 GM in sodium chloride 0.9% (plus) 50 ML IV ×3 (02:08→22:26)
--- NOTE | 2023-11-09 04:54 | PC.NURSE ---
Contacted Dr. Tobar about patient wounds. Given orders to do wet to dry on pressure injury on sacrum, Marisol wet to dry on left leg stasis ulcer.
[2023-11-09 05:52] LABS: Basophils % 0.3 %; Hematocrit 26.9 % (36-47); Lymphocytes # 1.7 10^3/uL (0.8-4.8); Mean Corpuscular HGB Conc 29.7 g/dL (30-55); Mean Corpuscular Volume 74.1 fl (85-98); Monocytes # 0.4 10^3/uL (0.2-0.9); Monocytes % 2.8 %; Neutrophils % 85.3 %; Nucleated Red Blood Cells % 0 %; Platelet Count 840 10^3/cmm (157-399); Red Blood Count 3.63 10^6/uL (3.85-5.65); White Blood Count 15.24 10^3/uL (3.29-11.43)
[2023-11-09 06:17] LABS: Anion Gap 17.8 (5-19); Blood Urea Nitrogen 17 mg/dL (8-23); C Reactive Protein 105.8 mg/L (0.0-4.9); Calcium 8.1 mg/dL (8.5-10.5); Carbon Dioxide 20 mmol/L (22-29); Chloride 104 mmol/L (98-107); Creatinine Clr Calc Pharmacy 95.1037; Glomerular Filtration Rate 125.9 mL/min (90-130); Glucose 278 mg/dL (65-115); Magnesium 2.1 mg/dL (1.7-2.3); Osmolality Calculated 298 mOsm/kg (285-295); Potassium 3.8 mmol/L (3.5-5.1); Sodium 138 mmol/L (136-145)
[2023-11-09] MEDS: sodium chloride 0.9% 1,000 ML 100 ML IV (06:29)
[2023-11-09 09:08] LABS: Glucose Point of Care 235 mg/dL (70-110)
--- NOTE | 2023-11-09 09:40 | PC.NURSE ---
Dr Tobar notified of: 1) no IV access and 2 attempts with US. 2) Loose stool present , Anitha held. Orders form PICC line received, okay'd Anitha hold for today.
--- NOTE | 2023-11-09 09:42 | SUR.HOLD ---
Dr Tobar notified of Peripheral IV infiltration and difficulty with sticks. PICC order given. Physician also notified of loose stools and tabatha held, this was okay'd.
[2023-11-09] MEDS: insulin lispro 100 unit/1 mL SUBCUT ×2 (09:45→18:45)
[2023-11-09] MEDS: HYDROcodone-acetaminophen 5-325 mg Tablet 1 TAB PO ×2 (09:46→21:17)
--- NOTE | 2023-11-09 09:51 | PC.PHAR ---
PT VERIFIED ALL HER MEDICATIONS, SOME OF WHICH HAVE NOT BEEN FILLED SINCE APRIL AND MAY. PHONED PT CONTACT CONNIE CUELLAR, WHO WAS NO HELP. SHE JUST SAID THEY COULD NOT GET PT IN TO [facility] TO GET ABILIFY RENEWED. SPOKE WITH [facility] [place] [facility] AND VERIFIED ALL MEDS, DIRECTIONS, AND LAST FILL DATES. ALL WERE DOCUMENTED IN PHARMACY COMMENTS.
[2023-11-09] MEDS: sodium hypochlorite 0.125% Btl 473 mL 1 APPLIC TOPICAL (10:16)
--- NOTE | 2023-11-09 10:36 | PC.NURSE ---
Protonix, hydrocortisone and Zosyn will be delyaed until PICC obtained. Dr Tobar is aware of no IV access.
[2023-11-09 11:07] LABS: Charge for UA Resulting for Rev
[2023-11-09 11:23] LABS: Bilirubin Urine Negative (Negative); Blood Urine 2+ (Negative); Glucose Urine UA Trace (Normal); Ketones Urine Trace (Negative); Leukocyte Esterase Urine Trace (Negative); Nitrate Urine Negative (Negative); Protein Urine 1+ (Negative); Urine Appearance Clear (CLEAR); Urine Color Yellow (Yellow)
[2023-11-09 11:28] LABS: Bacteria Urine None Seen /hpf; Hyaline Casts Urine 7.01 /lpf; RBC Urine 21-50 /hpf (0-2); Squamous Epithelial Cell Urine 0-5 /hpf (0-5); WBC Urine 21-50 /hpf (0-5)
--- NOTE | 2023-11-09 11:41 | P.PN_ITS ---
Subjective 2 Subjective: Her IV line got infiltrated, requested PICC line Patient is complaining of associating pain She is moaning and crying in pain Did not require Levophed Blood pressure improved with IV fluids overnight Vitals/I&O/Wt Last Vital Signs Temp 98.9 F 11/08/23 15:15 Pulse 104 H 11/09/23 09:06 Resp 16 11/09/23 09:06 BP 94/62 11/08/23 19:30 Pulse Ox 96 11/09/23 09:06 O2 Del Method Nasal Cannula 11/09/23 09:06 O2 Flow Rate 1 11/09/23 09:06 11/08/23 11/09/23 11/09/23 22:59 06:59 14:59 Intake Total 1760.47 / 1760.47 945 / 2705.47 Output Total 420 / 420 Balance 1760.47 / 1760.47 945 / 2705.47 -420 / -420 Weight last 48 hrs Weight 50.349 kg Weight 50.349 kg Weight 50.349 kg Physical Exam 2 Narrative: Left stump purulent cellulitis Tunnel wound left gluteal area We are using Dakin's solution wet-to-dry Patient is moaning in pain Able to communicate Currently on 2 L nasal cannula Abdomen soft S1, S2 tachycardia Urinary Catheter Management: Chirinos: Cath Placed During This Visit: yes Reason for Continuing Indwelling Catheter: Accurate Measurement of Urinary Output in Critically Ill Patients Urinary Catheter Date of Insertion: 11/08/23 Urinary Catheter Time of Insertion: 21:00 Data 11/09/23 05:39 11/09/23 05:39 Micro: Microbiology 11/08/23 15:20 Blood Culture - Preliminary Blood SPECIMEN COLLECTED 11/08/23 15:40 Blood Culture - Preliminary Blood SPECIMEN COLLECTED A&P Assessment and plan (1) Septic shock: (2) Diabetes mellitus: Qualifiers: Diabetes mellitus type: type 2 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: with local company intermodal truck driver use Diabetes mellitus complication status: with circulatory complication Diabetes mellitus complication detail: with other circulatory complications Qualified Code(s): E11.59 - Type 2 diabetes mellitus with other circulatory complications; Z79.4 - residential (current) use of insulin (3) Abscess of buttock, left: (4) Rheumatoid arthritis: Qualifiers: Rheumatoid arthritis location: multiple sites Rheumatoid factor presence: unspecified presence Qualified Code(s): M06.9 - Rheumatoid arthritis, unspecified (5) Abscess of left buttock: (6) Infected pressure ulcer: Qualifiers: Pressure injury stage: stage 2 Qualified Code(s): L89.92 - Pressure ulcer of unspecified site, stage 2; L08.9 - Local infection of the skin and subcutaneous tissue, unspecified (7) Decubitus ulcer of sacral region, stage 4: (8) Decubital ulcer: Qualifiers: Pressure injury location: buttock Pressure injury stage: stage 4 L aterality: unspecified laterality Qualified Code(s): L89.304 - Pressure ulcer of unspecified buttock, stage 4 (9) Below-elbow amputation of left upper extremity: (10) Complete amputation of bilateral legs: Qualifiers: Encounter type: subsequent encounter Qualified Code(s): S88.911D - Complete traumatic amputation of right lower leg, level unspecified, subsequent encounter; S88.912D - Complete traumatic amputation of left lower leg, level unspecified, subsequent encounter (11) Pressure ulcer of buttock: (12) Chronic pain: Qualifiers: Chronic pain type: other chronic postprocedural pain Qualified Code(s): G89.28 - Other chronic postprocedural pain Plan Septic shock We were not able to use vasopressors because her IV line got infiltrated getting PICC line today, patient is still hypotensive Criteria met with tachypnea tachycardia, SIRS criteria met Source of infection is sacral area ulcer and stump infection Continue broad-spectrum antibiotics Continue IV fluids N.p.o. for her surgical debridement Acute exacerbation of COPD We were able to wean oxygen down to 2 L overnight Diastolic CHF without acute exacerbation Monitor fluid status for now Non-STEMI in the past which was managed medically Anticoagulating agent Xarelto on board. Patient is stating that she has not taken any anticoagulating agent recently N.p.o. for now Will start sliding scale with insulin once she comes back from surgical debridement Frequent nursing care frequent position changing every 3-4 hours Chirinos catheter will be placed For wound care we have been using wet-to-dry dressing, Dakin's solution Patient likely will need senior care however she is not agreeable stating that her significant other takes care of her at home Attestations 2 Medical Necessity Statement*: Continue ICU management Diagnoses Septic shock A41.9; R65.21 Type 2 diabetes mellitus with other circulatory complication, with long-term current use of insulin E11.59; Z79.4 Diabetes mellitus type: type 2 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: with local company intermodal truck driver use Diabetes mellitus complication status: with circulatory complication Diabetes mellitus complication detail: with other circulatory complications Abscess of buttock, left L02.31 Rheumatoid arthritis involving multiple sites, unspecified whether rheumatoid factor present M06.9 Rheumatoid arthritis location: multiple sites Rheumatoid factor presence: unspecified presence Pressure injury, stage 2, with infection L89.92; L08.9 Pressure injury stage: stage 2 Decubitus ulcer of sacral region, stage 4 L89.154 Pressure injury of buttock, stage 4, unspecified laterality L89.304 Pressure injury location: buttock Pressure injury stage: stage 4 Laterality: unspecified laterality Below-elbow amputation of left upper extremity S58.112A Complete amputation of both lower extremities, subsequent encounter S88.911D; S88.912D Encounter type: subsequent encounter Pressure ulcer of buttock L89.309 Other chronic postprocedural pain G89.28 Chronic pain type: other chronic postprocedural pain
[2023-11-09 11:49] LABS: Fine Granular Casts Urine 0-4 /lpf
[2023-11-09 11:50] LABS: Add Urine Culture? Yes
--- NOTE | 2023-11-09 12:34 | P.ANESASSM_ITS ---
Pre-Anesthetic Assessment Height/Weight: Height 1.07 m Weight 50.349 kg Temp Pulse Resp BP Pulse Ox O2 Del Method O2 Flow Rate 98.4 F 98 19 H 144/92 94 Nasal Cannula 2 11/09/23 07:45 11/09/23 11:45 11/09/23 11:45 11/09/23 11:45 11/09/23 11:45 11/09/23 11:45 11/09/23 11:45 Operation Date: 11/09/23 15:00 Proposed Procedures p Incision And Drainage Incision left decubitus ulcer(Left) - Navdeep Aguiar DO Familial anesthetic complications: None Was Beta Oz taken within 24 hours: N/A Was Clonidine taken within 24 hours: N/A Last intake: > 8 hrs Social Tobacco and No alcohol Exam alert, oriented x 3, clear to auscultation bilaterally and regular rate & rhythm Airway Mallampati: Class I Dentition: chipped Pulmonary Chronic Obstructive Pulmonary Disease CV/HEM Hypertension Metabolic Diabetes Mellitus Musc/skel Rheumatoid Arthritis Quadruple limb amputation Anesthetic Plan ASA status: 4 Anesthesia: General Risk of > 500 ml blood loss (7ml/kg in children): No Medications/Allergies Home Medications Medication Instructions Recorded Confirmed Last Taken Type prosthetic hands Bilateral #1 ea 05/02/19 11/09/23 Unknown Rx blood-glucose sensor #3 ea 05/08/20 11/09/23 Unknown Rx flash glucose scanning reader #1 ea 06/14/20 11/09/23 Unknown Rx (FreeStyle Maria M 2 [place]) pen needle, diabetic 31 gauge x #450 ea 07/01/20 11/09/23 Unknown Rx 3/16 (Sure-Fine Pen [place]) prosthetic legs #1 ea 12/11/20 11/09/23 Unknown Rx flash glucose sensor (FreeStyle #6 ea 10/19/21 11/09/23 Unknown Rx Maria M 2 Sensor kit) nitroglycerin 0.4 mg sublingual 0.4 mg sublingual Q5M PRN chest 04/12/22 11/09/23 Unknown Rx tablet pain #25 tabs Ear Pulse Ox #1 ea 04/25/22 11/09/23 Unknown Rx clonazepam 0.5 mg tablet 0.5 mg PO DAILY PRN anxiety 30 09/21/22 11/09/23 Unknown Rx days #30 tabs zolpidem 5 mg tablet 5 mg PO .qhs PRN insomnia 30 days 09/21/22 11/09/23 Unknown Rx #30 tabs acetaminophen 325 mg tablet 325 mg PO QID PRN Pain 10/17/22 11/09/23 Unknown History diphenhydramine HCl 25 mg tablet 25 mg PO TID PRN Allergy Symptoms 10/17/22 11/09/23 Unknown History (Benadryl Allergy) wheelchair motorized #1 ea 12/16/22 11/09/23 Unknown Rx aripiprazole 5 mg tablet (Abilify) 5 mg PO DAILY #30 tabs 04/11/23 11/09/23 Unknown Rx atorvastatin 40 mg tablet 40 mg PO DAILY #90 tabs 04/14/23 11/09/23 Unknown Rx leflunomide 20 mg tablet 20 mg PO DAILY #30 tabs 04/17/23 11/09/23 Unknown Rx insulin regular hum U-500 conc 500 100 unit (0.2 mL) SUBCUT BID #6 mL 05/02/23 11/09/23 Unknown Rx unit/mL(3 mL) subcut pen (Humulin R U-500 (Conc) Insulin Kwikpen) levothyroxine 112 mcg tablet See Rx Instructions .Route 05/11/23 11/09/23 Unknown Rx .COMPLEX #90 tabs rivaroxaban 20 mg tablet (Xarelto) See Rx Instructions .Route 05/11/23 11/09/23 Unknown Rx .COMPLEX #90 tabs fenofibrate 160 mg tablet See Rx Instructions .Route 05/15/23 11/09/23 Unknown Rx .COMPLEX #30 tabs bupropion HCl 150 mg 24 hr tablet, 150 mg PO QAM #30 tabs 06/07/23 11/09/23 Unknown Rx extended release (Wellbutrin XL) sodium hypochlorite 0.125 % 1 applic topical BID open wound 06/21/23 11/09/23 Unknown Rx solution (Dakin's Solution) #473 mL cholecalciferol (vitamin D3) 1,250 See Rx Instructions .Route 06/27/23 11/09/23 Unknown Rx mcg (50,000 unit) capsule .COMPLEX #4 caps duloxetine 60 mg capsule,delayed 60 mg PO BID #60 caps 06/29/23 11/09/23 Unknown Rx release tirzepatide 2.5 mg/0.5 mL See Rx Instructions .Route 07/25/23 11/09/23 Unknown Rx subcutaneous pen injector .COMPLEX #4 mL (Sahilro) clopidogrel 75 mg tablet See Rx Instructions .Route 08/16/23 11/09/23 Unknown Rx .COMPLEX #90 tabs gabapentin 600 mg tablet See Rx Instructions .Route 09/19/23 11/09/23 Unknown Rx .COMPLEX #90 tabs isosorbide mononitrate 30 mg See Rx Instructions .Route 10/05/23 11/09/23 Unknown Rx tablet,extended release 24 hr .COMPLEX #90 tabs metoprolol tartrate 25 mg tablet See Rx Instructions .Route 10/05/23 11/09/23 Unknown Rx .COMPLEX #90 tabs blood-glucose meter,continuous #1 ea 10/30/23 11/09/23 Unknown Rx (Dexcom G7 Scalp Treatment Specialist) blood-glucose sensor (Dexcom G7 #1 ea 10/30/23 11/09/23 Unknown Rx Sensor device) nystatin 100,000 unit/mL oral 500,000 unit (5 mL) buccal DAILY 11/03/23 11/09/23 Unknown Rx suspension #250 mL oxycodone 10 mg tablet 10 mg PO TID PRN pain 30 days #90 11/06/23 11/09/23 Unknown Rx tabs Allergies Allergy/AdvReac Type Severity Reaction Status Date / Time cephalexin Allergy Unknown Not Verified 09/26/23 14:31 Entered,Swelling,Diarrhea metformin Allergy Unknown Diarrhea,Not Verified 09/26/23 14:31 Entered,SWELLING Current Medications Generic Name Dose Route Start Last Admin Trade Name Freq PRN Reason Stop Dose Admin Hydrocodone Bitart/Acetaminophen 1 tab 11/08/23 20:04 11/09/23 09:46 Hydrocodone-Acetaminophen 5-325 Mg Tablet PO 1 tab BID PRN Administration pain Sodium Chloride 1,000 mls @ 100 mls/hr 11/08/23 20:04 11/09/23 06:29 Sodium Chloride 0.9% IV 100 mls/hr .Q10H EVELIO Administration Piperacillin Sod/Tazobactam 50 mls @ 12.5 mls/hr 11/09/23 02:00 11/09/23 06:29 Sod 3.375 gm/ Sodium Chloride IV Infused Q8H EVELIO Infusion Protocol Insulin Human Lispro 0 unit 11/09/23 08:00 11/09/23 09:45 Insulin Lispro 100 Unit/1 Ml SUBCUT 8 unit TIDWM EVELIO Administration Protocol Senna/Docusate Sodium 1 tab 11/09/23 09:00 11/09/23 09:42 Sennosides-Docusate Tablet PO Not Given DAILY EVELIO Sodium Hypochlorite 1 applic 11/09/23 09:00 11/09/23 10:16 Sodium Hypochlorite 0.125% Btl 473 Ml TOPICAL 1 applic BID EVELIO Administration [facility] [place] Anesthesia Medical History Stage II pressure ulcer of left buttock DM type 2 causing complication Diabetes mellitus Bilateral pneumonia Influenza B UTI (urinary tract infection) COVID-19 Hypovolemic shock Pressure sore on buttocks UTI (urinary tract infection) Amputation leg, bilat Psychiatric care Anxiety Major depressive disorder, recurrent severe without psychotic features Coronary artery disease Polyuria Polydipsia Urgency incontinence Recurrent UTI Below-elbow amputation of right upper extremity Below-elbow amputation of left upper extremity 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 Enrolled in chronic care management Rheumatoid arthritis Phantom pain after amputation of lower extremity Chronic pain 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 Hypothyroidism Hyperlipemia, mixed HTN (hypertension), benign (~11/2022) 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, hand, bilateral Hx of sepsis Surgical History History of amputation of lower extremity History of skin graft History of appendectomy History of amputation of finger of both hands Family History Father , at age 47 CAD (coronary artery disease) Hypertension Mother , at age 64 Diabetes Lung disease Sister Diabetes Brother Diabetes Denies family history of Dementia Cancer Stroke Social History Smoking and tobacco/nicotine status: current every day tobacco/nicotine user cigarettes Packs smoked per day: 0.5 Years cigarettes smoked: 48 Quit status (tobacco/nicotine): has tried quititng Second hand smoke exposure: Yes Alcohol intake: current Alcohol intake frequency: holidays/special occasions only Alcohol type: wine Substance/Drug Use: never Adopted: No Caregiver/support person: Yes Lives independently: Yes Household members: significant other and family Housing: House Marital status: Single Marital status details: Life partner of 45 years Number of children: 0 Number of grandchildren: 0 Highest education level completed: High School Graduate service: No Current occupational status: disabled Pets and animals: Yes (lab, yorkie, beagle) Pets & animals: cat(s) and dog(s) Leisure activites: art, fishing and other Leisure activities details: writing, watch TV Sexually active: Yes Do you think of yourself as: Straight/Heterosexual Current gender identity: Female Keyonna/Jain: None Special keyonna needs: No Agree to transfusion: Yes Female Reproductive History Para: 0 Data Anesthesia 11/09/23 05:39 11/09/23 05:39 Short CBC 11/08/23 11/09/23 Range/Units 15:40 05:39 WBC 14.11 H 15.24 H (3.29-11.43) 10^3/uL Hgb 8.30 L 8.00 L (11.27-16.99) g/dL Hct 27.0 L 26.9 L (36-47) % MCV 72.4 L 74.1 L (85-98) fl Plt Count 733 H 840 H (157-399) 10^3/cmm Neut % (Auto) 80.5 85.3 % Neut # (Auto) 11.36 H 13.00 H (1.8-7.7) 10^3/uL BMP 11/08/23 11/09/23 15:40 05:39 Sodium 131 L 138 Potassium 3.4 L 3.8 Chloride 96 L 104 Carbon Dioxide 23 20 L BUN 13 17 Creatinine 0.4 L 0.5 Glucose 227 H 278 H Calcium 8.4 L 8.1 L Liver Function 11/08/23 Range/Units 15:40 Total Bilirubin 0.4 (0.15-1.2) mg/dL AST 9 (0-32) U/L ALT < 5 (0-33) U/L Alkaline Phosphatase 168 H (35-105) U/L Albumin 2.2 L (3.5-5.2) g/dL Urine 11/09/23 Range/Units 10:55 Urine Color Yellow (Yellow) Urine Appearance Clear (CLEAR) Urine pH 6.0 (5-7) Ur Specific [place] 1.040 H (1.005-1.030) Urine Protein 1+ A (Negative) Urine Glucose (UA) Trace H (Normal) Urine Ketones Trace (Negative) Urine Nitrate Negative (Negative) Urine Bilirubin Negative (Negative) Ur Leukocyte Esterase Trace A (Negative) Urine RBC 21-50 H (0-2) /hpf Urine WBC 21-50 H (0-5) /hpf Coags 11/09/23 05:39 C-Reactive Protein 105.8 H Microbiology 11/08/23 15:20 Blood Culture - Preliminary Blood SPECIMEN COLLECTED 11/08/23 15:40 Blood Culture - Preliminary Blood SPECIMEN COLLECTED Cardiac Studies: 2 Echocardiogram 03/08/23
--- NOTE | 2023-11-09 13:10 | PC.NURSE ---
Pt's blood sugar 73 mg/dl. Pt asymptomatic. Dr Tobar notified via telephone, PICC now in progress, and blood sugar. Orders for Glucagon 1mg IM and to start D5 LR at 100ml/hr received.
--- NOTE | 2023-11-09 13:10 | PC.NURSE ---
Dr Tobar notified of pt's blood sugar of 73mg/dl, she is asymptomatic, and PICC placement in progress. Orders for 1 gm Glucagon IM and to continued D5LR at 100ml/hr. Pt has NS on JUN. Informed Dr Tobar that d5LR was not on her med list, will order and will start when there is IV access. Orders for D5LR at 100ml/hr and the Glucagon entered.
--- NOTE | 2023-11-09 13:12 | XR_ITS ---
WS: [id number] Portable AP supine chest, 11/09/2023 Clinical Data: PICC placment Comparison: Portable chest, 03/07/2023 Findings: The left PICC line ends at the cavoatrial junction. It may be retracted approximately 3 cm. The chest shows no acute cardiopulmonary disease. XR/XR chest 1V portable [id number] Impression: Left PICC line ends at the cavoatrial junction.
[2023-11-09 13:24] LABS: Glucose Point of Care 73 mg/dL (70-110)
[2023-11-09] MEDS: glucagon 1 mg/mL KIT 1 mL IM (13:46)
[2023-11-09] MEDS: dextrose 5%-lactated ringers 1,000 ML 100 ML IV (13:48)
[2023-11-09] MEDS: vancomycin 1,250 MG/250 ML PIGGYBACK 250 MG IV (13:49)
--- NOTE | 2023-11-09 14:14 | P.CONIM_ITS ---
Providers/Reason For Consult 2 Consulting Physician/Specialty*: Dr. 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 She denies any significant pain, fever and/or chills. She does have a history of osteomyelitis Review of Systems 2 General: Reports: 10 or more systems reviewed and unremarkable except in HPI and below Medications/Allergies Home Medications Medication Instructions Recorded Confirmed Last Taken Type prosthetic hands Bilateral #1 ea 05/02/19 11/09/23 Unknown Rx blood-glucose sensor #3 ea 05/08/20 11/09/23 Unknown Rx flash glucose scanning reader #1 ea 06/14/20 11/09/23 Unknown Rx (FreeStyle Maria M 2 [place]) pen needle, diabetic 31 gauge x #450 ea 07/01/20 11/09/23 Unknown Rx 3/16 (Sure-Fine Pen [place]) prosthetic legs #1 ea 12/11/20 11/09/23 Unknown Rx flash glucose sensor (FreeStyle #6 ea 10/19/21 11/09/23 Unknown Rx Maria M 2 Sensor kit) nitroglycerin 0.4 mg sublingual 0.4 mg sublingual Q5M PRN chest 04/12/22 11/09/23 Unknown Rx tablet pain #25 tabs Ear Pulse Ox #1 ea 04/25/22 11/09/23 Unknown Rx clonazepam 0.5 mg tablet 0.5 mg PO DAILY PRN anxiety 30 09/21/22 11/09/23 Unknown Rx days #30 tabs zolpidem 5 mg tablet 5 mg PO .qhs PRN insomnia 30 days 09/21/22 11/09/23 Unknown Rx #30 tabs acetaminophen 325 mg tablet 325 mg PO QID PRN Pain 10/17/22 11/09/23 Unknown History diphenhydramine HCl 25 mg tablet 25 mg PO TID PRN Allergy Symptoms 10/17/22 11/09/23 Unknown History (Benadryl Allergy) wheelchair motorized #1 ea 12/16/22 11/09/23 Unknown Rx aripiprazole 5 mg tablet (Abilify) 5 mg PO DAILY #30 tabs 04/11/23 11/09/23 Unknown Rx atorvastatin 40 mg tablet 40 mg PO DAILY #90 tabs 04/14/23 11/09/23 Unknown Rx leflunomide 20 mg tablet 20 mg PO DAILY #30 tabs 04/17/23 11/09/23 Unknown Rx insulin regular hum U-500 conc 500 100 unit (0.2 mL) SUBCUT BID #6 mL 05/02/23 11/09/23 Unknown Rx unit/mL(3 mL) subcut pen (Humulin R U-500 (Conc) Insulin Kwikpen) levothyroxine 112 mcg tablet See Rx Instructions .Route 05/11/23 11/09/23 Unknown Rx .COMPLEX #90 tabs rivaroxaban 20 mg tablet (Xarelto) See Rx Instructions .Route 05/11/23 11/09/23 Unknown Rx .COMPLEX #90 tabs fenofibrate 160 mg tablet See Rx Instructions .Route 05/15/23 11/09/23 Unknown Rx .COMPLEX #30 tabs bupropion HCl 150 mg 24 hr tablet, 150 mg PO QAM #30 tabs 06/07/23 11/09/23 Unknown Rx extended release (Wellbutrin XL) sodium hypochlorite 0.125 % 1 applic topical BID open wound 06/21/23 11/09/23 Unknown Rx solution (Dakin's Solution) #473 mL cholecalciferol (vitamin D3) 1,250 See Rx Instructions .Route 06/27/23 11/09/23 Unknown Rx mcg (50,000 unit) capsule .COMPLEX #4 caps duloxetine 60 mg capsule,delayed 60 mg PO BID #60 caps 06/29/23 11/09/23 Unknown Rx release tirzepatide 2.5 mg/0.5 mL See Rx Instructions .Route 07/25/23 11/09/23 Unknown Rx subcutaneous pen injector .COMPLEX #4 mL (Mounjaro) clopidogrel 75 mg tablet See Rx Instructions .Route 08/16/23 11/09/23 Unknown Rx .COMPLEX #90 tabs gabapentin 600 mg tablet See Rx Instructions .Route 09/19/23 11/09/23 Unknown Rx .COMPLEX #90 tabs isosorbide mononitrate 30 mg See Rx Instructions .Route 10/05/23 11/09/23 Unknown Rx tablet,extended release 24 hr .COMPLEX #90 tabs metoprolol tartrate 25 mg tablet See Rx Instructions .Route 10/05/23 11/09/23 Unknown Rx .COMPLEX #90 tabs blood-glucose sensor (Dexcom G7 #1 ea 10/30/23 11/09/23 Unknown Rx Sensor device) nystatin 100,000 unit/mL oral 500,000 unit (5 mL) buccal DAILY 11/03/23 11/09/23 Unknown Rx suspension #250 mL oxycodone 10 mg tablet 10 mg PO TID PRN pain 30 days #90 11/06/23 11/09/23 Unknown Rx tabs blood-glucose meter,continuous #1 ea 11/09/23 Unknown Rx (Dexcom G7 Balancing Machine Set Up Worker) Allergies Allergy/AdvReac Type Severity Reaction Status Date / Time cephalexin Allergy Unknown Not Verified 09/26/23 14:31 Entered,Swelling,Diarrhea metformin Allergy Unknown Diarrhea,Not Verified 09/26/23 14:31 Entered,SWELLING Current Medications Generic Name Dose Route Start Last Admin Trade Name Freq PRN Reason Stop Dose Admin Hydrocodone Bitart/Acetaminophen 1 tab 11/08/23 20:04 11/09/23 09:46 Hydrocodone-Acetaminophen 5-325 Mg Tablet PO 1 tab BID PRN Administration pain Piperacillin Sod/Tazobactam 50 mls @ 12.5 mls/hr 11/09/23 02:00 11/09/23 06:29 Sod 3.375 gm/ Sodium Chloride IV Infused Q8H EVELIO Infusion Protocol Vancomycin/PEG/[place]/Lysine/Water 1,250 mg in 250 mls @ 250 mls/hr 11/09/23 13:00 11/09/23 13:49 Vancocin IV 250 mls/hr Q18H EVELIO Administration Dextrose/Lactated Ringer's 1,000 mls @ 100 mls/hr 11/09/23 13:15 11/09/23 13:48 Dextrose 5%-Lactated Ringers IV 100 mls/hr .Q10H EVELIO Administration Insulin Human Lispro 0 unit 11/09/23 08:00 11/09/23 09:45 Insulin Lispro 100 Unit/1 Ml SUBCUT 8 unit TIDWM EVELIO Administration Protocol Senna/Docusate Sodium 1 tab 11/09/23 09:00 11/09/23 09:42 Sennosides-Docusate Tablet PO Not Given DAILY EVELIO Sodium Hypochlorite 1 applic 11/09/23 09:00 11/09/23 10:16 Sodium Hypochlorite 0.125% Btl 473 Ml TOPICAL 1 applic BID EVELIO Administration PFSH Acute 2 PFSH: Medical History Stage II pressure ulcer of left buttock DM type 2 causing complication Diabetes mellitus Bilateral pneumonia Influenza B UTI (urinary tract infection) COVID-19 Hypovolemic shock Pressure sore on buttocks UTI (urinary tract infection) Amputation leg, bilat Psychiatric care Anxiety Major depressive disorder, recurrent severe without psychotic features Coronary artery disease Polyuria Polydipsia Urgency incontinence Recurrent UTI Below-elbow amputation of right upper extremity Below-elbow amputation of left upper extremity 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 Enrolled in chronic care management Rheumatoid arthritis Phantom pain after amputation of lower extremity Chronic pain 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 Hypothyroidism Hyperlipemia, mixed HTN (hypertension), benign (~11/2022) 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, hand, bilateral Hx of sepsis Surgical History History of amputation of lower extremity History of skin graft History of appendectomy History of amputation of finger of both hands Family History Father , at age 47 CAD (coronary artery disease) Hypertension Mother , at age 64 Diabetes Lung disease Sister Diabetes Brother Diabetes Denies family history of Dementia Cancer Stroke Social History Smoking and tobacco/nicotine status: current every day tobacco/nicotine user cigarettes Packs smoked per day: 0.5 Years cigarettes smoked: 48 Quit status (tobacco/nicotine): has tried quititng Second hand smoke exposure: Yes Alcohol intake: current Alcohol intake frequency: holidays/special occasions only Alcohol type: wine Substance/Drug Use: never Adopted: No Caregiver/support person: Yes Lives independently: Yes Household members: significant other and family Housing: House Marital status: Single Marital status details: Life partner of 45 years Number of children: 0 Number of grandchildren: 0 Highest education level completed: High School Graduate service: No Current occupational status: disabled Pets and animals: Yes (daniela, yorkie, beagle) Pets & animals: cat(s) and dog(s) Leisure activites: art, fishing and other Leisure activities details: writing, watch TV Sexually active: Yes Do you think of yourself as: Straight/Heterosexual Current gender identity: Female Keyonna/Shinto: None Special keyonna needs: No Agree to transfusion: Yes Female Reproductive History: Para: 0 Vitals/I&O/Wt Last Vital Signs Temp 98.4 F 11/09/23 07:45 Pulse 98 11/09/23 11:45 Resp 19 H 11/09/23 11:45 BP 144/92 11/09/23 11:45 Pulse Ox 94 11/09/23 11:45 O2 Del Method Nasal Cannula 11/09/23 11:45 O2 Flow Rate 2 11/09/23 11:45 11/08/23 11/09/23 11/09/23 22:59 06:59 14:59 Intake Total 1760.47 / 1760.47 945 / 2705.47 Output Total 420 / 420 Balance 1760.47 / 1760.47 945 / 2705.47 -420 / -420 Weight last 48 hrs Weight 111 lb Weight 111 lb Weight 111 lb Physical Exam 2 Narrative: General : Patient is well developed , no acute distress, oriented x3 Head : Normal cephalic, a-traumatic. Ears : Pinnae and external canal are normal. Hearing is normal. Eyes : PERRLA, Sclera and injection are normal. No conjunctival discharge. Nose : Mucous membranes are without erythema. Throat : buccal mucosa is normal, gums are without significant recession or hypertrophy. Lungs : Equal chest rise bilaterally, no use of accessory muscles, trachea is midline. Cor : Rate and rhythm are normal. Abdomen : Soft, ND, NT, no g/r/m Extremities : Decubitus ulcers, unstageable at this point, of sacrum, left lower extremity stump and right forearm Back : non-tender to palpation, no CVA tenderness. Neuro : CN II - XII intact, Upper and lower extremities have equal and full strength Urinary Catheter Management: Chirinos: Cath Placed During This Visit: yes Reason for Continuing Indwelling Catheter: Accurate Measurement of Urinary Output in Critically Ill Patients Urinary Catheter Date of Insertion: 11/08/23 Urinary Catheter Time of Insertion: 21:00 Data 11/09/23 05:39 11/09/23 05:39 Micro: Microbiology 11/08/23 15:20 Blood Culture - Preliminary Blood SPECIMEN COLLECTED 11/08/23 15:40 Blood Culture - Preliminary Blood SPECIMEN COLLECTED A&P Assessment and plan (1) Decubital ulcer: Qualifiers: Pressure injury location: buttock Pressure injury stage: stage 4 L aterality: unspecified laterality Qualified Code(s): L89.304 - Pressure ulcer of unspecified buttock, stage 4 (2) Abscess of buttock, left: Plan Incision and drainage left buttock abscess Sharp excisional debridement of decubitus ulcers of sacrum, left lower extremity stump and right forearm The risks and benefits of the procedures, including but not limited to, bleeding, infection, scar, numbness, pain, damage to surrounding structures, need for further surgery, poor wound healing, or explained to the patient. She is understanding of the risks and wished to proceed. Coding Level of Care Code 51293 Diagnoses Pressure injury of buttock, stage 4, unspecified laterality L89.304 Pressure injury location: buttock Pressure injury stage: stage 4 Laterality: unspecified laterality Abscess of buttock, left L02.31
[2023-11-09] MEDS: hydrocortisone 100 mg/2 mL SDV IVP ×2 (14:42→21:17)
[2023-11-09] MEDS: pantoprazole 40 mg SDV IVP ×2 (14:42→18:45)
[2023-11-09 15:52] LABS: Glucose Point of Care 156 mg/dL (70-110)
--- NOTE | 2023-11-09 15:57 | PC.NURSE ---
Pt off unit to OR.
--- NOTE | 2023-11-09 17:02 | PM.OP ---
Operative Report Date of procedure: November 09, 2023 Pre-op diagnosis: Stage IV sacral decubitus ulcer Stage IV decubitus ulcer of right forearm Stage IV decubitus ulcer of left thigh Left buttock abscess Post-op diagnosis: same Procedure done: Sharp excisional debridement of stage IV sacral decubitus ulcer Sacral bone biopsy Sharp excisional debridement of stage IV decubitus ulcer right forearm Sharp excisional debridement of stage IV decubitus ulcer left thigh Incision and drainage of left buttock abscess Implants: Iodoform packing gauze Specimens removed/disposition: Bone biopsy Cultures Surgeon: Navdeep Aguiar DO Anesthesia: General and Local Complications: None apparent Brief History: This is a very pleasant 58-year-old female who is status post bilateral forearm amputations and bilateral above-knee amputations who comes in with stage IV decubitus ulcers of sacrum, right forearm stump and left thigh stump with possible osteomyelitis of the sacrum, along with a left buttock abscess. Procedures above are indicated. The risks and benefits were explained and documented. Procedure: Patient was wheeled operative room placed on the OR table in the supine position. General endotracheal intubation was achieved by the department anesthesia. The patient was then put into the right lateral decubitus position. The right forearm, sacrum and left thigh were inspected prepped and draped in usual sterile fashion. Starting at the sacrum, electrocautery and curettes were used to remove exudate down to healthy bleeding tissue. Sacrum was exposed. Rongeurs were used to take bone biopsies and sent for permanent and cultures. Total wound size measured 10.5 cm x 15.4 cm x 1.7 cm deep. Next, a 10 blade scalpel was used to make a 1.5 cm incision over the area of most fluctuance on the left buttock. Copious purulence was expelled. Cultures were taken. I probed the abscess cavity with the suction device. It went very lateral. A counterincision was made laterally. The abscess cavity was fully probed and then irrigated with normal saline. Half-inch iodoform packing gauze was packed into both wounds. Sterile bandages were applied. I then brought my attention to the left thigh. There is a decubitus ulcer in this area that went down to femur. It tunneled significantly and therefore I opened the skin with a 10 blade scalpel somewhat to allow for easier packing. Electrocautery and curettes were used to perform sharp excisional debridement down to healthy bleeding tissue. Wound was irrigated with normal saline. Total wound measured 5.4 x 5.1 x 1.9 cm deep. Wound was packed with iodoform packing gauze and sterile bandages were applied. The debrided tissue to the right forearm decubitus ulcer. There was a small opening with significant tunneling. I opened the skin with a 10 blade scalpel. Bone was exposed. I used electrocautery and curettes to perform sharp excisional debridement down to healthy bleeding tissue. I then irrigated the cavity with normal saline. Wound measured 2.4 x 1.9 x 2.9 cm deep. Wound was packed with iodoform packing gauze. Sterile bandages were applied. Patient tolerated procedure well.
[2023-11-09] MEDS: lidocaine-epi 2% PF 1:200,000 20 mL SDV XX (17:14)
--- NOTE | 2023-11-09 18:00 | ANE.PACU2 ---
Inpatient post-anesthesia follow up: Airway intact: Yes Vital signs: Temperature 100 F Pulse Rate 91 Respiratory Rate 16 Blood Pressure 134/88 Pulse Oximetry 98 Oxygen Delivery Me thod Room Air Oxygen Flow Rate 2 Fraction of Inspir ed Oxygen Hydration adequate: Yes Nausea and vomiting: No Pain level: 1 Mental status: Baseline
--- NOTE | 2023-11-09 18:05 | PC.NURSE ---
Pt returns to ICU from surgery. Pt awake, mumbling that she is hot. VSS. Dressings intact. right wrist dressing has slight sanguineous drainage noted.
[2023-11-09 18:37] LABS: Glucose Point of Care 204 mg/dL (70-110)
[2023-11-09] MEDS: CLONazepam 0.5 mg Tablet PO (18:45)
--- NOTE | 2023-11-09 19:22 | PC.NURSE ---
Shift summary: Pt has rested in bed throughout the shift. She has been crying with very very tears for most fo the shift. When asked why she will state she is hot, she is thirsty, she hurts, She does not feel good or the most frequent answer I do not know . Hydrocodone admin this am and she actually rested with her eys closed for an hour. Her Left Ac Iv was infiltrated this am. Attempts x 2 with Ultrasound unsuccessful. It was after 1400 that a PICC was successfully inserted: 5 fr double lumen. Monitoring stickers, Veniguard,other IV dressings and paper tapes seem to not stick to her very well at all. She hs D5LR infusing.. Her Zosyn retimed due to late admin today. Dr Tobar notified and aware of IV medication issues with no IV access. VSS, she is afebrile. Sinus with first degree block noted on monitor. She has wounds to her sacrum, left stump, right wrist(stump) and her right ear. Her perineal area is excoriated. Her forearms have mottling streaks this evening. Urine output of 670ml. She has had 2 small loose pasty greenish BMs today.
[2023-11-10] VITALS (30 sets, daily range): BP systolic 87–166; BP diastolic 59–93; PULSE 77–104; RESP 11–21; TEMP 36.3–36.8; O2SAT 95–100
[2023-11-10] MEDS: dextrose 5%-lactated ringers 1,000 ML 100 ML IV (00:15)
[2023-11-10] MEDS: morphine 4 mg/mL SDV 1 mL 2 MG IVP ×2 (02:19→09:48)
[2023-11-10 04:18] LABS: Basophils % 0.2 %; Hematocrit 23.1 % (36-47); Lymphocytes # 1.3 10^3/uL (0.8-4.8); Mean Corpuscular HGB Conc 30.3 g/dL (30-55); Mean Corpuscular Volume 72.6 fl (85-98); Mean Platelet Volume 8.8 fL (7.4-10.4); Monocytes # 0.3 10^3/uL (0.2-0.9); Monocytes % 2.7 %; Neutrophils # 10.25 10^3/uL (1.8-7.7); Neutrophils % 85.6 %; Nucleated Red Blood Cells % 0 %; Platelet Count 750 10^3/cmm (157-399); Red Blood Count 3.18 10^6/uL (3.85-5.65); White Blood Count 11.97 10^3/uL (3.29-11.43)
[2023-11-10 04:36] LABS: Blood Urea Nitrogen 12 mg/dL (8-23); Calcium 8.3 mg/dL (8.5-10.5); Carbon Dioxide 22 mmol/L (22-29); Chloride 103 mmol/L (98-107); Creatinine Clr Calc Pharmacy 158.5061; Glomerular Filtration Rate 226.9 mL/min (90-130); Glucose 291 mg/dL (65-115); Osmolality Calculated 294 mOsm/kg (285-295); Sodium 137 mmol/L (136-145)
[2023-11-10] MEDS: piperacillin-tazobactam 3.375 GM in sodium chloride 0.9% (plus) 50 ML IV ×3 (06:15→21:48)
[2023-11-10] MEDS: HYDROcodone-acetaminophen 5-325 mg Tablet 1 TAB PO ×2 (06:28→21:58)
[2023-11-10] MEDS: vancomycin 1,250 MG/250 ML PIGGYBACK 250 MG IV (06:29)
--- NOTE | 2023-11-10 06:36 | PC.NURSE ---
Patient refused left side turn repositioned on right side to change pressure point.
[2023-11-10 09:15] LABS: Glucose Point of Care 282 mg/dL (70-110)
[2023-11-10 10:01] LABS: Glucose Point of Care 238 mg/dL (70-110)
[2023-11-10] MEDS: insulin lispro 100 unit/1 mL SUBCUT ×3 (10:06→18:43)
[2023-11-10] MEDS: hydrocortisone 100 mg/2 mL SDV IVP (10:06)
[2023-11-10] MEDS: pantoprazole 40 mg SDV IVP (10:07)
[2023-11-10 11:57] LABS: Glucose Point of Care 150 mg/dL (70-110)
--- NOTE | 2023-11-10 12:50 | PC.NURSE ---
PICC nearly all the way out, IV wrapped around her right stump. Finished removed, Cath tip intact. No redness or swelling noted at site. Dr Ames notified of incident.
--- NOTE | 2023-11-10 12:59 | PM.PN ---
Subjective Subjective: Status post debridement of left gluteal region, right forearm, left extremity stump Patient's hemoglobin has dropped to 7 will give 2 unit PRBC, patient has pulled her PICC line, will place peripheral IV, can be transferred out of ICU not requiring Levophed Still complaining of pain Patient is adamantly refusing to go to long-term which we have recommended, stating that her significant other will take care of her Vitals/I&O/Wt Last Vital Signs Temp 97.5 F L 11/10/23 07:00 Pulse 92 11/10/23 12:00 Resp 17 11/10/23 12:00 BP 87/65 11/10/23 12:00 Pulse Ox 97 11/10/23 12:00 O2 Del Method Room Air 11/10/23 12:00 O2 Flow Rate 2 11/09/23 15:00 11/09/23 11/10/23 11/10/23 22:59 06:59 14:59 Intake Total 1530 / 1530 1200 / 2730 300 / 300 Output Total 605 / 1025 350 / 1375 Balance 925 / 505 850 / 1355 300 / 300 Weight last 48 hrs Weight 47 kg Weight 50.349 kg Weight 50.349 kg Weight 50.349 kg Physical Exam Narrative: Awake and alert Extremities covered with dressing Chirinos catheter in place Blood pressure stable Complaining of pain Laying in right lateral position Awake and alert able to answer simple questions No new focal deficit Abdomen soft Urinary Catheter Management: Chirinos: Cath Placed During This Visit: yes Reason for Continuing Indwelling Catheter: Accurate Measurement of Urinary Output in Critically Ill Patients Urinary Catheter Date of Insertion: 11/08/23 Urinary Catheter Time of Insertion: 21:00 Data 11/10/23 04:00 11/10/23 04:00 Micro: Microbiology 11/09/23 10:55 Urine Culture - Preliminary Urine,Clean Catch 11/08/23 15:20 Blood Culture - Preliminary Blood NEGATIVE TO DATE 11/08/23 15:40 Blood Culture - Preliminary Blood NEGATIVE TO DATE A&P Assessment and plan (1) Septic shock: (2) Diabetes mellitus: Qualifiers: Diabetes mellitus type: type 2 Diabetes mellitus group home insulin use: with longwall foreman use Diabetes mellitus complication status: with circulatory complication Diabetes mellitus complication detail: with other circulatory complications Qualified Code(s): E11.59 - Type 2 diabetes mellitus with other circulatory complications; 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 (3) Abscess of buttock, left: (4) Rheumatoid arthritis: Qualifiers: Rheumatoid arthritis location: multiple sites Rheumatoid factor presence: unspecified presence Qualified Code(s): M06.9 - Rheumatoid arthritis, unspecified (5) Abscess of left buttock: (6) Infected pressure ulcer: Qualifiers: Pressure injury stage: stage 2 Qualified Code(s): L89.92 - Pressure ulcer of unspecified site, stage 2; L08.9 - Local infection of the skin and subcutaneous tissue, unspecified (7) Decubitus ulcer of sacral region, stage 4: (8) Decubital ulcer: Qualifiers: Pressure injury location: buttock Pressure injury stage: stage 4 Laterality: unspecified laterality Qualified Code(s): L89.304 - Pressure ulcer of unspecified buttock, stage 4 (9) Below-elbow amputation of left upper extremity: (10) Complete amputation of bilateral legs: Qualifiers: Encounter type: subsequent encounter Qualified Code(s): S88.911D - Complete traumatic amputation of right lower leg, level unspecified, subsequent encounter; S88.912D - Complete traumatic amputation of left lower leg, level unspecified, subsequent encounter (11) Pressure ulcer of buttock: (12) Chronic pain: Qualifiers: Chronic pain type: other chronic postprocedural pain Qualified Code(s): G89.28 - Other chronic postprocedural pain Plan Septic shock Sources purulent cellulitis of right forearm, left gluteal ulcer with tunneling, left stump and anterior purulence cellulitis with exposure to bone Patient pulled her PICC line, will get peripheral IV Blood pressure stable Discontinue stress dose steroids Follow-up with cultures Afebrile Leukocytosis 11,000 Status post debridement 11/08 Acute exacerbation of COPD We were able to wean oxygen down to room air today Diastolic CHF without acute exacerbation Monitor fluid status for now. No acute signs of fluid overload Non-STEMI in the past which was managed medically with liquids today and advance gradually Anticoagulating agent Xarelto on board. Patient is stating that she has not taken any anticoagulating agent recently Will start sliding scale with insulin start diab bdiet Frequent nursing care frequent position changing every 3-4 hours Chirinos catheter will be placed For wound care we have been using wet-to-dry dressing, Dakin's solution Patient likely will need long-term however she is not agreeable stating that her significant other takes care of her at home Attestations Medical Necessity Statement*: Out of ICU to [facility] Diagnoses Septic shock A41.9; R65.21 Type 2 diabetes mellitus with other circulatory complication, with long-term current use of insulin E11.59; Z79.4 Diabetes mellitus type: type 2 Diabetes mellitus group home insulin use: with longwall foreman use Diabetes mellitus complication status: with circulatory complication Diabetes mellitus complication detail: with other circulatory complications Abscess of buttock, left L02.31 Rheumatoid arthritis involving multiple sites, unspecified whether rheumatoid factor present M06.9 Rheumatoid arthritis location: multiple sites Rheumatoid factor presence: unspecified presence Pressure injury, stage 2, with infection L89.92; L08.9 Pressure injury stage: stage 2 Decubitus ulcer of sacral region, stage 4 L89.154 Pressure injury of buttock, stage 4, unspecified laterality L89.304 Pressure injury location: buttock Pressure injury stage: stage 4 Laterality: unspecified laterality Below-elbow amputation of left upper extremity S58.112A Complete amputation of both lower extremities, subsequent encounter S88.911D; S88.912D Encounter type: subsequent encounter Pressure ulcer of buttock L89.309 Other chronic postprocedural pain G89.28 Chronic pain type: other chronic postprocedural pain
[2023-11-10] MEDS: CLONazepam 0.5 mg Tablet PO (14:22)
[2023-11-10] MEDS: acetaminophen 500 mg Tablet PO (14:27)
--- NOTE | 2023-11-10 14:30 | PC.NURSE ---
Dr Tobar called to clarify orders: IV in. Zosyn and Bood both due, both run for 4 hours. Which do you want to infuse first? Dr Tobar answered blood.
[2023-11-10] MEDS: chlorhexidine gluconate 4% Btl 118 mL 1 APPLIC TOPICAL (14:55)
[2023-11-10] MEDS: sodium chloride 0.9% 100 mL Bag 50 ML IV (14:56)
--- NOTE | 2023-11-10 15:27 | P.PN_ITS ---
Subjective 2 Subjective: No complaints Vitals/I&O/Wt Last Vital Signs Temp 97.4 F L 11/10/23 15:14 Pulse 90 11/10/23 15:14 Resp 13 11/10/23 15:14 BP 107/65 11/10/23 15:26 Pulse Ox 97 11/10/23 15:14 O2 Del Method Room Air 11/10/23 12:00 O2 Flow Rate 2 11/09/23 15:00 11/10/23 11/10/23 11/10/23 06:59 14:59 22:59 Intake Total 1200 / 2730 300 / 300 Output Total 350 / 1375 Balance 850 / 1355 300 / 300 Weight last 48 hrs Weight 103 lb 9.876 oz Weight 111 lb Weight 111 lb Physical Exam 2 Narrative: Patient is a well developed well nourished and in NAD and is afebrile with vitals stable and is answering questions appropriately with a normal affect and is alert and oriented x3 HEENT: normocephalic with normal external ears and nonicteric, oral mucosa moist and dentition normal for age, trachea midline with no large masses visualized Heart: RRR, no gallops murmurs or rubs, normal PMI with no thrills Lungs: normal excursions, no loud audible wheezing, no subcutaneous emphysema Abdomen: nondistended, no gross hepatosplenomegaly, no masses, no rigidity or rebound, no loud borborygmi Neuro: nonfocal, SALINAS, grossly normal sensation Musculoskeletal: good muscle tone, no fasciculations Skin: pink warm and dry with no rashes or ecchymosis Vascular: warm extremities at amp sites : deferred Urinary Catheter Management: Chirinos: Cath Placed During This Visit: yes Reason for Continuing Indwelling Catheter: Accurate Measurement of Urinary Output in Critically Ill Patients Urinary Catheter Date of Insertion: 11/08/23 Urinary Catheter Time of Insertion: 21:00 Data 11/10/23 04:00 11/10/23 04:00 Micro: Microbiology 11/09/23 16:54 Gram Stain - Final Other Source Wound Culture - Preliminary Gram Negative Rods 11/09/23 17:04 Gram Stain - Final Bone Tissue Culture - Preliminary 11/09/23 10:55 Urine Culture - Preliminary Urine,Clean Catch 11/08/23 15:20 Blood Culture - Preliminary Blood NEGATIVE TO DATE 11/08/23 15:40 Blood Culture - Preliminary Blood NEGATIVE TO DATE A&P Assessment and plan (1) Decubitus ulcer of sacral region, stage 4: Plan The wound is clean and a wound vac was applied to area. Wound is triangular in shape and 6cm x 6 cm by 6 cm and 4 cm deep and connects to a skin fistula with packing removed here and wick type rosanna placed and tied in chipewwa to prevent premature dislodgement. Will start wound changes to right arm stump and left leg stump tid wet to dry and once a day hibicens wash out. Attestations 2 Medical Necessity Statement*: The hospitalist is attending and patient admitted in part for wound care and antibiotics. Coding Level of Care Code 84991 Diagnoses Decubitus ulcer of sacral region, stage 4 L89.154
--- NOTE | 2023-11-10 15:31 | PC.SOCIAL ---
IMM Updated Updated pt on IMM. No questions voiced. Provided pt a copy. Initialed, dated, & timed a copy & placed in chart.
--- NOTE | 2023-11-10 16:30 | PC.NURSE ---
Lazaro called to [facility]. Report given to AILEEN Deng.
--- NOTE | 2023-11-10 16:40 | PC.NURSE ---
Pt transferred to room 270 via bed. All belongings with pt .. Further update about wounds and wound care given to Sowmya, RN. Andres, Significant other, aware of trasnfer as she was on phone with pt at time of transfer.
[2023-11-10 21:05] LABS: Glucose Point of Care 162 mg/dL (70-110)
[2023-11-10] MEDS: sodium hypochlorite 0.125% Btl 473 mL 1 APPLIC TOPICAL (21:43)
[2023-11-10] MEDS: zolpidem 5 mg Tablet PO (21:49)
[2023-11-11] VITALS (14 sets, daily range): BP systolic 100–172; BP diastolic 59–94; PULSE 71–81; RESP 12–18; TEMP 36.4–36.9; O2SAT 90–99
[2023-11-11] MEDS: CLONazepam 1 mg Tablet PO (00:02)
[2023-11-11] MEDS: oxyCODONE 5 mg IR Tab/Cap 10 MG PO ×3 (00:08→21:14)
[2023-11-11 02:05] LABS: Basophils % 0.2 %; Eosinophils % 0.1 %; Hematocrit 31.7 % (36-47); Lymphocytes # 3.3 10^3/uL (0.8-4.8); Lymphocytes % 27.1 %; Mean Corpuscular HGB Conc 32.2 g/dL (30-55); Mean Corpuscular Hemoglobin 24.3 pg (27-33); Mean Corpuscular Volume 75.5 fl (85-98); Mean Platelet Volume 8.5 fL (7.4-10.4); Monocytes # 0.8 10^3/uL (0.2-0.9); Monocytes % 6.8 %; Neutrophils # 7.85 10^3/uL (1.8-7.7); Neutrophils % 65.5 %; Nucleated Red Blood Cells % 0 %; Platelet Count 596 10^3/cmm (157-399); Red Cell Distribution Width 20.1 % (12.1-15.1); White Blood Count 11.99 10^3/uL (3.29-11.43)
[2023-11-11 02:24] LABS: Vancomycin Trough 12.4 ug/mL (10-15)
[2023-11-11] MEDS: vancomycin 1,250 MG/250 ML PIGGYBACK 250 MG IV ×2 (02:25→19:33)
[2023-11-11 02:26] LABS: Anion Gap 12.2 (5-19); Blood Urea Nitrogen 8 mg/dL (8-23); Carbon Dioxide 25 mmol/L (22-29); Chloride 103 mmol/L (98-107); Creatinine Clr Calc Pharmacy 221.9444; Glomerular Filtration Rate 362.3 mL/min (90-130); Glucose 106 mg/dL (65-115); Osmolality Calculated 285 mOsm/kg (285-295); Sodium 138 mmol/L (136-145)
[2023-11-11 02:31] LABS: Potassium 2.2 mmol/L (3.5-5.1)
[2023-11-11] MEDS: lidocaine 1% 5 ML in potassium chloride premix 100 ML 52.5 ML IV (03:03)
[2023-11-11] MEDS: potassium chloride ER 20 mEq Tablet 40 MEQ PO (03:04)
[2023-11-11] MEDS: sodium chloride 0.9% 100 mL Bag 50 ML IV (03:24)
[2023-11-11] MEDS: sodium chloride 0.9% 250 ML 75 ML IV (03:47)
[2023-11-11] MEDS: piperacillin-tazobactam 3.375 GM in sodium chloride 0.9% (plus) 50 ML IV ×3 (05:52→21:49)
[2023-11-11 06:30] LABS: Glucose Point of Care 77 mg/dL (70-110)
[2023-11-11 07:32] LABS: Potassium 3.3 mmol/L (3.5-5.1)
--- NOTE | 2023-11-11 08:26 | PM.PN ---
Subjective Subjective: Seen this morning. Patient asking when she can go home. Explained to her we are waiting on her culture results. Patient demonstrates understanding and states she is not interested in fci and would like to go home eventually when cleared medically. Vitals/I&O/Wt Last Vital Signs Temp 98.5 F 11/11/23 07:00 Pulse 76 11/11/23 07:00 Resp 15 11/11/23 07:00 BP 172/94 11/11/23 07:00 Pulse Ox 90 11/11/23 07:00 O2 Del Method Room Air 11/11/23 07:00 O2 Flow Rate 2 11/09/23 15:00 11/10/23 11/11/23 11/11/23 22:59 06:59 14:59 Intake Total 430.000 / 1906.042 403.333 / 2309.375 250 / 250 Output Total 1500 / 1500 800 / 2300 Balance -1070.000 / 406.042 -396.667 / 9.375 250 / 250 Weight last 48 hrs Weight 49.941 kg Weight 47 kg Physical Exam Narrative: Awake and alert Extremities covered with dressing Chirinos catheter in place Blood pressure stable Laying on bed appearing comfortable at this time. Patient talking on the phone. Awake and alert able to answer simple questions No new focal deficit Abdomen soft Urinary Catheter Management: Chirinos: Cath Placed During This Visit: yes Reason for Continuing Indwelling Catheter: Assist healing open wound Urinary Catheter Date of Insertion: 11/08/23 Urinary Catheter Time of Insertion: 21:00 Data 11/11/23 01:58 11/11/23 06:41 Micro: Microbiology 11/09/23 16:54 Anaerobic Culture - Preliminary Other Source 11/09/23 16:54 Gram Stain - Final Other Source Wound Culture - Preliminary Gram Negative Rods 11/09/23 17:04 Gram Stain - Final Bone Tissue Culture - Preliminary 11/09/23 10:55 Urine Culture - Preliminary Urine,Clean Catch A&P Assessment and plan (1) Septic shock: (2) Diabetes mellitus: Qualifiers: Diabetes mellitus type: type 2 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 inorganic 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 technician use Diabetes mellitus complication status: with circulatory complication Diabetes mellitus complication detail: with other circulatory complications Qualified Code(s): E11.59 - Type 2 diabetes mellitus with other circulatory complications; 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 (3) Abscess of buttock, left: (4) Rheumatoid arthritis: Qualifiers: Rheumatoid arthritis location: multiple sites Rheumatoid factor presence: unspecified presence Qualified Code(s): M06.9 - Rheumatoid arthritis, unspecified (5) Abscess of left buttock: (6) Infected pressure ulcer: Qualifiers: Pressure injury stage: stage 2 Qualified Code(s): L89.92 - Pressure ulcer of unspecified site, stage 2; L08.9 - Local infection of the skin and subcutaneous tissue, unspecified (7) Decubitus ulcer of sacral region, stage 4: (8) Decubital ulcer: Qualifiers: Pressure injury location: buttock Pressure injury stage: stage 4 Laterality: unspecified laterality Qualified Code(s): L89.304 - Pressure ulcer of unspecified buttock, stage 4 (9) Below-elbow amputation of left upper extremity: (10) Complete amputation of bilateral legs: Qualifiers: Encounter type: subsequent encounter Qualified Code(s): S88.911D - Complete traumatic amputation of right lower leg, level unspecified, subsequent encounter; S88.912D - Complete traumatic amputation of left lower leg, level unspecified, subsequent encounter (11) Pressure ulcer of buttock: (12) Chronic pain: Qualifiers: Chronic pain type: other chronic postprocedural pain Qualified Code(s): G89.28 - Other chronic postprocedural pain Plan Septic shock Sources purulent cellulitis of right forearm, left gluteal ulcer with tunneling, left stump and anterior purulence cellulitis with exposure to bone Patient pulled her PICC line accidentally, therefore peripheral IV was placed Blood pressure stable Stress to steroids were discontinued 11/09 Follow-up with cultures Afebrile Leukocytosis 11,000 Status post debridement 11/08 Acute exacerbation of COPD Patient weaned off to room air. Diastolic CHF without acute exacerbation Monitor fluid status for now. No acute signs of fluid overload Non-STEMI in the past which was managed medically with liquids today and advance gradually Anticoagulating agent Xarelto on board. Patient is stating that she has not taken any anticoagulating agent recently Will start sliding scale with insulin start diabetic diet Frequent nursing care frequent position changing every 3-4 hours Chirinos catheter will be placed For wound care we have been using wet-to-dry dressing, Dakin's solution. Follow general surgery wound care instructions Patient likely will need fci however she is not agreeable stating that her significant other takes care of her at home Await blood cultures and final wound cultures. Plan to discharge Monday. 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 inorganic chemical technician use Diabetes mellitus complication status: with circulatory complication Diabetes mellitus complication detail: with other circulatory complications Abscess of buttock, left L02.31 Rheumatoid arthritis involving multiple sites, unspecified whether rheumatoid factor present M06.9 Rheumatoid arthritis location: multiple sites Rheumatoid factor presence: unspecified presence Pressure injury, stage 2, with infection L89.92; L08.9 Pressure injury stage: stage 2 Decubitus ulcer of sacral region, stage 4 L89.154 Pressure injury of buttock, stage 4, unspecified laterality L89.304 Pressure injury location: buttock Pressure injury stage: stage 4 Laterality: unspecified laterality Below-elbow amputation of left upper extremity S58.112A Complete amputation of both lower extremities, subsequent encounter S88.911D; S88.912D Encounter type: subsequent encounter Pressure ulcer of buttock L89.309 Other chronic postprocedural pain G89.28 Chronic pain type: other chronic postprocedural pain
[2023-11-11] MEDS: HYDROcodone-acetaminophen 5-325 mg Tablet 1 TAB PO ×2 (08:28→23:30)
[2023-11-11] MEDS: sennosides-docusate Tablet 1 TAB PO (08:29)
[2023-11-11] MEDS: nystatin powder 30 gm Btl 1 APPLIC TOPICAL ×2 (08:29→17:45)
[2023-11-11] MEDS: sodium hypochlorite 0.125% Btl 473 mL 1 APPLIC TOPICAL (08:32)
[2023-11-11] MEDS: chlorhexidine gluconate 4% Btl 118 mL 1 APPLIC TOPICAL (08:33)
[2023-11-11 11:49] LABS: Glucose Point of Care 135 mg/dL (70-110)
[2023-11-11 14:43] LABS: C.Diff PCR (Lab) NEGATIVE (Negative)
[2023-11-11 16:47] LABS: Glucose Point of Care 204 mg/dL (70-110)
[2023-11-11] MEDS: insulin lispro 100 unit/1 mL SUBCUT (17:44)
--- NOTE | 2023-11-11 19:55 | P.PN_ITS ---
Subjective 2 Subjective: Patient wants to leave hospital Vitals/I&O/Wt Last Vital Signs Temp 97.6 F 11/11/23 15:00 Pulse 73 11/11/23 15:00 Resp 17 11/11/23 15:00 BP 125/68 11/11/23 15:00 Pulse Ox 94 11/11/23 15:00 O2 Del Method Room Air 11/11/23 15:00 O2 Flow Rate 2 11/09/23 15:00 11/11/23 11/11/23 11/11/23 06:59 14:59 22:59 Intake Total 403.333 / 2309.375 780 / 780 290 / 1070 Output Total 800 / 2300 1252 / 1252 Balance -396.667 / 9.375 -472 / -472 290 / -182 Weight last 48 hrs Weight 110 lb 1.6 oz Weight 103 lb 9.876 oz Physical Exam 2 Narrative: Patient is a well developed well nourished and in NAD and is afebrile with vitals stable and is answering questions appropriately with a normal affect and is alert and oriented x3 HEENT: normocephalic with normal external ears and nonicteric, oral mucosa moist and dentition normal for age, trachea midline with no large masses visualized Heart: RRR, no gallops murmurs or rubs, normal PMI with no thrills Lungs: normal excursions, no loud audible wheezing, no subcutaneous emphysema Abdomen: nondistended, no gross hepatosplenomegaly, no masses, no rigidity or rebound, no loud borborygmi Neuro: nonfocal, SALINAS, grossly normal sensation Musculoskeletal: good muscle tone Skin: pink warm and dry with no rashes or ecchymosis Vascular: amp stump extremities warm : deferred Urinary Catheter Management: Chirinos: Cath Placed During This Visit: yes Reason for Continuing Indwelling Catheter: Assist Healing of Perineal & Sacral Wounds- Incontinent Patients Urinary Catheter Date of Insertion: 11/08/23 Urinary Catheter Time of Insertion: 21:00 Data 11/11/23 01:58 11/11/23 06:41 Micro: Microbiology 11/09/23 16:54 Anaerobic Culture - Preliminary Other Source 11/09/23 17:04 Gram Stain - Final Bone Tissue Culture - Preliminary Strep agalactiae - (group b) 11/09/23 16:54 Gram Stain - Final Other Source Wound Culture - Preliminary Gram Negative Rods 11/09/23 10:55 Urine Culture - Final Urine,Clean Catch A&P Assessment and plan (1) Decubital ulcer: Qualifiers: Pressure injury location: buttock Pressure injury stage: stage 4 L aterality: unspecified laterality Qualified Code(s): L89.304 - Pressure ulcer of unspecified buttock, stage 4 Plan Wound vac in place over sacral decubitus ulcer. Plan change on Monday or monday. Attestations 2 Medical Necessity Statement*: See attendings note. Coding Level of Care Code 55024 Diagnoses Pressure injury of buttock, stage 4, unspecified laterality L89.304 Pressure injury location: buttock Pressure injury stage: stage 4 Laterality: unspecified laterality
[2023-11-11 20:52] LABS: Glucose Point of Care 77 mg/dL (70-110)
[2023-11-11 21:54] LABS: Glucose Point of Care 112 mg/dL (70-110)
[2023-11-11] MEDS: zolpidem 5 mg Tablet PO (23:30)
[2023-11-11] MEDS: CLONazepam 0.5 mg Tablet PO (23:30)
[2023-11-12] VITALS (10 sets, daily range): BP systolic 135–172; BP diastolic 68–90; PULSE 68–82; RESP 12–20; TEMP 36.3–36.9; O2SAT 95–99
[2023-11-12 04:20] LABS: Basophils # 0.1 10^3/uL (0.0-0.1); Basophils % 0.6 %; Eosinophils # 0.2 10^3/uL (0.0-0.8); Eosinophils % 2.2 %; Hematocrit 36.8 % (36-47); Lymphocytes # 2.7 10^3/uL (0.8-4.8); Mean Corpuscular HGB Conc 32.1 g/dL (30-55); Mean Corpuscular Hemoglobin 24.8 pg (27-33); Mean Corpuscular Volume 77.3 fl (85-98); Mean Platelet Volume 8.5 fL (7.4-10.4); Monocytes # 0.6 10^3/uL (0.2-0.9); Monocytes % 7.2 %; Neutrophils # 4.85 10^3/uL (1.8-7.7); Neutrophils % 57.4 %; Nucleated Red Blood Cells % 0 %; Platelet Count 589 10^3/cmm (157-399); Red Blood Count 4.76 10^6/uL (3.85-5.65); Red Cell Distribution Width 20.2 % (12.1-15.1); White Blood Count 8.45 10^3/uL (3.29-11.43)
[2023-11-12 04:37] LABS: Anion Gap 14.4 (5-19); Blood Urea Nitrogen 8 mg/dL (8-23); Calcium 8.2 mg/dL (8.5-10.5); Carbon Dioxide 24 mmol/L (22-29); Chloride 102 mmol/L (98-107); Creatinine Clr Calc Pharmacy 229.4056; Glomerular Filtration Rate 362.3 mL/min (90-130); Glucose 95 mg/dL (65-115); Magnesium 1.7 mg/dL (1.7-2.3); Osmolality Calculated 284 mOsm/kg (285-295); Sodium 138 mmol/L (136-145)
[2023-11-12 04:59] LABS: Potassium 2.4 mmol/L (3.5-5.1)
[2023-11-12] MEDS: oxyCODONE 5 mg IR Tab/Cap 10 MG PO (05:34)
[2023-11-12] MEDS: potassium chloride ER 20 mEq Tablet 40 MEQ PO ×2 (05:34→09:45)
[2023-11-12] MEDS: piperacillin-tazobactam 3.375 GM in sodium chloride 0.9% (plus) 50 ML IV ×3 (05:45→21:52)
[2023-11-12 06:24] LABS: Glucose Point of Care 121 mg/dL (70-110)
[2023-11-12] MEDS: chlorhexidine gluconate 4% Btl 118 mL 1 APPLIC TOPICAL (09:44)
[2023-11-12] MEDS: nystatin powder 30 gm Btl 1 APPLIC TOPICAL ×2 (09:44→17:52)
[2023-11-12] MEDS: sennosides-docusate Tablet 1 TAB PO (09:45)
[2023-11-12] MEDS: sodium hypochlorite 0.125% Btl 473 mL 1 APPLIC TOPICAL (09:45)
[2023-11-12 12:09] LABS: Glucose Point of Care 140 mg/dL (70-110)
--- NOTE | 2023-11-12 13:34 | P.PN_ITS ---
Subjective 2 Subjective: Seen this morning. Patient has a wound VAC in place. When entered room RN was about to change patient's bandages. Blood cultures have been negative so far. Diarrhea was a one-time episode yesterday and it has resolved at this point. C. difficile negative. Patient would like to know when she can go home. She says she feels a lot better compared to before. Vitals/I&O/Wt Last Vital Signs Temp 98.1 F 11/12/23 07:51 Pulse 68 11/12/23 08:53 Resp 18 11/12/23 08:53 BP 137/74 11/12/23 07:51 Pulse Ox 96 11/12/23 08:53 O2 Del Method Room Air 11/12/23 08:53 O2 Flow Rate 2 11/09/23 15:00 11/11/23 11/12/23 11/12/23 22:59 06:59 14:59 Intake Total 540 / 1320 50 / 1370 50 / 50 Output Total 650 / 1902 350 / 350 Balance 540 / 68 -600 / -532 -300 / -300 Weight last 48 hrs Weight 48.58 kg Weight 49.941 kg Physical Exam 2 Narrative: Awake and alert Extremities covered with dressing Chirinos catheter in place Blood pressure stable Laying on bed appearing comfortable at this time. Awake and alert able to answer simple questions No new focal deficit Abdomen soft Urinary Catheter Management: Chirinos: Cath Placed During This Visit: yes Reason for Continuing Indwelling Catheter: Assist healing open wound Urinary Catheter Date of Insertion: 11/08/23 Urinary Catheter Time of Insertion: 21:00 Data 11/12/23 03:06 11/12/23 03:06 Micro: Microbiology 11/09/23 16:54 Gram Stain - Final Other Source Wound Culture - Preliminary Gram Negative Rods 11/09/23 16:54 Anaerobic Culture - Preliminary Other Source 11/09/23 17:04 Gram Stain - Final Bone Tissue Culture - Preliminary Strep agalactiae - (group b) 11/09/23 10:55 Urine Culture - Final Urine,Clean Catch A&P Assessment and plan (1) Septic shock: (2) Diabetes mellitus: Qualifiers: Diabetes mellitus type: type 2 Diabetes mellitus salvage determiner insulin use: with salvage determiner use Diabetes mellitus complication status: with circulatory complication Diabetes mellitus complication detail: with other circulatory complications Qualified Code(s): E11.59 - Type 2 diabetes mellitus with other circulatory complications; Z79.4 - detention (current) use of insulin (3) Abscess of buttock, left: (4) Rheumatoid arthritis: Qualifiers: Rheumatoid arthritis location: multiple sites Rheumatoid factor presence: unspecified presence Qualified Code(s): M06.9 - Rheumatoid arthritis, unspecified (5) Abscess of left buttock: (6) Infected pressure ulcer: Qualifiers: Pressure injury stage: stage 2 Qualified Code(s): L89.92 - Pressure ulcer of unspecified site, stage 2; L08.9 - Local infection of the skin and subcutaneous tissue, unspecified (7) Decubitus ulcer of sacral region, stage 4: (8) Decubital ulcer: Qualifiers: Pressure injury location: buttock Pressure injury stage: stage 4 L aterality: unspecified laterality Qualified Code(s): L89.304 - Pressure ulcer of unspecified buttock, stage 4 (9) Below-elbow amputation of left upper extremity: (10) Complete amputation of bilateral legs: Qualifiers: Encounter type: subsequent encounter Qualified Code(s): S88.911D - Complete traumatic amputation of right lower leg, level unspecified, subsequent encounter; S88.912D - Complete traumatic amputation of left lower leg, level unspecified, subsequent encounter (11) Pressure ulcer of buttock: (12) Chronic pain: Qualifiers: Chronic pain type: other chronic postprocedural pain Qualified Code(s): G89.28 - Other chronic postprocedural pain Plan Septic shock Sources purulent cellulitis of right forearm, left gluteal ulcer with tunneling, left stump and anterior purulence cellulitis with exposure to bone Patient pulled her PICC line accidentally, therefore peripheral IV was placed Blood pressure stable Stress to steroids were discontinued 11/09 Follow-up with cultures Afebrile Leukocytosis 11,000 Status post debridement 11/08 Acute exacerbation of COPD Patient weaned off to room air. Diastolic CHF without acute exacerbation Monitor fluid status for now. No acute signs of fluid overload Non-STEMI in the past which was managed medically with liquids today and advance gradually Anticoagulating agent Xarelto on board. Patient is stating that she has not taken any anticoagulating agent recently Will start sliding scale with insulin start diabetic diet Frequent nursing care frequent position changing every 3-4 hours Chirinos catheter will be placed For wound care we have been using wet-to-dry dressing, Dakin's solution. Follow general surgery wound care instructions Patient likely will need group home however she is not agreeable stating that her significant other takes care of her at home Await blood cultures and final wound cultures. Plan to discharge Monday. Wound VAC to be changed on Monday. Continue IV antibiotics. Attestations 2 Medical Necessity Statement*: Continue medical management Diagnoses Septic shock A41.9; R65.21 Type 2 diabetes mellitus with other circulatory complication, with long-term current use of insulin E11.59; Z79.4 Diabetes mellitus type: type 2 Diabetes mellitus salvage determiner insulin use: with nursing home use Diabetes mellitus complication status: with circulatory complication Diabetes mellitus complication detail: with other circulatory complications Abscess of buttock, left L02.31 Rheumatoid arthritis involving multiple sites, unspecified whether rheumatoid factor present M06.9 Rheumatoid arthritis location: multiple sites Rheumatoid factor presence: unspecified presence Pressure injury, stage 2, with infection L89.92; L08.9 Pressure injury stage: stage 2 Decubitus ulcer of sacral region, stage 4 L89.154 Pressure injury of buttock, stage 4, unspecified laterality L89.304 Pressure injury location: buttock Pressure injury stage: stage 4 Laterality: unspecified laterality Below-elbow amputation of left upper extremity S58.112A Complete amputation of both lower extremities, subsequent encounter S88.911D; S88.912D Encounter type: subsequent encounter Pressure ulcer of buttock L89.309 Other chronic postprocedural pain G89.28 Chronic pain type: other chronic postprocedural pain
--- NOTE | 2023-11-12 14:02 | PC.NURSE ---
Stool had leaked under bandages/packing, and packing was soaked through with stool. Giovana spoke with physician and was given orders to remove wound vac packing/bandage and replace with a clean wet to dry bandage. Site was cleaned well, new bandages wet to dry were packed into wound and covered with padded tape.
[2023-11-12] MEDS: vancomycin 1,250 MG/250 ML PIGGYBACK 200 MG IV (14:58)
--- NOTE | 2023-11-12 16:55 | P.PN_ITS ---
Subjective 2 Subjective: Patient wants to go home Vitals/I&O/Wt Last Vital Signs Temp 97.7 F 11/12/23 12:00 Pulse 73 11/12/23 14:00 Resp 17 11/12/23 12:00 BP 172/90 11/12/23 12:00 Pulse Ox 95 11/12/23 12:00 O2 Del Method Room Air 11/12/23 12:00 O2 Flow Rate 2 11/09/23 15:00 11/12/23 11/12/23 11/12/23 06:59 14:59 22:59 Intake Total 50 / 1370 50 / 50 Output Total 650 / 1902 350 / 350 Balance -600 / -532 -300 / -300 Weight last 48 hrs Weight 107 lb 1.6 oz Weight 110 lb 1.6 oz Physical Exam 2 Narrative: Patient is a well developed well nourished and in NAD and is afebrile with vitals stable and is answering questions appropriately with a normal affect and is alert and oriented x3 HEENT: normocephalic with normal external ears and nonicteric, oral mucosa moist and dentition normal for age, trachea midline with no large masses visualized Heart: RRR, no gallops murmurs or rubs, normal PMI with no thrills Lungs: normal excursions, no loud audible wheezing, no subcutaneous emphysema Abdomen: nondistended, no gross hepatosplenomegaly, no masses, no rigidity or rebound, no loud borborygmi Neuro: nonfocal, SALINAS, grossly normal sensation Musculoskeletal: good muscle tone Skin: pink warm and dry with no rashes or ecchymosis Vascular: amp stump extremities warm : deferred Urinary Catheter Management: Chirinos: Cath Placed During This Visit: yes Reason for Continuing Indwelling Catheter: Assist healing open wound Urinary Catheter Date of Insertion: 11/08/23 Urinary Catheter Time of Insertion: 21:00 Data 11/12/23 03:06 11/12/23 03:06 Micro: Microbiology 11/09/23 17:04 Gram Stain - Final Bone Tissue Culture - Preliminary Strep agalactiae - (group b) Coag positive Staphylococcus 11/09/23 16:54 Gram Stain - Final Other Source Wound Culture - Preliminary Klebsiella pneumoniae Strep agalactiae - (group b) 11/09/23 16:54 Anaerobic Culture - Preliminary Other Source A&P Assessment and plan (1) Decubitus ulcer of sacral region, stage 4: Plan Patient had BM and got into sponge of wound vac. I asked nurse to apply new wound vac dressing or switch to wet to dry dressing change for planned and scheduled wound bavac change tomorrow. I will not be here tomorrow and another general surgeon elias be covering. Attestations 2 Medical Necessity Statement*: see attendings note Coding Level of Care Code 50230 Diagnoses Decubitus ulcer of sacral region, stage 4 L89.154
[2023-11-12 18:10] LABS: Glucose Point of Care 112 mg/dL (70-110)
--- NOTE | 2023-11-12 19:57 | PC.NURSE ---
Woundvac Pt had copious amt. of liquid stool which got up under her drsg and got into her woundvac sponge. Dr Rios was notified who said to do just a wet to dry drsg until tomorrow when the surgion will be in. I also placed a rectal tube to help with the healing that Dr Delacruz said that we could place. Pt had refused yesterday to let me place it. After the wound got covered with stool, I finally persuaded pt to let me place and hopefully heal her groin area too.
[2023-11-12] MEDS: HYDROcodone-acetaminophen 5-325 mg Tablet 1 TAB PO (20:30)
[2023-11-12 20:45] LABS: Glucose Point of Care 174 mg/dL (70-110)
[2023-11-12] MEDS: zolpidem 5 mg Tablet PO (21:10)
[2023-11-12] MEDS: CLONazepam 0.5 mg Tablet PO (23:50)
[2023-11-12] MEDS: ondansetron 2 mg/ML SDV 2 mL 4 MG IVP (23:50)
[2023-11-13] VITALS (8 sets, daily range): BP systolic 107–142; BP diastolic 67–72; PULSE 75–83; RESP 16–19; TEMP 36.4–36.9; O2SAT 94–99
[2023-11-13] MEDS: oxyCODONE 5 mg IR Tab/Cap 10 MG PO (04:07)
[2023-11-13] MEDS: piperacillin-tazobactam 3.375 GM in sodium chloride 0.9% (plus) 50 ML IV (05:33)
[2023-11-13 05:57] LABS: Basophils % 0.1 %; Eosinophils % 0.1 %; Hematocrit 28.1 % (36-47); Lymphocytes # 0.4 10^3/uL (0.8-4.8); Lymphocytes % 3.5 %; Mean Corpuscular Hemoglobin 32.6 pg (27-33); Mean Corpuscular Volume 105.2 fl (85-98); Mean Platelet Volume 9.3 fL (7.4-10.4); Monocytes # 0.6 10^3/uL (0.2-0.9); Monocytes % 5.8 %; Neutrophils % 89.9 %; Nucleated Red Blood Cells % 0 %; Platelet Count 157 10^3/cmm (157-399); Red Blood Count 2.67 10^6/uL (3.85-5.65); Red Cell Distribution Width 18.3 % (12.1-15.1); White Blood Count 11.12 10^3/uL (3.29-11.43)
[2023-11-13 06:30] LABS: Glucose Point of Care 184 mg/dL (70-110)
[2023-11-13 06:53] LABS: Blood Urea Nitrogen 26 mg/dL (8-23); Carbon Dioxide 27 mmol/L (22-29); Chloride 98 mmol/L (98-107); Creatinine Clr Calc Pharmacy 22.5123; Glomerular Filtration Rate 25.4 mL/min (90-130); Glucose 121 mg/dL (65-115); Osmolality Calculated 288 mOsm/kg (285-295); Sodium 136 mmol/L (136-145)
[2023-11-13 06:59] LABS: Anion Gap 14.9 (5-19); Potassium 3.9 mmol/L (3.5-5.1)
[2023-11-13] MEDS: insulin lispro 100 unit/1 mL SUBCUT (08:16)
[2023-11-13] MEDS: sennosides-docusate Tablet 1 TAB PO (08:17)
[2023-11-13] MEDS: vancomycin 1,250 MG/250 ML PIGGYBACK 200 MG IV (08:17)
[2023-11-13] MEDS: sodium hypochlorite 0.125% Btl 473 mL 1 APPLIC TOPICAL (08:19)
[2023-11-13] MEDS: nystatin powder 30 gm Btl 1 APPLIC TOPICAL (08:19)
--- NOTE | 2023-11-13 10:07 | PC.SOCIAL ---
IMM Update pg 2 of IMM Updated and reviewed w/ patient. Copy provided and copy dated, initialed and placed in chart.
[2023-11-13] MEDS: chlorhexidine gluconate 4% Btl 118 mL 1 APPLIC TOPICAL (10:35)
[2023-11-13 11:27] LABS: Glucose Point of Care 74 mg/dL (70-110)
--- NOTE | 2023-11-13 11:37 | PM.DCS ---
Discharge Providers Date of Admission: 11/08/23 18:34 Date of Discharge: November 13, 2023 Attending Provider at Admission: Haylie Tobar MD Attending Provider at Discharge: Haylie Tobar MD Primary Care Provider: ANUJ Hernández Diagnoses at Discharge Discharge Diagnosis (1) Decubitus ulcer of sacral region, stage 4: Status: Acute Reason for Visit Reason for Visit: wounds Hospital Course Hospital Course Ms. Winter who is a 58-year-old female with multiple amputations secondary to use of vasopressors in the past, lives with her significant other, has sacral ulcer, presented with worsening of cellulitis and oozing from her sacral ulcer, she was put on IV fluids and antibiotics for purulent cellulitis of left stump, sacral area and right forearm, Dr. Aguiar did debridement 11/08 and put a wound VAC around sacral area, imaging did not show signs of osteomyelitis however there is tunneling on sacral area, Chirinos catheter was placed, patient is agreeable for indwelling catheter until her wound starts healing, wound VAC has been applied wound care nurse will be activated for weekly wound VAC dressing changed with a pressure 125, at this point we are discharging patient for 2-week regimen of levofloxacin, doxycycline for Klebsiella wound culture and tissue culture of Streptococcus agal, blood cultures negative. Patient does not want to go to [facility], stating that her significant other will be able to help her however significant other is questioning whether this will be a good decision at this point patient has capacity to make decision we will honor her wishes. Physical Exam Narrative: Multiple wounds on extremities covered with dressing Wound VAC in place Awake and alert GCS 15 She is talking on the phone with her significant other Hemodynamically stable currently room air Urinary Catheter Management: Chirinos: Cath Placed During This Visit: yes Reason for Continuing Indwelling Catheter: Assist healing open wound Urinary Catheter Date of Insertion: 11/08/23 Urinary Catheter Time of Insertion: 21:00 Discharge Data Studies Completed and Pending Completed Studies During Hospitalization Category Date Time Status CT pelvis w con* [id number] Stat Cat Scan 11/08/23 15:46 Completed XR chest 1V portable [id number] Urgent Exams 11/09/23 13:12 Completed Pending at discharge Category Date Time Status Anaerobic Culture Routine Lab 11/09/23 16:54 Results BMP [Basic Metabolic Panel] Stat Lab 11/13/23 08:30 Ordered Blood Culture Stat Lab 11/08/23 15:40 Results Salmonella / Shigella / Campy Routine Lab 11/11/23 13:40 Received Tissue Culture and Gram Stain Routine Lab 11/09/23 17:04 Results Wound Culture and Gram Stain Routine Lab 11/09/23 16:54 Results Pathology: Surgical [PTH] Routine Pth 11/09/23 17:45 Received Radiology Impressions Pelvis CT 11/08/23 15:46 IMPRESSION: 1. Sacral decubitus ulcer/abscess seen extending into the left gluteal soft tissues. 2. Eroded coccyx with the distal portion of the sacrum directly adjacent to the sacral ulceration. No evident sequela of acute osteomyelitis. 3. Gas noted within the intervertebral disc of L4-L5 and anterior/inferior endplate of L4, most likely degenerative. Chest X-Ray 11/09/23 13:12 Impression: Left PICC line ends at the cavoatrial junction. Laboratory Results WBC 11.12 10^3/uL (3.29-11.43) 11/13/23 05:45 RBC 2.67 10^6/uL (3.85-5.65) L 11/13/23 05:45 Hgb 8.70 g/dL (11.27-16.99) L 11/13/23 05:45 Hct 28.1 % (36-47) L 11/13/23 05:45 MCV 105.2 fl (85-98) H 11/13/23 05:45 MCH 32.6 pg (27-33) 11/13/23 05:45 MCHC 31.0 g/dL (30-55) 11/13/23 05:45 RDW 18.3 % (12.1-15.1) H 11/13/23 05:45 Plt Count 157 10^3/cmm (157-399) D 11/13/23 05:45 MPV 9.3 fL (7.4-10.4) 11/13/23 05:45 Neut % (Auto) 89.9 % 11/13/23 05:45 Lymph % (Auto) 3.5 % 11/13/23 05:45 [place] % (Auto) 5.8 % 11/13/23 05:45 Eos % (Auto) 0.1 % 11/13/23 05:45 Baso % (Auto) 0.1 % 11/13/23 05:45 Neut # (Auto) 10.00 10^3/uL (1.8-7.7) H 11/13/23 05:45 Lymph # (Auto) 0.4 10^3/uL (0.8-4.8) L 11/13/23 05:45 [place] # (Auto) 0.6 10^3/uL (0.2-0.9) 11/13/23 05:45 Eos # (Auto) 0.0 10^3/uL (0.0-0.8) 11/13/23 05:45 Baso # (Auto) 0.0 10^3/uL (0.0-0.1) 11/13/23 05:45 Nucleated RBC % (auto) 0 % 11/13/23 05:45 Nucleated RBCs # 0.0 /100WBC 11/13/23 05:45 Sodium 136 mmol/L (136-145) 11/13/23 05:45 Potassium 3.9 mmol/L (3.5-5.1) 11/13/23 05:45 Chloride 98 mmol/L (98-107) 11/13/23 05:45 Carbon Dioxide 27 mmol/L (22-29) 11/13/23 05:45 Anion Gap 14.9 (5-19) 11/13/23 05:45 BUN 26 mg/dL (8-23) H 11/13/23 05:45 Creatinine 2.0 mg/dL (0.5-0.9) H 11/13/23 05:45 GFR Calculation 25.4 mL/min (90-130) L 11/13/23 05:45 Glucose 121 mg/dL (65-115) H 11/13/23 05:45 POC Glucose 74 mg/dL (70-110) 11/13/23 11:08 Calculated Osmolality 288 mOsm/kg (285-295) 11/13/23 05:45 Lactic Acid 2.0 mmol/L (0.5-2.2) 11/08/23 15:40 Calcium 9.0 mg/dL (8.5-10.5) 11/13/23 05:45 Magnesium 1.7 mg/dL (1.7-2.3) 11/12/23 03:06 Total Bilirubin 0.4 mg/dL (0.15-1.2) 11/08/23 15:40 AST 9 U/L (0-32) 11/08/23 15:40 ALT < 5 U/L (0-33) 11/08/23 15:40 Alkaline Phosphatase 168 U/L (35-105) H 11/08/23 15:40 C-Reactive Protein 105.8 mg/L (0.0-4.9) H 11/09/23 05:39 Total Protein 6.3 g/dL (6.6-8.7) L 11/08/23 15:40 Albumin 2.2 g/dL (3.5-5.2) L 11/08/23 15:40 Globulin 4.1 g/dL (1.3-4.6) 11/08/23 15:40 Urine Color Yellow (Yellow) 11/09/23 10:55 Urine Appearance Clear (CLEAR) 11/09/23 10:55 Urine pH 6.0 (5-7) 11/09/23 10:55 Ur Specific [place] 1.040 (1.005-1.030) H 11/09/23 10:55 Urine Protein 1+ (Negative) A 11/09/23 10:55 Urine Glucose (UA) Trace (Normal) H 11/09/23 10:55 Urine Ketones Trace (Negative) 11/09/23 10:55 Urine Blood 2+ (Negative) A 11/09/23 10:55 Urine Nitrate Negative (Negative) 11/09/23 10:55 Urine Bilirubin Negative (Negative) 11/09/23 10:55 Urine Urobilinogen 1.0 mg/dL (Negative) 11/09/23 10:55 Ur Leukocyte Esterase Trace (Negative) A 11/09/23 10:55 Urine RBC 21-50 /hpf (0-2) H 11/09/23 10:55 Urine WBC 21-50 /hpf (0-5) H 11/09/23 10:55 Ur Squamous Epith Cells 0-5 /hpf (0-5) 11/09/23 10:55 Ur Transition Epith Cell 5-10 /hpf 11/09/23 10:55 Amorphous Sediment Not Reportable 11/09/23 10:55 Urine Bacteria None seen /hpf (NONE) 11/09/23 10:55 Hyaline Casts 7.01 /lpf 11/09/23 10:55 Fine Granular Casts 0-4 /lpf H 11/09/23 10:55 Vancomycin Trough 12.4 ug/mL (10-15) 11/11/23 01:58 C. difficile (PCR) Negative (Negative) 11/11/23 13:40 Blood Type A Positive 11/10/23 09:03 Rho(D) Type Rh positive 11/10/23 09:03 Antibody Screen Negative 11/10/23 09:03 Crossmatch See Detail 11/10/23 09:03 Vitals Last Vital Signs Temp 98.3 F 11/13/23 08:00 Pulse 76 11/13/23 08:00 Resp 18 11/13/23 08:00 BP 142/72 11/13/23 08:00 Pulse Ox 99 11/13/23 08:00 O2 Del Method Room Air 11/13/23 04:00 O2 Flow Rate 2 11/09/23 15:00 Discharge Plan Discharge Patient Disposition: Home Health Service Condition: Stable Prescriptions: New doxycycline hyclate 100 mg tablet 100 mg PO BID 14 Days Qty: 28 0RF levofloxacin 750 mg tablet 750 mg PO DAILY 14 Days Qty: 14 0RF Continued (DME) blood-glucose sensor Device See Rx Instructions .ROUTE .MEDSUPPLY Qty: 3 0RF Rx Instructions: As directed (DME) prosthetic legs See Rx Instructions .Route .MEDSUPPLY Qty: 1 0RF Rx Instructions: As directed (DME) FreeStyle Maria M 2 Stuart Misc See Rx Instructions .ROUTE .MEDSUPPLY Qty: 1 0RF Rx Instructions: As directed nitroglycerin 0.4 mg tablet, sublingual 0.4 mg SUBLINGUAL Q5M PRN (Reason: chest pain) Qty: 25 3RF acetaminophen 325 mg tablet 325 mg PO QID PRN (Reason: Pain) diphenhydramine HCl [Benadryl Allergy] 25 mg tablet 25 mg PO TID PRN (Reason: Allergy Symptoms) (DME) wheelchair motorized See Rx Instructions .Route .MEDSUPPLY Qty: 1 0RF Rx Instructions: As directed Dakin's Solution 0.125 % solution 1 applic topical BID Qty: 473 2RF (DME) prosthetic hands Bilateral Qty: 1 0RF Rx Instructions: As directed (DME) pen needle, diabetic [Sure-Fine Pen [place]] 31 gauge x 3/16 needle See Rx Instructions .ROUTE .MEDSUPPLY Qty: 450 3RF Rx Instructions: uses 5 times a day (DME) FreeStyle Maria M 2 Sensor Kit See Rx Instructions .ROUTE .MEDSUPPLY Qty: 6 3RF Rx Instructions: Change every 14 days. (DME) Ear Pulse Ox See Rx Instructions .Route .MEDSUPPLY Qty: 1 0RF Rx Instructions: As directed; continuous pulse ox clonazepam 0.5 mg tablet 0.5 mg PO DAILY PRN (Reason: anxiety) 30 Days Qty: 30 2RF zolpidem 5 mg tablet 5 mg PO .qhs PRN (Reason: insomnia) 30 Days Qty: 30 2RF leflunomide 20 mg tablet 20 mg PO DAILY Qty: 30 3RF Humulin R U-500 (Conc) Kwikpen 500 unit/mL (3 mL) insulin pen 100 unit SUBCUT BID Qty: 6 0RF levothyroxine 112 mcg tablet See Rx Instructions .ROUTE .COMPLEX Qty: 90 0RF Dose Instruction: Take 1 tablet by mouth once daily Rx Instructions: Take 1 tablet by mouth once daily fenofibrate 160 mg tablet See Rx Instructions .ROUTE .COMPLEX Qty: 30 0RF Dose Instruction: Take 1 tablet by mouth once daily Rx Instructions: Take 1 tablet by mouth once daily bupropion HCl [Wellbutrin XL] 150 mg tablet extended release 24 hr 150 mg PO QAM Qty: 30 2RF cholecalciferol (vitamin D3) 1,250 mcg (50,000 unit) capsule See Rx Instructions .ROUTE .COMPLEX Qty: 4 0RF Dose Instruction: Take 1 capsule by mouth once a week Rx Instructions: Take 1 capsule by mouth once a week duloxetine 60 mg capsule,delayed release(DR/EC) 60 mg PO BID Qty: 60 2RF Mounjaro 2.5 mg/0.5 mL pen injector See Rx Instructions .ROUTE .COMPLEX Qty: 4 0RF Dose Instruction: INJECT 2.5 ML SUBCUTANEOUSLY EVERY 7 DAYS. Rx Instructions: INJECT 2.5mg SUBCUTANEOUSLY EVERY 7 DAYS. clopidogrel 75 mg tablet See Rx Instructions .ROUTE .COMPLEX Qty: 90 0RF Dose Instruction: Take 1 tablet by mouth once daily Rx Instructions: Take 1 tablet by mouth once daily gabapentin 600 mg tablet See Rx Instructions .ROUTE .COMPLEX Qty: 90 0RF Dose Instruction: TAKE 1 TABLET BY MOUTH THREE TIMES DAILY Rx Instructions: TAKE 1 TABLET BY MOUTH THREE TIMES DAILY isosorbide mononitrate 30 mg tablet extended release 24 hr See Rx Instructions .ROUTE .COMPLEX Qty: 90 0RF Dose Instruction: Take 1 tablet by mouth once daily Rx Instructions: Take 1 tablet by mouth once daily metoprolol tartrate 25 mg tablet See Rx Instructions .ROUTE .COMPLEX Qty: 90 0RF Dose Instruction: Take 1 tablet by mouth once daily Rx Instructions: Take 1 tablet by mouth once daily (DME) Dexcom G7 Sensor Device See Rx Instructions .Route Qty: 1 1RF Rx Instructions: As directed nystatin 100,000 unit/mL suspension 500,000 unit buccal DAILY Qty: 250 0RF Rx Instructions: administer 1/2 of dose in each side of the mouth oxycodone 10 mg tablet 10 mg PO TID PRN (Reason: pain) 30 Days Qty: 90 0RF (DME) Dexcom G7 Activities Assistant Misc See Rx Instructions .Route Qty: 1 0RF Rx Instructions: As directed Held aripiprazole [Abilify] 5 mg tablet 5 mg PO DAILY Qty: 30 2RF Hold Instructions: Resume on 11/20/23. Discontinued atorvastatin 40 mg tablet 40 mg PO DAILY Qty: 90 1RF Xarelto 20 mg tablet See Rx Instructions .ROUTE .COMPLEX Qty: 90 0RF Dose Instruction: Take 1 tablet by mouth once daily Rx Instructions: Take 1 tablet by mouth once daily Discharge Orders: Discharge Order (Routine); Ordered 11/13/23 Ordered By: Haylie Tobar Other Ambulatory Orders: DME: Wound Vac (Order) Location: None Selected Ordered By: Haylie Tobar Referrals: Franca Garza FNP [Primary Care Provider] - 11/15/23 1:20 pm Patient Instructions: Acute Wound Care (DC), Opioid Safety, Post Anesthesia Care Discharge Attestations Time Spent in Discharge Care*: greater than 30 min Quality Metrics Clinical Quality Measures [ No reported AMI, CVA or VTE this stay] Coding Level of Care Code Acute Code for Chg Fwd Diagnoses Decubitus ulcer of sacral region, stage 4 L89.154
--- NOTE | 2023-11-13 13:16 | PC.NURSE ---
Leaving [facility] in at discharge per Dr. Tobar. Discharge delayed d/t waiting for HOME to deliver wound vac.
[2023-11-13 14:22] LABS: Blood Urea Nitrogen 8 mg/dL (8-23); Calcium 8.6 mg/dL (8.5-10.5); Carbon Dioxide 21 mmol/L (22-29); Chloride 100 mmol/L (98-107); Creatinine Clr Calc Pharmacy 225.1225; Glomerular Filtration Rate 362.3 mL/min (90-130); Glucose 113 mg/dL (65-115); Osmolality Calculated 283 mOsm/kg (285-295); Sodium 137 mmol/L (136-145)
--- NOTE | 2023-11-13 14:33 | PC.NURSE ---
Family at bedside during wound vac application, this nurse and Mihaela Genao RN educated family on how to apply wound vac dressing, how to turn on machine, apply the black foam and track pad, protecting the good skin, applying the sensatrac tubing, etc. Family verbalized understanding and also stated that they would call the home health company if they had questions. Another wound area was noted on patients left lower back/hip area with a pigtail drain in place. wound was draining purulent drainage. Orders were received to apply 4x4s, abd and foam tape.
--- NOTE | 2023-11-13 14:35 | PC.NURSE ---
extra supplies were sent home with patient including 4x4s, abds and foam tape.
--- NOTE | 2023-11-13 14:40 | PC.NURSE ---
WOUND VAC WOUND VAC CHANGED WITH NEW EQUIPMENT FROM HOME, PER ORDERS. DISCHARGE COMPLETED. EDUCATION PROVIDED.
== END 2023-11-13 14:42 | disposition home or self-care (01) | DRG 853 ==
LOC: ER 18:27 → ICU 18:35 → MEDSURG 11-10 16:48
PROVIDERS: Internal Medicine; Surgery; Admitting Provider Internal Medicine; Emergency Provider Family Medicine; PCP Nurse Practitioner Family; Visit Provider Internal Medicine
PROC: 0H98XZX Drainage of Buttock Skin, External Approach, Diagnostic (ICD-10-PCS; principal; 2023-11-09 15:00)
DX: A41.9 Sepsis, unspecified organism (principal); L89.154 Pressure ulcer of sacral region, stage 4; L89.894 Pressure ulcer of other site, stage 4; R65.21 Severe sepsis with septic shock; L03.116 Cellulitis of left lower limb; L03.113 Cellulitis of right upper limb; L03.317 Cellulitis of buttock; L02.31 Cutaneous abscess of buttock; J44.1 Chronic obstructive pulmonary disease with (acute) exacerbation; I50.32 Chronic diastolic (congestive) heart failure; F33.9 Major depressive disorder, recurrent, unspecified; E11.59 Type 2 diabetes mellitus with other circulatory complications; F17.210 Nicotine dependence, cigarettes, uncomplicated; I11.0 Hypertensive heart disease with heart failure; F41.9 Anxiety disorder, unspecified; I25.10 Atherosclerotic heart disease of native coronary artery without angina pectoris; M06.89 Other specified rheumatoid arthritis, multiple sites; R32 Unspecified urinary incontinence; E03.9 Hypothyroidism, unspecified; E78.5 Hyperlipidemia, unspecified; G89.29 Other chronic pain; B96.1 Klebsiella pneumoniae [K. pneumoniae] as the cause of diseases classified elsewhere; B95.1 Streptococcus, group B, as the cause of diseases classified elsewhere; Z89.612 Acquired absence of left leg above knee; Z79.4 Long term (current) use of insulin; Z79.85 Long-term (current) use of injectable non-insulin antidiabetic drugs; Z89.611 Acquired absence of right leg above knee; Z89.212 Acquired absence of left upper limb below elbow; Z89.211 Acquired absence of right upper limb below elbow; Z87.440 Personal history of urinary (tract) infections; Z79.02 Long term (current) use of antithrombotics/antiplatelets; I25.2 Old myocardial infarction
CPT/HCPCS: 36415; 36416; 36430; 36573; 51702; 71045; 72193; 80048; 80053; 80202; 81003; 81015; 82962; 83605; 83735; 84132; 85025; 86140; 86850; 86900; 86920; 87040; 87045; 87070; 87075; 87077; 87086; 87176; 87186; 87205; 87427; 87449; 87493; 88307; 88311; 93005; 96365; 96367; 96372; 96375; 99211; 99285; J1610; J1720; J1815; J2270; J2405; J2470; J2543; J2704; J2710; J3010; J3370; J3480; J3490; J7030; J7050; J7121; P9016; Q9967

== ENCOUNTER 2023-11-15 17:31 | Emergency (ER) | payer MEDICARE, MEDICAID, SELFPAY ==
[2023-09-05 13:33] VITALS: BP 126/80; BMI 61.0
[2023-11-15 17:44] VITALS: BP 126/82; PULSE 97; RESP 18; TEMP 36.9; O2SAT 100; BMI 45.8
--- NOTE | 2023-11-15 17:56 | W.ED.RECABL ---
HPI - Recheck/Abnormal Lab/Rx General: Chief Complaint: Recheck/Abnormal Lab/Rx Stated Complaint: MRSA Time Seen by Provider: 11/15/23 17:43 Source: patient and EMS Mode of arrival: EMS Limitations: no limitations History of Present Illness: 58-year-old female who has a history of multiple amputations from a previous sepsis event from pressors and had amputations of her arms and legs patient been recently admitted here for a sacral ulcer she did had a debridement patient's was on antibiotics. She was sent home on the fifth with oral antibiotics and seen her PCP she is concerned about a new blood culture result and sent her back. Patient states she has been feeling fine denies any fevers she states that she has no new complaints. Review of Systems Const: Denies: fever(s), chills, body aches or change in appetite ENMT: Denies: throat pain or dental pain Card: Denies: chest pain Resp: Denies: dyspnea GI: Denies: abdominal pain, nausea, vomiting or diarrhea Musc: Denies: neck pain or back pain Skin/Breast: Denies: rash Neuro: Denies: headache(s) PFSH ED PFSH: Medical History Septic shock Hypotension Abscess of buttock, left Decubitus ulcer of sacral region, stage 4 Decubital ulcer Infected pressure ulcer Abscess of left buttock Mobility impaired Pressure ulcer of buttock Stage II pressure ulcer of left buttock DM type 2 causing complication Diabetes mellitus Bilateral pneumonia Influenza B UTI (urinary tract infection) COVID-19 Hypovolemic shock Pressure sore on buttocks UTI (urinary tract infection) Amputation leg, bilat Psychiatric care Anxiety Major depressive disorder, recurrent severe without psychotic features Coronary artery disease Polyuria Polydipsia Urgency incontinence Recurrent UTI Below-elbow amputation of right upper extremity Below-elbow amputation of left upper extremity 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 Enrolled in chronic care management Rheumatoid arthritis Phantom pain after amputation of lower extremity Chronic pain 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 Hypothyroidism Hyperlipemia, mixed HTN (hypertension), benign (~11/2022) 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, hand, bilateral Hx of sepsis Surgical History History of amputation of lower extremity History of skin graft History of appendectomy History of amputation of finger of both hands Family History Father , at age 47 CAD (coronary artery disease) Hypertension Mother , at age 64 Diabetes Lung disease Sister Diabetes Brother Diabetes Denies family history of Dementia Cancer Stroke Social History Smoking and tobacco/nicotine status: current every day tobacco/nicotine user cigarettes Packs smoked per day: 0.5 Years cigarettes smoked: 48 Quit status (tobacco/nicotine): has tried quititng Second hand smoke exposure: Yes Alcohol intake: current Alcohol intake frequency: holidays/special occasions only Alcohol type: wine Substance/Drug Use: never Adopted: No Caregiver/support person: Yes Lives independently: Yes Household members: significant other and family Housing: House Marital status: Single Marital status details: Life partner of 45 years Number of children: 0 Number of grandchildren: 0 Highest education level completed: High School Graduate service: No Current occupational status: disabled Pets and animals: Yes (lab, yorkie, beagle) Pets & animals: cat(s) and dog(s) Leisure activites: art, fishing and other Leisure activities details: writing, watch TV Sexually active: Yes Do you think of yourself as: Straight/Heterosexual Current gender identity: Female Keyonna/Advent: None Special keyonna needs: No Agree to transfusion: Yes Female Reproductive History: Para: 0 Physical Exam Const: COMMON NORMALS: no acute distress, patient oriented x3 and healthy appearing HENMT: COMMON NORMALS: normocephalic and atraumatic HEAD & SCALP: normocephalic and atraumatic Eye: COMMON NORMALS: Equal, round and reactive pupils present and EOMs intact bilaterally PUPIL: Yes Equal, round and reactive pupils present Neck/C-Spine: COMMON NORMALS: full ROM and supple Chest: COMMONS NORMALS: normal inspection of the chest Resp: COMMON NORMALS: normal respiratory effort, No retractions, No use of accessory muscles and clear to auscultation bilaterally AUSCULTATION: clear to auscultation bilaterally Cardio: COMMON NORMALS: regular rate, regular rhythm and No murmurs present (Cardio) RATE: regular rate RHYTHM: regular rhythm GI: COMMON NORMALS: Normal to inspection, nondistended, normoactive bowel sounds present, Soft to palpation, non-tender and no masses PALPATION: Yes Soft to palpation Back/Pelvis: OTHER: Wound VAC in place no erythema Extremity: COMMON NORMALS: normal to inspection and full ROM Neuro: COMMON NORMALS: patient oriented x3, moves all extremities and no focal motor deficits Psych: COMMON NORMALS: mental status grossly normal, Normal thought process present and cooperative THOUGHT PROCESS: Normal thought process present Skin: COMMON NORMALS: no rashes or lesions noted and no wounds GENERAL SKIN EXAM: no rashes or lesions noted Course Vital Signs: Vital signs: Vital Signs Temperature 98.5 F 11/15/23 17:44 Pulse Rate 94 11/15/23 17:59 Respiratory Rate 18 11/15/23 17:59 Blood Pressure 126/82 11/15/23 17:59 Pulse Oximetry 100 11/15/23 17:59 Oxygen Delivery Me thod Room Air 11/15/23 17:59 MDM - Recheck/Abnormal Lab/Rx Medical Decision Making Patient presents here from her PCP for concern of a recent positive MRSA from a skin sample. Patient here has no complaints she is afebrile white count here is normal patient recently been discharged she states she does not really want a be readmitted. I do not feel she needs to be readmitted for IV in her buttocks and will add linezolid for 2 weeks she is to continue to follow with her PCP and with her wound VAC changes and her surgeon. I informed her if she has any fevers or weakness she is to return she understands agrees to plan Medical Records I reviewed the patient's medical records. Lab Data I reviewed the patient's lab results. 11/15/23 18:08 11/15/23 17:57 Laboratory Results WBC 10.55 10^3/uL (3.29-11.43) 11/15/23 18:08 Corrected WBC Cancelled 11/15/23 17:57 RBC 4.36 10^6/uL (3.85-5.65) 11/15/23 18:08 Hgb 10.70 g/dL (11.27-16.99) L 11/15/23 18:08 Hct 33.2 % (36-47) L 11/15/23 18:08 MCV 76.1 fl (85-98) L 11/15/23 18:08 MCH 24.5 pg (27-33) L 11/15/23 18:08 MCHC 32.2 g/dL (30-55) 11/15/23 18:08 RDW 20.9 % (12.1-15.1) H 11/15/23 18:08 Plt Count 541 10^3/cmm (157-399) H 11/15/23 18:08 MPV 9.1 fL (7.4-10.4) 11/15/23 18:08 Gran % Cancelled 11/15/23 17:57 Neut % (Auto) 63.3 % 11/15/23 18:08 Lymph % (Auto) 26.5 % 11/15/23 18:08 Dawson % (Auto) 5.8 % 11/15/23 18:08 Eos % (Auto) 3.4 % 11/15/23 18:08 Baso % (Auto) 0.6 % 11/15/23 18:08 Neut # (Auto) 6.68 10^3/uL (1.8-7.7) 11/15/23 18:08 Lymph # (Auto) 2.8 10^3/uL (0.8-4.8) 11/15/23 18:08 Dawson # (Auto) 0.6 10^3/uL (0.2-0.9) 11/15/23 18:08 Eos # (Auto) 0.4 10^3/uL (0.0-0.8) 11/15/23 18:08 Baso # (Auto) 0.1 10^3/uL (0.0-0.1) 11/15/23 18:08 Absolute Gran (auto) Cancelled 11/15/23 17:57 Nucleated RBC % (auto) 0 % 11/15/23 18:08 Nucleated RBCs # 0.0 /100WBC 11/15/23 18:08 Sodium 133 mmol/L (136-145) L 11/15/23 17:57 Potassium 2.8 mmol/L (3.5-5.1) L* 11/15/23 17:57 Chloride 97 mmol/L (98-107) L 11/15/23 17:57 Carbon Dioxide 23 mmol/L (22-29) 11/15/23 17:57 Anion Gap 15.8 (5-19) 11/15/23 17:57 BUN 7 mg/dL (8-23) L 11/15/23 17:57 Creatinine 0.2 mg/dL (0.5-0.9) L 11/15/23 17:57 GFR Calculation 362.3 mL/min (90-130) H 11/15/23 17:57 Glucose 156 mg/dL (65-115) H 11/15/23 17:57 Calculated Osmolality 277 mOsm/kg (285-295) L 11/15/23 17:57 Calcium 8.6 mg/dL (8.5-10.5) 11/15/23 17:57 Total Bilirubin 0.4 mg/dL (0.15-1.2) 11/15/23 17:57 AST 12 U/L (0-32) 11/15/23 17:57 ALT 6 U/L (0-33) 11/15/23 17:57 Alkaline Phosphatase 116 U/L (35-105) H 11/15/23 17:57 Total Protein 6.3 g/dL (6.6-8.7) L 11/15/23 17:57 Albumin 2.5 g/dL (3.5-5.2) L 11/15/23 17:57 Globulin 3.8 g/dL (1.3-4.6) 11/15/23 17:57 No radiology studies performed this visit Discharge Plan Discharge Patient Disposition: Home Clinical Impression: Decubitus ulcer of coccygeal region, stage 4 Condition: Stable Prescriptions: New linezolid 600 mg tablet 600 mg PO BID 14 Days Qty: 28 0RF No Action (DME) blood-glucose sensor Device See Rx Instructions .ROUTE .MEDSUPPLY Qty: 3 0RF Rx Instructions: As directed (DME) prosthetic legs See Rx Instructions .Route .MEDSUPPLY Qty: 1 0RF Rx Instructions: As directed (DME) FreeStyle Maria M 2 [place] Misc See Rx Instructions .ROUTE .MEDSUPPLY Qty: 1 0RF Rx Instructions: As directed nitroglycerin 0.4 mg tablet, sublingual 0.4 mg SUBLINGUAL Q5M PRN (Reason: chest pain) Qty: 25 3RF acetaminophen 325 mg tablet 325 mg PO QID PRN (Reason: Pain) diphenhydramine HCl [Benadryl Allergy] 25 mg tablet 25 mg PO TID PRN (Reason: Allergy Symptoms) (DME) wheelchair motorized See Rx Instructions .Route .MEDSUPPLY Qty: 1 0RF Rx Instructions: As directed Dakin's Solution 0.125 % solution 1 applic topical BID Qty: 473 2RF (DME) prosthetic hands Bilateral Qty: 1 0RF Rx Instructions: As directed ([facility] [place] [facility] [place] pen needle, diabetic [Sure-Fine Pen [place]] 31 gauge x 3/16 needle See Rx Instructions .ROUTE .MEDSUPPLY Qty: 450 3RF Rx Instructions: uses 5 times a day ([facility] [place] [facility] [place] FreeStyle Maria M 2 Sensor Kit See Rx Instructions .ROUTE .MEDSUPPLY Qty: 6 3RF Rx Instructions: Change every 14 days. (DME) Ear Pulse Ox See Rx Instructions .Route .MEDSUPPLY Qty: 1 0RF Rx Instructions: As directed; continuous pulse ox clonazepam 0.5 mg tablet 0.5 mg PO DAILY PRN (Reason: anxiety) 30 Days Qty: 30 2RF zolpidem 5 mg tablet 5 mg PO .qhs PRN (Reason: insomnia) 30 Days Qty: 30 2RF aripiprazole [Abilify] 5 mg tablet 5 mg PO DAILY Qty: 30 2RF Hold Instructions: Resume on 11/20/23. leflunomide 20 mg tablet 20 mg PO DAILY Qty: 30 3RF Humulin R U-500 (Conc) Kwikpen 500 unit/mL (3 mL) insulin pen 100 unit SUBCUT BID Qty: 6 0RF levothyroxine 112 mcg tablet See Rx Instructions .ROUTE .COMPLEX Qty: 90 0RF Dose Instruction: Take 1 tablet by mouth once daily Rx Instructions: Take 1 tablet by mouth once daily fenofibrate 160 mg tablet See Rx Instructions .ROUTE .COMPLEX Qty: 30 0RF Dose Instruction: Take 1 tablet by mouth once daily Rx Instructions: Take 1 tablet by mouth once daily bupropion HCl [Wellbutrin XL] 150 mg tablet extended release 24 hr 150 mg PO QAM Qty: 30 2RF cholecalciferol (vitamin D3) 1,250 mcg (50,000 unit) capsule See Rx Instructions .ROUTE .COMPLEX Qty: 4 0RF Dose Instruction: Take 1 capsule by mouth once a week Rx Instructions: Take 1 capsule by mouth once a week duloxetine 60 mg capsule,delayed release(DR/EC) 60 mg PO BID Qty: 60 2RF Mounjaro 2.5 mg/0.5 mL pen injector See Rx Instructions .ROUTE .COMPLEX Qty: 4 0RF Dose Instruction: INJECT 2.5 ML SUBCUTANEOUSLY EVERY 7 DAYS. Rx Instructions: INJECT 2.5mg SUBCUTANEOUSLY EVERY 7 DAYS. gabapentin 600 mg tablet See Rx Instructions .ROUTE .COMPLEX Qty: 90 0RF Dose Instruction: TAKE 1 TABLET BY MOUTH THREE TIMES DAILY Rx Instructions: TAKE 1 TABLET BY MOUTH THREE TIMES DAILY isosorbide mononitrate 30 mg tablet extended release 24 hr See Rx Instructions .ROUTE .COMPLEX Qty: 90 0RF Dose Instruction: Take 1 tablet by mouth once daily Rx Instructions: Take 1 tablet by mouth once daily metoprolol tartrate 25 mg tablet See Rx Instructions .ROUTE .COMPLEX Qty: 90 0RF Dose Instruction: Take 1 tablet by mouth once daily Rx Instructions: Take 1 tablet by mouth once daily (DME) Dexcom G7 Sensor Device See Rx Instructions .Route Qty: 1 1RF Rx Instructions: As directed nystatin 100,000 unit/mL suspension 500,000 unit buccal DAILY Qty: 250 0RF Rx Instructions: administer 1/2 of dose in each side of the mouth oxycodone 10 mg tablet 10 mg PO TID PRN (Reason: pain) 30 Days Qty: 90 0RF (DME) Dexcom G7 Insurance Policy Clerk Misc See Rx Instructions .Route Qty: 1 0RF Rx Instructions: As directed clopidogrel 75 mg tablet See Rx Instructions .ROUTE .COMPLEX Qty: 90 0RF Dose Instruction: Take 1 tablet by mouth once daily Rx Instructions: Take 1 tablet by mouth once daily doxycycline hyclate 100 mg tablet 100 mg PO BID 14 Days Qty: 28 0RF levofloxacin 750 mg tablet 750 mg PO DAILY 14 Days Qty: 14 0RF Discharge Orders: Discharge ED (Routine); Ordered 11/15/23 Ordered By: Anil Rondon Referrals: Franca Garza FNP [Primary Care Provider] - 4-7 days Discharge Diet: Advance as tolerated Discharge Activity: Resume usual activity Patient Instructions: Decubitus Ulcers Coding Level of Care Code ED Ink Printer for Sidra Saldivar
[2023-11-15 17:59] VITALS: BP 126/82; PULSE 94; RESP 18; O2SAT 100
[2023-11-15 18:24] LABS: Alanine Aminotransferase 6 U/L (0-33); Albumin Level 2.5 g/dL (3.5-5.2); Alkaline Phosphatase 116 U/L (35-105); Blood Urea Nitrogen 7 mg/dL (8-23); Calcium 8.6 mg/dL (8.5-10.5); Carbon Dioxide 23 mmol/L (22-29); Chloride 97 mmol/L (98-107); Creatinine Clr Calc Pharmacy 246.3253; Globulin 3.8 g/dL (1.3-4.6); Glomerular Filtration Rate 362.3 mL/min (90-130); Glucose 156 mg/dL (65-115); Osmolality Calculated 277 mOsm/kg (285-295); Sodium 133 mmol/L (136-145); Total Bilirubin 0.4 mg/dL (0.15-1.2); Total Protein 6.3 g/dL (6.6-8.7)
[2023-11-15 18:29] LABS: Anion Gap 15.8 (5-19); Aspartate Amino Transferase 12 U/L (0-32)
[2023-11-15 18:30] LABS: Potassium 2.8 mmol/L (3.5-5.1)
[2023-11-15 18:41] LABS: Basophils # 0.1 10^3/uL (0.0-0.1); Basophils % 0.6 %; Eosinophils # 0.4 10^3/uL (0.0-0.8); Eosinophils % 3.4 %; Hematocrit 33.2 % (36-47); Lymphocytes # 2.8 10^3/uL (0.8-4.8); Lymphocytes % 26.5 %; Mean Corpuscular HGB Conc 32.2 g/dL (30-55); Mean Corpuscular Hemoglobin 24.5 pg (27-33); Mean Corpuscular Volume 76.1 fl (85-98); Mean Platelet Volume 9.1 fL (7.4-10.4); Monocytes # 0.6 10^3/uL (0.2-0.9); Monocytes % 5.8 %; Neutrophils # 6.68 10^3/uL (1.8-7.7); Neutrophils % 63.3 %; Nucleated Red Blood Cells % 0 %; Platelet Count 541 10^3/cmm (157-399); Red Blood Count 4.36 10^6/uL (3.85-5.65); Red Cell Distribution Width 20.9 % (12.1-15.1); White Blood Count 10.55 10^3/uL (3.29-11.43)
[2023-11-15] MEDS: potassium chloride ER 20 mEq Tablet 40 MEQ PO (19:05)
[2023-11-15] MEDS: linezolid 600 mg Tablet PO (19:34)
[2023-11-15 20:35] VITALS: PULSE 82; O2SAT 99
== END 2023-11-15 20:36 | disposition home or self-care (01) ==
PROVIDERS: Emergency Provider Emergency Medicine; PCP Nurse Practitioner Family
DX: L89.154 Pressure ulcer of sacral region, stage 4 (principal); Z79.85 Long-term (current) use of injectable non-insulin antidiabetic drugs; Z79.02 Long term (current) use of antithrombotics/antiplatelets; Z79.4 Long term (current) use of insulin; F17.210 Nicotine dependence, cigarettes, uncomplicated; E11.9 Type 2 diabetes mellitus without complications; I25.10 Atherosclerotic heart disease of native coronary artery without angina pectoris; E78.2 Mixed hyperlipidemia; I10 Essential (primary) hypertension; Z89.612 Acquired absence of left leg above knee; Z89.611 Acquired absence of right leg above knee; Z89.212 Acquired absence of left upper limb below elbow; Z89.211 Acquired absence of right upper limb below elbow
CPT/HCPCS: 36415; 80053; 85025; 99283

== ENCOUNTER → 2023-11-22 11:01 | Outpatient (BNVA) | payer MEDICARE, MEDICAID, SELFPAY ==
[2023-09-05 13:33] VITALS: BP 126/80; BMI 61.0
== END ==
PROVIDERS: PCP Nurse Practitioner Family; Visit Provider Thoracic Surgery (Cardiothoracic Vascular Surgery)
DX: L89.154 Pressure ulcer of sacral region, stage 4; E11.52 Type 2 diabetes mellitus with diabetic peripheral angiopathy with gangrene; E11.622 Type 2 diabetes mellitus with other skin ulcer; L98.496 Non-pressure chronic ulcer of skin of other sites with bone involvement without evidence of necrosis; L98.411 Non-pressure chronic ulcer of buttock limited to breakdown of skin; L89.312 Pressure ulcer of right buttock, stage 2
CPT/HCPCS: 11044; 87070; 87176; 87205; 97597; 97605; A6446

== ENCOUNTER → 2023-11-24 12:48 | Outpatient (BNVA) | payer MEDICARE, MEDICAID, SELFPAY ==
[2023-09-05 13:33] VITALS: BP 126/80; BMI 61.0
== END ==
PROVIDERS: PCP Nurse Practitioner Family; Visit Provider Thoracic Surgery (Cardiothoracic Vascular Surgery)
DX: L89.154 Pressure ulcer of sacral region, stage 4 (principal); L89.312 Pressure ulcer of right buttock, stage 2; E11.52 Type 2 diabetes mellitus with diabetic peripheral angiopathy with gangrene; E11.622 Type 2 diabetes mellitus with other skin ulcer; L98.491 Non-pressure chronic ulcer of skin of other sites limited to breakdown of skin
CPT/HCPCS: 97605; A6237; A6250

== ENCOUNTER → 2023-11-28 14:59 | Outpatient (BNVA) | payer MEDICARE, MEDICAID, SELFPAY ==
[2023-09-05 13:33] VITALS: BP 126/80; BMI 61.0
== END ==
PROVIDERS: PCP Nurse Practitioner Family; Visit Provider Thoracic Surgery (Cardiothoracic Vascular Surgery)
DX: I96 Gangrene, not elsewhere classified (principal); L89.154 Pressure ulcer of sacral region, stage 4; L89.312 Pressure ulcer of right buttock, stage 2; L98.491 Non-pressure chronic ulcer of skin of other sites limited to breakdown of skin; L98.411 Non-pressure chronic ulcer of buttock limited to breakdown of skin; T81.31XD Disruption of external operation (surgical) wound, not elsewhere classified, subsequent encounter; Y83.8 Other surgical procedures as the cause of abnormal reaction of the patient, or of later complication, without mention of misadventure at the time of the procedure
CPT/HCPCS: 97597; 97598; A6220

== ENCOUNTER → 2023-11-30 12:58 | Outpatient (BNVA) | payer MEDICARE, MEDICAID, SELFPAY ==
[2023-09-05 13:33] VITALS: BP 126/80; BMI 61.0
== END ==
PROVIDERS: PCP Nurse Practitioner Family; Visit Provider Surgery
DX: T14.8XXA Other injury of unspecified body region, initial encounter (principal); M86.9 Osteomyelitis, unspecified; X58.XXXA Exposure to other specified factors, initial encounter; Z89.522 Acquired absence of left knee; Z89.521 Acquired absence of right knee; Z89.212 Acquired absence of left upper limb below elbow; Z89.211 Acquired absence of right upper limb below elbow
CPT/HCPCS: 99204

== ENCOUNTER → 2023-12-05 11:13 | Outpatient (BNVA) | payer MEDICARE, MEDICAID, SELFPAY ==
[2023-09-05 13:33] VITALS: BP 126/80; BMI 61.0
== END ==
PROVIDERS: PCP Nurse Practitioner Family; Visit Provider Student in an Organized Health Care Education/Training Program
DX: M86.9 Osteomyelitis, unspecified (principal); Z79.899 Other long term (current) drug therapy; L89.154 Pressure ulcer of sacral region, stage 4; L89.312 Pressure ulcer of right buttock, stage 2; L89.322 Pressure ulcer of left buttock, stage 2; T81.31XD Disruption of external operation (surgical) wound, not elsewhere classified, subsequent encounter; Y83.8 Other surgical procedures as the cause of abnormal reaction of the patient, or of later complication, without mention of misadventure at the time of the procedure; L98.491 Non-pressure chronic ulcer of skin of other sites limited to breakdown of skin
CPT/HCPCS: 97597; 99205; A6220; A6446

== ENCOUNTER → 2023-12-07 11:16 | Day surgery (SDC) | payer MEDICARE, MEDICAID, SELFPAY ==
[2023-09-05 13:33] VITALS: BP 126/80; BMI 61.0
[2023-12-07 11:50] VITALS: BP 96/45; PULSE 86; RESP 18; TEMP 36.9; O2SAT 99
--- NOTE | 2023-12-07 12:20 | XR_ITS ---
WS: [id number] Exam: XR chest 1V portable [id number] Date/Time of Exam: 12/07/2023 12:46 PM Reason For Exam: Post PIcc insertion Comparison 11/09/2023. Left-sided PICC line ends in the lower one third of the SVC in good position. There are diffuse inter stitial infiltrates throughout both lungs that may represent pneumonia or pulmonary edema. Heart size is within normal limits. The mediastinum is normal in contour. Signs of coronary artery stenting. Ad vanced degenerative changes of both shoulders. Remaining bony elements are intact. XR/XR chest 1V portable [id number] IMPRESSION: 1. Left-sided PICC line ending in the lower one third of the SVC. 2. Diffuse interstitial infiltrates throughout both lungs that may represent pu lmonary edema versus interstitial pneumonia.
--- NOTE | 2023-12-07 12:26 | ANES.PREANE2 ---
Pre-Anesthetic Assessment Height/Weight: Height 3 ft 6 in Weight 115 lb O2 Del Method Room Air 12/07/23 11:55 Operation Date: 12/07/23 13:10 Proposed Procedures p Fasciocutanesous Flap Creation and [id number], [id number], T14.8xxa, M86.9(Not Applicable) - Navdeep Aguiar DO s Wound Revision right upper extremity and left lower extremity wounds(Bilateral) - Navdeep Aguiar DO Last intake: Intake Last Liquid Date 12/06/23 Last Liquid Time 23:00 Last Solid Date 12/06/23 Last Solid Time 19:00 Social Current smoker Exam alert, oriented x 3 and regular rate & rhythm Mild wheezing on the right Airway Submandibular: within normal limits Cervical ROM: within normal limits Mallampati: Class II Dentition: false Anesthetic Plan ASA status: 3 Anesthesia: General Other: No prior issues with anesthesia NPO since midnight Patient is a bilateral upper and lower amputee with minimal access for IV locations as well as BP monitoring Plan to use right upper extremity(surgical extremity) for BP monitoring IntraOp. Patient is aware that if necessary we will place arterial line Labs reviewed 11/14 potassium 2.8 at that time. We will need repeat potassium today before proceeding On chronic Plavix, held since the , most previous stent was 2014 Plan for GETA Medications/Allergies Home Medications Medication Instructions Recorded Confirmed Last Taken Type prosthetic hands Bilateral #1 ea 05/02/19 12/05/23 Unknown Rx blood-glucose sensor #3 ea 05/08/20 12/05/23 Unknown Rx flash glucose scanning reader #1 ea 06/14/20 12/05/23 Unknown Rx (FreeStyle Maria M 2 [place]) pen needle, diabetic 31 gauge x #450 ea 07/01/20 12/05/23 Unknown Rx 3/16 (Sure-Fine Pen [place]) prosthetic legs #1 ea 12/11/20 12/05/23 Unknown Rx flash glucose sensor (FreeStyle #6 ea 10/19/21 12/05/23 Unknown Rx Maria M 2 Sensor kit) nitroglycerin 0.4 mg sublingual 0.4 mg sublingual Q5M PRN chest 04/12/22 12/06/23 12/06/23 Rx tablet pain #25 tabs Ear Pulse Ox #1 ea 04/25/22 12/05/23 Unknown Rx clonazepam 0.5 mg tablet 0.5 mg PO DAILY PRN anxiety 30 09/21/22 12/06/23 Unknown Rx days #30 tabs zolpidem 5 mg tablet 5 mg PO .qhs PRN insomnia 30 days 09/21/22 12/06/23 12/05/23 Rx #30 tabs acetaminophen 325 mg tablet 325 mg PO QID PRN Pain 10/17/22 12/06/23 Unknown History diphenhydramine HCl 25 mg tablet 25 mg PO TID PRN Allergy Symptoms 10/17/22 12/06/23 Unknown History (Benadryl Allergy) wheelchair motorized #1 ea 12/16/22 12/05/23 Unknown Rx aripiprazole 5 mg tablet (Abilify) 5 mg PO DAILY #30 tabs 04/11/23 12/06/23 12/06/23 Rx leflunomide 20 mg tablet 20 mg PO DAILY #30 tabs 04/17/23 12/06/23 12/06/23 Rx bupropion HCl 150 mg 24 hr tablet, 150 mg PO QAM #30 tabs 06/07/23 12/06/23 12/06/23 Rx extended release (Wellbutrin XL) sodium hypochlorite 0.125 % 1 applic topical BID open wound 06/21/23 12/06/23 12/06/23 Rx solution (Dakin's Solution) #473 mL cholecalciferol (vitamin D3) 1,250 See Rx Instructions .Route 06/27/23 12/06/23 Unknown Rx mcg (50,000 unit) capsule .COMPLEX #4 caps duloxetine 60 mg capsule,delayed 60 mg PO BID #60 caps 06/29/23 12/06/23 12/06/23 Rx release blood-glucose sensor (Dexcom G7 #1 ea 10/30/23 12/05/23 Unknown Rx Sensor device) oxycodone 10 mg tablet 10 mg PO TID PRN pain 30 days #90 11/06/23 12/06/23 12/06/23 Rx tabs blood-glucose meter,continuous #1 ea 11/09/23 12/05/23 Unknown Rx (Dexcom G7 Business Office Representative) hydrocodone 5 mg-acetaminophen 325 1 tab PO BID PRN pain 10 days #20 11/28/23 12/06/23 Unknown Rx mg tablet tabs ciprofloxacin HCl 500 mg tablet 500 mg PO BID 2 weeks #28 tabs 11/30/23 12/06/23 12/06/23 Rx sulfamethoxazole 800 1 tab PO BID 2 weeks #28 tabs 11/30/23 12/06/23 12/06/23 Rx mg-trimethoprim 160 mg tablet (Bactrim DS) clopidogrel 75 mg tablet 75 mg PO DAILY 12/06/23 12/06/23 11/30/23 History fenofibrate 160 mg tablet 160 mg PO DAILY 12/06/23 12/06/23 12/06/23 History gabapentin 600 mg tablet 600 mg PO TID 12/06/23 12/06/23 12/06/23 History isosorbide mononitrate 30 mg 30 mg PO DAILY 12/06/23 12/06/23 12/07/23 History tablet,extended release 24 hr levothyroxine 112 mcg tablet 112 mcg PO DAILY 12/06/23 12/06/23 12/06/23 History metoprolol tartrate 25 mg tablet 25 mg PO DAILY 12/06/23 12/06/23 12/07/23 History nystatin 100,000 unit/mL oral 500,000 unit (5 mL) buccal DAILY 12/06/23 12/06/23 12/06/23 Rx suspension #250 mL Allergies Allergy/AdvReac Type Severity Reaction Status Date / Time cephalexin Allergy Unknown Not Verified 12/06/23 12:09 Entered,Swelling,Diarrhea metformin Allergy Unknown Diarrhea,Not Verified 12/06/23 12:09 Entered,SWELLING PFSH Anesthesia Medical History Septic shock Hypotension Abscess of buttock, left Decubitus ulcer of sacral region, stage 4 Decubital ulcer Infected pressure ulcer Abscess of left buttock Mobility impaired Pressure ulcer of buttock Stage II pressure ulcer of left buttock DM type 2 causing complication Diabetes mellitus Bilateral pneumonia Influenza B UTI (urinary tract infection) COVID-19 Hypovolemic shock Pressure sore on buttocks UTI (urinary tract infection) Amputation leg, bilat Psychiatric care Anxiety Major depressive disorder, recurrent severe without psychotic features Coronary artery disease Polyuria Polydipsia Urgency incontinence Recurrent UTI Below-elbow amputation of right upper extremity Below-elbow amputation of left upper extremity 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 Enrolled in chronic care management Rheumatoid arthritis Phantom pain after amputation of lower extremity Chronic pain 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 Hypothyroidism Hyperlipemia, mixed HTN (hypertension), benign (~11/2022) 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, hand, bilateral Hx of sepsis Surgical History History of amputation of lower extremity History of skin graft History of appendectomy History of amputation of finger of both hands Family History Father , at age 47 CAD (coronary artery disease) Hypertension Mother , at age 64 Diabetes Lung disease Sister Diabetes Brother Diabetes Denies family history of Dementia Cancer Stroke Social History Smoking and tobacco/nicotine status: current every day tobacco/nicotine user cigarettes Packs smoked per day: 0.5 Years cigarettes smoked: 48 Quit status (tobacco/nicotine): has tried quititng Second hand smoke exposure: Yes Alcohol intake: current Alcohol intake frequency: holidays/special occasions only Alcohol type: wine Substance/Drug Use: never Adopted: No Caregiver/support person: Yes Lives independently: Yes Household members: significant other and family Housing: House Marital status: Single Marital status details: Life partner of 45 years Number of children: 0 Number of grandchildren: 0 Highest education level completed: High School Graduate service: No Current occupational status: disabled Pets and animals: Yes (lab, yorkie, beagle) Pets & animals: cat(s) and dog(s) Leisure activites: art, fishing and other Leisure activities details: writing, watch TV Sexually active: Yes Do you think of yourself as: Straight/Heterosexual Current gender identity: Female Keyonna/Rastafari: None Special keyonna needs: No Agree to transfusion: Yes Female Reproductive History Para: 0 Data Anesthesia Cardiac Studies: Echocardiogram 03/08/23
--- NOTE | 2023-12-07 12:46 | W.PM.OPSUD ---
Surgery/Procedure H&P Update DATE OF PROCEDURE: December 07, 2023 DATE H&P PERFORMED: 12/01/23 H&P UPDATE INFORMATION: I have reviewed H&P completed within last 30 days, I have examined patient prior to procedure and Changes to prior documentation as noted here CHANGES TO PREVIOUS DOCUMENTATION: Also perform a sharp excisional debridement of sacral decubitus ulcer with wound VAC placement PLANNED PROCEDURE: Operation Date: 12/07/23 13:10 Proposed Procedures p Fasciocutanesous Flap Creation and [id number], [id number], T14.8xxa, M86.9(Not Applicable) - DO guerline Gallegos Wound Revision right upper extremity and left lower extremity wounds(Bilateral) - Navdeep Aguiar DO
[2023-12-07 12:50] LABS: Glucose Point of Care 219 mg/dL (70-110)
--- NOTE | 2023-12-07 12:50 | PICC.NOTE ---
Single lumen PICC placed to left basilic vein. Referred to vascular access nurse for PICC placement due to need for IV antibiotics x 6 weeks. Risks and benefits discussed with pt and family and informed consent obtained from pt significant other, Mckenna. Left arm assessed with left basilic vein measuring 4.3 mm, straight, and apparent best choice for placement. Using sterile technique and MST, left basilic vein accessed x 1 stick. Trimmed cath 38 cm with 0 cm external length noted. CXR shows tip in distal third of SVC, in good position for use per radiologist. Line secured with stat-lock. Insertion site covered with Biopatch and TSM. Report faxed to [employer]. First dose IV daptomycin infused with no reaction noted. Pt to start home infusion tomorrow.
[2023-12-07 12:55] LABS: Basophils % 0.4 %; Eosinophils # 0.3 10^3/uL (0.0-0.8); Eosinophils % 3.3 %; Hematocrit 32.4 % (36-47); Lymphocytes # 1.8 10^3/uL (0.8-4.8); Mean Corpuscular HGB Conc 31.2 g/dL (30-55); Mean Corpuscular Hemoglobin 24.3 pg (27-33); Mean Corpuscular Volume 77.9 fl (85-98); Mean Platelet Volume 9.1 fL (7.4-10.4); Monocytes # 0.5 10^3/uL (0.2-0.9); Monocytes % 4.9 %; Neutrophils # 6.84 10^3/uL (1.8-7.7); Neutrophils % 71.9 %; Nucleated Red Blood Cells % 0 %; Platelet Count 430 10^3/cmm (157-399); Red Blood Count 4.16 10^6/uL (3.85-5.65); Red Cell Distribution Width 21.7 % (12.1-15.1); White Blood Count 9.52 10^3/uL (3.29-11.43)
[2023-12-07 13:10] LABS: Erythrocyte Sedimentation Rate 77 mm/hr (0-15)
[2023-12-07 13:11] LABS: Alanine Aminotransferase 9 U/L (0-33); Albumin Level 2.6 g/dL (3.5-5.2); Alkaline Phosphatase 226 U/L (35-105); Anion Gap 16.8 (5-19); Aspartate Amino Transferase 13 U/L (0-32); Blood Urea Nitrogen 13 mg/dL (8-23); C Reactive Protein 52.6 mg/L (0.0-4.9); Calcium 8.2 mg/dL (8.5-10.5); Carbon Dioxide 21 mmol/L (22-29); Chloride 94 mmol/L (98-107); Creatine Phosphokinase 44 U/L (26-192); Creatinine Clr Calc Pharmacy 123.1626; Globulin 3.8 g/dL (1.3-4.6); Glomerular Filtration Rate 162.8 mL/min (90-130); Glucose 210 mg/dL (65-115); Osmolality Calculated 270 mOsm/kg (285-295); Potassium 4.8 mmol/L (3.5-5.1); Sodium 127 mmol/L (136-145); Total Bilirubin 0.3 mg/dL (0.15-1.2); Total Protein 6.4 g/dL (6.6-8.7)
[2023-12-07] MEDS: sodium chloride 0.9% 1,000 ML 30 ML IV (13:23)
[2023-12-07] MEDS: DAPTOMYCIN IV (13:46)
[2023-12-07] MEDS: SODIUM CHLORIDE 0.9% IV (13:46)
--- NOTE | 2023-12-07 13:51 | SUR.PREOP ---
Pt sodium level too low to safely proceed with surgery today. Pt to be dc'd home. Dr. Aguiar's office to notify patient with follow-up appointment with Dr. France to help correct electrolyte imbalance. PICC line successfully placed to left basilic vein for 6 weeks IV antibiotics. First dose Daptomycin initiated. No reaction noted at this time.
--- NOTE | 2023-12-07 14:45 | PC.NURSE ---
Pt and significant other educated on signs and symptoms of hyponatremia and when to go to ER. Care notes provided.
== END ==
PROVIDERS: Student in an Organized Health Care Education/Training Program; PCP Nurse Practitioner Family; Visit Provider Surgery
PROC: (CPT 15738; principal; 2023-12-07 13:10)
DX: M86.9 Osteomyelitis, unspecified (principal)
CPT/HCPCS: 36416; 36573; 71045; 80053; 82248; 82550; 82962; 85025; 85651; 86140; J0878; J1100; J2250; J2405; J2704; J3010; J3490; J7030

== ENCOUNTER 2023-12-12 12:27 | Outpatient (CLI) | payer MEDICARE, MEDICAID, SELFPAY ==
[2023-09-05 13:33] VITALS: BP 126/80; BMI 61.0
[2023-12-12 13:23] LABS: Basophils # 0.1 10^3/uL (0.0-0.1); Basophils % 0.4 %; Eosinophils # 0.3 10^3/uL (0.0-0.8); Eosinophils % 2.9 %; Hematocrit 31.5 % (36-47); Lymphocytes # 1.3 10^3/uL (0.8-4.8); Lymphocytes % 11.1 %; Mean Corpuscular HGB Conc 32.1 g/dL (30-55); Mean Corpuscular Hemoglobin 24.7 pg (27-33); Mean Platelet Volume 9.5 fL (7.4-10.4); Monocytes # 0.3 10^3/uL (0.2-0.9); Monocytes % 2.1 %; Neutrophils # 9.88 10^3/uL (1.8-7.7); Neutrophils % 83.2 %; Nucleated Red Blood Cells % 0 %; Platelet Count 383 10^3/cmm (157-399); Red Blood Count 4.09 10^6/uL (3.85-5.65); Red Cell Distribution Width 21.4 % (12.1-15.1); White Blood Count 11.88 10^3/uL (3.29-11.43)
[2023-12-12 13:25] LABS: Erythrocyte Sedimentation Rate 66 mm/hr (0-15)
[2023-12-12 13:44] LABS: Alanine Aminotransferase 9 U/L (0-33); Albumin Level 2.7 g/dL (3.5-5.2); Alkaline Phosphatase 230 U/L (35-105); Aspartate Amino Transferase 16 U/L (0-32); Blood Urea Nitrogen 11 mg/dL (8-23); C Reactive Protein 79.3 mg/L (0.0-4.9); Calcium 8.5 mg/dL (8.5-10.5); Carbon Dioxide 22 mmol/L (22-29); Chloride 96 mmol/L (98-107); Creatine Phosphokinase 64 U/L (26-192); Globulin 3.7 g/dL (1.3-4.6); Glomerular Filtration Rate 226.9 mL/min (90-130); Glucose 272 mg/dL (65-115); Osmolality Calculated 277 mOsm/kg (285-295); Sodium 129 mmol/L (136-145); Total Bilirubin 0.2 mg/dL (0.15-1.2); Total Protein 6.4 g/dL (6.6-8.7)
[2023-12-12 13:53] LABS: Anion Gap 16.6 (5-19); Potassium 5.6 mmol/L (3.5-5.1)
== END 2023-12-12 12:28 | disposition home or self-care (01) ==
LOC: LAB 12:28
PROVIDERS: PCP Nurse Practitioner Family; Visit Provider Student in an Organized Health Care Education/Training Program
DX: Z01.818 Encounter for other preprocedural examination (principal); Z79.899 Other long term (current) drug therapy; M86.9 Osteomyelitis, unspecified; L89.154 Pressure ulcer of sacral region, stage 4; T81.31XD Disruption of external operation (surgical) wound, not elsewhere classified, subsequent encounter; Y83.8 Other surgical procedures as the cause of abnormal reaction of the patient, or of later complication, without mention of misadventure at the time of the procedure; L89.312 Pressure ulcer of right buttock, stage 2
CPT/HCPCS: 80053; 82550; 85025; 85651; 86140; 97597; A6220; A6446

== ENCOUNTER 2023-12-14 18:54 | Inpatient (IN) | payer MEDICARE, MEDICAID, SELFPAY ==
[2023-09-05 13:33] VITALS: BP 126/80; BMI 61.0
[2023-12-14] VITALS (13 sets, daily range): BP systolic 77–112; BP diastolic 46–76; PULSE 75–132; RESP 17–23; TEMP 38.1–39; O2SAT 94–98
--- NOTE | 2023-12-14 19:20 | XRR_ITS ---
PROCEDURE INFORMATION: Exam: XR Chest Exam date and time: 12/14/2023 7:34 PM Age: 58 years old Clinical indication: Fever and shortness of breath; Additional info: Possible sepsis TECHNIQUE: Imaging protocol: Radiologic exam of the chest. Views: 1 view. COMPARISON: CR XR chest 1V portable [id number] 12/07/2023 12:52 PM FINDINGS: Tubes, catheters and devices: Left-sided PICC line tip overlies the mid SVC. Lungs: The lungs are adequately expanded. No focal consolidations or pulmonary edema. Chronic bilateral interstitial lung markings. Pleural spaces: No pleural effusions or pneumothorax. Skin fold overlies the right hemithorax. Heart/Mediastinum: No cardiomegaly. Bones/joints: No acute fractures. XR/XR chest 1V portable [id number] IMPRESSION: Chronic bilateral interstitial lung markings. No focal consolidations.
--- NOTE | 2023-12-14 19:25 | PC.NURSE ---
pt presents by ems from home. states she has a bedsore on her buttock. comes from home where she has 2 sisters caring for her. states she woke up this am with a fever. patient diaphoretic at time of assessment. 4 limb amputee. states 8 years ago was septic and lost all limbs. she is diabetic.
--- NOTE | 2023-12-14 19:30 | ECG_ITS ---
[facility] Test Date: 2023-12-14 Pat Name: Delia Winter Department: Room: Gender: Female Intervention Manager: : [id number] Requested By: Tc Israel Order Number: [id number] Reid MD: Cleve Gates M.D. Measurements Intervals [place] Rate: 125 P: 26 OR: 170 QRS: -54 QRSD: 78 T: 70 QT: 297 QTc: 430 Interpretive Statements SINUS TACHYCARDIA POSSIBLE RIGHT VENTRICULAR CONDUCTION DELAY [RSR (QR) IN V1/V2] POSSIBLE ANTERIOR MYOCARDIAL INFARCTION , OF INDETERMINATE AGE [30 ms Q WAVE IN V3/V4, OR R < 0.2 mV IN V4] INFERIOR MYOCARDIAL INFARCTION , OF INDETERMINATE AGE [40+ ms Q WAVE AND/OR ST/T ABNORMALITY IN II/aVF] Compared to ECG 11/08/2023 15:56:52 Sinus rhythm no longer present Myocardial infarct finding still present Electronically Signed On 12-15-2023 17:07:18 CDT by Cleve Gates M.D. [id number]
--- NOTE | 2023-12-14 19:31 | ED_ITS ---
HPI - Fever 2 General: Chief Complaint: Fever Stated Complaint: Fever Time Seen by Provider: 12/14/23 19:20 History of Present Illness: 58-year-old female comes in today for co mplaints of fever. Patient lives at home and it was noted that she started developing a fever. 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 Patient recently been in the hospital and had a revision of her decubitus ulcer done by Dr. Aguiar. 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 Patient reports started feeling ill today. Patient had recently been seen by Dr. Aguiar on the third. Related Data Home Medications Medication Instructions Recorded Confirmed acetaminophen 325 mg tablet 325 mg PO QID PRN Pain 10/17/22 12/14/23 diphenhydramine HCl 25 mg tablet 25 mg PO TID PRN Allergy Symptoms 10/17/22 12/14/23 (Benadryl Allergy) clopidogrel 75 mg tablet 75 mg PO DAILY 12/06/23 12/14/23 fenofibrate 160 mg tablet 160 mg PO DAILY 12/06/23 12/14/23 gabapentin 600 mg tablet 600 mg PO TID 12/06/23 12/14/23 isosorbide mononitrate 30 mg 30 mg PO DAILY 12/06/23 12/14/23 tablet,extended release 24 hr levothyroxine 112 mcg tablet 112 mcg PO DAILY 12/06/23 12/14/23 metoprolol tartrate 25 mg tablet 25 mg PO DAILY 12/06/23 12/14/23 daptomycin 500 mg intravenous mg IV 12/12/23 12/14/23 solution insulin detemir U-100 100 unit/mL 30 unit SUBCUT DAILY 12/14/23 12/14/23 (3 mL) subcutaneous pen (Levemir FlexPen) Previous Rx's Medication Instructions Recorded prosthetic hands Bilateral #1 ea 05/02/19 blood-glucose sensor #3 ea 05/08/20 flash glucose scanning reader #1 ea 06/14/20 (FreeStyle Maria M 2 [place]) pen needle, diabetic 31 gauge x #450 ea 07/01/20 3/16 (Sure-Fine Pen Miranda) prosthetic legs #1 ea 12/11/20 flash glucose sensor (FreeStyle #6 ea 10/19/21 Maria M 2 Sensor kit) nitroglycerin 0.4 mg sublingual 0.4 mg sublingual Q5M PRN chest 04/12/22 tablet pain #25 tabs Ear Pulse Ox #1 ea 04/25/22 clonazepam 0.5 mg tablet 0.5 mg PO DAILY PRN anxiety 30 09/21/22 days #30 tabs zolpidem 5 mg tablet 5 mg PO .qhs PRN insomnia 30 days 09/21/22 #30 tabs wheelchair motorized #1 ea 12/16/22 bupropion HCl 150 mg 24 hr tablet, 150 mg PO QAM #30 tabs 06/07/23 extended release (Wellbutrin XL) sodium hypochlorite 0.125 % 1 applic topical BID open wound 06/21/23 solution (Dakin's Solution) #473 mL cholecalciferol (vitamin D3) 1,250 See Rx Instructions .Route 06/27/23 mcg (50,000 unit) capsule .COMPLEX #4 caps duloxetine 60 mg capsule,delayed 60 mg PO BID #60 caps 06/29/23 release blood-glucose sensor (Dexcom G7 #1 ea 10/30/23 Sensor device) blood-glucose meter,continuous #1 ea 11/09/23 (Dexcom G7 Certified Nurse Midwife) ciprofloxacin HCl 500 mg tablet 500 mg PO BID 2 weeks #28 tabs 11/30/23 sulfamethoxazole 800 1 tab PO BID 2 weeks #28 tabs 11/30/23 mg-trimethoprim 160 mg tablet (Bactrim DS) nystatin 100,000 unit/mL oral 500,000 unit (5 mL) buccal DAILY 12/06/23 suspension #250 mL oxycodone 10 mg tablet 10 mg PO TID PRN pain 30 days #90 12/12/23 tabs insulin regular hum U-500 conc 500 100 unit (0.2 mL) SUBCUT .COMPLEX 12/14/23 unit/mL(3 mL) subcut pen (Humulin #6 mL R U-500 (Conc) Insulin Kwikpen) nystatin 100,000 unit/gram topical 1 applic topical BID #60 grams 12/14/23 powder Allergies Allergy/AdvReac Type Severity Reaction Status Date / Time cephalexin Allergy Unknown Not Verified 12/14/23 11:45 Entered,Swelling,Diarrhea metformin Allergy Unknown Diarrhea,Not Verified 12/14/23 11:45 Entered,SWELLING Review of Systems 2 General: Reports: 10 or more systems reviewed and unremarkable except in HPI and below Const: Reports: fever(s) and body aches PFSH ED 2 PFSH: Medical History Septic shock Hypotension Abscess of buttock, left Decubitus ulcer of sacral region, stage 4 Decubital ulcer Infected pressure ulcer Abscess of left buttock Mobility impaired Pressure ulcer of buttock Stage II pressure ulcer of left buttock DM type 2 causing complication Diabetes mellitus Bilateral pneumonia Influenza B UTI (urinary tract infection) COVID-19 Hypovolemic shock Pressure sore on buttocks UTI (urinary tract infection) Amputation leg, bilat Psychiatric care Anxiety Major depressive disorder, recurrent severe without psychotic features Coronary artery disease Polyuria Polydipsia Urgency incontinence Recurrent UTI Below-elbow amputation of right upper extremity Below-elbow amputation of left upper extremity 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 Enrolled in chronic care management Rheumatoid arthritis Phantom pain after amputation of lower extremity Chronic pain 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 Hypothyroidism Hyperlipemia, mixed HTN (hypertension), benign (~11/2022) 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, hand, bilateral Hx of sepsis Surgical History History of amputation of lower extremity History of skin graft History of appendectomy History of amputation of finger of both hands Family History Father , at age 47 CAD (coronary artery disease) Hypertension Mother , at age 64 Diabetes Lung disease Sister Diabetes Brother Diabetes Denies family history of Dementia Cancer Stroke Social History Smoking and tobacco/nicotine status: current every day tobacco/nicotine user cigarettes Packs smoked per day: 0.5 Years cigarettes smoked: 48 Quit status (tobacco/nicotine): has tried quititng Second hand smoke exposure: Yes Alcohol intake: current Alcohol intake frequency: holidays/special occasions only Alcohol type: wine Substance/Drug Use: never Adopted: No Caregiver/support person: Yes Lives independently: Yes Household members: significant other and family Housing: House Marital status: Single Marital status details: Life partner of 45 years Number of children: 0 Number of grandchildren: 0 Highest education level completed: High School Graduate service: No Current occupational status: disabled Pets and animals: Yes (lab, yorkie, beagle) Pets & animals: cat(s) and dog(s) Leisure activites: art, fishing and other Leisure activities details: writing, watch TV Sexually active: Yes Do you think of yourself as: Straight/Heterosexual Current gender identity: Female Keyonna/Congregational: None Special keyonna needs: No Agree to transfusion: Yes Female Reproductive History: Para: 0 Physical Exam 2 Const: COMMON NORMALS: alert HENMT: COMMON NORMALS: normocephalic HEAD & SCALP: normocephalic Neck/C-Spine: COMMON NORMALS: full ROM Resp: COMMON NORMALS: normal respiratory effort Cardio: COMMON NORMALS: regular rhythm RATE: tachycardic RHYTHM: regular rhythm GI: COMMON NORMALS: Soft to palpation and non-tender PALPATION: Yes Soft to palpation Back/Pelvis: SACRUM: erythema and other (Significant decubitus wound to the sacral coccyx region.) Neuro: SENSORIUM/ORIENTATION: Yes alert Skin: NARRATIVE SKIN EXAM: Patient has severe coccygeal sacral wound with erythema at the borders of the wound and exposed bone centrally. Course 2 Vital Signs: Vital signs: Vital Signs Temperature 102.2 F H 12/14/23 18:56 Pulse Rate 110 H 12/14/23 21:36 Respiratory Rate 20 H 12/14/23 21:36 Blood Pressure 84/56 12/14/23 21:36 Pulse Oximetry 97 12/14/23 21:36 Oxygen Delivery Me thod Room Air 12/14/23 21:36 MDM - Fever Medical Decision Making Patient was brought in [facility] for concerns of fever. Patient was seen earlier today by PCP and had normal vital signs. It was noted that patient's fever started this afternoon. Patient presently is on daptomycin for osteomyelitis and chronic wound of the sacral coccyx. Oxygen saturation is good. Lungs have good air movement. Patient's pulse is tachycardic in 130s. Respirations are 20. Patient has redness at the edges of the wound to her sacrum. There is palpable bone noted to the middle of the wound. Review of the record noted that Dr. Aguiar had planned to reevaluate his the wound but did not due to the sodium being low on the third. The plan was to reevaluate in 1 week. Patient has a indwelling Chirinos catheter and a PICC line. Differential diagnosis includes viral syndrome, upper respiratory infection, sepsis, worsening wound infection. 2014, family discussed with me there are concerns for patient's depression and are requesting a psych consult if she is submitted. 2049, reviewed patient with Dr. Upton regarding lactic 3.1, sodium 128, and white blood cell count 14.54. He requested a CT of the abdomen pelvis for further evaluation of the wound. We are awaiting urinalysis and respiratory 2 panel. Request may reach out for surgery consult. 2104, notified Dr. Aguiar of patient's admit to the hospital for probable sepsis. Lab Data 12/14/23 19:58 12/14/23 19:58 Radiology Impressions Chest X-Ray 12/14/23 19:20 IMPRESSION: Chronic bilateral interstitial lung markings. No focal consolidations. Laboratory Results WBC 14.54 10^3/uL (3.29-11.43) H 12/14/23 19:58 RBC 4.27 10^6/uL (3.85-5.65) 12/14/23 19:58 Hgb 10.30 g/dL (11.27-16.99) L 12/14/23 19:58 Hct 32.6 % (36-47) L 12/14/23 19:58 MCV 76.3 fl (85-98) L 12/14/23 19:58 MCH 24.1 pg (27-33) L 12/14/23 19:58 MCHC 31.6 g/dL (30-55) 12/14/23 19:58 RDW 21.2 % (12.1-15.1) H 12/14/23 19:58 Plt Count 547 10^3/cmm (157-399) H 12/14/23 19:58 MPV 8.9 fL (7.4-10.4) 12/14/23 19:58 Neut % (Auto) 86.3 % 12/14/23 19:58 Lymph % (Auto) 7.4 % 12/14/23 19:58 Nelson % (Auto) 2.9 % 12/14/23 19:58 Eos % (Auto) 2.5 % 12/14/23 19:58 Baso % (Auto) 0.3 % 12/14/23 19:58 Neut # (Auto) 12.55 10^3/uL (1.8-7.7) H 12/14/23 19:58 Lymph # (Auto) 1.1 10^3/uL (0.8-4.8) 12/14/23 19:58 Nelson # (Auto) 0.4 10^3/uL (0.2-0.9) 12/14/23 19:58 Eos # (Auto) 0.4 10^3/uL (0.0-0.8) 12/14/23 19:58 Baso # (Auto) 0.1 10^3/uL (0.0-0.1) 12/14/23 19:58 Nucleated RBC % (auto) 0 % 12/14/23 19:58 Nucleated RBCs # 0.0 /100WBC 12/14/23 19:58 ESR 106 mm/hr (0-15) H 12/14/23 19:35 Sodium 128 mmol/L (136-145) L 12/14/23 19:58 Potassium 4.4 mmol/L (3.5-5.1) 12/14/23 19:58 Chloride 93 mmol/L (98-107) L 12/14/23 19:58 Carbon Dioxide 21 mmol/L (22-29) L 12/14/23 19:58 Anion Gap 18.4 (5-19) 12/14/23 19:58 BUN 13 mg/dL (8-23) 12/14/23 19:58 Creatinine 0.5 mg/dL (0.5-0.9) 12/14/23 19:58 GFR Calculation 125.9 mL/min (90-130) 12/14/23 19:58 Glucose 101 mg/dL (65-115) 12/14/23 19:58 Calculated Osmolality 266 mOsm/kg (285-295) L 12/14/23 19:58 Lactic Acid 3.1 mmol/L (0.5-2.2) H 12/14/23 19:58 Calcium 8.5 mg/dL (8.5-10.5) 12/14/23 19:58 Magnesium 1.7 mg/dL (1.7-2.3) 12/14/23 19:58 Total Bilirubin 0.3 mg/dL (0.15-1.2) 12/14/23 19: AST 15 U/L (0-32) 12/14/23 19:58 ALT 10 U/L (0-33) 12/14/23 19:58 Alkaline Phosphatase 225 U/L (35-105) H 12/14/23 19:58 Total Protein 6.7 g/dL (6.6-8.7) 12/14/23: Albumin 2.7 g/dL (3.5-5.2) L 12/14/23 19:58 Globulin 4.0 g/dL (1.3-4.6) 12/14/23 19: Procalcitonin 0.17 ng/mL (0-0.5) 12/14/23 19: Urine Color Dark yellow (Yellow) A 12/14/23 20: Urine Appearance Turbid (CLEAR) A 12/14/23 20: Urine pH 5.0 (5-7) 12/14/23 20:55 Ur Specific [place] 1.026 (1.005-1.030) 12/14/23 20:55 Urine Protein 2+ (Negative) A 12/14/23 20:55 Urine Glucose (UA) Negative (Normal) 12/14/23 20: Urine Ketones Trace (Negative) 12/14/23 20: Urine Blood 3+ (Negative) A 12/14/23 20:55 Urine Nitrate Negative (Negative) 12/14/23 20:55 Urine Bilirubin 1+ (Negative) H 12/14/23 20: Urine Urobilinogen 1.0 mg/dL (Negative) 12/14/23 20:55 Ur Leukocyte Esterase 3+ (Negative) A 12/14/23 20:55 Urine RBC 11-20 /hpf (0-2) H 12/14/23 20:55 Urine WBC 80-100 /hpf (0-5) H 12/14/23 20:55 Ur Squamous Epith Cells 6-10 /hpf (0-5) 12/14/23 20:55 Amorphous Sediment Not Reportable 12/14/23 20:55 Urine Bacteria 1+ /hpf (NONE) H 12/14/23 20:55 All radiology interpretation(s) finalized by discharge EKG Data EKG 1: I personally reviewed and interpreted this EKG as follows: EKG interpretation date: 12/14/23 EKG interpretation time: 19:45 Prior EKG tracings: not available for review Interpretation: EKG shows a sinus tachycardia with a ventricular rate of 125. No ST elevation is noted. No ectopy is noted. No prior exam was available for comparison. Discharge Plan Discharge Patient Disposition: Admitted As Inpatient Clinical Impression: Decubitus ulcer of coccygeal region, stage 4 Sepsis Qualifiers: Sepsis type: sepsis due to unspecified organism Sepsis acute organ dysfunction status: with acute organ dysfunction Severe sepsis acute organ dysfunction type: encephalopathy Severe sepsis shock status: without septic shock Qualified Code(s): A41.9 - Sepsis, unspecified organism Condition: Stable Coding Level of Care Code ED [employer] Agent for Sidra Saldivar
[2023-12-14 20:09] LABS: Basophils # 0.1 10^3/uL (0.0-0.1); Basophils % 0.3 %; Eosinophils # 0.4 10^3/uL (0.0-0.8); Eosinophils % 2.5 %; Hematocrit 32.6 % (36-47); Lymphocytes # 1.1 10^3/uL (0.8-4.8); Lymphocytes % 7.4 %; Mean Corpuscular HGB Conc 31.6 g/dL (30-55); Mean Corpuscular Hemoglobin 24.1 pg (27-33); Mean Corpuscular Volume 76.3 fl (85-98); Mean Platelet Volume 8.9 fL (7.4-10.4); Monocytes # 0.4 10^3/uL (0.2-0.9); Monocytes % 2.9 %; Neutrophils # 12.55 10^3/uL (1.8-7.7); Neutrophils % 86.3 %; Nucleated Red Blood Cells % 0 %; Platelet Count 547 10^3/cmm (157-399); Red Blood Count 4.27 10^6/uL (3.85-5.65); Red Cell Distribution Width 21.2 % (12.1-15.1); White Blood Count 14.54 10^3/uL (3.29-11.43)
--- NOTE | 2023-12-14 20:14 | PC.NURSE ---
this nurse took over care of pt at 2009 from tressa leahy.
[2023-12-14 20:29] LABS: Alanine Aminotransferase 10 U/L (0-33); Albumin Level 2.7 g/dL (3.5-5.2); Alkaline Phosphatase 225 U/L (35-105); Anion Gap 18.4 (5-19); Aspartate Amino Transferase 15 U/L (0-32); Blood Urea Nitrogen 13 mg/dL (8-23); Calcium 8.5 mg/dL (8.5-10.5); Carbon Dioxide 21 mmol/L (22-29); Chloride 93 mmol/L (98-107); Creatinine Clr Calc Pharmacy 95.9593; Glomerular Filtration Rate 125.9 mL/min (90-130); Glucose 101 mg/dL (65-115); Magnesium 1.7 mg/dL (1.7-2.3); Osmolality Calculated 266 mOsm/kg (285-295); Potassium 4.4 mmol/L (3.5-5.1); Sodium 128 mmol/L (136-145); Total Bilirubin 0.3 mg/dL (0.15-1.2); Total Protein 6.7 g/dL (6.6-8.7)
[2023-12-14 20:30] LABS: Lactic Sepsis W/Reflex 3.1 mmol/L (0.5-2.2)
[2023-12-14 20:35] LABS: Procalcitonin 0.17 ng/mL (0-0.5)
[2023-12-14 20:58] LABS: Erythrocyte Sedimentation Rate 106 mm/hr (0-15)
[2023-12-14 21:06] LABS: Charge for UA Resulting for Rev
[2023-12-14 21:09] LABS: Bilirubin Urine 1+ (Negative); Blood Urine 3+ (Negative); Glucose Urine UA Negative (Normal); Ketones Urine Trace (Negative); Leukocyte Esterase Urine 3+ (Negative); Nitrate Urine Negative (Negative); Protein Urine 2+ (Negative); Specific Gravity, Urine 1.026 (1.005-1.030); Urine Appearance Turbid (CLEAR); Urine Color Dark Yellow (Yellow)
[2023-12-14] MEDS: meropenem 1,000 mg SDV 1000 MG IVP (21:24)
[2023-12-14 21:31] LABS: Bacteria Urine 1+ /hpf; WBC Urine 80-100 /hpf (0-5)
[2023-12-14 21:33] LABS: Add Urine Culture? Yes
--- NOTE | 2023-12-14 21:38 | PC.NURSE ---
freida marie notified of bp 84/56, pt currently resting in bed eyes closed rr 20 nonlabored. freida marie stated hold and waste fentanyl at this time. pt currently has fluid bolus infusing.
--- NOTE | 2023-12-14 21:46 | PC.NURSE ---
pt catheter placed and intact at this time. pt changed into dry pull-up at this time. pt has multiple wounds to bottom, left stump, with excoriation and redness to chio area, groin, and buttocks. wound to right ear, bandage in place.
--- NOTE | 2023-12-14 21:51 | P.HP_ITS ---
Providers/Chief Complaint 2 Admitting Physician: Will Upton MD Primary Care Provider: ANUJ Hernández Chief Complaint: Fever History of Present Illness Delia Winter is a 58 year old female history of UTIs, history of sacral decubitus ulcer, currently having a sacral decubitus ulcer on daptomycin, status post recent debridement by Dr. 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 Who presents to [facility] for altered mental status, and fevers. Currently patient is alert to person, to place not to time, she is febrile, tachycardic hypotensive, septic, receiving fluid bolus has received vancomycin, meropenem. Patient's family members at bedside, they tell me that over the last few days, she has had increased episodes of fevers, confusion, she is on daptomycin, denies abdominal pain does report diarrhea, no nausea, no vomiting, no shortness of breath, no cough, she does complain of back pain Review of Systems 2 Const: Reports: fever(s), chills, fatigue and malaise Medications/Allergies Home Medications Medication Instructions Recorded Confirmed Last Taken Type prosthetic hands Bilateral #1 ea 05/02/19 12/14/23 Unknown Rx blood-glucose sensor #3 ea 05/08/20 12/14/23 Unknown Rx flash glucose scanning reader #1 ea 06/14/20 12/14/23 Unknown Rx (FreeStyle Maria M 2 [place]) pen needle, diabetic 31 gauge x #450 ea 07/01/20 12/14/23 Unknown Rx 3/16 (Sure-Fine Pen [place]) prosthetic legs #1 ea 12/11/20 12/14/23 Unknown Rx flash glucose sensor (FreeStyle #6 ea 10/19/21 12/14/23 Unknown Rx Maria M 2 Sensor kit) nitroglycerin 0.4 mg sublingual 0.4 mg sublingual Q5M PRN chest 04/12/22 12/14/23 12/06/23 Rx tablet pain #25 tabs Ear Pulse Ox #1 ea 04/25/22 12/14/23 Unknown Rx clonazepam 0.5 mg tablet 0.5 mg PO DAILY PRN anxiety 30 09/21/22 12/14/23 Unknown Rx days #30 tabs zolpidem 5 mg tablet 5 mg PO .qhs PRN insomnia 30 days 09/21/22 12/14/23 12/05/23 Rx #30 tabs acetaminophen 325 mg tablet 325 mg PO QID PRN Pain 10/17/22 12/14/23 Unknown History diphenhydramine HCl 25 mg tablet 25 mg PO TID PRN Allergy Symptoms 10/17/22 12/14/23 Unknown History (Benadryl Allergy) wheelchair motorized #1 ea 12/16/22 12/14/23 Unknown Rx bupropion HCl 150 mg 24 hr tablet, 150 mg PO QAM #30 tabs 06/07/23 12/14/23 12/06/23 Rx extended release (Wellbutrin XL) sodium hypochlorite 0.125 % 1 applic topical BID open wound 06/21/23 12/14/23 12/06/23 Rx solution (Dakin's Solution) #473 mL cholecalciferol (vitamin D3) 1,250 See Rx Instructions .Route 06/27/23 12/14/23 Unknown Rx mcg (50,000 unit) capsule .COMPLEX #4 caps duloxetine 60 mg capsule,delayed 60 mg PO BID #60 caps 06/29/23 12/14/23 12/06/23 Rx release blood-glucose sensor (Dexcom G7 #1 ea 10/30/23 12/14/23 Unknown Rx Sensor device) blood-glucose meter,continuous #1 ea 11/09/23 12/14/23 Unknown Rx (Dexcom G7 [place] Maintainer) ciprofloxacin HCl 500 mg tablet 500 mg PO BID 2 weeks #28 tabs 11/30/23 12/14/23 12/06/23 Rx sulfamethoxazole 800 1 tab PO BID 2 weeks #28 tabs 11/30/23 12/14/23 12/06/23 Rx mg-trimethoprim 160 mg tablet (Bactrim DS) clopidogrel 75 mg tablet 75 mg PO DAILY 12/06/23 12/14/23 11/30/23 History fenofibrate 160 mg tablet 160 mg PO DAILY 12/06/23 12/14/23 12/06/23 History gabapentin 600 mg tablet 600 mg PO TID 12/06/23 12/14/23 12/06/23 History isosorbide mononitrate 30 mg 30 mg PO DAILY 12/06/23 12/14/23 12/07/23 History tablet,extended release 24 hr levothyroxine 112 mcg tablet 112 mcg PO DAILY 12/06/23 12/14/23 12/06/23 History metoprolol tartrate 25 mg tablet 25 mg PO DAILY 12/06/23 12/14/23 12/07/23 History nystatin 100,000 unit/mL oral 500,000 unit (5 mL) buccal DAILY 12/06/23 12/14/23 12/06/23 Rx suspension #250 mL daptomycin 500 mg intravenous mg IV 12/12/23 12/14/23 Unknown History solution oxycodone 10 mg tablet 10 mg PO TID PRN pain 30 days #90 12/12/23 12/14/23 Unknown Rx tabs insulin detemir U-100 100 unit/mL 30 unit SUBCUT DAILY 12/14/23 12/14/23 Unknown History (3 mL) subcutaneous pen (Levemir FlexPen) insulin regular hum U-500 conc 500 100 unit (0.2 mL) SUBCUT .COMPLEX 12/14/23 12/14/23 Unknown Rx unit/mL(3 mL) subcut pen (Humulin #6 mL R U-500 (Conc) Insulin Kwikpen) nystatin 100,000 unit/gram topical 1 applic topical BID #60 grams 12/14/23 12/14/23 Unknown Rx powder Allergies Allergy/AdvReac Type Severity Reaction Status Date / Time cephalexin Allergy Unknown Not Verified 12/14/23 11:45 Entered,Swelling,Diarrhea metformin Allergy Unknown Diarrhea,Not Verified 12/14/23 11:45 Entered,SWELLING PFSH Acute 2 PFSH: Medical History (Updated 12/14/23 @ 21:56 by Will Upton MD) Septic shock Hypotension Abscess of buttock, left Decubitus ulcer of sacral region, stage 4 Decubital ulcer Infected pressure ulcer Abscess of left buttock Mobility impaired Pressure ulcer of buttock Stage II pressure ulcer of left buttock DM type 2 causing complication Diabetes mellitus Bilateral pneumonia Influenza B UTI (urinary tract infection) COVID-19 Hypovolemic shock Pressure sore on buttocks UTI (urinary tract infection) Amputation leg, bilat Psychiatric care Anxiety Major depressive disorder, recurrent severe without psychotic features Coronary artery disease Polyuria Polydipsia Urgency incontinence Recurrent UTI Below-elbow amputation of right upper extremity Below-elbow amputation of left upper extremity 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 Enrolled in chronic care management Rheumatoid arthritis Phantom pain after amputation of lower extremity Chronic pain 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 Hypothyroidism Hyperlipemia, mixed HTN (hypertension), benign (~11/2022) 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, hand, bilateral Hx of sepsis Surgical History History of amputation of lower extremity History of skin graft History of appendectomy History of amputation of finger of both hands Family History Father , at age 47 CAD (coronary artery disease) Hypertension Mother , at age 64 Diabetes Lung disease Sister Diabetes Brother Diabetes Denies family history of Dementia Cancer Stroke Social History Smoking and tobacco/nicotine status: current every day tobacco/nicotine user cigarettes Packs smoked per day: 0.5 Years cigarettes smoked: 48 Quit status (tobacco/nicotine): has tried quititng Second hand smoke exposure: Yes Alcohol intake: current Alcohol intake frequency: holidays/special occasions only Alcohol type: wine Substance/Drug Use: never Adopted: No Caregiver/support person: Yes Lives independently: Yes Household members: significant other and family Housing: House Marital status: Single Marital status details: Life partner of 45 years Number of children: 0 Number of grandchildren: 0 Highest education level completed: High School Graduate service: No Current occupational status: disabled Pets and animals: Yes (lab, yorkie, beagle) Pets & animals: cat(s) and dog(s) Leisure activites: art, fishing and other Leisure activities details: writing, watch TV Sexually active: Yes Do you think of yourself as: Straight/Heterosexual Current gender identity: Female Keyonna/Sabianist: None Special keyonna needs: No Agree to transfusion: Yes Female Reproductive History: Para: 0 Vitals/I&O/Wt Last Vital Signs Temp 102.2 F H 12/14/23 18:56 Pulse 110 H 12/14/23 21:36 Resp 20 H 12/14/23 21:36 BP 84/56 12/14/23 21:36 Pulse Ox 97 12/14/23 21:36 O2 Del Method Room Air 12/14/23 21:36 09/08/3112/14/23 12/14/23 06:59 14:59 22:59 Intake Total 1524.06 / 1524.06 Balance 1524.06 / 1524.06 Weight last 48 hrs Weight 50.802 kg Physical Exam 2 Const: COMMON NORMALS: no acute distress ORIENTATION/CONSCIOUSNESS: Yes awake, Yes oriented to person and Yes oriented to place; not oriented to time Eye: COMMON NORMALS: Equal, round and reactive pupils present Resp: COMMON NORMALS: normal respiratory effort, No retractions, No use of accessory muscles and clear to auscultation bilaterally AUSCULTATION: clear to auscultation bilaterally Cardio: COMMON NORMALS: no JVD, regular rate, regular rhythm, S1 normal heart sound present and S2 normal heart sound present RATE: tachycardic RHYTHM: regular rhythm HEART SOUNDS: S1 normal heart sound present and S2 normal heart sound present GI: COMMON NORMALS: Normal to inspection, nondistended, normoactive bowel sounds present, Soft to palpation and non-tender Back/Pelvis: OTHER: Sacral decubitus ulcers, currently with dressing on top Neuro: COMMON NORMALS: patient oriented x3 Psych: COMMON NORMALS: mental status grossly normal Skin: NARRATIVE SKIN EXAM: Left stump status post debridement, with wound dressing in place Urinary Catheter Management: Chirinos: Cath Placed During This Visit: yes Urinary Catheter Date of Insertion: 12/14/23 Urinary Catheter Time of Insertion: 20:55 Sepsis: Is patient septic: Yes Focused sepsis exam performed: Yes F ocused sepsis exam: Has mottling of bilateral lower extremity stumps, also upper extremity stumps Date exam was performed: 12/14/23 Time exam was performed: 21:56 Data 12/14/23 19:58 12/14/23 19:58 Micro: Microbiology 12/14/23 19:58 Blood Culture - Preliminary Blood SPECIMEN COLLECTED 12/14/23 19:55 Blood Culture - Preliminary Blood SPECIMEN COLLECTED A&P Assessment and plan (1) Decubitus ulcer of coccygeal region, stage 4: (2) Open wound: (3) Septic shock: (4) Osteomyelitis: Qualifiers: Osteomyelitis type: other chronic (5) Back pain: Qualifiers: Back pain location: thoracic back pain Chronicity: acute Back pain laterality: bilateral Qualified Code(s): M54.6 - Pain in thoracic spine (6) Sepsis: Qualifiers: Sepsis acute organ dysfunction status: with acute organ dysfunction S epsis type: sepsis due to unspecified organism Severe sepsis acute organ dysfunction type: encephalopathy Severe sepsis shock status: without septic shock Qualified Code(s): A41.9 - Sepsis, unspecified organism; R65.20 - Severe sepsis without septic shock; G93.41 - Metabolic encephalopathy (7) Urinary (tract) obstruction: Plan Septic shock -Status post fluid, broad-spectrum antibiotic therapy in the emergency room -Blood pressure 84/57, tachycardic heart rates in the 120s, febrile 102.2, respirate 20, 96% on room air -ESR 106, white blood cell count 14.54 -Source of infection -Has evidence of a UTI on UA -Has a history of chronic sacral decub's ulcer, with osteomyelitis, bone exposure, has received outpatient courses of IV antibiotics currently on daptomycin had recent sacral debridement and of left stump on -Her prior CT scan of her pelvis showed evidence of gas in the L4-L5 disc space Plan ? Monitor in ICU closely ? Tylenol for fevers ? IV fluids ? Will consider Levophed to maintain MAP in 65 ? N.p.o. midnight ? General Surgery consulted by ER ? Patient had an MRI of her pelvis ordered as outpatient for osteomyelitis, underlying abscess will order as inpatient -She had a MRI of her lumbar spine to evaluate for discitis, as her prior CT scan showed gas L4-L5 disc space we will order as inpatient -Vancomycin -Meropenem, to cover for ESBL species, Pseudomonas -Stool studies -Type 2 diabetes mellitus Lantus 10 units every morning, low-dose sign scale -Will hold Plavix for now as she might need surgical intervention -Monitor inflammatory markers -She denies feeling down depressed or sad, denies any suicidal ideation, however her family members do report that she has been quite sad recently, she does report feeling quite anxious, quite being anxious in the hospital clonazepam does work but does not last long enough, we will increase the dose to clonazepam 0.5 mg twice daily, family is also requesting consultation with psychiatry, will have psychiatry consulted in the morning -Lovenox for DVT prophylaxis -Full code Attestations 2 Medical Necessity Statement*: Patient requires hospitalization, inpatient, greater than 2 midnights, for septic shock secondary to UTI, sacral decubitus ulcer concerns for deep tissue infection, concerns for possible discitis, Diagnoses Decubitus ulcer of coccygeal region, stage 4 L89.154 Open wound T14.8XXA Septic shock A41.9; R65.21 Osteomyelitis M86.9 Osteomyelitis type: other chronic Acute bilateral thoracic back pain M54.6 Back pain location: thoracic back pain Chronicity: acute Back pain laterality: bilateral Sepsis A41.9; R65.20; G93.41 Sepsis acute organ dysfunction status: with acute organ dysfunction Sepsis type: sepsis due to unspecified organism Severe sepsis acute organ dysfunction type: encephalopathy Severe sepsis shock status: without septic shock Urinary (tract) obstruction N13.9
[2023-12-14 21:52] LABS: Reflex Lactate Order REFLEX LACTIC ORDERD
--- NOTE | 2023-12-14 22:04 | PC.NURSE ---
report called to icu nurse at [id number].
[2023-12-14 22:06] LABS: C Reactive Protein 43.8 mg/L (0.0-4.9)
[2023-12-14 22:23] LABS: Adenovirus Not Detected (NOT DETECT); Chlamydia Pneumoniae Not Detected (NOT DETECT); Coronavirus 229E,HKU1,NL63,OC4 Not Detected (NOT DETECT); Human Metapneumovirus Not Detected (NOT DETECT); Human Rhinovirus/Enterovirus Not Detected (NOT DETECT); Influenza A Not Detected (NOT DETECT); Influenza A H1 Not Detected (NOT DETECT); Influenza A H1-2009 Not Detected (NOT DETECT); Influenza A H3 Not Detected (NOT DETECT); Influenza B Not Detected (NOT DETECT); Mycoplasma Pneumoniae Not Detected (NOT DETECT); Parainfluenza Virus Type 1 Not Detected (NOT DETECT); Parainfluenza Virus Type 2 Not Detected (NOT DETECT); Parainfluenza Virus Type 3 Not Detected (NOT DETECT); Parainfluenza Virus Type 4 Not Detected (NOT DETECT); Respiratory Syncytial Virus A Not Detected (NOT DETECT); Respiratory Syncytial Virus B Not Detected (NOT DETECT); SARS-COV-2 Not Detected (NOT DETECT)
[2023-12-14] MEDS: sodium chloride 0.9% 1,000 ML 125 ML IV (22:55)
[2023-12-14] MEDS: enoxaparin 40 mg/0.4 mL Syringe SUBCUT (22:56)
[2023-12-14] MEDS: pantoprazole 40 mg SDV IVP (22:56)
[2023-12-14 23:27] LABS: Lactic Acid level (Lactate) 1.3 mmol/L (0.5-2.2)
[2023-12-14 23:38] LABS: Thyroid Stimulating Hormone 5.66 uIU/mL (0.27-4.20)
[2023-12-14] MEDS: vancomycin 1,000 MG in sodium chloride 0.9% 250 ML 250 MG IV (23:42)
[2023-12-14] MEDS: ondansetron 2 mg/ML SDV 2 mL 4 MG IVP (23:54)
[2023-12-15] VITALS (34 sets, daily range): BP systolic 79–134; BP diastolic 49–89; PULSE 69–112; RESP 10–33; TEMP 36.5–39.1; O2SAT 91–100
--- NOTE | 2023-12-15 00:02 | PC.NURSE ---
Became nauseated and threw up small amount of yellow emesis with undigested food. Patient reports feeling nauseated. Zofran 4mg given IVP.
--- NOTE | 2023-12-15 00:19 | PC.NURSE ---
Chronic wounds noted to left stump and sacral/coccyx. Patient reports that she goes to wound care every monday and has dressings changed. No wound change orders noted at present time. Consult to Dr. Aguiar. Will await dressing change orders.
[2023-12-15] MEDS: acetaminophen 325 mg Tablet 650 MG PO (00:31)
--- NOTE | 2023-12-15 00:35 | PC.NURSE ---
Oral temp 102.4, tylenol given po per jun.
[2023-12-15 03:16] LABS: Basophils # 0.1 10^3/uL (0.0-0.1); Basophils % 0.4 %; Eosinophils # 0.2 10^3/uL (0.0-0.8); Eosinophils % 1.5 %; Hematocrit 28.5 % (36-47); Lymphocytes # 1.9 10^3/uL (0.8-4.8); Lymphocytes % 16.1 %; Mean Corpuscular HGB Conc 30.2 g/dL (30-55); Mean Corpuscular Hemoglobin 24.2 pg (27-33); Mean Corpuscular Volume 80.1 fl (85-98); Mean Platelet Volume 9.1 fL (7.4-10.4); Monocytes # 0.4 10^3/uL (0.2-0.9); Monocytes % 3.4 %; Neutrophils # 9.26 10^3/uL (1.8-7.7); Neutrophils % 78.1 %; Nucleated Red Blood Cells % 0 %; Platelet Count 539 10^3/cmm (157-399); Red Blood Count 3.56 10^6/uL (3.85-5.65); Red Cell Distribution Width 21.6 % (12.1-15.1); White Blood Count 11.86 10^3/uL (3.29-11.43)
[2023-12-15 03:43] LABS: Blood Urea Nitrogen 11 mg/dL (8-23); Calcium 7.3 mg/dL (8.5-10.5); Carbon Dioxide 20 mmol/L (22-29); Chloride 104 mmol/L (98-107); Creatinine Clr Calc Pharmacy 108.6111; Glomerular Filtration Rate 162.8 mL/min (90-130); Glucose 51 mg/dL (65-115); Osmolality Calculated 277 mOsm/kg (285-295); Sodium 135 mmol/L (136-145)
--- NOTE | 2023-12-15 04:46 | PC.NURSE ---
blood glucose noted to be 51 on morning Chemistry. Patient awake and alert currently. [place] juice given patient states I am hungry, pudding and turkey sandwich fed to patient. Will recheck blood glucose.
[2023-12-15] MEDS: meropenem 1,000 mg SDV 1000 MG IVP ×3 (04:50→20:54)
[2023-12-15] MEDS: levothyroxine 112 mcg Tablet PO (06:17)
[2023-12-15] MEDS: sodium chloride 0.9% 1,000 ML 125 ML IV ×3 (07:05→22:08)
[2023-12-15 07:20] LABS: Glucose Point of Care 166 mg/dL (70-110)
--- NOTE | 2023-12-15 08:45 | PC.NURSE ---
Pt back to ICU after only partially completing MRI. Lumbar wo contrast was completed. Pt started crying and stated she could not do this anymore. Further scanning aborted.
[2023-12-15 08:53] LABS: Glucose Point of Care 80 mg/dL (70-110)
[2023-12-15] MEDS: nystatin powder 15 gm Btl 1 APPLIC TOPICAL ×2 (09:10→17:37)
[2023-12-15] MEDS: gabapentin 300 mg Capsule 600 MG PO ×3 (09:10→20:54)
[2023-12-15] MEDS: insulin lispro 100 unit/1 mL SUBCUT ×2 (09:10→12:45)
[2023-12-15] MEDS: buPROPion XL (24 HR) 150 mg Tablet PO (09:11)
[2023-12-15] MEDS: duloxetine 60 mg Capsule PO ×2 (09:11→17:36)
[2023-12-15] MEDS: insulin glargine 100 units/1 mL 15 UNIT SUBCUT (09:15)
--- NOTE | 2023-12-15 09:53 | PC.PHAR ---
waiting for current med list from [facility] 12/15/23 9:30am
--- NOTE | 2023-12-15 10:14 | PC.PHAR ---
Pt verified all medications in her room. Some medications have fill dates that are old and pt should be out. I reached out to [facility] for current med list and have updated some of the dates. Med rec completed via pt and pharmacy med list with fill dates and days supply.
[2023-12-15 11:13] LABS: Glucose Point of Care 174 mg/dL (70-110)
[2023-12-15 11:22] LABS: C.Diff PCR (Lab) NEGATIVE (Negative)
[2023-12-15] MEDS: vancomycin 750 MG in sodium chloride 0.9% 250 ML 250 MG IV (12:45)
[2023-12-15] MEDS: LORazepam 2 mg/mL INJ 1 mL IVP (14:08)
--- NOTE | 2023-12-15 14:18 | MR_ITS ---
WS: [id number] MRI OF THE PELVIS WITHOUT GADOLINIUM ENHANCEMENT. INDICATION: Osteomyelitis TECHNIQUE: Coronal T1, coronal STIR, and axial T1 imaging obtained. Patient could not tolerate furthe r imaging. Limited study FINDINGS: Some images degraded by motion. Complete chronic erosion of the coccyx unchanged since the prior CT. Decubitus ulcer is visualized in this area at the distal aspect of the sacrum. Chirinos catheter. Moderate degenerative arthritis both h ips with subchondral cystic change. Replacement of the normal T1 fatty bone marrow signal in the distal sacrum abutting the decubitus ulc er suspicious for osteomyelitis. The remainder of the sacrum demonstrates normal bone marrow signal. MR/MR pelvis wo con* [id number] IMPRESSION: Limited study. Patient could not tolerate further imaging. 1. Decubitus ulcer with no visualized drainable abscess or fluid collection on this limited study. 2. The distal portion of the remaining sacrum directly abutting the decubitus ulcer demonstrates replacement of the normal fatty T1 bone marrow signal compat ible with osteomyelitis. Remainder of the sacrum is normal in appearance. This is best visualized on axial T1 imaging, series 601 image 21. See bookmark image s.
--- NOTE | 2023-12-15 14:44 | P.PN_ITS ---
Subjective 2 Subjective: History and physical reviewed. Patient reported no complaints to me other than some back pain, which she reports is chronic. She does not want to go to any nursing facility for wound care. She would prefer to go home, even if the wound VAC is placed. Medications: Reviewed: Yes Vitals/I&O/Wt Last Vital Signs Temp 98.8 F 12/15/23 04:00 Pulse 81 12/15/23 07:00 Resp 17 12/15/23 07:00 BP 112/60 12/15/23 07:00 Pulse Ox 100 12/15/23 07:00 O2 Del Method Room Air 12/15/23 07:00 12/14/23 12/15/23 12/15/23 22:59 06:59 14:59 Intake Total 1524.06 / 1524.06 1500 / 3024.06 360 / 360 Output Total 1025 / 1025 Balance 1524.06 / 1524.06 475 / 1999.06 360 / 360 Weight last 48 hrs Weight 47 kg Weight 46 kg Weight 50.802 kg Physical Exam 2 Narrative: General exams white female, reporting some back discomfort Neck supple Cardiovascular regular rate and rhythm Lungs clear Abdomen soft Back with multiple dressings. Upper extremities with amputations of the hands. Stumps noted. Urinary Catheter Management: Chirinos: Cath Placed During This Visit: yes Reason for Continuing Indwelling Catheter: Accurate Measurement of Urinary Output in Critically Ill Patients Urinary Catheter Date of Insertion: 12/14/23 Urinary Catheter Time of Insertion: 20:55 Data 12/15/23 02:06 12/15/23 02:06 Micro: Microbiology 12/14/23 19:58 Blood Culture - Preliminary Blood SPECIMEN COLLECTED 12/14/23 19:55 Blood Culture - Preliminary Blood SPECIMEN COLLECTED A&P Assessment and plan (1) Septic shock: Patient with septic shock likely secondary to UTI but cannot differentiate cofactor of osteomyelitis of the spine. MRI pending. Hold Imdur secondary to lower blood pressures Continue hydration with IV fluids, NS at 125 cc an hour. (2) Osteomyelitis: Patient with history of osteomyelitis of the spine. Currently receiving daptomycin from my understanding. This has been changed to vancomycin inpatient Surgical consultation. Likely debridement today. Resume Plavix if no further major surgery hallucal intervention is planned. MRI pending Qualifiers: Osteomyelitis type: other chronic (3) UTI (urinary tract infection): Patient with significant UTI Meropenem initiated Await culture Qualifiers: Urinary tract infection type: acute cystitis Hematuria presence: with hematuria Qualified Code(s): N30.01 - Acute cystitis with hematuria (4) DM type 2 causing complication: Sliding scale Insulin glargine 15 units daily Plan Other medical problems as noted in past medical history Full code Lovenox for DVT prophylaxis Attestations 2 Medical Necessity Statement*: Needs continued hospitalization for IV antibiotics with broad-spectrum antibiotics secondary to septic shock. Diagnoses Septic shock A41.9; R65.21 Osteomyelitis M86.9 Osteomyelitis type: other chronic Acute cystitis with hematuria N30.01 Urinary tract infection type: acute cystitis Hematuria presence: with hematuria DM type 2 causing complication E11.8 Time Spent (min) 34
--- NOTE | 2023-12-15 14:49 | PC.NURSE ---
Pt back to MRI for second try. Ativan admin 30 minutes prior as ordered.
--- NOTE | 2023-12-15 15:43 | PM.CONSULT ---
Providers/Reason For Consult Consulting Physician/Specialty*: Dr. Navdeep Aguiar, DO/General Surgery Reason for Consult*: Sepsis, osteomyelitis Attending Physician: Florencio Nelson MD Primary Care Provider: ANUJ Hernández History of Present Illness History of Present Illness Delia Winter is a 58 year old female, with a history of coronary artery disease on Plavix and amputations of her right forearm, left forearm, right thigh and left thigh and with known stage IV decubitus ulcers of the right forearm stump, left thigh stump and sacrum, who presented to the hospital with confusion and septic shock. UA was suspicious for a UTI. She has known osteomyelitis of her sacrum for which she is on daptomycin outpatient. I tried to do wound revisions last week but we had to cancel the outpatient surgery due to electrolyte abnormalities. General surgery was consulted for possible sepsis related to her wounds. Patient is asking to go home and is oriented x 3 today. She denies any pain or other symptoms at this time Review of Systems General: Reports: 10 or more systems reviewed and unremarkable except in HPI and below Medications/Allergies Home Medications Medication Instructions Recorded Confirmed Last Taken Type prosthetic hands Bilateral #1 ea 05/02/19 12/15/23 Unknown Rx blood-glucose sensor #3 ea 05/08/20 12/15/23 Unknown Rx flash glucose scanning reader #1 ea 06/14/20 12/15/23 Unknown Rx (FreeStyle Maria M 2 [place]) pen needle, diabetic 31 gauge x #450 ea 07/01/20 12/15/23 Unknown Rx 3/16 (Sure-Fine Pen [place]) prosthetic legs #1 ea 12/11/20 12/15/23 Unknown Rx flash glucose sensor (FreeStyle #6 ea 10/19/21 12/15/23 Unknown Rx Maria M 2 Sensor kit) nitroglycerin 0.4 mg sublingual 0.4 mg sublingual Q5M PRN chest 04/12/22 12/15/23 12/06/23 Rx tablet pain #25 tabs Ear Pulse Ox #1 ea 04/25/22 12/15/23 Unknown Rx clonazepam 0.5 mg tablet 0.5 mg PO DAILY PRN anxiety 30 09/21/22 12/15/23 Unknown Rx days #30 tabs acetaminophen 325 mg tablet 325 mg PO QID PRN Pain 10/17/22 12/15/23 Unknown History diphenhydramine HCl 25 mg tablet 25 mg PO TID PRN Allergy Symptoms 10/17/22 12/15/23 Unknown History (Benadryl Allergy) wheelchair motorized #1 ea 12/16/22 12/15/23 Unknown Rx bupropion HCl 150 mg 24 hr tablet, 150 mg PO QAM #30 tabs 06/07/23 12/15/23 12/06/23 Rx extended release (Wellbutrin XL) sodium hypochlorite 0.125 % 1 applic topical BID open wound 06/21/23 12/15/23 12/06/23 Rx solution (Dakin's Solution) #473 mL cholecalciferol (vitamin D3) 1,250 See Rx Instructions .Route 06/27/23 12/15/23 Unknown Rx mcg (50,000 unit) capsule .COMPLEX #4 caps duloxetine 60 mg capsule,delayed 60 mg PO BID #60 caps 06/29/23 12/15/23 12/06/23 Rx release blood-glucose sensor (Dexcom G7 #1 ea 10/30/23 12/15/23 Unknown Rx Sensor device) blood-glucose meter,continuous #1 ea 11/09/23 12/15/23 Unknown Rx (Dexcom G7 Key Account Representative) ciprofloxacin HCl 500 mg tablet 500 mg PO BID 2 weeks #28 tabs 11/30/23 12/15/23 12/06/23 Rx sulfamethoxazole 800 1 tab PO BID 2 weeks #28 tabs 11/30/23 12/15/23 12/06/23 Rx mg-trimethoprim 160 mg tablet (Bactrim DS) clopidogrel 75 mg tablet 75 mg PO DAILY 12/06/23 12/15/23 11/30/23 History fenofibrate 160 mg tablet 160 mg PO DAILY 12/06/23 12/15/23 12/06/23 History gabapentin 600 mg tablet 600 mg PO TID 12/06/23 12/15/23 12/06/23 History isosorbide mononitrate 30 mg 30 mg PO DAILY 12/06/23 12/15/23 12/07/23 History tablet,extended release 24 hr levothyroxine 112 mcg tablet 112 mcg PO DAILY 12/06/23 12/15/23 12/06/23 History metoprolol tartrate 25 mg tablet 25 mg PO DAILY 12/06/23 12/15/23 12/07/23 History nystatin 100,000 unit/mL oral 500,000 unit (5 mL) buccal DAILY 12/06/23 12/15/23 12/06/23 Rx suspension #250 mL daptomycin 500 mg intravenous 500 mg IV ONCE 12/12/23 12/15/23 Unknown History solution oxycodone 10 mg tablet 10 mg PO TID PRN pain 30 days #90 12/12/23 12/15/23 Unknown Rx tabs insulin detemir U-100 100 unit/mL 30 unit SUBCUT QAM 12/14/23 12/15/23 Unknown History (3 mL) subcutaneous pen (Levemir FlexPen) insulin regular hum U-500 conc 500 100 unit (0.2 mL) SUBCUT .COMPLEX 12/14/23 12/15/23 Unknown Rx unit/mL(3 mL) subcut pen (Humulin #6 mL R U-500 (Conc) Insulin Kwikpen) nystatin 100,000 unit/gram topical 1 applic topical BID #60 grams 12/14/23 12/15/23 Unknown Rx powder zolpidem 5 mg tablet 5 mg PO BEDTIME PRN insomnia 12/15/23 12/15/23 Unknown History Allergies Allergy/AdvReac Type Severity Reaction Status Date / Time cephalexin Allergy Unknown Not Verified 12/14/23 11:45 Entered,Swelling,Diarrhea metformin Allergy Unknown Diarrhea,Not Verified 12/14/23 11:45 Entered,SWELLING Current Medications Generic Name Dose Route Start Last Admin Trade Name Freq PRN Reason Stop Dose Admin Acetaminophen 650 mg 12/14/23 22:25 12/15/23 00:31 Acetaminophen 325 Mg Tablet PO 650 mg Q6H PRN Administration Mild/Mod Pain Or Temp >/= 101 Bupropion HCl 150 mg 12/15/23 09:00 12/15/23 09:11 Bupropion Xl (24 Hr) 150 Mg Tablet PO 150 mg DAILY EVELIO Administration Duloxetine HCl 60 mg 12/15/23 09:00 12/15/23 09:11 Duloxetine 60 Mg Capsule PO 60 mg BID EVELIO Administration Enoxaparin Sodium 40 mg 12/14/23 22:25 12/14/23 22:56 Enoxaparin 40 Mg/0.4 Ml Syringe SUBCUT 40 mg Q24H EVELIO Administration Gabapentin 600 mg 12/15/23 09:00 12/15/23 09:10 Gabapentin 300 Mg Capsule PO 600 mg TID EVELIO Administration Sodium Chloride 1,000 mls @ 125 mls/hr 12/14/23 22:25 12/15/23 07:05 Sodium Chloride 0.9% IV 125 mls/hr .Q8H EVELIO Administration Vancomycin HCl 1,000 mg/ 250 mls @ 250 mls/hr 12/14/23 23:45 12/15/23 00:42 Sodium Chloride IV Infused ONCE EVELIO Infusion Vancomycin HCl 750 mg/ Sodium 250 mls @ 250 mls/hr 12/15/23 12:00 12/15/23 12:45 Chloride IV 250 mls/hr Q12H EVELIO Administration Insulin Glargine 15 unit 12/15/23 09:00 12/15/23 09:15 Insulin Glargine 100 Units/1 Ml SUBCUT 15 unit DAILY EVELIO Administration Insulin Human Lispro 0 unit 12/15/23 08:00 12/15/23 12:45 Insulin Lispro 100 Unit/1 Ml SUBCUT 2 unit TIDWM EVELIO Administration Protocol Levothyroxine Sodium 112 mcg 12/15/23 06:00 12/15/23 06:17 Levothyroxine 112 Mcg Tablet PO 112 mcg 0600 EVELIO Administration Meropenem 1,000 mg 12/15/23 05:00 12/15/23 12:45 Meropenem 1,000 Mg Sdv IVP 1,000 mg Q8H EVELIO Administration Protocol Nystatin 1 applic 12/15/23 09:00 12/15/23 09:10 Nystatin Powder 15 Gm Btl TOPICAL 1 applic BID EVELIO Administration Ondansetron HCl 4 mg 12/14/23 22:25 12/14/23 23:54 Ondansetron 2 Mg/Ml Sdv 2 Ml IVP 4 mg Q8H PRN Administration vomiting, or N/V if npo Pantoprazole Sodium 40 mg 12/14/23 22:25 12/14/23 22:56 Pantoprazole 40 Mg Sdv IVP 40 mg Q24H EVELIO Administration Sodium Hypochlorite 1 applic 12/15/23 09:00 12/15/23 10:18 Sodium Hypochlorite 0.125% Btl 473 Ml TOPICAL Not Given BID EVELIO PFSH Acute PFSH: Medical History (Updated 12/15/23 @ 15:49 by Navdeep Aguiar DO) Decubitus ulcer of sacral region, stage 4 Septic shock Hypotension Abscess of buttock, left Decubital ulcer Infected pressure ulcer Abscess of left buttock Mobility impaired Pressure ulcer of buttock Stage II pressure ulcer of left buttock DM type 2 causing complication Diabetes mellitus Bilateral pneumonia Influenza B UTI (urinary tract infection) COVID-19 Hypovolemic shock Pressure sore on buttocks UTI (urinary tract infection) Amputation leg, bilat Psychiatric care Anxiety Major depressive disorder, recurrent severe without psychotic features Coronary artery disease Polyuria Polydipsia Urgency incontinence Recurrent UTI Below-elbow amputation of right upper extremity Below-elbow amputation of left upper extremity 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 Enrolled in chronic care management Rheumatoid arthritis Phantom pain after amputation of lower extremity Chronic pain 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 Hypothyroidism Hyperlipemia, mixed HTN (hypertension), benign (~11/2022) 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, hand, bilateral Hx of sepsis Surgical History History of amputation of lower extremity History of skin graft History of appendectomy History of amputation of finger of both hands Family History Father , at age 47 CAD (coronary artery disease) Hypertension Mother , at age 64 Diabetes Lung disease Sister Diabetes Brother Diabetes Denies family history of Dementia Cancer Stroke Social History Smoking and tobacco/nicotine status: current every day tobacco/nicotine user cigarettes Packs smoked per day: 0.5 Years cigarettes smoked: 48 Quit status (tobacco/nicotine): has tried quititng Second hand smoke exposure: Yes Alcohol intake: current Alcohol intake frequency: holidays/special occasions only Alcohol type: wine Substance/Drug Use: never Adopted: No Caregiver/support person: Yes Lives independently: Yes Household members: significant other and family Housing: House Marital status: Single Marital status details: Life partner of 45 years Number of children: 0 Number of grandchildren: 0 Highest education level completed: High School Graduate service: No Current occupational status: disabled Pets and animals: Yes (lab, yorkie, beagle) Pets & animals: cat(s) and dog(s) Leisure activites: art, fishing and other Leisure activities details: writing, watch TV Sexually active: Yes Do you think of yourself as: Straight/Heterosexual Current gender identity: Female Keyonna/Gnosticism: None Special keyonna needs: No Agree to transfusion: Yes Female Reproductive History: Para: 0 Vitals/I&O/Wt Last Vital Signs Temp 98.8 F 12/15/23 04:00 Pulse 81 12/15/23 14:00 Resp 17 12/15/23 14:00 BP 112/60 12/15/23 14:00 Pulse Ox 100 12/15/23 07:00 O2 Del Method Room Air 12/15/23 07:00 12/15/23 12/15/23 12/15/23 06:59 14:59 22:59 Intake Total 1500 / 3024.06 360 / 360 Output Total 1025 / 1025 Balance 475 / 1999.06 360 / 360 Weight last 48 hrs Weight 103 lb 9.876 oz Weight 101 lb 6.602 oz Weight 112 lb Physical Exam Narrative: General : Patient is well developed , no acute distress, oriented x3 Head : Normal cephalic, a-traumatic. Ears : Pinnae and external canal are normal. Hearing is normal. Eyes : PERRLA, Sclera and injection are normal. No conjunctival discharge. Nose : Mucous membranes are without erythema. Throat : buccal mucosa is normal, gums are without significant recession or hypertrophy. Lungs : Equal chest rise bilaterally, no use of accessory muscles, trachea is midline. Cor : Rate and rhythm are normal. 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 Stage IV sacral decubitus ulcers of right forearm stump, left thigh stump and sacrum are without erythema or exudate and healthy granulation tissue beds Back : non-tender to palpation, no CVA tenderness. Urinary Catheter Management: Chirinos: Cath Placed During This Visit: yes Reason for Continuing Indwelling Catheter: Accurate Measurement of Urinary Output in Critically Ill Patients Urinary Catheter Date of Insertion: 12/14/23 Urinary Catheter Time of Insertion: 20:55 Data 12/15/23 02:06 12/15/23 02:06 Micro: Microbiology 12/15/23 09:35 Stool Lactoferrin - Final Stool 12/15/23 09:35 Occult Blood (FIT) - Final Stool - Stool Aspirate 12/14/23 19:58 Blood Culture - Preliminary Blood SPECIMEN COLLECTED 12/14/23 19:55 Blood Culture - Preliminary Blood SPECIMEN COLLECTED A&P Assessment and plan (1) Septic shock: (2) Osteomyelitis: Sacrum Qualifiers: Osteomyelitis type: other chronic (3) Stage IV decubitus ulcer: Right forearm stump (4) Sacral decubitus ulcer, stage IV: (5) Decubitus ulcer, stage IV: Left thigh stump Plan Possible UTI also Her wounds all look very good and are unlikely to be the source of her sepsis, but she does have osteomyelitis of her sacrum I would like to revise her wounds while she is here because I was unable to do it last week due to electrolyte abnormalities as an outpatient and anesthesia concerns Continue holding Plavix. I would like her to be off of her Plavix for a couple of days of her surgery. Possible surgery on Monday Medical management per hospitalist Coding Level of Care Code 51093 Diagnoses Septic shock A41.9; R65.21 Osteomyelitis M86.9 Osteomyelitis type: other chronic Stage IV decubitus ulcer L89.94 Sacral decubitus ulcer, stage IV L89.154
[2023-12-15 17:39] LABS: Glucose Point of Care 65 mg/dL (70-110)
[2023-12-15] MEDS: morphine 4 mg/mL SDV 1 mL 2 MG IVP ×2 (19:43→21:42)
--- NOTE | 2023-12-15 19:43 | PC.NURSE ---
Shift summary: Pt unable to complete all MRI x2 times today. The second time, Ativan was admin, which she promptly dozed off but after transfer to MRI bed she would not hold still. She remains in sinus, first degree block rhythm. Her SBp was 88-120 today. After second MRI, Pt lying on her side with snoring respirations ( she dozed off immediately after changing her position the the left) Her MAP did go to %& but then it maintained 65 or greater. She remains on room air. Her evening blood sugar was low: 65. OJ given then she ate the majority of her dinner. Her appetite is much better this admission than the last. She stated her mouth is not burning this time around. Wound care provided as ordered today. She had several formed BMs this am. Urine output of 1050 noted. She denied any pain or discomfort for most of the shift. The only time she complained was about her back and she was lying supine on MRI bed the first MRI try.
[2023-12-15 21:17] LABS: Glucose Point of Care 132 mg/dL (70-110)
--- NOTE | 2023-12-15 21:40 | MR_ITS ---
WS: [id number] MRI LUMBAR SPINE NONCONTRAST TECHNIQUE: Sagittal T1, T2 and STIR imaging. Axial T1 and T2 imaging. Patient refused contrast and ad ditional sacral imaging due to pain CLINICAL INFORMATION: sacral ulcer, gas l4-l5 disc space COMPARISON: CT pelvis 11/08/2023 FINDINGS: Mild lumbar curve. Chronic compression inferior endplate L1 unchanged since the prior radiograph 12/27. Disc bulging worse at L1-2 with moderate central canal stenosis with a central disc protrusion . Compression fracture inferior endplate L4 appears unchanged since the CT pelvis 07/26/2023 with frac ture cleft and vacuum disc phenomenon. Minimal edema in the L4 inferior endplate. No evidence of para vertebral edema to indicate infection or discitis. L1-L2: Mild disc bulging with moderate central canal stenosis. Central disc osteophyte protrusion. Mi ld facet arthropathy. L2-L3: Mild annular bulging. Mild facet arthropathy. Spinal canal and foramen are patent. L3-L4: Mild annular bulging. Mild facet arthropathy. Spinal canal and foramen are patent. L4-L5: Central disc protrusion. Moderate central canal stenosis. Impingement of the traversing RIGHT greater than LEFT L5 nerve roots. Moderate facet arthropathy. Moderate LEFT and mild RIGHT foraminal narrowing. L5-S1: Moderate facet arthropathy. Spinal canal and foramen are patent. Minimal chronic compression s uperior end plate L5 MR/MR lumbar spine wo con* [id number] IMPRESSION: 1. Compression inferior endplate L4 unchanged since the CT pelvis 07/26/2023. 2. No evidence of discitis or osteomyelitis in the lumbar spine. 3. Chronic compression inferior endplate L1. 4. Moderate central canal stenosis L1-2 and L4-5 described above
[2023-12-15] MEDS: enoxaparin 40 mg/0.4 mL Syringe SUBCUT (21:41)
[2023-12-15] MEDS: pantoprazole 40 mg SDV IVP (21:41)
[2023-12-16] VITALS (32 sets, daily range): BP systolic 92–154; BP diastolic 56–90; PULSE 77–92; RESP 0–27; TEMP 36.2–36.9; O2SAT 74–100; BMI 43.0
[2023-12-16] MEDS: vancomycin 750 MG in sodium chloride 0.9% 250 ML 250 MG IV ×3 (00:06→23:20)
[2023-12-16] MEDS: morphine 4 mg/mL SDV 1 mL 2 MG IVP ×2 (00:21→05:43)
[2023-12-16 04:58] LABS: Basophils % 0.5 %; Eosinophils # 0.4 10^3/uL (0.0-0.8); Eosinophils % 5.4 %; Hematocrit 28.3 % (36-47); Lymphocytes # 2.2 10^3/uL (0.8-4.8); Lymphocytes % 33.6 %; Mean Corpuscular HGB Conc 29.7 g/dL (30-55); Mean Corpuscular Hemoglobin 24.2 pg (27-33); Mean Corpuscular Volume 81.6 fl (85-98); Mean Platelet Volume 8.8 fL (7.4-10.4); Monocytes # 0.5 10^3/uL (0.2-0.9); Neutrophils # 3.38 10^3/uL (1.8-7.7); Neutrophils % 52.2 %; Nucleated Red Blood Cells % 0 %; Platelet Count 548 10^3/cmm (157-399); Red Blood Count 3.47 10^6/uL (3.85-5.65); Red Cell Distribution Width 21.7 % (12.1-15.1); White Blood Count 6.48 10^3/uL (3.29-11.43)
[2023-12-16 05:16] LABS: Alanine Aminotransferase 8 U/L (0-33); Albumin Level 2.1 g/dL (3.5-5.2); Alkaline Phosphatase 178 U/L (35-105); Anion Gap 12.4 (5-19); Aspartate Amino Transferase 15 U/L (0-32); Blood Urea Nitrogen 8 mg/dL (8-23); Calcium 7.6 mg/dL (8.5-10.5); Carbon Dioxide 21 mmol/L (22-29); Chloride 107 mmol/L (98-107); Creatinine Clr Calc Pharmacy 221.9444; Globulin 2.5 g/dL (1.3-4.6); Glomerular Filtration Rate 362.3 mL/min (90-130); Glucose 100 mg/dL (65-115); Osmolality Calculated 280 mOsm/kg (285-295); Potassium 4.4 mmol/L (3.5-5.1); Sodium 136 mmol/L (136-145); Total Bilirubin 0.2 mg/dL (0.15-1.2); Total Protein 4.6 g/dL (6.6-8.7)
[2023-12-16] MEDS: meropenem 1,000 mg SDV 1000 MG IVP ×3 (05:42→20:39)
[2023-12-16] MEDS: levothyroxine 112 mcg Tablet PO (05:43)
[2023-12-16] MEDS: sodium chloride 0.9% 1,000 ML 125 ML IV ×3 (05:58→21:44)
[2023-12-16 08:15] LABS: Glucose Point of Care 104 mg/dL (70-110)
--- NOTE | 2023-12-16 08:20 | P.PN_ITS ---
Subjective 2 Subjective: States I'm doing well today . Denies pain or other problems at this time. No events or problems overnight. Medications: Reviewed: Yes Vitals/I&O/Wt Last Vital Signs Temp 97.1 F L 12/16/23 07:00 Pulse 79 12/16/23 07:30 Resp 23 H 12/16/23 07:30 BP 92/56 12/16/23 07:30 Pulse Ox 95 12/16/23 07:30 O2 Del Method Room Air 12/16/23 07:00 12/15/23 12/16/23 12/16/23 22:59 06:59 14:59 Intake Total 1258.333 / 2962.083 1229.167 / 4191.250 Output Total 1050 / 1050 950 / 2000 Balance 208.333 / 1912.083 279.167 / 2191.250 Weight last 48 hrs Weight 108 lb 0.424 oz Weight 103 lb 9.876 oz Weight 101 lb 6.602 oz Weight 112 lb Physical Exam 2 Narrative: General : Patient is well developed , no acute distress, oriented x3 Head : Normocephalic, atraumatic. Ears : Pinnae and external canal are normal. Hearing is normal. Eyes : PERRLA, Sclera and injection are normal. No conjunctival discharge. Nose : Mucous membranes are without erythema. Lungs : Chest rise symmetrical. No use of accessory muscles, trachea is midline. LCTA. Heart : Rate and rhythm are normal. Abdomen : Soft, ND, NT. Extremities : Status post amputations of the right forearm left forearm right thigh and left thigh. Stage IV sacral decubitus ulcers of right forearm stump, left thigh stump and sacrum are without erythema or exudate and healthy granulation tissue beds Urinary Catheter Management: Chirinos: Cath Placed During This Visit: yes Reason for Continuing Indwelling Catheter: Accurate Measurement of Urinary Output in Critically Ill Patients Urinary Catheter Date of Insertion: 12/14/23 Urinary Catheter Time of Insertion: 20:55 Data 12/16/23 04:15 12/16/23 04:15 Micro: Microbiology 12/14/23 19:58 Blood Culture - Preliminary Blood NEGATIVE TO DATE 12/14/23 19:55 Blood Culture - Preliminary Blood NEGATIVE TO DATE 12/15/23 09:35 Stool Lactoferrin - Final Stool 12/15/23 09:35 Occult Blood (FIT) - Final Stool - Stool Aspirate A&P Assessment and plan (1) Septic shock: Patient with septic shock likely secondary to UTI but cannot differentiate cofactor of osteomyelitis of the spine. MRI pending. Hold Imdur secondary to lower blood pressures Continue hydration with IV fluids, NS at 125 cc an hour. (2) Osteomyelitis: Patient with history of osteomyelitis of the spine. Currently receiving daptomycin from my understanding. This has been changed to vancomycin inpatient Surgical consultation. Likely debridement today. Resume Plavix if no further major surgery hallucal intervention is planned. MRI pending Qualifiers: Osteomyelitis type: other chronic (3) UTI (urinary tract infection): Patient with significant UTI Meropenem initiated Await culture Qualifiers: Hematuria presence: with hematuria Urinary tract infection type: acute cystitis Qualified Code(s): N30.01 - Acute cystitis with hematuria (4) DM type 2 causing complication: Sliding scale Insulin glargine 15 units daily Plan PLAN: Surgery consulted and planning for debridement. Currently holding Plavix. Continue with vancomycin and meropenem. [facility]. Vitals have been stable. Clinically she appears to be improving. White count is down to 6.48. Hemoglobin is stable at 8.4. Sugars are well- controlled. Her albumin was low at 2.1. Consider replacement, but this may improve as her diet continues to excelsior picker. If remains low on recheck, will consider replacement. Continue IVF's for now. Will recheck labs in am. Shock has resolved. Blood pressures and vitals are currently stable. Last pressure was 129/74. MRI did not show osteomyelitis of the lumbar spine. Code Status: Full code IVF: NS@125 DVT PPx: Lovenox for DVT prophylaxis GI PPx: Protonix ABx: Vanc, Meropenem Diet: CC Discharge plan: Home when appropriate. Attestations 2 Medical Necessity Statement*: Needs continued hospitalization for IV antibiotics with broad-spectrum antibiotics secondary to septic shock. Coding Level of Care Code Acute Code for [facility] Fwd Diagnoses Septic shock A41.9; R65.21 Osteomyelitis M86.9 Osteomyelitis type: other chronic Acute cystitis with hematuria N30.01 Hematuria presence: with hematuria Urinary tract infection type: acute cystitis DM type 2 causing complication E11.8
[2023-12-16] MEDS: gabapentin 300 mg Capsule 600 MG PO ×3 (08:38→20:27)
[2023-12-16] MEDS: duloxetine 60 mg Capsule PO ×2 (08:38→17:27)
[2023-12-16] MEDS: buPROPion XL (24 HR) 150 mg Tablet PO (08:38)
[2023-12-16] MEDS: insulin glargine 100 units/1 mL 15 UNIT SUBCUT (08:39)
[2023-12-16] MEDS: nystatin powder 15 gm Btl 1 APPLIC TOPICAL ×2 (08:41→17:27)
--- NOTE | 2023-12-16 09:49 | PHA.VACGOAL ---
Vancomycin Goal - Goal Vancomycin Indication:: Osteo - Therapy Current therapy:: Meropenem (1 GM IVP Q8H) Day of therpy:: Day [2]of [] . Actual body weight (kg): 49 kg [place]ord body weight: 19.8 Dosing weight (kg): 49 - Data Labs: WBC 6.48 10^3/uL (3.29-11.43) 12/16/23 04:15 RBC 3.47 10^6/uL (3.85-5.65) L 12/16/23 04:15 Hgb 8.40 g/dL (11.27-16.99) L 12/16/23 04:15 Hct 28.3 % (36-47) L 12/16/23 04:15 MCV 81.6 fl (85-98) L 12/16/23 04:15 MCH 24.2 pg (27-33) L 12/16/23 04:15 MCHC 29.7 g/dL (30-55) L 12/16/23 04:15 RDW 21.7 % (12.1-15.1) H 12/16/23 04:15 Sodium 136 mmol/L (136-145) 12/16/23 04:15 Potassium 4.4 mmol/L (3.5-5.1) 12/16/23 04:15 Chloride 107 mmol/L (98-107) 12/16/23 04:15 Carbon Dioxide 21 mmol/L (22-29) L 12/16/23 04:15 Anion Gap 12.4 (5-19) 12/16/23 04:15 BUN 8 mg/dL (8-23) 12/16/23 04:15 Creatinine 0.2 mg/dL (0.5-0.9) L 12/16/23 04:15 GFR Calculation 362.3 mL/min (90-130) H 12/16/23 04:15 Last dialysis session:: N/A Drug administration history:: Medications Meropenem (Meropenem 1,000 Mg Sdv) 1,000 mg IVP Q8H [facility]; Protocol Last Admin: 12/16/23 05:42 Dose: 1,000 mg Vancomycin HCl 750 mg/ Sodium (Chloride) 250 mls @ 250 mls/hr IV Q12H EVELIO Last Admin: 12/16/23 01:23 Dose: Infused Discontinued Medications Vancomycin HCl 1,000 mg/ (Sodium Chloride) 250 mls @ 250 mls/hr IV ONCE EVELIO Last Admin: 12/15/23 00:42 Dose: Infused Treatment plan:: new consult (1 gm in ER, 750 mg IVPB Q12H) Follow up:: Scr daily with AM labs Additional Comments:: dosed on 12/14/23 by Telepharmacy
[2023-12-16 11:27] LABS: Glucose Point of Care 122 mg/dL (70-110)
[2023-12-16 17:22] LABS: Glucose Point of Care 125 mg/dL (70-110)
--- NOTE | 2023-12-16 17:24 | P.PN_ITS ---
Subjective 2 Subjective: Patient seen and examined. Denies any pain at her right upper extremity, left lower extremity and sacral wounds today Vitals/I&O/Wt Last Vital Signs Temp 97.1 F L 12/16/23 07:00 Pulse 87 12/16/23 16:00 Resp 19 H 12/16/23 16:00 BP 119/70 12/16/23 16:00 Pulse Ox 100 12/16/23 16:00 O2 Del Method Room Air 12/16/23 16:00 12/16/23 12/16/23 12/16/23 06:59 14:59 22:59 Intake Total 1229.167 / 4191.250 2150 / 2150 Output Total 950 / 2000 1200 / 1200 Balance 279.167 / 2191.250 950 / 950 Weight last 48 hrs Weight 108 lb 0.424 oz Weight 103 lb 9.876 oz Weight 101 lb 6.602 oz Weight 112 lb Physical Exam 2 Narrative: General : Patient is well developed , no acute distress, oriented x3 Head : Normal cephalic, a-traumatic. Ears : Pinnae and external canal are normal. Hearing is normal. Eyes : PERRLA, Sclera and injection are normal. No conjunctival discharge. Nose : Mucous membranes are without erythema. Throat : buccal mucosa is normal, gums are without significant recession or hypertrophy. Lungs : Equal chest rise bilaterally, no use of accessory muscles, trachea is midline. Cor : Rate and rhythm are normal. 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 Stage IV sacral decubitus ulcers of right forearm stump, left thigh stump and sacrum are without erythema or exudate and healthy granulation tissue beds Back : non-tender to palpation, no CVA tenderness. Urinary Catheter Management: Chirinos: Cath Placed During This Visit: yes Reason for Continuing Indwelling Catheter: Accurate Measurement of Urinary Output in Critically Ill Patients Urinary Catheter Date of Insertion: 12/14/23 Urinary Catheter Time of Insertion: 20:55 Data 12/16/23 04:15 12/16/23 04:15 Micro: Microbiology 12/14/23 20:55 Urine Culture - Preliminary Urine,Clean Catch 12/14/23 19:58 Blood Culture - Preliminary Blood NEGATIVE TO DATE 12/14/23 19:55 Blood Culture - Preliminary Blood NEGATIVE TO DATE 12/15/23 09:35 Stool Lactoferrin - Final Stool 12/15/23 09:35 Occult Blood (FIT) - Final Stool - Stool Aspirate A&P Assessment and plan (1) Septic shock: (2) Osteomyelitis: Sacrum Qualifiers: Osteomyelitis type: other chronic (3) Stage IV decubitus ulcer: Right forearm stump (4) Sacral decubitus ulcer, stage IV: (5) Decubitus ulcer, stage IV: Left thigh stump Plan Her wounds all look very good and are unlikely to be the source of her sepsis, but she does have osteomyelitis of her sacrum I would like to revise her wounds while she is here because I was unable to do it last week due to electrolyte abnormalities as an outpatient and anesthesia concerns Continue holding Plavix. I would like her to be off of her Plavix for a couple of days of her surgery. 2 OR tomorrow for fasciocutaneous flap creation and wound revisions right upper extremity and left lower extremity with sharp excisional debridement of sacral decubitus ulcer and wound VAC placement. Risks and benefits were previously explained and documented as this was originally planned to be done as an outpatient last week Medical management per hospitalist Attestations 2 Medical Necessity Statement*: Per primary Coding Level of Care Code 00448 Diagnoses Septic shock A41.9; R65.21 Osteomyelitis M86.9 Osteomyelitis type: other chronic Stage IV decubitus ulcer L89.94 Sacral decubitus ulcer, stage IV L89.154
--- NOTE | 2023-12-16 18:56 | P.NPUHP_ITS ---
Providers/Chief Complaint 2 Admitting Physician: Will Upton MD Primary Care Provider: ANUJ Hernández Chief Complaint: Fever HPI NPU History of Present Illness Delia Winter is a 58 year old female who presented to the emergency department with the following report: Time: In Out Identification: Delia Wells is a [age] single white female who was seen after initial assessment. Informants: Delia is seen individually and assessment records are reviewed. Chief Complaint: ?Medications aren?t working like they used to?. History: Delia has a depression history over several years. She reports initially that she had difficulty with typical depressive symptoms related to dysphoric, unhappy, lack of enjoyment, trouble sleeping, poor concentration and feelings of hopelessness and being tearful at times. She has also had difficulties with excessive worry. She has had suicidal thoughts, but none current. She has not had any attempts. She has also struggled with increase in medical problems. She has struggled with joint pain and has been diagnosed with rheumatoid arthritis last summer. She has been diagnosed with diabetes, approximately four to five years ago. She is currently under treatment and getting some reasonable results. She states her blood sugar is under good control. She also has difficulty with thyroid disease and takes Levothyroxin which is reportedly doing well at this time. She is currently taking Cymbalta 60 mg twice with some benefits, but not the point in the past medication have. Past History: She has not had hospitalizations. She has not had therapy. She has been seeing her primary care provider. She has taken Prozac, which initially was quite helpful, but ?pooped out?. She has also tried Paxil, Celexa and Zoloft that helped some. She continues to struggle with finding the benefit she has had in the past. Medical History: No known drug allergies. She has a history of type II diabetes, rheumatoid arthritis and hypertension. Her current medications include Enbrel, Methotrexate, Sulfasalazine, Glyburide, levothyroxin, folic acid, Lisinopril and Darvocet. Family History: History of diabetes and heart disease. No known psychiatric history in the family. Addictive Behavior/Dependence: There is no evidence of prescription, street drug or alcohol dependence or use. Abusive/Traumatic Circumstances: No abuse is reported. Psychosocial: Childhood- Born in [place], [place]. Parents were . Her father at thirty-[age]. She has two younger siblings. She describes her relationship as the family getting along fairly well. Environment and Home- Currently lives in [place] and reports housing is adequate. Activities of Daily Living- She is able to care for herself and manage her funds. Family Circumstances- Single. Social and Peer Groups- She states she has a couple of good friends that she can count on and trust. Sexual Orientation- She denies sexual interest. Educational- She graduated high school. Extra Curricular- She was involved in softball, volleyball and band. Voodoo and Spiritual- She states she believes in God, but does not go to holiness. Leisure and Recreational- She enjoys fishing, swimming, crafts and puzzles when she is feeling better, but as general currently lack of interest. Financial- She reports adequate income. 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 She states she struggles some, but works forty-five to five hours a week and manages. - None. Legal- No problems. Mental Status: She presents causally, but adequately dressed and groomed. Motor and speech is essentially normal. Affect is full and appropriate. Mood is mildly anxious and dysphoric. Thoughts are clear, coherent, and goal directed and logical. There is no evidence of racing thoughts, tiffany or hypomania. There is no psychosis, hallucinations, delusions, suicide or homicide ideation. She is alert. She is oriented to time, person and place. Memory is intact to recent and remote events. IQ is average to above by reasoning and fund of knowledge. Insight, judgment and impulse control is good. Diagnosis: [place] IMajor depression, recurrent, severe, without psychotic features [place] IINo diagnosis [place] IIIRheumatoid arthritis, hypertension, type II diabetes [place] IVModerate, problems with health and pain [place] VGAF current 60, past year 63 Risk Assessment: There is no indication of eminent danger to self or others. She is aware of how to contact twenty-four hour care, seven days a week. Plan: 1.She will continue Cymbalta at 60 mg twice a day as showing some benefit. 2.She will have augmentation with Abilify 5 mg. 3.She understands the benefits, risks and side effects of the medications, including monitoring glucose, lipids and weight and consents. 4.She will follow-up in three to four weeks with Marisa Bailey and Marisa sees her and she feels comfortable with Marisa Bailey. DS#:[id number] <<Signature on File>> Dictated By: Jean Paul John MD <<Signature on File>> Signed By ??Close Meds NPU Home Medications Medication Instructions Recorded Confirmed Last Taken Type prosthetic hands Bilateral #1 ea 05/02/19 12/15/23 Unknown Rx blood-glucose sensor #3 ea 05/08/20 12/15/23 Unknown Rx flash glucose scanning reader #1 ea 06/14/20 12/15/23 Unknown Rx (FreeStyle Maria M 2 [place]) pen needle, diabetic 31 gauge x #450 ea 07/01/20 12/15/23 Unknown Rx 3/16 (Sure-Fine Pen [place]) prosthetic legs #1 ea 12/11/20 12/15/23 Unknown Rx flash glucose sensor (FreeStyle #6 ea 10/19/21 12/15/23 Unknown Rx Maria M 2 Sensor kit) nitroglycerin 0.4 mg sublingual 0.4 mg sublingual Q5M PRN chest 04/12/22 12/15/23 12/06/23 Rx tablet pain #25 tabs Ear Pulse Ox #1 ea 04/25/22 12/15/23 Unknown Rx clonazepam 0.5 mg tablet 0.5 mg PO DAILY PRN anxiety 30 09/21/22 12/15/23 Unknown Rx days #30 tabs acetaminophen 325 mg tablet 325 mg PO QID PRN Pain 10/17/22 12/15/23 Unknown History diphenhydramine HCl 25 mg tablet 25 mg PO TID PRN Allergy Symptoms 10/17/22 12/15/23 Unknown History (Benadryl Allergy) wheelchair motorized #1 ea 12/16/22 12/15/23 Unknown Rx bupropion HCl 150 mg 24 hr tablet, 150 mg PO QAM #30 tabs 06/07/23 12/15/23 12/06/23 Rx extended release (Wellbutrin XL) sodium hypochlorite 0.125 % 1 applic topical BID open wound 06/21/23 12/15/23 12/06/23 Rx solution (Dakin's Solution) #473 mL cholecalciferol (vitamin D3) 1,250 See Rx Instructions .Route 06/27/23 12/15/23 Unknown Rx mcg (50,000 unit) capsule .COMPLEX #4 caps duloxetine 60 mg capsule,delayed 60 mg PO BID #60 caps 06/29/23 12/15/23 12/06/23 Rx release blood-glucose sensor (Dexcom G7 #1 ea 10/30/23 12/15/23 Unknown Rx Sensor device) blood-glucose meter,continuous #1 ea 11/09/23 12/15/23 Unknown Rx (Dexcom G7 Automobile [employer]er) ciprofloxacin HCl 500 mg tablet 500 mg PO BID 2 weeks #28 tabs 11/30/23 12/15/23 12/06/23 Rx sulfamethoxazole 800 1 tab PO BID 2 weeks #28 tabs 11/30/23 12/15/23 12/06/23 Rx mg-trimethoprim 160 mg tablet (Bactrim DS) clopidogrel 75 mg tablet 75 mg PO DAILY 12/06/23 12/15/23 11/30/23 History fenofibrate 160 mg tablet 160 mg PO DAILY 12/06/23 12/15/23 12/06/23 History gabapentin 600 mg tablet 600 mg PO TID 12/06/23 12/15/23 12/06/23 History isosorbide mononitrate 30 mg 30 mg PO DAILY 12/06/23 12/15/23 12/07/23 History tablet,extended release 24 hr levothyroxine 112 mcg tablet 112 mcg PO DAILY 12/06/23 12/15/23 12/06/23 History metoprolol tartrate 25 mg tablet 25 mg PO DAILY 12/06/23 12/15/23 12/07/23 History nystatin 100,000 unit/mL oral 500,000 unit (5 mL) buccal DAILY 12/06/23 12/15/23 12/06/23 Rx suspension #250 mL daptomycin 500 mg intravenous 500 mg IV ONCE 12/12/23 12/15/23 Unknown History solution oxycodone 10 mg tablet 10 mg PO TID PRN pain 30 days #90 12/12/23 12/15/23 Unknown Rx tabs insulin detemir U-100 100 unit/mL 30 unit SUBCUT QAM 12/14/23 12/15/23 Unknown History (3 mL) subcutaneous pen (Levemir FlexPen) insulin regular hum U-500 conc 500 100 unit (0.2 mL) SUBCUT .COMPLEX 12/14/23 12/15/23 Unknown Rx unit/mL(3 mL) subcut pen (Humulin #6 mL R U-500 (Conc) Insulin Kwikpen) nystatin 100,000 unit/gram topical 1 applic topical BID #60 grams 12/14/23 12/15/23 Unknown Rx powder zolpidem 5 mg tablet 5 mg PO BEDTIME PRN insomnia 12/15/23 12/15/23 Unknown History Allergies Allergy/AdvReac Type Severity Reaction Status Date / Time cephalexin Allergy Unknown Not Verified 12/14/23 11:45 Entered,Swelling,Diarrhea metformin Allergy Unknown Diarrhea,Not Verified 12/14/23 11:45 Entered,SWELLING PFSH NPU 2 PFSH: Medical History (Updated 12/15/23 @ 15:49 by Navdeep Aguiar DO) Decubitus ulcer of sacral region, stage 4 Septic shock Hypotension Abscess of buttock, left Decubital ulcer Infected pressure ulcer Abscess of left buttock Mobility impaired Pressure ulcer of buttock Stage II pressure ulcer of left buttock DM type 2 causing complication Diabetes mellitus Bilateral pneumonia Influenza B UTI (urinary tract infection) COVID-19 Hypovolemic shock Pressure sore on buttocks UTI (urinary tract infection) Amputation leg, bilat Psychiatric care Anxiety Major depressive disorder, recurrent severe without psychotic features Coronary artery disease Polyuria Polydipsia Urgency incontinence Recurrent UTI Below-elbow amputation of right upper extremity Below-elbow amputation of left upper extremity 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 Enrolled in chronic care management Rheumatoid arthritis Phantom pain after amputation of lower extremity Chronic pain 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 Hypothyroidism Hyperlipemia, mixed HTN (hypertension), benign (~11/2022) 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, hand, bilateral Hx of sepsis Surgical History History of amputation of lower extremity History of skin graft History of appendectomy History of amputation of finger of both hands Family History Father , at age 47 CAD (coronary artery disease) Hypertension Mother , at age 64 Diabetes Lung disease Sister Diabetes Brother Diabetes Denies family history of Dementia Cancer Stroke Social History Smoking and tobacco/nicotine status: current every day tobacco/nicotine user cigarettes Packs smoked per day: 0.5 Years cigarettes smoked: 48 Quit status (tobacco/nicotine): has tried quititng Second hand smoke exposure: Yes Alcohol intake: current Alcohol intake frequency: holidays/special occasions only Alcohol type: wine Substance/Drug Use: never Adopted: No Caregiver/support person: Yes Lives independently: Yes Household members: significant other and family Housing: House Marital status: Single Marital status details: Life partner of 45 years Number of children: 0 Number of grandchildren: 0 Highest education level completed: High School Graduate service: No Current occupational status: disabled Pets and animals: Yes (lab, yorkie, beagle) Pets & animals: cat(s) and dog(s) Leisure activites: art, fishing and other Leisure activities details: writing, watch TV Sexually active: Yes Do you think of yourself as: Straight/Heterosexual Current gender identity: Female [place]/Voodoo: None Special keyonna needs: No Agree to transfusion: Yes Female Reproductive History: Para: 0 Vitals/I&O/Wt Last Vital Signs Temp 97.1 F L 12/16/23 07:00 Pulse 87 12/16/23 16:00 Resp 19 H 12/16/23 16:00 BP 119/70 12/16/23 16:00 Pulse Ox 100 12/16/23 16:00 O2 Del Method Room Air 12/16/23 16:00 12/16/23 12/16/23 12/16/23 06:59 14:59 22:59 Intake Total 1229.167 / 4191.250 2150 / 2150 Output Total 950 / 2000 1200 / 1200 Balance 279.167 / 2191.250 950 / 950 Weight last 48 hrs Weight 49 kg Weight 47 kg Weight 46 kg Physical Exam 2 Urinary Catheter Management: Chirinos: Cath Placed During This Visit: yes Reason for Continuing Indwelling Catheter: Accurate Measurement of Urinary Output in Critically Ill Patients Urinary Catheter Date of Insertion: 12/14/23 Urinary Catheter Time of Insertion: 20:55 Data NPU 12/16/23 04:15 12/16/23 04:15 Micro: Microbiology 12/14/23 20:55 Urine Culture - Preliminary Urine,Clean Catch 12/14/23 19:58 Blood Culture - Preliminary Blood NEGATIVE TO DATE 12/14/23 19:55 Blood Culture - Preliminary Blood NEGATIVE TO DATE 12/15/23 09:35 Stool Lactoferrin - Final Stool 12/15/23 09:35 Occult Blood (FIT) - Final Stool - Stool Aspirate Microbiology 12/14/23 20:55 Urine,Clean Catch Urine Culture - Preliminary 12/14/23 19:58 Blood Blood Culture - Preliminary NEGATIVE TO DATE 12/14/23 19:55 Blood Blood Culture - Preliminary NEGATIVE TO DATE 12/15/23 09:35 Stool Stool Lactoferrin - Final 12/15/23 09:35 Stool - Stool Aspirate Occult Blood (FIT) - Final Coding Level of Care Code Acute Code for Chg Fwd
--- NOTE | 2023-12-16 19:30 | PC.NURSE ---
Shift summary: Pt denied pain for most of entire shift Wound care: wet to dry dressing changes completed as ordered. . New area noted at bottom of right buttock, an excoriated area is now open to second skin layer. Sinus rhythm , first degree block noted on monitor. BP stayed WNL. The ends of her upper amputations mottle occasionally still, like they did last visit. She spent most of the day propped up in bed, table with her phone , drink and call light in front of her. Stylus strapped to her right wrist, calling family and friends. Her mood seemed much improved today. She did reiterated how much she just wanted to go home. She had a strong appetite this shift, she ate at least 75% of every meal had snacks and drinks in between. Urine output was 1925 of clear pale yellow urine. She incontinent of 3 Bms. Her perineal area remains excoriated and red. Nystatin powder applied as ordered.
[2023-12-16] MEDS: zolpidem 5 mg Tablet PO (20:27)
[2023-12-16 21:31] LABS: Glucose Point of Care 128 mg/dL (70-110)
[2023-12-16] MEDS: pantoprazole 40 mg SDV IVP (21:47)
[2023-12-16] MEDS: enoxaparin 40 mg/0.4 mL Syringe SUBCUT (21:48)
[2023-12-16] MEDS: CLONazepam 0.5 mg Tablet PO (22:21)
[2023-12-17] VITALS (22 sets, daily range): BP systolic 115–141; BP diastolic 54–79; PULSE 80–93; RESP 9–25; TEMP 36.1–37.2; O2SAT 91–100
[2023-12-17 04:04] LABS: Basophils # 0.1 10^3/uL (0.0-0.1); Basophils % 0.8 %; Eosinophils # 0.3 10^3/uL (0.0-0.8); Eosinophils % 5.1 %; Hematocrit 26.5 % (36-47); Lymphocytes % 32.6 %; Mean Corpuscular HGB Conc 29.8 g/dL (30-55); Mean Corpuscular Hemoglobin 23.7 pg (27-33); Mean Corpuscular Volume 79.6 fl (85-98); Mean Platelet Volume 8.8 fL (7.4-10.4); Monocytes # 0.4 10^3/uL (0.2-0.9); Monocytes % 6.9 %; Neutrophils % 54.3 %; Nucleated Red Blood Cells % 0 %; Platelet Count 598 10^3/cmm (157-399); Red Blood Count 3.33 10^6/uL (3.85-5.65); Red Cell Distribution Width 21.9 % (12.1-15.1); White Blood Count 6.26 10^3/uL (3.29-11.43)
[2023-12-17 04:53] LABS: Anion Gap 14.7 (5-19); Blood Urea Nitrogen 6 mg/dL (8-23); Calcium 7.6 mg/dL (8.5-10.5); Carbon Dioxide 20 mmol/L (22-29); Chloride 111 mmol/L (98-107); Creatinine Clr Calc Pharmacy 231.3889; Glomerular Filtration Rate 362.3 mL/min (90-130); Glucose 147 mg/dL (65-115); Osmolality Calculated 294 mOsm/kg (285-295); Potassium 3.7 mmol/L (3.5-5.1); Sodium 142 mmol/L (136-145)
[2023-12-17] MEDS: levothyroxine 112 mcg Tablet PO (05:40)
[2023-12-17] MEDS: meropenem 1,000 mg SDV 1000 MG IVP ×2 (05:40→14:14)
[2023-12-17] MEDS: sodium chloride 0.9% 1,000 ML 125 ML IV (06:43)
[2023-12-17] MEDS: gabapentin 300 mg Capsule 600 MG PO ×2 (07:52→15:05)
[2023-12-17] MEDS: buPROPion XL (24 HR) 150 mg Tablet PO (07:52)
[2023-12-17] MEDS: duloxetine 60 mg Capsule PO (07:52)
[2023-12-17] MEDS: nystatin powder 15 gm Btl 1 APPLIC TOPICAL (07:53)
[2023-12-17 07:58] LABS: Glucose Point of Care 104 mg/dL (70-110)
--- NOTE | 2023-12-17 11:06 | PM.PN ---
Vitals/I&O/Wt Last Vital Signs Temp 97.7 F 12/17/23 07:00 Pulse 80 12/17/23 10:00 Resp 18 12/17/23 10:00 BP 127/71 12/17/23 10:00 Pulse Ox 97 12/17/23 10:00 O2 Del Method Room Air 12/17/23 10:00 12/16/23 12/17/23 12/17/23 22:59 06:59 14:59 Intake Total 1120 / 3270 1240 / 4510 Output Total 725 / 1925 2450 / 4375 825 / 825 Balance 395 / 1345 -1210 / 135 -805 / -805 Weight last 48 hrs Weight 106 lb 11.2 oz Weight 108 lb 0.424 oz Physical Exam Urinary Catheter Management: Chirinos: Cath Placed During This Visit: yes Reason for Continuing Indwelling Catheter: Accurate Measurement of Urinary Output in Critically Ill Patients Urinary Catheter Date of Insertion: 12/14/23 Urinary Catheter Time of Insertion: 20:55 Data 12/17/23 03:12 12/17/23 03:05 Micro: Microbiology 12/14/23 20:55 Urine Culture - Final Urine,Clean Catch A&P Assessment and plan (1) Septic shock: (2) Osteomyelitis: Sacrum Qualifiers: Osteomyelitis type: other chronic (3) Stage IV decubitus ulcer: Right forearm stump (4) Sacral decubitus ulcer, stage IV: (5) Decubitus ulcer, stage IV: Left thigh stump Plan Her wounds all look very good and are unlikely to be the source of her sepsis, but she does have osteomyelitis of her sacrum I would like to revise her wounds while she is here because I was unable to do it last week due to electrolyte abnormalities as an outpatient and anesthesia concerns Continue holding Plavix. I would like her to be off of her Plavix for a couple of days of her surgery. Fasciocutaneous flap creation and wound revisions right upper extremity and left lower extremity with sharp excisional debridement of sacral decubitus ulcer and wound VAC placement. Risks and benefits were previously explained and documented as this was originally planned to be done as an outpatient last week Medical management per hospitalist Attestations Medical Necessity Statement*: Per primary Coding Level of Care Code Acute Code for [facility] Diagnoses Septic shock A41.9; R65.21 Osteomyelitis M86.9 Osteomyelitis type: other chronic Stage IV decubitus ulcer L89.94 Sacral decubitus ulcer, stage IV L89.154
[2023-12-17] MEDS: vancomycin 750 MG in sodium chloride 0.9% 250 ML 250 MG IV (11:25)
--- NOTE | 2023-12-17 11:35 | PC.NURSE ---
Pt to surgery.
[2023-12-17] MEDS: tranexamic acid 1,000 mg/10mL SDV 1000 MG IV (12:26)
[2023-12-17] MEDS: mupirocin oint 22 gm 1 APPLIC TOPICAL (12:46)
--- NOTE | 2023-12-17 12:47 | P.ANESASSM_ITS ---
Pre-Anesthetic Assessment Height/Weight: Height 1.07 m Weight 48.398 kg Temp Pulse Resp BP Pulse Ox O2 Del Method 97.7 F 83 18 127/71 97 Room Air 12/17/23 07:00 12/17/23 11:19 12/17/23 11:19 12/17/23 11:19 12/17/23 11:00 12/17/23 11:00 Operation Date: 12/17/23 10:00 Proposed Procedures p Incision And Drainage Incision and Drainage Lower Extremity(Left) - Navdeep Aguiar DO p Wound Vac Placement(Not Applicable) - Navdeep Aguiar DO Familial anesthetic complications: None Was Beta Oz taken within 24 hours: N/A Was Clonidine taken within 24 hours: N/A Last intake: > 8hrs Social No alcohol and No tobacco Exam alert, oriented x 3, clear to auscultation bilaterally and regular rate & rhythm Airway Mallampati: Class II Metabolic Diabetes Mellitus and Thyroid Disease septic shock Anesthetic Plan ASA status: 3 Anesthesia: General Risk of > 500 ml blood loss (7ml/kg in children): No Medications/Allergies Home Medications Medication Instructions Recorded Confirmed Last Taken Type prosthetic hands Bilateral #1 ea 05/02/19 12/15/23 Unknown Rx blood-glucose sensor #3 ea 05/08/20 12/15/23 Unknown Rx flash glucose scanning reader #1 ea 06/14/20 12/15/23 Unknown Rx (FreeStyle Maria M 2 [place]) pen needle, diabetic 31 gauge x #450 ea 07/01/20 12/15/23 Unknown Rx 3/16 (Sure-Fine Pen [place]) prosthetic legs #1 ea 12/11/20 12/15/23 Unknown Rx flash glucose sensor (FreeStyle #6 ea 10/19/21 12/15/23 Unknown Rx Maria M 2 Sensor kit) nitroglycerin 0.4 mg sublingual 0.4 mg sublingual Q5M PRN chest 04/12/22 12/15/23 12/06/23 Rx tablet pain #25 tabs Ear Pulse Ox #1 ea 04/25/22 12/15/23 Unknown Rx clonazepam 0.5 mg tablet 0.5 mg PO DAILY PRN anxiety 30 09/21/22 12/15/23 Unknown Rx days #30 tabs acetaminophen 325 mg tablet 325 mg PO QID PRN Pain 10/17/22 12/15/23 Unknown History diphenhydramine HCl 25 mg tablet 25 mg PO TID PRN Allergy Symptoms 10/17/22 12/15/23 Unknown History (Benadryl Allergy) wheelchair motorized #1 ea 12/16/22 12/15/23 Unknown Rx bupropion HCl 150 mg 24 hr tablet, 150 mg PO QAM #30 tabs 06/07/23 12/15/23 12/06/23 Rx extended release (Wellbutrin XL) sodium hypochlorite 0.125 % 1 applic topical BID open wound 06/21/23 12/15/23 12/06/23 Rx solution (Dakin's Solution) #473 mL cholecalciferol (vitamin D3) 1,250 See Rx Instructions .Route 06/27/23 12/15/23 Unknown Rx mcg (50,000 unit) capsule .COMPLEX #4 caps duloxetine 60 mg capsule,delayed 60 mg PO BID #60 caps 06/29/23 12/15/23 12/06/23 Rx release blood-glucose sensor (Dexcom G7 #1 ea 10/30/23 12/15/23 Unknown Rx Sensor device) blood-glucose meter,continuous #1 ea 11/09/23 12/15/23 Unknown Rx (Dexcom G7 [employer]) ciprofloxacin HCl 500 mg tablet 500 mg PO BID 2 weeks #28 tabs 11/30/23 12/15/23 12/06/23 Rx sulfamethoxazole 800 1 tab PO BID 2 weeks #28 tabs 11/30/23 12/15/23 12/06/23 Rx mg-trimethoprim 160 mg tablet (Bactrim DS) clopidogrel 75 mg tablet 75 mg PO DAILY 12/06/23 12/15/23 11/30/23 History fenofibrate 160 mg tablet 160 mg PO DAILY 12/06/23 12/15/23 12/06/23 History gabapentin 600 mg tablet 600 mg PO TID 12/06/23 12/15/23 12/06/23 History isosorbide mononitrate 30 mg 30 mg PO DAILY 12/06/23 12/15/23 12/07/23 History tablet,extended release 24 hr levothyroxine 112 mcg tablet 112 mcg PO DAILY 12/06/23 12/15/23 12/06/23 History metoprolol tartrate 25 mg tablet 25 mg PO DAILY 12/06/23 12/15/23 12/07/23 History nystatin 100,000 unit/mL oral 500,000 unit (5 mL) buccal DAILY 12/06/23 12/15/23 12/06/23 Rx suspension #250 mL daptomycin 500 mg intravenous 500 mg IV ONCE 12/12/23 12/15/23 Unknown History solution oxycodone 10 mg tablet 10 mg PO TID PRN pain 30 days #90 12/12/23 12/15/23 Unknown Rx tabs insulin detemir U-100 100 unit/mL 30 unit SUBCUT QAM 12/14/23 12/15/23 Unknown History (3 mL) subcutaneous pen (Levemir FlexPen) insulin regular hum U-500 conc 500 100 unit (0.2 mL) SUBCUT .COMPLEX 12/14/23 12/15/23 Unknown Rx unit/mL(3 mL) subcut pen (Humulin #6 mL R U-500 (Conc) Insulin Kwikpen) nystatin 100,000 unit/gram topical 1 applic topical BID #60 grams 12/14/23 12/15/23 Unknown Rx powder zolpidem 5 mg tablet 5 mg PO BEDTIME PRN insomnia 12/15/23 12/15/23 Unknown History Allergies Allergy/AdvReac Type Severity Reaction Status Date / Time cephalexin Allergy Unknown Not Verified 12/14/23 11:45 Entered,Swelling,Diarrhea metformin Allergy Unknown Diarrhea,Not Verified 12/14/23 11:45 Entered,SWELLING Current Medications Generic Name Dose Route Start Last Admin Trade Name Freq PRN Reason Stop Dose Admin Acetaminophen 650 mg 12/14/23 22:25 12/15/23 00:31 Acetaminophen 325 Mg Tablet PO 650 mg Q6H PRN Administration Mild/Mod Pain Or Temp >/= 101 Bupropion HCl 150 mg 12/15/23 09:00 12/17/23 07:52 Bupropion Xl (24 Hr) 150 Mg Tablet PO 150 mg DAILY EVELIO Administration Clonazepam 0.5 mg 12/14/23 22:25 12/16/23 22:21 Clonazepam 0.5 Mg Tablet PO 0.5 mg BID PRN Administration anxiety Duloxetine HCl 60 mg 12/15/23 09:00 12/17/23 07:52 Duloxetine 60 Mg Capsule PO 60 mg BID EVELIO Administration Enoxaparin Sodium 40 mg 12/14/23 22:25 12/16/23 21:48 Enoxaparin 40 Mg/0.4 Ml Syringe SUBCUT 40 mg Q24H EVELIO Administration Gabapentin 600 mg 12/15/23 09:00 12/17/23 07:52 Gabapentin 300 Mg Capsule PO 600 mg TID EVELIO Administration Sodium Chloride 1,000 mls @ 125 mls/hr 12/14/23 22:25 12/17/23 06:43 Sodium Chloride 0.9% IV 125 mls/hr .Q8H EVELIO Administration Vancomycin HCl 750 mg/ Sodium 250 mls @ 250 mls/hr 12/15/23 12:00 12/17/23 11:25 Chloride IV 250 mls/hr Q12H EVELIO Administration Insulin Glargine 15 unit 12/15/23 09:00 12/16/23 08:39 Insulin Glargine 100 Units/1 Ml SUBCUT 15 unit DAILY EVELIO Administration Insulin Human Lispro 0 unit 12/15/23 08:00 12/17/23 11:09 Insulin Lispro 100 Unit/1 Ml SUBCUT Not Given [facility] Protocol Levothyroxine Sodium 112 mcg 12/15/23 06:00 12/17/23 05:40 Levothyroxine 112 Mcg Tablet PO 112 mcg 0600 EVELIO Administration Meropenem 1,000 mg 12/15/23 05:00 12/17/23 05:40 Meropenem 1,000 Mg Sdv IVP 1,000 mg Q8H EVELIO Administration Protocol Morphine Sulfate 2 mg 12/14/23 22:25 12/16/23 05:43 Morphine 4 Mg/Ml Sdv 1 Ml IVP 2 mg Q4H PRN Administration SEVERE PAIN Mupirocin 1 applic 12/17/23 18:00 12/17/23 12:46 Mupirocin Oint 22 Gm TOPICAL 1 applic BID EVELIO Administration Nystatin 1 applic 12/15/23 09:00 12/17/23 07:53 Nystatin Powder 15 Gm Btl TOPICAL 1 applic BID EVELIO Administration Ondansetron HCl 4 mg 12/14/23 22:25 12/14/23 23:54 Ondansetron 2 Mg/Ml Sdv 2 Ml IVP 4 mg Q8H PRN Administration vomiting, or N/V if npo Pantoprazole Sodium 40 mg 12/14/23 22:25 12/16/23 21:47 Pantoprazole 40 Mg Sdv IVP 40 mg Q24H EVELIO Administration Zolpidem Tartrate 5 mg 12/14/23 22:44 12/16/23 20:27 Zolpidem 5 Mg Tablet PO 5 mg BEDTIME PRN Administration insomnia PFSH Anesthesia Medical History (Updated 12/15/23 @ 15:49 by Navdeep Aguiar DO) Decubitus ulcer of sacral region, stage 4 Septic shock Hypotension Abscess of buttock, left Decubital ulcer Infected pressure ulcer Abscess of left buttock Mobility impaired Pressure ulcer of buttock Stage II pressure ulcer of left buttock DM type 2 causing complication Diabetes mellitus Bilateral pneumonia Influenza B UTI (urinary tract infection) COVID-19 Hypovolemic shock Pressure sore on buttocks UTI (urinary tract infection) Amputation leg, bilat Psychiatric care Anxiety Major depressive disorder, recurrent severe without psychotic features Coronary artery disease Polyuria Polydipsia Urgency incontinence Recurrent UTI Below-elbow amputation of right upper extremity Below-elbow amputation of left upper extremity 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 Enrolled in chronic care management Rheumatoid arthritis Phantom pain after amputation of lower extremity Chronic pain 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 Hypothyroidism Hyperlipemia, mixed HTN (hypertension), benign (~11/2022) 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, hand, bilateral Hx of sepsis Surgical History History of amputation of lower extremity History of skin graft History of appendectomy History of amputation of finger of both hands Family History Father , at age 47 CAD (coronary artery disease) Hypertension Mother , at age 64 Diabetes Lung disease Sister Diabetes Brother Diabetes Denies family history of Dementia Cancer Stroke Social History Smoking and tobacco/nicotine status: current every day tobacco/nicotine user cigarettes Packs smoked per day: 0.5 Years cigarettes smoked: 48 Quit status (tobacco/nicotine): has tried quititng Second hand smoke exposure: Yes Alcohol intake: current Alcohol intake frequency: holidays/special occasions only Alcohol type: wine Substance/Drug Use: never Adopted: No Caregiver/support person: Yes Lives independently: Yes Household members: significant other and family Housing: House Marital status: Single Marital status details: Life partner of 45 years Number of children: 0 Number of grandchildren: 0 Highest education level completed: High School Graduate service: No Current occupational status: disabled Pets and animals: Yes (lab, yorkie, beagle) Pets & animals: cat(s) and dog(s) Leisure activites: art, fishing and other Leisure activities details: writing, watch TV Sexually active: Yes Do you think of yourself as: Straight/Heterosexual Current gender identity: Female Keyonna/Caodaism: None Special keyonna needs: No Agree to transfusion: Yes Female Reproductive History Para: 0 Data Anesthesia 12/17/23 03:12 12/17/23 03:05 Short CBC 12/16/23 12/17/23 Range/Units 04:15 03:12 WBC 6.48 6.26 (3.29-11.43) 10^3/uL Hgb 8.40 L 7.90 L (11.27-16.99) g/dL Hct 28.3 L 26.5 L (36-47) % MCV 81.6 L 79.6 L (85-98) fl Plt Count 548 H 598 H (157-399) 10^3/cmm Neut % (Auto) 52.2 54.3 % Neut # (Auto) 3.38 3.40 (1.8-7.7) 10^3/uL BMP 12/16/23 12/17/23 04:15 03:05 Sodium 136 142 Potassium 4.4 3.7 Chloride 107 111 H Carbon Dioxide 21 L 20 L BUN 8 6 L Creatinine 0.2 L 0.2 L Glucose 100 147 H Calcium 7.6 L 7.6 L Liver Function 12/16/23 Range/Units 04:15 Total Bilirubin 0.2 (0.15-1.2) mg/dL AST 15 (0-32) U/L ALT 8 (0-33) U/L Alkaline Phosphatase 178 H (35-105) U/L Albumin 2.1 L (3.5-5.2) g/dL Microbiology 12/14/23 20:55 Urine Culture - Final Urine,Clean Catch Cardiac Studies: 2 Echocardiogram 03/08/23
--- NOTE | 2023-12-17 13:44 | P.OP_ITS ---
Operative Report Date of procedure: December 17, 2023 Pre-op diagnosis: Stage IV decubitus ulcers right forearm stump, left thigh stump and sacrum Post-op diagnosis: Stage IV decubitus ulcers right forearm stump, left thigh stump and sacrum Stage III decubitus ulcer right iliac crest Procedure done: Anterior fasciocutaneous flap creation, posterior fasciocutaneous flap creation, sharp excisional debridement of stage IV decubitus ulcer right forearm with wound revision and closure Anterior fasciocutaneous flap creation, posterior fasciocutaneous flap creation, sharp excisional debridement of stage IV decubitus ulcer left thigh with wound revision and closure Sharp excisional debridement of stage III right iliac crest decubitus ulcer Sharp excisional debridement of stage IV sacral decubitus ulcer and wound VAC placement Implants: Black foam wound VAC Specimens removed/disposition: cultures Surgeon: Navdeep Aguiar DO Anesthesia: General Estimated blood loss (mL): 5 Complications: None apparent Brief History: This is a very pleasant 58-year-old female who presented to the hospital in septic shock. She had known wounds as above. The procedures listed above are indicated. The risks and benefits were explained and documented. Procedure: Patient was wheeled operative room and placed on the OR table in the supine position. General endotracheal intubation was achieved by department anesthesia. A timeout was performed. All present were in agreement. The right upper extremity and left lower extremity were inspected prepped and draped in usual sterile fashion. Attention was first brought to the left thigh stump wound, which measured 4.5 cm x 3.5 cm x 2.5 cm deep. There was exposed bone. A 10 blade scalpel was used to perform an elliptical excision around the wound edges. Curettes were used for sharp excisional debridement of exudative tissue. Fasciocutaneous flaps were then created both anterior and posteriorly in order to bring enough tissue over the bone for closure. Electrocautery was used for this and flaps were made 6 inches superiorly both anteriorly and posteriorly. Dermis was approximated with 3-0 Vicryl in an interrupted fashion. Skin was closed with 3-0 nylon in an interrupted simple and vertical mattress fashion. Bacitracin was applied. Sterile bandages were applied. Attention was first brought to the right forearm stump wound, which measured 2 cm x 1.9 cm x 2 cm deep. There was exposed bone. A 10 blade scalpel was used to perform an elliptical excision around the wound edges. Curettes were used for sharp excisional debridement of exudative tissue. Fasciocutaneous flaps were then created both anterior and posteriorly in order to bring enough tissue over the bone for closure. Electrocautery was used for this and flaps were made 6 inches superiorly both anteriorly and posteriorly. Dermis was approximated with 3-0 Vicryl in an interrupted fashion. Skin was closed with 3-0 nylon in an interrupted simple and vertical mattress fashion. Bacitracin was applied. Ster ile bandages were applied. Patient was then rolled onto her right side. At this time it was noticed that there was a eschar covering a right iliac crest decubitus ulcer as well. This required debridement. Electrocautery was used and cut mode and coag mode to excise the eschar curettes were then used to further excise the subcutaneous fat down to healthy bleeding tissue. This wound measured 3 cm x 3.2 cm x 1 cm deep. Sterile bandages were applied. Attention was then brought to the sacral decubitus ulcer which was stage IV and went down to bone. Curettes were used to excise exudative tissue down to healthy bleeding tissue. Wound measured 7 cm x 4.5 cm x 2 cm deep. This wound undermined 2.5 cm medially, 2.5 cm superiorly and 6 cm laterally. A medium black foam wound VAC sponge was placed into the wound and the wound VAC was applied in the typical fashion. Patient tolerated procedure well and was wheeled into the postop anesthesia care unit in good condition
--- NOTE | 2023-12-17 13:56 | PC.NURSE ---
Pt back from Sx. She is oriented and slightly drowsy. Her Wound VAC from home is patent. Gauze and coban dressings, C,D and I , noted on right arm and left leg.
--- NOTE | 2023-12-17 14:20 | ANE.PACU2 ---
Inpatient post-anesthesia follow up: Airway intact: Yes Vital signs: Temperature 97 F Pulse Rate 93 Respiratory Rate 19 Blood Pressure 115/79 Pulse Oximetry 96 Oxygen Delivery Me thod Room Air Oxygen Flow Rate Fraction of Inspir ed Oxygen Hydration adequate: Yes Nausea and vomiting: No Pain level: 1 Mental status: Baseline
[2023-12-17 15:04] LABS: Basophils # 0.1 10^3/uL (0.0-0.1); Basophils % 0.5 %; Eosinophils # 0.2 10^3/uL (0.0-0.8); Eosinophils % 1.7 %; Hematocrit 30.9 % (36-47); Lymphocytes # 1.4 10^3/uL (0.8-4.8); Lymphocytes % 10.9 %; Mean Corpuscular HGB Conc 30.1 g/dL (30-55); Mean Corpuscular Hemoglobin 24.3 pg (27-33); Mean Corpuscular Volume 80.7 fl (85-98); Mean Platelet Volume 8.6 fL (7.4-10.4); Monocytes # 0.2 10^3/uL (0.2-0.9); Monocytes % 1.7 %; Neutrophils # 10.67 10^3/uL (1.8-7.7); Neutrophils % 84.7 %; Nucleated Red Blood Cells % 0 %; Platelet Count 678 10^3/cmm (157-399); Red Blood Count 3.83 10^6/uL (3.85-5.65); Red Cell Distribution Width 21.7 % (12.1-15.1); White Blood Count 12.58 10^3/uL (3.29-11.43)
--- NOTE | 2023-12-17 16:03 | PM.DCS ---
Discharge Providers Date of Admission: 12/14/23 21:50 Date of Discharge: December 17, 2023 Attending Provider at Admission: Will Upton MD Attending Provider at Discharge: Jonah Potter DO Primary Care Provider: ANUJ Hernández Diagnoses at Discharge Discharge Diagnosis (1) Septic shock: Status: Acute (2) Osteomyelitis: Status: Acute Qualifiers: Osteomyelitis type: other chronic Permanent problem details: Presumed diagnosis based on bone exposure (3) Stage IV decubitus ulcer: Status: Acute (4) Sacral decubitus ulcer, stage IV: Status: Acute Reason for Visit Reason for Visit: Fever Hospital Course Hospital Course Delia Winter is a 58 year old female history of UTIs, history of sacral decubitus ulcer, currently having a sacral decubitus ulcer on daptomycin, status post recent debridement by Dr. 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 Patient presented to the ER with altered mental status, and fevers. She had been on antibiotics at home for decubitus ulcers with underlying infection. She was initially in septic shock and treated with fluid bolus. Her antibiotics were switched from daptomycin to vancomycin. Surgery was consulted and did take patient for debridement. She responded well to the initial fluids and her pressure stabilized. She did show some improvement in her white blood cell count on escalated antibiotics. Surgery did take her back for wound revision and did replace wound VAC. Patient had requested to be discharged home after surgery and based on her clinical appearance and repeat labs, this was felt to be appropriate at this time. She had a Chirinos placed during her stay, and this was left until she has follow-up this week where it can be removed. In addition patient was counseled that she needs follow-up with wound care and with Dr. Aguiar's clinic in the next 1 to 3 days. She will also need to have an appointment with her primary care provider to discuss ongoing treatment and management of her underlying conditions. Physical Exam Narrative: General : Patient is well developed , no acute distress, oriented x3 Head : Normocephalic, atraumatic. Ears : Pinnae and external canal are normal. Hearing is normal. Eyes : PERRLA, Sclera and injection are normal. No conjunctival discharge. Nose : Mucous membranes are without erythema. Lungs : Chest rise symmetrical. No use of accessory muscles, trachea is midline. LCTA. Heart : Rate and rhythm are normal. Abdomen : Soft, ND, NT. Extremities : Status post amputations of the right forearm left forearm right thigh and left thigh. Stage IV sacral decubitus ulcers of right forearm stump, left thigh stump and sacrum are without erythema or exudate and healthy granulation tissue beds. Wound VAC is in place. Urinary Catheter Management: Chirinos: Cath Placed During This Visit: yes Reason for Continuing Indwelling Catheter: Accurate Measurement of Urinary Output in Critically Ill Patients Urinary Catheter Date of Insertion: 12/14/23 Urinary Catheter Time of Insertion: 20:55 Discharge Data Studies Completed and Pending Completed Studies During Hospitalization Category Date Time Status XR chest 1V portable [id number] Stat Exams 12/14/23 19:20 Completed MR lumbar spine wo con* [id number] Stat MRI 12/15/23 21:40 Completed MR pelvis wo con* [id number] Routine MRI 12/15/23 14:18 Completed Pending at discharge Category Date Time Status Blood Culture Stat Lab 12/14/23 19:58 Results OVA and Parasites, Conc and PE Routine Lab 12/15/23 09:35 Received Salmonella / Shigella / Campy Routine Lab 12/15/23 09:35 Received Tissue Culture and Gram Stain Routine Lab 12/17/23 13:27 Received Radiology Impressions Chest X-Ray 12/14/23 19:20 IMPRESSION: Chronic bilateral interstitial lung markings. No focal consolidations. Pelvis MRI 12/15/23 14:18 IMPRESSION: Limited study. Patient could not tolerate further imaging. 1. Decubitus ulcer with no visualized drainable abscess or fluid collection on this limited study. 2. The distal portion of the remaining sacrum directly abutting the decubitus ulcer demonstrates replacement of the normal fatty T1 bone marrow signal compatible with osteomyelitis. Remainder of the sacrum is normal in appearance. This is best visualized on axial T1 imaging, series 601 image 21. See bookmark images. Lumbar Spine MRI 12/15/23 21:40 IMPRESSION: 1. Compression inferior endplate L4 unchanged since the CT pelvis 07/26/2023. 2. No evidence of discitis or osteomyelitis in the lumbar spine. 3. Chronic compression inferior endplate L1. 4. Moderate central canal stenosis L1-2 and L4-5 described above Laboratory Results WBC 12.58 10^3/uL (3.29-11.43) H 12/17/23 14:58 RBC 3.83 10^6/uL (3.85-5.65) L 12/17/23 14:58 Hgb 9.30 g/dL (11.27-16.99) L 12/17/23 14:58 Hct 30.9 % (36-47) L 12/17/23 14:58 MCV 80.7 fl (85-98) L 12/17/23 14:58 MCH 24.3 pg (27-33) L 12/17/23 14:58 MCHC 30.1 g/dL (30-55) 12/17/23 14:58 RDW 21.7 % (12.1-15.1) H 12/17/23 14:58 Plt Count 678 10^3/cmm (157-399) H 12/17/23 14:58 MPV 8.6 fL (7.4-10.4) 12/17/23 14:58 Neut % (Auto) 84.7 % 12/17/23 14:58 Lymph % (Auto) 10.9 % 12/17/23 14:58 Dillon % (Auto) 1.7 % 12/17/23 14:58 Eos % (Auto) 1.7 % 12/17/23 14:58 Baso % (Auto) 0.5 % 12/17/23 14:58 Neut # (Auto) 10.67 10^3/uL (1.8-7.7) H 12/17/23 14:58 Lymph # (Auto) 1.4 10^3/uL (0.8-4.8) 12/17/23 14:58 Dillon # (Auto) 0.2 10^3/uL (0.2-0.9) 12/17/23 14:58 Eos # (Auto) 0.2 10^3/uL (0.0-0.8) 12/17/23 14:58 Baso # (Auto) 0.1 10^3/uL (0.0-0.1) 12/17/23 14:58 Nucleated RBC % (auto) 0 % 12/17/23 14:58 Nucleated RBCs # 0.0 /100WBC 12/17/23 14:58 ESR 106 mm/hr (0-15) H 12/14/23 19:35 Sodium 142 mmol/L (136-145) 12/17/23 03:05 Potassium 3.7 mmol/L (3.5-5.1) 12/17/23 03:05 Chloride 111 mmol/L (98-107) H 12/17/23 03:05 Carbon Dioxide 20 mmol/L (22-29) L 12/17/23 03:05 Anion Gap 14.7 (5-19) 12/17/23 03:05 BUN 6 mg/dL (8-23) L 12/17/23 03:05 Creatinine 0.2 mg/dL (0.5-0.9) L 12/17/23 03:05 GFR Calculation 362.3 mL/min (90-130) H 12/17/23 03:05 Glucose 147 mg/dL (65-115) H 12/17/23 03:05 POC Glucose 104 mg/dL (70-110) 12/17/23 07:49 Calculated Osmolality 294 mOsm/kg (285-295) 12/17/23 03:05 Lactic Acid 3.1 mmol/L (0.5-2.2) H 12/14/23 19:58 Lactic Acid (Sepsis) 1.3 mmol/L (0.5-2.2) 12/14/23 22:38 Calcium 7.6 mg/dL (8.5-10.5) L 12/17/23 03:05 Magnesium 2.0 mg/dL (1.7-2.3) 12/16/23 04:15 Total Bilirubin 0.2 mg/dL (0.15-1.2) 12/16/23 04:15 AST 15 U/L (0-32) 12/16/23 04:15 ALT 8 U/L (0-33) 12/16/23 04:15 Alkaline Phosphatase 178 U/L (35-105) H 12/16/23 04:15 C-Reactive Protein 43.8 mg/L (0.0-4.9) H 12/14/23 18:55 Total Protein 4.6 g/dL (6.6-8.7) L 12/16/23 04:15 Albumin 2.1 g/dL (3.5-5.2) L 12/16/23 04:15 Globulin 2.5 g/dL (1.3-4.6) 12/16/23 04:15 Procalcitonin 0.17 ng/mL (0-0.5) 12/14/23 19:58 TSH 5.66 uIU/mL (0.27-4.20) H 12/14/23 22:38 Urine Color Dark yellow (Yellow) A 12/14/23 20:55 Urine Appearance Turbid (CLEAR) A 12/14/23 20:55 Urine pH 5.0 (5-7) 12/14/23 20:55 Ur Specific Valdez 1.026 (1.005-1.030) 12/14/23 20:55 Urine Protein 2+ (Negative) A 12/14/23 20:55 Urine Glucose (UA) Negative (Normal) 12/14/23 20: Urine Ketones Trace (Negative) 12/14/23 20: Urine Blood 3+ (Negative) A 12/14/23 20: Urine Nitrate Negative (Negative) 12/14/23 20:55 Urine Bilirubin 1+ (Negative) H 12/14/23 20:55 Urine Urobilinogen 1.0 mg/dL (Negative) 12/14/23 20:55 Ur Leukocyte Esterase 3+ (Negative) A 12/14/23 20:55 Urine RBC 11-20 /hpf (0-2) H 12/14/23 20:55 Urine WBC 80-100 /hpf (0-5) H 12/14/23 20:55 Ur Squamous Epith Cells 6-10 /hpf (0-5) 12/14/23 20:55 Amorphous Sediment Not Reportable 12/14/23 20:55 Urine Bacteria 1+ /hpf (NONE) H 12/14/23 20:55 Vancomycin Trough 12.0 ug/mL (10-15) 12/17/23 10:43 Adenovirus (PCR) Not detected (NOT DETECT) 12/14/23 20:21 C. pneumoniae DNA (PCR) Not detected (NOT DETECT) 12/14/23 20:21 C. difficile (PCR) Negative (Negative) 12/15/23 09:35 Coronavirus 229E (PCR) Not detected (NOT DETECT) 12/14/23 20:21 Human Metapneumovir PCR Not detected (NOT DETECT) 12/14/23 20:21 Influenza A (H1) PCR Not detected (NOT DETECT) 12/14/23 20:21 Influ A (H1/09) PCR Not detected (NOT DETECT) 12/14/23 20:21 Influenza A (H3) PCR Not detected (NOT DETECT) 12/14/23 20:21 Influenza Type A (PCR) Not detected (NOT DETECT) 12/14/23 20:21 Influenza Type B (PCR) Not detected (NOT DETECT) 12/14/23 20:21 M. pneumoniae (PCR) Not detected (NOT DETECT) 12/14/23 20:21 Parainfluenza 1 (PCR) Not detected (NOT DETECT) 12/14/23 20:21 Parainfluenza 2 (PCR) Not detected (NOT DETECT) 12/14/23 20:21 Parainfluenza 3 (PCR) Not detected (NOT DETECT) 12/14/23 20:21 Parainfluenza 4 (PCR) Not detected (NOT DETECT) 12/14/23 20:21 RSV Type A (PCR) Not detected (NOT DETECT) 12/14/23 20:21 RSV Type B (PCR) Not detected (NOT DETECT) 12/14/23 20:21 Entero/Rhino (PCR) Not detected (NOT DETECT) 12/14/23 20:21 SARS-CoV-2 (PCR) Not detected (NOT DETECT) 12/14/23 20:21 Vitals Last Vital Signs Temp 97 F L 12/17/23 14:01 Pulse 85 12/17/23 15:15 Resp 19 H 12/17/23 15:00 BP 127/79 12/17/23 15:00 Pulse Ox 96 12/17/23 15:00 O2 Del Method Room Air 12/17/23 15:00 Discharge Plan Discharge Patient Disposition: Home Condition: Stable Prescriptions: New daptomycin 500 mg recon soln 500 mg IV DAILY Rx Instructions: administer over 30 mins Continued (DME) blood-glucose sensor Device See Rx Instructions .ROUTE .MEDSUPPLY Qty: 3 0RF Rx Instructions: As directed (DME) prosthetic legs See Rx Instructions .Route .MEDSUPPLY Qty: 1 0RF Rx Instructions: As directed (DME) FreeStyle Maria M 2 [place] Misc See Rx Instructions .ROUTE .MEDSUPPLY Qty: 1 0RF Rx Instructions: As directed nitroglycerin 0.4 mg tablet, sublingual 0.4 mg SUBLINGUAL Q5M PRN (Reason: chest pain) Qty: 25 3RF ciprofloxacin HCl 500 mg tablet 500 mg PO BID 14 Days Qty: 28 0RF daptomycin 500 mg recon soln 500 mg IV ONCE nystatin 100,000 unit/gram powder 1 applic topical BID Qty: 60 1RF Levemir FlexPen 100 unit/mL (3 mL) insulin pen 30 unit SUBCUT QAM Humulin R U-500 (Conc) Kwikpen 500 unit/mL (3 mL) insulin pen 100 unit SUBCUT .COMPLEX Qty: 6 0RF Rx Instructions: Inject 3 times daily with meals per sliding scale: 70-130=0 units, 131-180=2 units, 181-240= 4 units, 241-300= 6 units, 301-350= 8 units, 351-400= 10 units, >400 12 units and call DrFarhad; acetaminophen 325 mg tablet 325 mg PO QID PRN (Reason: Pain) diphenhydramine HCl [Benadryl Allergy] 25 mg tablet 25 mg PO TID PRN (Reason: Allergy Symptoms) (DME) wheelchair motorized See Rx Instructions .Route .MEDSUPPLY Qty: 1 0RF Rx Instructions: As directed Dakin's Solution 0.125 % solution 1 applic topical BID Qty: 473 2RF (DME) prosthetic hands Bilateral Qty: 1 0RF Rx Instructions: As directed (DME) pen needle, diabetic [Sure-Fine Pen [place]] 31 gauge x 3/16 needle See Rx Instructions .ROUTE .MEDSUPPLY Qty: 450 3RF Rx Instructions: uses 5 times a day (DME) FreeStyle Maria M 2 Sensor Kit See Rx Instructions .ROUTE .MEDSUPPLY Qty: 6 3RF Rx Instructions: Change every 14 days. (DME) Ear Pulse Ox See Rx Instructions .Route .MEDSUPPLY Qty: 1 0RF Rx Instructions: As directed; continuous pulse ox clonazepam 0.5 mg tablet 0.5 mg PO DAILY PRN (Reason: anxiety) 30 Days Qty: 30 2RF bupropion HCl [Wellbutrin XL] 150 mg tablet extended release 24 hr 150 mg PO QAM Qty: 30 2RF cholecalciferol (vitamin D3) 1,250 mcg (50,000 unit) capsule See Rx Instructions .ROUTE .COMPLEX Qty: 4 0RF Dose Instruction: Take 1 capsule by mouth once a week Rx Instructions: Take 1 capsule by mouth once a week on Monday. duloxetine 60 mg capsule,delayed release(DR/EC) 60 mg PO BID Qty: 60 2RF (DME) Dexcom G7 Sensor Device See Rx Instructions .Route Qty: 1 1RF Rx Instructions: As directed (DME) Dexcom G7 [employer] Misc See Rx Instructions .Route Qty: 1 0RF Rx Instructions: As directed nystatin 100,000 unit/mL suspension 500,000 unit buccal DAILY Qty: 250 0RF Rx Instructions: administer 1/2 of dose in each side of the mouth oxycodone 10 mg tablet 10 mg PO TID PRN (Reason: pain) 30 Days Qty: 90 0RF gabapentin 600 mg tablet 600 mg PO TID clopidogrel 75 mg tablet 75 mg PO DAILY fenofibrate 160 mg tablet 160 mg PO DAILY isosorbide mononitrate 30 mg tablet extended release 24 hr 30 mg PO DAILY levothyroxine 112 mcg tablet 112 mcg PO DAILY metoprolol tartrate 25 mg tablet 25 mg PO DAILY zolpidem 5 mg tablet 5 mg PO BEDTIME PRN (Reason: insomnia) Discontinued sulfamethoxazole-trimethoprim [Bactrim DS] 800-160 mg tablet 1 tab PO BID 14 Days Qty: 28 0RF Discharge Orders: Discharge Order (Routine); Ordered 12/17/23 Ordered By: Jonah Potter Referrals: Navdeep Aguiar DO [Physician] - 1-3 days Franca Garza FNP [Primary Care Provider] - [facility], [Staff Physician] - 1-3 days Discharge Diet: Advance as tolerated and Usual diet Discharge Activity: Resume usual activity Patient Instructions: Daptomycin (By injection), Acute Wound Care (DC), Incision and Drainage (DC), Opioid Safety, Post Anesthesia Care Discharge Attestations Time Spent in Discharge Care*: less than 30 min Specific Discharge Activities: educating patient, educating and/or supporting family/caregiver, discussing with pcp/other providers, documenting/other paperwork and evaluating patient/reviewing data Quality Metrics Clinical Quality Measures [ No reported AMI, CVA or VTE this stay] Coding Level of Care Code Acute Code for Chg Fwd Total time (in minutes) for Discharge: 27 Diagnoses Septic shock A41.9; R65.21 Osteomyelitis M86.9 Osteomyelitis type: other chronic Stage IV decubitus ulcer L89.94 Sacral decubitus ulcer, stage IV L89.154
--- NOTE | 2023-12-17 16:50 | PC.NURSE ---
Discharge instructions provided and discussed with pt and significant other Mckenna: Follow-up appts need to be made by pt as this is Monday, Prescription for IV abx given, if pt and/or family have difficulty getting it filled at their pharmacy [place], please call us back tomorrow as it is a business day and we will assist. Chirinos may be left in, then removed in a week. Both verbalized understanding. SINDYe medication list reviewed and discussed. Pt discharge home with family, in her private W/C to POV.
[2023-12-17 18:30] LABS: Glucose Point of Care 85 mg/dL (70-110)
== END 2023-12-17 16:50 | disposition home or self-care (01) | DRG 853 ==
LOC: ER 21:50 → ICU 21:51
PROVIDERS: Internal Medicine; Surgery; Admitting Provider Family Medicine; Emergency Provider Nurse Practitioner Family; PCP Nurse Practitioner Family; Visit Provider Family Medicine
PROC: 0HXJXZZ Transfer Left Upper Leg Skin, External Approach (ICD-10-PCS; principal; 2023-12-17 09:50)
PROC: 0HXJXZZ Transfer Left Upper Leg Skin, External Approach (ICD-10-PCS; 2023-12-17 09:50)
PROC: 0HXJXZZ Transfer Left Upper Leg Skin, External Approach (ICD-10-PCS; 2023-12-17 09:50)
DX: A41.9 Sepsis, unspecified organism (principal); G93.41 Metabolic encephalopathy; L89.154 Pressure ulcer of sacral region, stage 4; L89.894 Pressure ulcer of other site, stage 4; L89.213 Pressure ulcer of right hip, stage 3; R65.21 Severe sepsis with septic shock; N30.01 Acute cystitis with hematuria; M86.68 Other chronic osteomyelitis, other site; N13.9 Obstructive and reflux uropathy, unspecified; M54.6 Pain in thoracic spine; I10 Essential (primary) hypertension; E03.9 Hypothyroidism, unspecified; E78.5 Hyperlipidemia, unspecified; E11.9 Type 2 diabetes mellitus without complications; I25.10 Atherosclerotic heart disease of native coronary artery without angina pectoris; F32.9 Major depressive disorder, single episode, unspecified; F41.9 Anxiety disorder, unspecified; M06.9 Rheumatoid arthritis, unspecified; F17.210 Nicotine dependence, cigarettes, uncomplicated; Z87.440 Personal history of urinary (tract) infections; Z89.212 Acquired absence of left upper limb below elbow; Z89.211 Acquired absence of right upper limb below elbow; Z89.512 Acquired absence of left leg below knee; Z89.511 Acquired absence of right leg below knee; Z79.4 Long term (current) use of insulin; Z79.02 Long term (current) use of antithrombotics/antiplatelets
CPT/HCPCS: 36415; 36416; 51702; 71045; 72148; 72195; 80048; 80053; 80202; 81003; 81015; 82274; 82550; 82962; 83605; 83630; 83735; 84145; 84443; 85025; 85651; 86140; 87040; 87045; 87070; 87086; 87176; 87177; 87205; 87209; 87427; 87449; 87486; 87493; 87581; 87633; 93005; 94664; 96365; 96372; 96374; 96375; 96376; 97597; 99285; A6220; A6446; J1100; J1650; J1815; J2060; J2185; J2270; J2371; J2405; J2470; J2704; J2710; J3010; J3370; J3490; J7030; J7050

== ENCOUNTER → 2023-12-21 13:17 | Outpatient (BNVA) | payer MEDICARE, MEDICAID, SELFPAY ==
[2023-09-05 13:33] VITALS: BP 126/80; BMI 61.0
== END ==
PROVIDERS: PCP Nurse Practitioner Family; Visit Provider Surgery
DX: Z09 Encounter for follow-up examination after completed treatment for conditions other than malignant neoplasm (principal); L89.154 Pressure ulcer of sacral region, stage 4
CPT/HCPCS: 11042; 11045; 99024

== ENCOUNTER → 2023-12-26 10:14 | Outpatient (BNVA) | payer MEDICARE, MEDICAID, SELFPAY ==
[2023-09-05 13:33] VITALS: BP 126/80; BMI 61.0
== END ==
PROVIDERS: PCP Nurse Practitioner Family; Visit Provider Thoracic Surgery (Cardiothoracic Vascular Surgery)
DX: I96 Gangrene, not elsewhere classified (principal); L89.154 Pressure ulcer of sacral region, stage 4
CPT/HCPCS: 97605; A6219; A6237; A6250; A6446

== ENCOUNTER → 2023-12-29 09:09 | Outpatient (BNVA) | payer MEDICARE, SELFPAY ==
[2023-09-05 13:33] VITALS: BP 126/80; BMI 61.0
== END ==
PROVIDERS: PCP Nurse Practitioner Family; Visit Provider Thoracic Surgery (Cardiothoracic Vascular Surgery)
DX: I96 Gangrene, not elsewhere classified (principal); L89.154 Pressure ulcer of sacral region, stage 4; L89.310 Pressure ulcer of right buttock, unstageable; L98.421 Non-pressure chronic ulcer of back limited to breakdown of skin
CPT/HCPCS: 97597; 97598; 97605; A6237; A6250

== ENCOUNTER → 2024-01-02 15:38 | Outpatient (BNVA) | payer MEDICARE, SELFPAY ==
[2023-09-05 13:33] VITALS: BP 126/80; BMI 61.0
== END ==
PROVIDERS: PCP Nurse Practitioner Family; Visit Provider Thoracic Surgery (Cardiothoracic Vascular Surgery)
DX: L89.154 Pressure ulcer of sacral region, stage 4 (principal); L89.313 Pressure ulcer of right buttock, stage 3; L89.110 Pressure ulcer of right upper back, unstageable
CPT/HCPCS: 97605; A6237; A6250

== ENCOUNTER → 2024-01-04 09:43 | Outpatient (BNVA) | payer MEDICARE, SELFPAY ==
[2023-09-05 13:33] VITALS: BP 126/80; BMI 61.0
== END ==
PROVIDERS: PCP Nurse Practitioner Family; Visit Provider Surgery
DX: Z09 Encounter for follow-up examination after completed treatment for conditions other than malignant neoplasm (principal)
CPT/HCPCS: 99024

== ENCOUNTER 2024-01-04 10:40 | Oncology outpatient (recurring) (ONCR) | payer MEDICARE, MEDICAID, SELFPAY ==
[2023-09-05 13:33] VITALS: BP 126/80; BMI 61.0
[2023-12-20 13:16] LABS: Basophils # 0.1 10^3/uL (0.0-0.1); Basophils % 0.6 %; Eosinophils # 0.3 10^3/uL (0.0-0.8); Eosinophils % 2.6 %; Hematocrit 26.7 % (36-47); Lymphocytes # 2.3 10^3/uL (0.8-4.8); Lymphocytes % 19.2 %; Mean Corpuscular HGB Conc 31.1 g/dL (30-55); Mean Corpuscular Hemoglobin 25.1 pg (27-33); Mean Corpuscular Volume 80.7 fl (85-98); Mean Platelet Volume 8.8 fL (7.4-10.4); Monocytes # 0.7 10^3/uL (0.2-0.9); Monocytes % 5.5 %; Neutrophils # 8.52 10^3/uL (1.8-7.7); Neutrophils % 71.7 %; Nucleated Red Blood Cells % 0 %; Platelet Count 657 10^3/cmm (157-399); Red Blood Count 3.31 10^6/uL (3.85-5.65); Red Cell Distribution Width 22.3 % (12.1-15.1)
[2023-12-20 13:39] LABS: Alanine Aminotransferase 8 U/L (0-33); Albumin Level 2.4 g/dL (3.5-5.2); Alkaline Phosphatase 176 U/L (35-105); Aspartate Amino Transferase 15 U/L (0-32); C Reactive Protein 66.7 mg/L (0.0-4.9); Creatine Phosphokinase 47 U/L (26-192); Globulin 3.6 g/dL (1.3-4.6); Glomerular Filtration Rate 226.9 mL/min (90-130); Total Bilirubin 0.2 mg/dL (0.15-1.2)
[2023-12-27 14:45] LABS: Basophils # 0.1 10^3/uL (0.0-0.1); Basophils % 1.2 %; Eosinophils # 0.4 10^3/uL (0.0-0.8); Eosinophils % 4.7 %; Hematocrit 29.6 % (36-47); Lymphocytes # 1.6 10^3/uL (0.8-4.8); Lymphocytes % 20.5 %; Mean Corpuscular HGB Conc 30.7 g/dL (30-55); Mean Corpuscular Hemoglobin 24.5 pg (27-33); Mean Corpuscular Volume 79.8 fl (85-98); Mean Platelet Volume 9.2 fL (7.4-10.4); Monocytes # 0.7 10^3/uL (0.2-0.9); Monocytes % 9.2 %; Neutrophils # 4.96 10^3/uL (1.8-7.7); Nucleated Red Blood Cells % 0 %; Platelet Count 600 10^3/cmm (157-399); Red Blood Count 3.71 10^6/uL (3.85-5.65); Red Cell Distribution Width 21.9 % (12.1-15.1); White Blood Count 7.74 10^3/uL (3.29-11.43)
[2023-12-27 14:46] LABS: Alanine Aminotransferase 6 U/L (0-33); Albumin Level 2.9 g/dL (3.5-5.2); Alkaline Phosphatase 131 U/L (35-105); Aspartate Amino Transferase 13 U/L (0-32); Creatine Phosphokinase 52 U/L (26-192); Globulin 4.1 g/dL (1.3-4.6); Glomerular Filtration Rate 226.9 mL/min (90-130); Total Bilirubin 0.2 mg/dL (0.15-1.2)
[2024-01-04 11:18] LABS: Basophils # 0.1 10^3/uL (0.0-0.1); Basophils % 0.9 %; Eosinophils # 0.4 10^3/uL (0.0-0.8); Eosinophils % 5.1 %; Hematocrit 32.2 % (36-47); Lymphocytes % 22.8 %; Mean Corpuscular HGB Conc 30.7 g/dL (30-55); Mean Corpuscular Hemoglobin 24.1 pg (27-33); Mean Corpuscular Volume 78.5 fl (85-98); Mean Platelet Volume 9.1 fL (7.4-10.4); Monocytes # 0.5 10^3/uL (0.2-0.9); Monocytes % 6.1 %; Neutrophils # 5.64 10^3/uL (1.8-7.7); Neutrophils % 64.8 %; Nucleated Red Blood Cells % 0 %; Platelet Count 710 10^3/cmm (157-399); Red Cell Distribution Width 21.1 % (12.1-15.1); White Blood Count 8.71 10^3/uL (3.29-11.43)
[2024-01-04 11:35] LABS: Alanine Aminotransferase 6 U/L (0-33); Albumin Level 2.9 g/dL (3.5-5.2); Alkaline Phosphatase 132 U/L (35-105); Aspartate Amino Transferase 13 U/L (0-32); C Reactive Protein 32.3 mg/L (0.0-4.9); Creatine Phosphokinase 34 U/L (26-192); Globulin 4.4 g/dL (1.3-4.6); Glomerular Filtration Rate 226.9 mL/min (90-130); Total Bilirubin 0.2 mg/dL (0.15-1.2); Total Protein 7.3 g/dL (6.6-8.7)
== END 2024-01-08 23:59 | disposition home or self-care (01) ==
PROVIDERS: Student in an Organized Health Care Education/Training Program; PCP Nurse Practitioner Family; Visit Provider Internal Medicine Medical Oncology
DX: M86.9 Osteomyelitis, unspecified (principal); Z53.9 Procedure and treatment not carried out, unspecified reason
CPT/HCPCS: 36592; 80076; 82550; 82565; 85025; 86140

== ENCOUNTER → 2024-01-05 09:47 | Outpatient (BNVA) | payer MEDICARE, SELFPAY ==
[2023-09-05 13:33] VITALS: BP 126/80; BMI 61.0
== END ==
PROVIDERS: PCP Nurse Practitioner Family; Visit Provider Thoracic Surgery (Cardiothoracic Vascular Surgery)
DX: I96 Gangrene, not elsewhere classified (principal); L89.154 Pressure ulcer of sacral region, stage 4; L89.313 Pressure ulcer of right buttock, stage 3; L89.100 Pressure ulcer of unspecified part of back, unstageable
CPT/HCPCS: 97597; 97598

== ENCOUNTER → 2024-01-09 14:03 | Outpatient (BNVA) | payer MEDICARE, SELFPAY ==
[2023-09-05 13:33] VITALS: BP 126/80; BMI 61.0
== END ==
PROVIDERS: PCP Nurse Practitioner Family; Visit Provider Student in an Organized Health Care Education/Training Program
DX: L89.304 Pressure ulcer of unspecified buttock, stage 4 (principal); Z79.2 Long term (current) use of antibiotics
CPT/HCPCS: 87493

== ENCOUNTER 2024-01-11 11:17 | Oncology outpatient (recurring) (ONCR) | payer MEDICARE, MEDICAID, SELFPAY ==
[2024-01-11 10:47] VITALS: BP 126/80; BMI 61.0
[2024-01-11] MEDS: alteplase 1 mg/mL SDV 2 mL 2 MG INTRACATH (13:11)
[2024-01-11 14:26] LABS: Basophils # 0.1 10^3/uL (0.0-0.1); Basophils % 0.7 %; Eosinophils # 0.6 10^3/uL (0.0-0.8); Eosinophils % 5.6 %; Hematocrit 29.4 % (36-47); Lymphocytes # 1.7 10^3/uL (0.8-4.8); Lymphocytes % 15.6 %; Mean Corpuscular Hemoglobin 24.2 pg (27-33); Mean Corpuscular Volume 78.2 fl (85-98); Mean Platelet Volume 8.9 fL (7.4-10.4); Monocytes # 0.6 10^3/uL (0.2-0.9); Monocytes % 5.3 %; Neutrophils % 72.4 %; Nucleated Red Blood Cells % 0 %; Platelet Count 556 10^3/cmm (157-399); Red Blood Count 3.76 10^6/uL (3.85-5.65); Red Cell Distribution Width 20.1 % (12.1-15.1); White Blood Count 10.61 10^3/uL (3.29-11.43)
[2024-01-11 14:43] LABS: Alanine Aminotransferase 6 U/L (0-33); Albumin Level 2.5 g/dL (3.5-5.2); Alkaline Phosphatase 109 U/L (35-105); Aspartate Amino Transferase 14 U/L (0-32); C Reactive Protein 56.2 mg/L (0.0-4.9); Creatine Phosphokinase 79 U/L (26-192); Globulin 4.4 g/dL (1.3-4.6); Total Bilirubin 0.2 mg/dL (0.15-1.2); Total Protein 6.9 g/dL (6.6-8.7)
== END 2024-02-08 23:59 | disposition home or self-care (01) ==
PROVIDERS: Student in an Organized Health Care Education/Training Program; PCP Nurse Practitioner Family; Visit Provider Internal Medicine Hematology & Oncology
DX: M86.9 Osteomyelitis, unspecified; L89.154 Pressure ulcer of sacral region, stage 4; Z47.81 Encounter for orthopedic aftercare following surgical amputation; Z89.211 Acquired absence of right upper limb below elbow; L89.324 Pressure ulcer of left buttock, stage 4
CPT/HCPCS: 80076; 82550; 85025; 86140; 86141; 99214; J2997

== ENCOUNTER → 2024-01-12 09:06 | Outpatient (BNVA) | payer MEDICARE, MEDICAID, SELFPAY ==
[2024-01-11 10:47] VITALS: BP 126/80; BMI 61.0
== END ==
PROVIDERS: PCP Nurse Practitioner Family; Visit Provider Thoracic Surgery (Cardiothoracic Vascular Surgery)
DX: I96 Gangrene, not elsewhere classified (principal); L89.324 Pressure ulcer of left buttock, stage 4; L89.313 Pressure ulcer of right buttock, stage 3; L89.152 Pressure ulcer of sacral region, stage 2; L89.100 Pressure ulcer of unspecified part of back, unstageable
CPT/HCPCS: 97597; 97598; A6220; A6446

== ENCOUNTER 2024-01-15 15:07 | Emergency (ER) | payer MEDICARE, MEDICAID, SELFPAY ==
[2024-01-15 15:08] VITALS: BP 102/69; PULSE 78; RESP 18; TEMP 36.7; O2SAT 98; BMI 45.0
--- NOTE | 2024-01-15 15:24 | XRR_ITS ---
PROCEDURE INFORMATION: Exam: XR Chest Exam date and time: 01/15/2024 3:27 PM Age: 58 years old Clinical indication: Shortness of breath; Additional info: Hallucinations? TECHNIQUE: Imaging protocol: Radiologic exam of the chest. Views: 1 view. COMPARISON: CR (CHEST, ) 12/14/2023 7:34 PM FINDINGS: Tubes, catheters and devices: Left PICC line tip is in the brachiocephalic vein. This has retracted from the SVC when compared to the previous study. Lungs: No focal consolidation or other acute appearing pulmonary opacity. Pleural spaces: No pleural effusion or pneumothorax noted. Heart/Mediastinum: There is no cardiomegaly. Bones/joints: No acute osseous abnormality. XR/XR chest 1V portable [id number] IMPRESSION: 1. No acute cardiopulmonary disease. 2. The tip of the left PICC line has retracted into the brachiocephalic vein, previously the tip was in the SVC.
--- NOTE | 2024-01-15 15:28 | W.ED.GENADLT ---
HPI - General Adult General: Chief complaint: Urogenital-Female Stated complaint: UTI Time Seen by Provider: 01/15/24 15:12 Source: patient Mode of arrival: EMS Limitations: no limitations History of Present Illness: Patient is a 58 year old female with history of UTIs, sacral decubitus ulcer, currently on PICC daptomycin, status post recent debridement by Dr. 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 She states that she reportedly told the friend that she felt like she had something in her left hand/residual stump arm but when she looked down it was not there. She has not had any further hallucinations . Patient upon arrival states she feels normal. She states friend was concerned this could be a sign of sepsis as she was admitted here recently for this. Upon arrival she is alert and oriented x 3. She is not tachycardic or febrile. Blood pressure is 102/69 which patient states is normal for her. She has no physical complaints at this time. [facility] debridement and surgical sites and states they seem to be doing well. Another wound care appointment scheduled for Monday. Relieving factors: none Exacerbating factors: none Associated symptoms: Reports no associated symptoms; Deny chest pain, dyspnea, headache(s) or vomiting Treatments prior to arrival: none Related Data Home Medications Medication Instructions Recorded Confirmed acetaminophen 325 mg tablet 325 mg PO QID PRN Pain 10/17/22 01/11/24 diphenhydramine HCl 25 mg tablet 25 mg PO TID PRN Allergy Symptoms 10/17/22 01/11/24 (Benadryl Allergy) clopidogrel 75 mg tablet 75 mg PO DAILY 12/06/23 01/11/24 fenofibrate 160 mg tablet 160 mg PO DAILY 12/06/23 01/11/24 levothyroxine 112 mcg tablet 112 mcg PO DAILY 12/06/23 01/11/24 daptomycin 500 mg intravenous 500 mg IV ONCE 12/12/23 01/11/24 solution insulin detemir U-100 100 unit/mL 30 unit SUBCUT QAM 12/14/23 01/11/24 (3 mL) subcutaneous pen (Levemir FlexPen) zolpidem 5 mg tablet 5 mg PO BEDTIME PRN insomnia 12/15/23 01/11/24 Previous Rx's Medication Instructions Recorded prosthetic hands Bilateral #1 ea 05/02/19 blood-glucose sensor #3 ea 05/08/20 flash glucose scanning reader #1 ea 06/14/20 (FreeStyle Maria M 2 [place]) pen needle, diabetic 31 gauge x #450 ea 07/01/20/ (Sure-Fine Pen [place]) prosthetic legs #1 ea 12/11/20 flash glucose sensor (FreeStyle #6 ea 10/19/21 Maria M 2 Sensor kit) nitroglycerin 0.4 mg sublingual 0.4 mg sublingual Q5M PRN chest 04/12/22 tablet pain #25 tabs Ear Pulse Ox #1 ea 04/25/22 clonazepam 0.5 mg tablet 0.5 mg PO DAILY PRN anxiety 30 09/21/22 days #30 tabs wheelchair motorized #1 ea 12/16/22 bupropion HCl 150 mg 24 hr tablet, 150 mg PO QAM #30 tabs 06/07/23 extended release (Wellbutrin XL) sodium hypochlorite 0.125 % 1 applic topical BID open wound 06/21/23 solution (Dakin's Solution) #473 mL cholecalciferol (vitamin D3) 1,250 See Rx Instructions .Route 06/27/23 mcg (50,000 unit) capsule .COMPLEX #4 caps duloxetine 60 mg capsule,delayed 60 mg PO BID #60 caps 06/29/23 release blood-glucose meter,continuous #1 ea 11/09/23 (Dexcom G7 [place]) insulin regular hum U-500 conc 500 100 unit (0.2 mL) SUBCUT .COMPLEX 12/14/23 unit/mL(3 mL) subcut pen (Humulin #6 mL R U-500 (Conc) Insulin Kwikpen) nystatin 100,000 unit/gram topical 1 applic topical BID #60 grams 12/14/23 powder daptomycin 500 mg intravenous 500 mg IV DAILY 12/17/23 solution nystatin 100,000 unit/mL oral 500,000 unit (5 mL) buccal DAILY 12/20/23 suspension #250 mL gabapentin 600 mg tablet See Rx Instructions .Route 12/29/23 .COMPLEX #90 tabs sodium chloride 0.9 % irrigation 1 irrig irrigation DAILY wound 30 01/05/24 solution days #500 mL blood-glucose sensor (Dexcom G7 #1 ea 01/08/24 Sensor device) isosorbide mononitrate 30 mg 30 mg PO DAILY #90 tabs 01/08/24 tablet,extended release 24 hr metoprolol tartrate 25 mg tablet 25 mg PO DAILY #90 tabs 01/08/24 oxycodone 10 mg tablet 10 mg PO TID PRN pain 30 days #90 01/09/24 tabs rivaroxaban 20 mg tablet (Xarelto) 20 mg PO DAILY #90 tabs 01/12/24 ciprofloxacin HCl 500 mg tablet 500 mg PO BID 1 week #14 tabs 01/15/24 Allergies Allergy/AdvReac Type Severity Reaction Status Date / Time cephalexin Allergy Unknown Not Verified 01/11/24 10:13 Entered,Swelling,Diarrhea metformin Allergy Unknown Diarrhea,Not Verified 01/11/24 10:13 Entered,SWELLING Review of Systems Const: Denies: fever(s), chills or body aches Card: Denies: chest pain Resp: Denies: dyspnea GI: Denies: abdominal pain, vomiting or diarrhea : Reports: other (mcdermott-states this seems to be draining well); Denies: flank pain or dysuria Musc: Denies: neck pain or back pain Neuro: Denies: headache(s) PFSH ED PFSH: Medical History Back pain Decubitus ulcer of sacral region, stage 4 Septic shock Hypotension Abscess of buttock, left Decubital ulcer Infected pressure ulcer Abscess of left buttock Mobility impaired Pressure ulcer of buttock Stage II pressure ulcer of left buttock DM type 2 causing complication Diabetes mellitus Bilateral pneumonia Influenza B UTI (urinary tract infection) COVID-19 Hypovolemic shock Pressure sore on buttocks UTI (urinary tract infection) Amputation leg, bilat Psychiatric care Anxiety Major depressive disorder, recurrent severe without psychotic features Coronary artery disease Polyuria Polydipsia Urgency incontinence Recurrent UTI Below-elbow amputation of right upper extremity Below-elbow amputation of left upper extremity 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 Enrolled in chronic care management Rheumatoid arthritis Phantom pain after amputation of lower extremity Chronic pain 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 Hypothyroidism Hyperlipemia, mixed HTN (hypertension), benign (~11/2022) 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, hand, bilateral Hx of sepsis Surgical History History of amputation of lower extremity History of skin graft History of appendectomy History of amputation of finger of both hands Family History Father , at age 47 CAD (coronary artery disease) Hypertension Mother , at age 64 Diabetes Lung disease Sister Diabetes Brother Diabetes Denies family history of Dementia Cancer Stroke Social History Smoking and tobacco/nicotine status: former use of tobacco/nicotine Quit status (tobacco/nicotine): has tried quititng Second hand smoke exposure: Yes Alcohol intake: current Alcohol intake frequency: holidays/special occasions only Alcohol type: wine Substance/Drug Use: never Adopted: No Caregiver/support person: Yes Lives independently: Yes Household members: significant other and family Housing: House Marital status: Single Marital status details: Life partner of 45 years Number of children: 0 Number of grandchildren: 0 Highest education level completed: High School Graduate service: No Current occupational status: disabled Pets and animals: Yes (lab, yorkie, beagle) Pets & animals: cat(s) and dog(s) Leisure activites: art, fishing and other Leisure activities details: writing, watch TV Sexually active: Yes Do you think of yourself as: Straight/Heterosexual Current gender identity: Female Keyonna/Hindu: None Special keyonna needs: No Agree to transfusion: Yes Female Reproductive History: Para: 0 Physical Exam Const: COMMON NORMALS: no acute distress, patient oriented x3, no limitations, alert and well nourished GENERAL APPEARANCE: cooperative ORIENTATION/CONSCIOUSNESS: Yes awake, Yes oriented to person, Yes oriented to place and Yes oriented to time HENMT: COMMON NORMALS: normocephalic and atraumatic HEAD & SCALP: normal to inspection, normocephalic and atraumatic Resp: COMMON NORMALS: normal respiratory effort and clear to auscultation bilaterally AUSCULTATION: clear to auscultation bilaterally Cardio: COMMON NORMALS: regular rate and regular rhythm RATE: regular rate RHYTHM: regular rhythm GI: COMMON NORMALS: Normal to inspection, nondistended, normoactive bowel sounds present, Soft to palpation and non-tender PALPATION: Yes Soft to palpation OTHER: urine in mcdermott is yellow and clear appearing : COMMON NORMALS: Yes no CVA tenderness BLADDER/KIDNEY EXAM: Yes no CVA tenderness Back/Pelvis: COMMON NORMALS: no CVA tenderness Extremity: NARRATIVE EXTREMITY EXAM: quad amputee Neuro: COMMON NORMALS: patient oriented x3 SENSORIUM/ORIENTATION: Yes alert, Yes oriented to person, Yes oriented to place and Yes oriented to time Skin: NARRATIVE SKIN EXAM: skin wounds to sacrum and extremities visualized without any evidence of acute infection or worsening Course Vital Signs: Vital signs: Vital Signs Temperature 98.0 F 01/15/24 15:08 Pulse Rate 76 01/15/24 16:15 Respiratory Rate 18 01/15/24 15:08 Blood Pressure 92/57 01/15/24 16:33 Pulse Oximetry 100 01/15/24 16:15 Oxygen Delivery Me thod Room Air 01/15/24 16:15 MDM - General Adult Medical Decision Making Patient arrives with a normal blood pressure for her. She is not tachycardic or febrile. She has a normal white count. Does have evidence of UTI with indwelling Mcdermott. She is alert and oriented here. She has not had any hallucinations. She has wound care appointment scheduled for Monday. On her CXR her PICC line was noted to be retracted. She only has 2 weeks of this left. She is meeting with her PICC line nurse on . They can discuss whether they want to replace this at that visit. Will place on Cipro for UTI. Return precautions noted. Medical Records I reviewed the patient's medical records. Lab Data I reviewed the patient's lab results. 01/15/24 15:45 01/15/24 15:45 Radiology Impressions Chest X-Ray 01/15/24 15:24 IMPRESSION: 1. No acute cardiopulmonary disease. 2. The tip of the left PICC line has retracted into the brachiocephalic vein, previously the tip was in the SVC. Laboratory Results WBC 10.68 10^3/uL (3.29-11.43) 01/15/24 15:45 RBC 3.75 10^6/uL (3.85-5.65) L 01/15/24 15:45 Hgb 8.90 g/dL (11.27-16.99) L 01/15/24 15:45 Hct 28.8 % (36-47) L 01/15/24 15:45 MCV 76.8 fl (85-98) L 01/15/24 15:45 MCH 23.7 pg (27-33) L 01/15/24 15:45 MCHC 30.9 g/dL (30-55) 01/15/24 15:45 RDW 19.4 % (12.1-15.1) H 01/15/24 15:45 Plt Count 634 10^3/cmm (157-399) H 01/15/24 15:45 MPV 9.0 fL (7.4-10.4) 01/15/24 15:45 Neut % (Auto) 73.6 % 01/15/24 15:45 Lymph % (Auto) 15.0 % 01/15/24 15:45 Mcpherson % (Auto) 5.6 % 01/15/24 15:45 Eos % (Auto) 4.6 % 01/15/24 15:45 Baso % (Auto) 0.7 % 01/15/24 15:45 Neut # (Auto) 7.87 10^3/uL (1.8-7.7) H 01/15/24 15:45 Lymph # (Auto) 1.6 10^3/uL (0.8-4.8) 01/15/24 15:45 [place]pherson # (Auto) 0.6 10^3/uL (0.2-0.9) 01/15/24 15:45 Eos # (Auto) 0.5 10^3/uL (0.0-0.8) 01/15/24 15:45 Baso # (Auto) 0.1 10^3/uL (0.0-0.1) 01/15/24 15:45 Nucleated RBC % (auto) 0 % 01/15/24 15:45 Nucleated RBCs # 0.0 /100WBC 01/15/24 15:45 Sodium 131 mmol/L (136-145) L 01/15/24 15:45 Potassium 4.3 mmol/L (3.5-5.1) 01/15/24 15:45 Chloride 100 mmol/L (98-107) 01/15/24 15:45 Carbon Dioxide 24 mmol/L (22-29) 01/15/24 15:45 Anion Gap 11.3 (5-19) 01/15/24 15:45 BUN 10 mg/dL (8-23) 01/15/24 15:45 Creatinine 0.4 mg/dL (0.5-0.9) L 01/15/24 15:45 GFR Calculation 162.8 mL/min (90-130) H 01/15/24 15:45 Glucose 148 mg/dL (65-115) H 01/15/24 15:45 Calculated Osmolality 274 mOsm/kg (285-295) L 01/15/24 15:45 Calcium 8.4 mg/dL (8.5-10.5) L 01/15/24 15:45 Total Bilirubin 0.2 mg/dL (0.15-1.2) 01/15/24 15:45 AST 14 U/L (0-32) 01/15/24 15:45 ALT 8 U/L (0-33) 01/15/24 15:45 Alkaline Phosphatase 124 U/L (35-105) H 01/15/24 15:45 Total Protein 6.9 g/dL (6.6-8.7) 01/15/24 15:45 Albumin 2.5 g/dL (3.5-5.2) L 01/15/24 15:45 Globulin 4.4 g/dL (1.3-4.6) 01/15/24 15:45 Urine Color Dark yellow (Yellow) A 01/15/24 16:41 Urine Appearance Cloudy (CLEAR) A 01/15/24 16:41 Urine pH 5.5 (5-7) 01/15/24 16:41 Ur Specific [place] 1.020 (1.005-1.030) 01/15/24 16:41 Urine Protein 1+ (Negative) A 01/15/24 16:41 Urine Glucose (UA) Negative (Normal) 01/15/24 16:41 Urine Ketones Trace (Negative) 01/15/24 16:41 Urine Blood Non-haemolysed trace (Negative) 01/15/24 16:41 Urine Nitrate Negative (Negative) 01/15/24 16:41 Urine Bilirubin 1+ (Negative) H 01/15/24 16:41 Urine Urobilinogen 1.0 mg/dL (Negative) 01/15/24 16:41 Ur Leukocyte Esterase 3+ (Negative) A 01/15/24 16:41 Urine RBC >100 /hpf (0-2) H 01/15/24 16:41 Urine WBC >100 /hpf (0-5) H 01/15/24 16:41 Ur Squamous Epith Cells 0-4 /hpf (0-5) H 01/15/24 16:41 Calcium Oxalate Crystal 0-4 /hpf H 01/15/24 16:41 Amorphous Sediment Not Reportable 01/15/24 16:41 Urine Bacteria None /hpf (NONE) 01/15/24 16:41 Hyaline Casts 10-15 /lpf H 01/15/24 16:41 Urine Mucus Trace /hpf 01/15/24 16:41 Urine Yeast 4+ /hpf H 01/15/24 16:41 All radiology interpretation(s) finalized by discharge Discharge Plan Discharge Patient Disposition: Home Clinical Impression: Skin ulcer of multiple sites Qualifiers: Non-pressure ulcer stage: unspecified non-pressure ulcer stage Qualified Code(s): L98.499 - Non-pressure chronic ulcer of skin of other sites with unspecified severity UTI (urinary tract infection) Qualifiers: Urinary tract infection type: acute cystitis Hematuria presence: without hematuria Qualified Code(s): N30.00 - Acute cystitis without hematuria Condition: Stable Prescriptions: Continued ciprofloxacin HCl 500 mg tablet 500 mg PO BID 7 Days Qty: 14 0RF No Action (DME) blood-glucose sensor Device See Rx Instructions .ROUTE .MEDSUPPLY Qty: 3 0RF Rx Instructions: As directed (DME) prosthetic legs See Rx Instructions .Route .MEDSUPPLY Qty: 1 0RF Rx Instructions: As directed (DME) FreeStyle Maria M 2 [place] Misc See Rx Instructions .ROUTE .MEDSUPPLY Qty: 1 0RF Rx Instructions: As directed nitroglycerin 0.4 mg tablet, sublingual 0.4 mg SUBLINGUAL Q5M PRN (Reason: chest pain) Qty: 25 3RF daptomycin 500 mg recon soln 500 mg IV ONCE nystatin 100,000 unit/gram powder 1 applic topical BID Qty: 60 1RF Levemir FlexPen 100 unit/mL (3 mL) insulin pen 30 unit SUBCUT QAM Humulin R U-500 (Conc) Kwikpen 500 unit/mL (3 mL) insulin pen 100 unit SUBCUT .COMPLEX Qty: 6 0RF Rx Instructions: Inject 3 times daily with meals per sliding scale: 70-130=0 units, 131-180=2 units, 181-240= 4 units, 241-300= 6 units, 301-350= 8 units, 351-400= 10 units, >400 12 units and call DrFarhad; nystatin 100,000 unit/mL suspension 500,000 unit buccal DAILY Qty: 250 0RF Rx Instructions: administer 1/2 of dose in each side of the mouth sodium chloride 0.9 % solution 1 irrig irrigation DAILY 30 Days Qty: 500 1RF Rx Instructions: if 500ml not on hand dispense quantity on hand acetaminophen 325 mg tablet 325 mg PO QID PRN (Reason: Pain) diphenhydramine HCl [Benadryl Allergy] 25 mg tablet 25 mg PO TID PRN (Reason: Allergy Symptoms) (DME) wheelchair motorized See Rx Instructions .Route .MEDSUPPLY Qty: 1 0RF Rx Instructions: As directed Dakin's Solution 0.125 % solution 1 applic topical BID Qty: 473 2RF (DME) prosthetic hands Bilateral Qty: 1 0RF Rx Instructions: As directed (DME) pen needle, diabetic [Sure-Fine Pen [place]] 31 gauge x 3/16 needle See Rx Instructions .ROUTE .MEDSUPPLY Qty: 450 3RF Rx Instructions: uses 5 times a day (DME) FreeStyle Maria M 2 Sensor Kit See Rx Instructions .ROUTE .MEDSUPPLY Qty: 6 3RF Rx Instructions: Change every 14 days. (DME) Ear Pulse Ox See Rx Instructions .Route .MEDSUPPLY Qty: 1 0RF Rx Instructions: As directed; continuous pulse ox clonazepam 0.5 mg tablet 0.5 mg PO DAILY PRN (Reason: anxiety) 30 Days Qty: 30 2RF bupropion HCl [Wellbutrin XL] 150 mg tablet extended release 24 hr 150 mg PO QAM Qty: 30 2RF cholecalciferol (vitamin D3) 1,250 mcg (50,000 unit) capsule See Rx Instructions .ROUTE .COMPLEX Qty: 4 0RF Dose Instruction: Take 1 capsule by mouth once a week Rx Instructions: Take 1 capsule by mouth once a week on Monday. duloxetine 60 mg capsule,delayed release(DR/EC) 60 mg PO BID Qty: 60 2RF (DME) Dexcom G7 [place] Misc See Rx Instructions .Route Qty: 1 0RF Rx Instructions: As directed gabapentin 600 mg tablet See Rx Instructions .ROUTE .COMPLEX Qty: 90 0RF Dose Instruction: TAKE 1 TABLET BY MOUTH THREE TIMES DAILY Rx Instructions: TAKE 1 TABLET BY MOUTH THREE TIMES DAILY (DME) Dexcom G7 Sensor Device See Rx Instructions .Route Qty: 1 1RF Rx Instructions: As directed metoprolol tartrate 25 mg tablet 25 mg PO DAILY Qty: 90 0RF isosorbide mononitrate 30 mg tablet extended release 24 hr 30 mg PO DAILY Qty: 90 0RF oxycodone 10 mg tablet 10 mg PO TID PRN (Reason: pain) 30 Days Qty: 90 0RF Xarelto 20 mg tablet 20 mg PO DAILY Qty: 90 1RF clopidogrel 75 mg tablet 75 mg PO DAILY fenofibrate 160 mg tablet 160 mg PO DAILY levothyroxine 112 mcg tablet 112 mcg PO DAILY zolpidem 5 mg tablet 5 mg PO BEDTIME PRN (Reason: insomnia) daptomycin 500 mg recon soln 500 mg IV DAILY Rx Instructions: administer over 30 mins Discharge Orders: Discharge ED (Routine); Ordered 01/15/24 Ordered By: Priya Lambert Referrals: Franca Garza FNP [Primary Care Provider] - Activity Restrictions/Additional Instructions: As we discussed, please follow-up with your electronic specialist Monday as scheduled. You have also indicated you have follow-up with your PICC line nurse on . You may did discuss with her the change in positioning noted on today's x-ray. Blood work today showing a normal white count. Blood pressures have been soft which you have stated is normal for you. You have also indicated you take blood pressure medications. I would hold these if your blood pressure continues to run low at home. You need to return to the emergency department for onset of fevers, generally feeling worse or unwell, or any other concerns you may have. Coding Level of Care Code ED Service Transformer Repair Supervisor for Sidra Saldivar
[2024-01-15 15:54] LABS: Basophils # 0.1 10^3/uL (0.0-0.1); Basophils % 0.7 %; Eosinophils # 0.5 10^3/uL (0.0-0.8); Eosinophils % 4.6 %; Hematocrit 28.8 % (36-47); Lymphocytes # 1.6 10^3/uL (0.8-4.8); Mean Corpuscular HGB Conc 30.9 g/dL (30-55); Mean Corpuscular Hemoglobin 23.7 pg (27-33); Mean Corpuscular Volume 76.8 fl (85-98); Monocytes # 0.6 10^3/uL (0.2-0.9); Monocytes % 5.6 %; Neutrophils # 7.87 10^3/uL (1.8-7.7); Neutrophils % 73.6 %; Nucleated Red Blood Cells % 0 %; Platelet Count 634 10^3/cmm (157-399); Red Blood Count 3.75 10^6/uL (3.85-5.65); Red Cell Distribution Width 19.4 % (12.1-15.1); White Blood Count 10.68 10^3/uL (3.29-11.43)
[2024-01-15 16:10] LABS: Alanine Aminotransferase 8 U/L (0-33); Albumin Level 2.5 g/dL (3.5-5.2); Alkaline Phosphatase 124 U/L (35-105); Anion Gap 11.3 (5-19); Aspartate Amino Transferase 14 U/L (0-32); Blood Urea Nitrogen 10 mg/dL (8-23); Calcium 8.4 mg/dL (8.5-10.5); Carbon Dioxide 24 mmol/L (22-29); Chloride 100 mmol/L (98-107); Creatinine Clr Calc Pharmacy 121.0211; Globulin 4.4 g/dL (1.3-4.6); Glomerular Filtration Rate 162.8 mL/min (90-130); Glucose 148 mg/dL (65-115); Osmolality Calculated 274 mOsm/kg (285-295); Potassium 4.3 mmol/L (3.5-5.1); Sodium 131 mmol/L (136-145); Total Bilirubin 0.2 mg/dL (0.15-1.2); Total Protein 6.9 g/dL (6.6-8.7)
[2024-01-15 16:15] VITALS: BP 76/41; PULSE 76; O2SAT 100
[2024-01-15 16:33] VITALS: BP 92/57
[2024-01-15 16:51] LABS: Bilirubin Urine 1+ (Negative); Blood Urine Non-haemolysed trace (Negative); Glucose Urine UA Negative (Normal); Ketones Urine Trace (Negative); Leukocyte Esterase Urine 3+ (Negative); Nitrate Urine Negative (Negative); Protein Urine 1+ (Negative); Urine Appearance Cloudy (CLEAR); Urine Color Dark Yellow (Yellow); pH Urine 5.5 (5-7)
[2024-01-15 16:59] LABS: Add Urine Microscopic? YES
[2024-01-15 17:10] LABS: UA Slide Review UA Slide Review Perf
[2024-01-15 17:12] LABS: Calcium Oxalate Crystals Urine 0-4 /hpf; Mucus Urine TRACE /hpf; RBC Urine >100 /hpf (0-2); Squamous Epithelial Cell Urine 0-4 /hpf (0-5); UA Manual Slide Review YES; WBC Urine >100 /hpf (0-5)
[2024-01-15 17:13] LABS: Add Urine Culture? Yes
[2024-01-15] MEDS: ciprofloxacin 500 mg Tablet PO (17:23)
[2024-01-15 17:25] VITALS: BP 109/60; PULSE 77; O2SAT 99
[2024-01-15 17:46] VITALS: BP 100/58; PULSE 76; RESP 17; O2SAT 94
== END 2024-01-15 17:49 | disposition home or self-care (01) ==
PROVIDERS: Emergency Provider Physician Assistant; PCP Nurse Practitioner Family
DX: N30.00 Acute cystitis without hematuria (principal); L98.499 Non-pressure chronic ulcer of skin of other sites with unspecified severity; Z79.02 Long term (current) use of antithrombotics/antiplatelets; Z79.4 Long term (current) use of insulin; Z96.0 Presence of urogenital implants; Z89.512 Acquired absence of left leg below knee; Z89.511 Acquired absence of right leg below knee; Z89.212 Acquired absence of left upper limb below elbow; Z89.211 Acquired absence of right upper limb below elbow; E11.9 Type 2 diabetes mellitus without complications; I25.10 Atherosclerotic heart disease of native coronary artery without angina pectoris; E78.2 Mixed hyperlipidemia; I10 Essential (primary) hypertension; Z87.440 Personal history of urinary (tract) infections
CPT/HCPCS: 36415; 71045; 80053; 81001; 85025; 87086; 99284

== ENCOUNTER 2024-01-17 16:24 | Inpatient (IN) | payer MEDICARE, MEDICAID, SELFPAY ==
[2024-01-17 16:45] VITALS: BP 108/66; RESP 17; TEMP 36.9
--- NOTE | 2024-01-17 16:45 | XRR_ITS ---
PROCEDURE INFORMATION: Exam: XR Chest Exam date and time: 01/17/2024 10:40 PM Age: 58 years old Clinical indication: Pain; Chest pressure; Additional info: AMS TECHNIQUE: Imaging protocol: Radiologic exam of the chest. Views: 1 view. COMPARISON: CR XR chest 1V portable [id number] 01/15/2024 3:27 PM FINDINGS: Tubes, catheters and devices: Stable left upper extremity PICC Lungs: Mild diffuse interstitial prominence, stable compared to prior study. No pulmonary consolidation. Pleural spaces: No pleural effusion or pneumothorax. Heart/Mediastinum: Heart size is within normal limits. Coronary artery stents. Bones/joints: No acute osseous abnormalities are seen. XR/XR chest 1V portable [id number] IMPRESSION: Stable radiographic appearance of the chest.
--- NOTE | 2024-01-17 16:50 | CTR_ITS ---
PROCEDURE INFORMATION: Exam: CT Head Without Contrast Exam date and time: 01/17/2024 10:20 PM Age: 58 years old Clinical indication: Altered mental status/memory loss; Additional info: AMS TECHNIQUE: Imaging protocol: Computed tomography of the head without contrast. Radiation optimization: All CT scans at this facility use at least one of these dose optimization techniques: automated exposure control; mA and/or kV adjustment per patient size (includes targeted exams where dose is matched to clinical indication); or iterative reconstruction. COMPARISON: CR XR cervical spine 3V* [id number] 12/27/2022 11:26 AM RADIATION DOSE METRICS: Total DLP (mGy-cm): 1130.98 FINDINGS: Brain: No intracranial hemorrhage. No edema or mass effect. No significant deep white matter abnormality. Cerebral ventricles: Normal ventricles. Paranasal sinuses: Moderate fluid or debris in the [id number]-right maxillary sinuses. Small air-fluid levels in the bilateral maxillary and right sphenoid sinuses. Mastoid air cells: [id number] fluid in the left mastoid air cells. Mild fluid in the right mastoid air cells. The middle ears appear patent. Bones: No acute osseous abnormalities are seen. Soft tissues: The soft tissues are within normal limits. CT/CT head wo con* [id number] IMPRESSION: 1. No acute intracranial pathology. 2. Fluid in the bilateral mastoid air cells. 3. Air-fluid levels in the maxillary sinuses and right sphenoid sinus. Correlate with acute sinusitis.
--- NOTE | 2024-01-17 16:50 | CTR_ITS ---
PROCEDURE INFORMATION: Exam: CT Abdomen And Pelvis With Contrast Exam date and time: 01/17/2024 10:30 PM Age: 58 years old Clinical indication: Abdominal pain and other: Left leg infection; Prior surgery; Surgery date: 6+ months; Surgery type: Bilateral lower leg amputation; Additional info: Abdominal pain, sacral pain TECHNIQUE: Imaging protocol: Computed tomography of the abdomen and pelvis with contrast. Radiation optimization: All CT scans at this facility use at least one of these dose optimization techniques: automated exposure control; mA and/or kV adjustment per patient size (includes targeted exams where dose is matched to clinical indication); or iterative reconstruction. Contrast material: OMNI 350; Contrast volume: 100 ml; Contrast route: INTRAVENOUS (IV); COMPARISON: MR pelvis wo con* [id number] 12/15/2023 2:49 PM RADIATION DOSE METRICS: Total DLP (mGy-cm): 925.93 FINDINGS: Lungs: Breathing artifact limits evaluation of the lung bases. Interstitial coarsening is noted bilaterally. Subpleural fibrotic changes are present. Heart: Mild cardiomegaly. No pericardial effusion or pericardial thickening. Liver: The liver is normal. No hepatic masses are identified. Gallbladder and biliary ducts: The gallbladder is normal. There is no ductal dilatation. Pancreas: The pancreas is normal. Spleen: The spleen is normal. Adrenal glands: The adrenal glands are normal. The adrenal glands are normal. Kidneys and ureters: There is normal enhancement of the kidneys. No renal calcifications are identified. There is no hydronephrosis. There are bilateral subcentimeter renal low-density lesions which are too small for accurate characterization, likely representing simple cysts. Stomach and bowel: Large retained colonic stool. There is no large or small bowel obstruction. There is no evidence of bowel wall thickening. Appendix: A normal appendix is not identified. There is no secondary evidence of acute appendicitis. Intraperitoneal space: No inflammatory changes are identified. There is no free fluid or fluid collection seen. There is no pneumoperitoneum. Vasculature: Atherosclerotic calcifications of the aorta are present. No aneurysm is identified. Lymph nodes: Multiple prominent and mildly enlarged retroperitoneal pelvic sidewall nodes which may be reactive to pathology. No enlarged mesenteric lymph prominent inguinal lymph nodes Urinary bladder: The bladder is decompressed and contains a Chirinos catheter. Reproductive: The uterus is present. Bones/joints: Agpjnlta-qk-sduakq inferior height loss L4, stable. Ylxvhqps-rl-yuiccg anterior wedge compression of L1, likely chronic or subacute. Imaging appears similar compared to the L4 fracture. Apparent 2.4 x 1.4 cm fluid collection associated with distal right femoral stump with destruction of the underlying bone concerning for abscess and osteomyelitis. Additional 2.8 cm collection posterolateral to the right distal femur. 5 cm collection of fluid and gas associated with the distal left stump likely reflecting abscess. Soft tissues: Large right spigelian hernia containing multiple segments of small bowel, right colon, and cecum. Large sacral decubitus ulcer which appears to be predominantly gas. No definitive drainable fluid collection. The mid sacrum is absent, possibly resected. Right ischial decubitus ulcer with suggested 3.3 cm area of phlegmon or possible abscess. CT/CT abdomen pelvis w con* [id number] IMPRESSION: 1. Large right sacral decubitus ulcer containing gas. The mid sacrum is absent, stable. No definitive fluid collection. 2. Right ischial decubitus ulcer with 3.3 cm area of phlegmon versus collection/abscess. 3. 2 fluid collections associated with the distal right stump, the anterior collection appears to be eroding the distal stump concerning for abscess and osteomyelitis. 4. 5 cm collection of fluid gas associated with the distal left stump. 5. Multiple prominent and mildly enlarged pelvic sidewall and retroperitoneal, likely reactive. 6. Other nonemergent findings above. COMMENTS: Consistent with the [employer]'s Incidental Findings Committee white paper (J Am Luca Radiol 2018): Any incidental renal lesion less than 1 cm or classified as too small to characterize, or any incidental cystic renal lesion characterized as simple-appearing, is likely benign. No follow-up imaging is recommended for these lesions per consensus recommendations based on imaging criteria.
--- NOTE | 2024-01-17 17:10 | PM.HP ---
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 Currently patient is alert to person, to place, not to time, she follows commands, during my examination she is hallucinating, telling her family at bedside to take the plate of food away from her. She has no complaints, no fevers, no chills, no cough. According to family members, she has been increasingly confused, due to increasing fatigue, malaise, has had a nonproductive cough, she presented to her infectious disease physicians clinic and she was increasingly confused, sent here to [facility] for evaluation and admission. Patient's family does report that the left stump has had increased drainage, more foul-smelling. Her right upper extremity stump, does have area of debridement but it looks about better. She does have chronic sacral ulcers that are a little bit more worse today, she has had diarrhea. She has had nonspecific complaints of abdominal pain. Has had episodes of nausea, no significant vomiting. Patient has been on ertapenem and daptomycin for the past few weeks,. Review of Systems Const: Denies: fever(s) or chills Card: Denies: chest pain Resp: Denies: dyspnea GI: Reports: abdominal pain and nausea : Denies: flank pain Neuro: Reports: headache(s) Medications/Allergies Home Medications Medication Instructions Recorded Confirmed Last Taken Type prosthetic hands Bilateral #1 ea 05/02/19 01/17/24 Unknown Rx blood-glucose sensor #3 ea 05/08/20 01/17/24 Unknown Rx flash glucose scanning reader #1 ea 06/14/20 01/17/24 Unknown Rx (FreeStyle Maria M 2 [place]) pen needle, diabetic 31 gauge x #450 ea 07/01/20 01/17/24 Unknown Rx /16 (Sure-Fine Pen [place]) prosthetic legs #1 ea 12/11/20 01/17/24 Unknown Rx flash glucose sensor (FreeStyle #6 ea 10/19/21 01/17/24 Unknown Rx Maria M 2 Sensor kit) nitroglycerin 0.4 mg sublingual 0.4 mg sublingual Q5M PRN chest 04/12/22 01/17/24 12/06/23 Rx tablet pain #25 tabs Ear Pulse Ox #1 ea 04/25/22 01/17/24 Unknown Rx clonazepam 0.5 mg tablet 0.5 mg PO DAILY PRN anxiety 30 09/21/22 01/17/24 Unknown Rx days #30 tabs acetaminophen 325 mg tablet 325 mg PO QID PRN Pain 10/17/22 01/17/24 Unknown History diphenhydramine HCl 25 mg tablet 25 mg PO TID PRN Allergy Symptoms 10/17/22 01/17/24 Unknown History (Benadryl Allergy) wheelchair motorized #1 ea 12/16/22 01/17/24 Unknown Rx bupropion HCl 150 mg 24 hr tablet, 150 mg PO QAM #30 tabs 06/07/23 01/17/24 12/06/23 Rx extended release (Wellbutrin XL) sodium hypochlorite 0.125 % 1 applic topical BID open wound 06/21/23 01/17/24 12/06/23 Rx solution (Dakin's Solution) #473 mL cholecalciferol (vitamin D3) 1,250 See Rx Instructions .Route 06/27/23 01/17/24 Unknown Rx mcg (50,000 unit) capsule .COMPLEX #4 caps duloxetine 60 mg capsule,delayed 60 mg PO BID #60 caps 06/29/23 01/17/24 12/06/23 Rx release blood-glucose meter,continuous #1 ea 11/09/23 01/17/24 Unknown Rx (Dexcom G7 [employer] Assistant) clopidogrel 75 mg tablet 75 mg PO DAILY 12/06/23 01/17/24 11/30/23 History fenofibrate 160 mg tablet 160 mg PO DAILY 12/06/23 01/17/24 12/06/23 History levothyroxine 112 mcg tablet 112 mcg PO DAILY 12/06/23 01/17/24 12/06/23 History daptomycin 500 mg intravenous 500 mg IV ONCE 12/12/23 01/17/24 Unknown History solution insulin detemir U-100 100 unit/mL 30 unit SUBCUT QAM 12/14/23 01/17/24 Unknown History (3 mL) subcutaneous pen (Levemir FlexPen) insulin regular hum U-500 conc 500 100 unit (0.2 mL) SUBCUT .COMPLEX 12/14/23 01/17/24 Unknown Rx unit/mL(3 mL) subcut pen (Humulin #6 mL R U-500 (Conc) Insulin Kwikpen) nystatin 100,000 unit/gram topical 1 applic topical BID #60 grams 12/14/23 01/17/24 Unknown Rx powder zolpidem 5 mg tablet 5 mg PO BEDTIME PRN insomnia 12/15/23 01/17/24 Unknown History daptomycin 500 mg intravenous 500 mg IV DAILY 12/17/23 01/17/24 Unknown Rx solution nystatin 100,000 unit/mL oral 500,000 unit (5 mL) buccal DAILY 12/20/23 01/17/24 Unknown Rx suspension #250 mL gabapentin 600 mg tablet See Rx Instructions .Route 12/29/23 01/17/24 Unknown Rx .COMPLEX #90 tabs sodium chloride 0.9 % irrigation 1 irrig irrigation DAILY wound 30 01/05/24 01/17/24 Unknown Rx solution days #500 mL blood-glucose sensor (Dexcom G7 #1 ea 01/08/24 01/17/24 Unknown Rx Sensor device) isosorbide mononitrate 30 mg 30 mg PO DAILY #90 tabs 01/08/24 01/17/24 Unknown Rx tablet,extended release 24 hr metoprolol tartrate 25 mg tablet 25 mg PO DAILY #90 tabs 01/08/24 01/17/24 Unknown Rx oxycodone 10 mg tablet 10 mg PO TID PRN pain 30 days #90 01/09/24 01/17/24 Unknown Rx tabs rivaroxaban 20 mg tablet (Xarelto) 20 mg PO DAILY #90 tabs 01/12/24 01/17/24 Unknown Rx ciprofloxacin HCl 500 mg tablet 500 mg PO BID 1 week #14 tabs 01/15/24 01/17/24 Unknown Rx Allergies Allergy/AdvReac Type Severity Reaction Status Date / Time cephalexin Allergy Unknown Not Verified 01/17/24 13:14 Entered,Swelling,Diarrhea metformin Allergy Unknown Diarrhea,Not Verified 01/17/24 13:14 Entered,SWELLING PFSH Acute PFSH: Medical History Back pain Decubitus ulcer of sacral region, stage 4 Septic shock Hypotension Abscess of buttock, left Decubital ulcer Infected pressure ulcer Abscess of left buttock Mobility impaired Pressure ulcer of buttock Stage II pressure ulcer of left buttock DM type 2 causing complication Diabetes mellitus Bilateral pneumonia Influenza B UTI (urinary tract infection) COVID-19 Hypovolemic shock Pressure sore on buttocks UTI (urinary tract infection) Amputation leg, bilat Psychiatric care Anxiety Major depressive disorder, recurrent severe without psychotic features Coronary artery disease Polyuria Polydipsia Urgency incontinence Recurrent UTI Below-elbow amputation of right upper extremity Below-elbow amputation of left upper extremity 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 Enrolled in chronic care management Rheumatoid arthritis Phantom pain after amputation of lower extremity Chronic pain 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 Hypothyroidism Hyperlipemia, mixed HTN (hypertension), benign (~11/2022) 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, hand, bilateral Hx of sepsis Surgical History History of amputation of lower extremity History of skin graft History of appendectomy History of amputation of finger of both hands Family History Father , at age 47 CAD (coronary artery disease) Hypertension Mother , at age 64 Diabetes Lung disease Sister Diabetes Brother Diabetes Other Anxiety Major depressive disorder, recurrent severe without psychotic features Denies family history of Dementia Cancer Stroke Social History Smoking and tobacco/nicotine status: former use of tobacco/nicotine Quit status (tobacco/nicotine): has tried quititng Second hand smoke exposure: Yes Alcohol intake: current Alcohol intake frequency: holidays/special occasions only Alcohol type: wine Substance/Drug Use: never Adopted: No Caregiver/support person: Yes Lives independently: Yes Household members: significant other and family Housing: House Marital status: Single Marital status details: Life partner of 45 years Number of children: 0 Number of grandchildren: 0 Highest education level completed: High School Graduate service: No Current occupational status: disabled Pets and animals: Yes (lab, yorkie, beagle) Pets & animals: cat(s) and dog(s) Leisure activites: art, fishing and other Leisure activities details: writing, watch TV Sexually active: Yes Do you think of yourself as: Straight/Heterosexual Current gender identity: Female Keyonna/Denominational: None Special keyonna needs: No Agree to transfusion: Yes Female Reproductive History: Para: 0 Physical Exam Const: COMMON NORMALS: no acute distress HENMT: COMMON NORMALS: normocephalic HEAD & SCALP: normocephalic Eye: COMMON NORMALS: Equal, round and reactive pupils present Neck/C-Spine: COMMON NORMALS: no JVD Resp: COMMON NORMALS: normal respiratory effort, No retractions, No use of accessory muscles and clear to auscultation bilaterally AUSCULTATION: clear to auscultation bilaterally Cardio: COMMON NORMALS: no JVD, regular rate, regular rhythm, S1 normal heart sound present and S2 normal heart sound present RATE: regular rate RHYTHM: regular rhythm HEART SOUNDS: S1 normal heart sound present and S2 normal heart sound present GI: COMMON NORMALS: Normal to inspection, nondistended, normoactive bowel sounds present, Soft to palpation and non-tender Extremity: COMMON NORMALS: no calf tenderness and no pedal edema Neuro: OTHER: Alert to person, to place, not to time has episodes of hallucinations during our conversation Skin: NARRATIVE SKIN EXAM: Right upper extremity stump site, has stump breakdown Left lower extremity, stump breakdown with wound dehiscence with foul discharge, bloody discharge Sacral DTI A&P Assessment and plan (1) Altered mental status: (2) Decubitus ulcer of upper extremity, stage 2: (3) Sacral decubitus ulcer, stage IV: (4) Dehiscence of closure of muscle or muscle flap: Plan Altered mental status -Etiology unclear -CT of the head, does complain of a headache -CBC, CMP, Pro-Isidoro, sed rate, CRP, ammonia level, troponin series, BNP, lactic acid, blood cultures, urine cultures, wound cultures, respiratory viral panel, iron studies, TSH, chest xray -Patient has a breakdown of her left lower extremity stump, wound dehiscence, CT with IV contrast -Patient has sacral DTI's, with complaints of abdominal pain, CT abdomen pelvis with IV contrast -Concerns for multidrug-resistant infection? Given patient is on daptomycin, and ertapenem chronically - Chronic indwelling Chirinos catheter -Neurochecks -Aspiration precautions -Will hold Xarelto and Plavix and just in case patient requires surgical intervention for her left lower extremity stump wound dehiscence -Will discuss with surgical service -Type 2 diabetes mellitus, moderate dose sliding scale -Full code -Xarelto for DVT prophylaxis, currently on hold for plans of [facility] Medical Necessity Statement*: Patient requires hospitalization, inpatient, greater than 2 midnights, for altered mental status Diagnoses Altered mental status R41.82 Decubitus ulcer of upper extremity, stage 2 L89.892 Sacral decubitus ulcer, stage IV L89.154 Dehiscence of closure of muscle or muscle flap T81.328A
[2024-01-17 18:34] LABS: Basophils # 0.1 10^3/uL (0.0-0.1); Basophils % 0.6 %; Eosinophils # 0.5 10^3/uL (0.0-0.8); Eosinophils % 4.9 %; Hematocrit 28.5 % (36-47); Lymphocytes # 2.2 10^3/uL (0.8-4.8); Lymphocytes % 22.4 %; Mean Corpuscular HGB Conc 30.9 g/dL (30-55); Mean Corpuscular Hemoglobin 24.1 pg (27-33); Mean Corpuscular Volume 78.1 fl (85-98); Mean Platelet Volume 8.9 fL (7.4-10.4); Monocytes # 0.8 10^3/uL (0.2-0.9); Neutrophils # 6.14 10^3/uL (1.8-7.7); Neutrophils % 63.7 %; Nucleated Red Blood Cells % 0 %; Platelet Count 710 10^3/cmm (157-399); Red Blood Count 3.65 10^6/uL (3.85-5.65); Red Cell Distribution Width 19.2 % (12.1-15.1); White Blood Count 9.64 10^3/uL (3.29-11.43)
[2024-01-17 18:35] LABS: Bilirubin Urine Negative (Negative); Blood Urine 3+ (Negative); Glucose Urine UA Negative (Normal); Ketones Urine Negative (Negative); Leukocyte Esterase Urine 2+ (Negative); Nitrate Urine Negative (Negative); Protein Urine 1+ (Negative); Specific Gravity, Urine 1.024 (1.005-1.030); Urine Appearance Cloudy (CLEAR); Urine Color Dark Yellow (Yellow); pH Urine 5.5 (5-7)
--- NOTE | 2024-01-17 18:37 | ECG_ITS ---
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1965 Requested By: Will Upton Order Number: [id number] Reading MD: UMBERTO CARTAGENA Measurements Intervals [place] Rate: 81 P: -3 DC: 194 QRS: -38 QRSD: 112 T: 61 QT: 403 QTc: 468 Interpretive Statements SINUS RHYTHM INFERIOR MYOCARDIAL INFARCTION , OF INDETERMINATE AGE [40+ ms Q WAVE AND/OR ST/T ABNORMALITY IN II/aVF] Compared to ECG 12/14/2023 19:40:25 Sinus tachycardia no longer present Myocardial infarct finding still present Electronically Signed On 01-17-2024 20:10:34 CDT by UMBERTO CARTAGENA [email or web address]
[2024-01-17 18:40] LABS: Add Urine Microscopic? YES; Bacteria Urine Trace /hpf; Hyaline Casts Urine 7.01 /lpf; RBC Urine 51-100 /hpf (0-2); WBC Urine >100 /hpf (0-5)
[2024-01-17 18:43] LABS: Erythrocyte Sedimentation Rate 61 mm/hr (0-15)
[2024-01-17 18:49] LABS: UA Slide Review UA Slide Review Perf
[2024-01-17 18:51] LABS: Add Urine Culture? Yes
[2024-01-17] MEDS: meropenem 500 mg SDV IVP (18:51)
[2024-01-17] MEDS: pantoprazole 40 mg SDV IVP (18:51)
[2024-01-17] MEDS: nystatin powder 15 gm Btl 1 APPLIC TOPICAL (18:51)
[2024-01-17] MEDS: sodium chloride 0.9% 1,000 ML 75 ML IV (18:51)
[2024-01-17] MEDS: duloxetine 60 mg Capsule PO (18:51)
[2024-01-17 18:55] LABS: Troponin(5th) Baseline 53 ng/L (0-10)
[2024-01-17 18:55] LABS: Ammonia 26 umol/L (11-51)
[2024-01-17 18:57] LABS: Lactic Sepsis W/Reflex 1.5 mmol/L (0.5-2.2)
[2024-01-17 19:10] LABS: INR 1.69 (0.8-1.2)
[2024-01-17 19:17] LABS: NT Pro B Type Natriuretic Pept 411 pg/mL (0-125); Procalcitonin 0.08 ng/mL (0-0.5); Thyroid Stimulating Hormone 1.18 uIU/mL (0.27-4.20)
[2024-01-17 19:30] LABS: Alanine Aminotransferase 10 U/L (0-33); Albumin Level 2.6 g/dL (3.5-5.2); Alkaline Phosphatase 120 U/L (35-105); Anion Gap 12.5 (5-19); Aspartate Amino Transferase 18 U/L (0-32); Blood Urea Nitrogen 12 mg/dL (8-23); C Reactive Protein 51.8 mg/L (0.0-4.9); Calcium 8.4 mg/dL (8.5-10.5); Carbon Dioxide 23 mmol/L (22-29); Chloride 101 mmol/L (98-107); Chol HDL Ratio 6.44 mg/dL (0.0-4.40); Cholesterol 116 mg/dL (0-200); Creatinine Clr Calc Pharmacy 80.7084; Ferritin 199 ng/mL (15-150); Globulin 3.8 g/dL (1.3-4.6); Glomerular Filtration Rate 125.9 mL/min (90-130); Glucose 177 mg/dL (65-115); HDL Cholesterol 18 mg/dL (60-100); Iron 13 ug/dL (37-145); LDL Cholesterol Calculated 60 mg/dL (50-129); LDL HDL Ratio 3.33 RATIO (0.00-3.22); Magnesium 2.3 mg/dL (1.7-2.3); Osmolality Calculated 278 mOsm/kg (285-295); Phosphorus 4.3 mg/dL (2.5-4.5); Potassium 4.5 mmol/L (3.5-5.1); Sodium 132 mmol/L (136-145); Total Bilirubin 0.2 mg/dL (0.15-1.2); Total Protein 6.4 g/dL (6.6-8.7); Triglycerides 189 mg/dL (0-150)
--- NOTE | 2024-01-17 19:39 | PHA.VACGOAL ---
Vancomycin Goal - Goal Vancomycin Goal:: 10-15 mg/L Vancomycin Indication:: SSTI - Therapy Current therapy:: Meropenem Day of therpy:: Day [1]of [] . Actual body weight (kg): 42.728 kg - Data Labs: WBC 9.64 10^3/uL (3.29-11.43) 01/17/24 18:10 RBC 3.65 10^6/uL (3.85-5.65) L 01/17/24 18:10 Hgb 8.80 g/dL (11.27-16.99) L 01/17/24 18:10 Hct 28.5 % (36-47) L 01/17/24 18:10 MCV 78.1 fl (85-98) L 01/17/24 18:10 MCH 24.1 pg (27-33) L 01/17/24 18:10 MCHC 30.9 g/dL (30-55) 01/17/24 18:10 RDW 19.2 % (12.1-15.1) H 01/17/24 18:10 Sodium 132 mmol/L (136-145) L 01/17/24 18:10 Potassium 4.5 mmol/L (3.5-5.1) 01/17/24 18:10 Chloride 101 mmol/L (98-107) 01/17/24 18:10 Carbon Dioxide 23 mmol/L (22-29) 01/17/24 18:10 Anion Gap 12.5 (5-19) 01/17/24 18:10 BUN 12 mg/dL (8-23) 01/17/24 18:10 Creatinine 0.5 mg/dL (0.5-0.9) 01/17/24 18:10 GFR Calculation 125.9 mL/min (90-130) 01/17/24 18:10 Treatment plan:: new consult Regimen:: Dose of 500 mg q12h started based on population based nomogram. Pharmacy will continue to monitor daily.
[2024-01-17 20:00] VITALS: BP 102/65; RESP 18; TEMP 37.1
[2024-01-17 20:26] LABS: Adenovirus Not Detected (NOT DETECT); Chlamydia Pneumoniae Not Detected (NOT DETECT); Coronavirus 229E,HKU1,NL63,OC4 Not Detected (NOT DETECT); Human Metapneumovirus Not Detected (NOT DETECT); Human Rhinovirus/Enterovirus Detected (NOT DETECT); Influenza A Not Detected (NOT DETECT); Influenza A H1 Not Detected (NOT DETECT); Influenza A H1-2009 Not Detected (NOT DETECT); Influenza A H3 Not Detected (NOT DETECT); Influenza B Not Detected (NOT DETECT); Mycoplasma Pneumoniae Not Detected (NOT DETECT); Parainfluenza Virus Type 1 Not Detected (NOT DETECT); Parainfluenza Virus Type 2 Not Detected (NOT DETECT); Parainfluenza Virus Type 3 Not Detected (NOT DETECT); Parainfluenza Virus Type 4 Not Detected (NOT DETECT); Respiratory Syncytial Virus A Not Detected (NOT DETECT); Respiratory Syncytial Virus B Not Detected (NOT DETECT); SARS-COV-2 Not Detected (NOT DETECT)
[2024-01-17 21:34] LABS: Estmated Average Glucose 154
[2024-01-17] MEDS: vancomycin 500 MG in sodium chloride 0.9% (plus) 100 ML 200 MG IV (21:34)
[2024-01-17] MEDS: gabapentin 300 mg Capsule 600 MG PO (21:34)
[2024-01-17 21:45] LABS: Glucose Point of Care 146 mg/dL (70-110)
[2024-01-17 21:51] LABS: Troponin 5 2HR 48.33 ng/L (0-10); Troponin 5 2HR Delta -4.67 ABS# (0-10)
[2024-01-17 22:00] VITALS: PULSE 88
[2024-01-17] MEDS: iohexol 350 mg/mL 500 mL Btl (per mL) IV (22:49)
--- NOTE | 2024-01-17 23:00 | ECG_ITS ---
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 Measurements Intervals [place] Rate: 85 P: -10 [place]: 195 QRS: -37 QRSD: 105 T: 69 QT: 400 QTc: 478 Interpretive Statements SINUS RHYTHM LEFT AXIS DEVIATION [QRS AXIS < -30] PATTERN CONSISTENT WITH PULMONARY DISEASE NONSPECIFIC T-WAVE ABNORMALITY Compared to ECG 01/17/2024 18:37:40 Left-axis deviation now present T-wave abnormality now present Myocardial infarct finding no longer present Electronically Signed On 01-19-2024 22:36:19 CDT by Cleve Gates M.D. [id number]
--- NOTE | 2024-01-17 23:19 | PC.NURSE ---
assistive technology specialist called this nurse to say that she included this pt's legs in the abdomen/pelvis CT due to the pt being a double amputee. The report for the leg CT is included in the report for the abdomen/pelvis CT.
[2024-01-18] VITALS (10 sets, daily range): BP systolic 101–129; BP diastolic 61–79; PULSE 17–85; RESP 12–16; TEMP 36.4–37.2; O2SAT 95–96
[2024-01-18] MEDS: morphine 4 mg/mL SDV 1 mL 2 MG IVP ×2 (00:12→11:46)
[2024-01-18 01:13] LABS: Troponin 5 6HR 50.12 ng/L (0-10)
[2024-01-18 01:15] LABS: Troponin 5 6HR Delta -2.88 ng/L (0-12)
[2024-01-18] MEDS: meropenem 500 mg SDV IVP ×3 (01:41→17:53)
--- NOTE | 2024-01-18 03:02 | PC.NURSE ---
Received in report that pt's chronic mcdermott was changed on 01/16 when pt arrived to the unit.
[2024-01-18] MEDS: buPROPion XL (24 HR) 150 mg Tablet PO (05:15)
[2024-01-18] MEDS: sodium chloride 0.9% 1,000 ML 75 ML IV ×2 (05:15→20:34)
[2024-01-18 06:23] LABS: Glucose Point of Care 140 mg/dL (70-110)
[2024-01-18 09:35] LABS: Basophils # 0.1 10^3/uL (0.0-0.1); Basophils % 0.8 %; Eosinophils # 0.4 10^3/uL (0.0-0.8); Eosinophils % 5.4 %; Hematocrit 28.7 % (36-47); Lymphocytes # 1.9 10^3/uL (0.8-4.8); Lymphocytes % 24.4 %; Mean Corpuscular Hemoglobin 23.7 pg (27-33); Mean Corpuscular Volume 79.1 fl (85-98); Mean Platelet Volume 8.8 fL (7.4-10.4); Monocytes # 0.6 10^3/uL (0.2-0.9); Monocytes % 8.2 %; Neutrophils # 4.74 10^3/uL (1.8-7.7); Neutrophils % 60.9 %; Nucleated Red Blood Cells % 0 %; Platelet Count 734 10^3/cmm (157-399); Red Blood Count 3.63 10^6/uL (3.85-5.65); Red Cell Distribution Width 19.5 % (12.1-15.1); White Blood Count 7.78 10^3/uL (3.29-11.43)
[2024-01-18 09:55] LABS: Alanine Aminotransferase 10 U/L (0-33); Albumin Level 2.6 g/dL (3.5-5.2); Alkaline Phosphatase 124 U/L (35-105); Anion Gap 14.7 (5-19); Aspartate Amino Transferase 15 U/L (0-32); Blood Urea Nitrogen 8 mg/dL (8-23); Calcium 8.1 mg/dL (8.5-10.5); Carbon Dioxide 22 mmol/L (22-29); Chloride 109 mmol/L (98-107); Creatinine Clr Calc Pharmacy 99.7074; Globulin 4.2 g/dL (1.3-4.6); Glomerular Filtration Rate 162.8 mL/min (90-130); Glucose 136 mg/dL (65-115); Osmolality Calculated 292 mOsm/kg (285-295); Potassium 4.7 mmol/L (3.5-5.1); Sodium 141 mmol/L (136-145); Total Bilirubin 0.2 mg/dL (0.15-1.2); Total Protein 6.8 g/dL (6.6-8.7)
--- NOTE | 2024-01-18 10:07 | P.CONIM_ITS ---
Providers/Reason For Consult 2 Consulting Physician/Specialty*: General Surgery Reason for Consult*: evaluation of possible abscess and wounds on upper and lower extremities Attending Physician: Will Upton MD Primary Care Provider: ANUJ Hernández History of Present Illness History of Present Illness Delia Winter is a 58 year old female who has been followed by the general surgery clinic by my colleague Dr. Aguiar for history of bilateral upper and lower extremity amputations with need for revision of upper extremity and left lower extremity stumps. Patient was admitted to the hospital due to altered mental status and CAT scan was done which showed evidence of a fluid collection at the level of the left lower extremity stump as well as a fluid collection at the level of the right lower extremity stump and 1 in the right ischial region. She also has a large decubitus ulcer that is being treated with the wound care clinic. Has been chronically on antibiotics including daptomycin and meropenem for soft tissue infection. Review of Systems 2 General: Reports: ROS unobtainable due to medical condition Medications/Allergies Home Medications Medication Instructions Recorded Confirmed Last Taken Type prosthetic hands Bilateral #1 ea 05/02/19 01/18/24 Unknown Rx blood-glucose sensor #3 ea 05/08/20 01/18/24 Unknown Rx flash glucose scanning reader #1 ea 06/14/20 01/18/24 Unknown Rx (FreeStyle Maria M 2 [place]) pen needle, diabetic 31 gauge x #450 ea 07/01/20 01/18/24 Unknown Rx 3/16 (Sure-Fine Pen [place]) prosthetic legs #1 ea 12/11/20 01/18/24 Unknown Rx flash glucose sensor (FreeStyle #6 ea 10/19/21 01/18/24 Unknown Rx Maria M 2 Sensor kit) nitroglycerin 0.4 mg sublingual 0.4 mg sublingual Q5M PRN chest 04/12/22 01/18/24 12/06/23 Rx tablet pain #25 tabs Ear Pulse Ox #1 ea 04/25/22 01/18/24 Unknown Rx clonazepam 0.5 mg tablet 0.5 mg PO DAILY PRN anxiety 30 09/21/22 01/18/24 Unknown Rx days #30 tabs acetaminophen 325 mg tablet 325 mg PO QID PRN Pain 10/17/22 01/18/24 Unknown History diphenhydramine HCl 25 mg tablet 25 mg PO TID PRN Allergy Symptoms 10/17/22 01/18/24 Unknown History (Benadryl Allergy) wheelchair motorized #1 ea 12/16/22 01/18/24 Unknown Rx bupropion HCl 150 mg 24 hr tablet, 150 mg PO QAM #30 tabs 06/07/23 01/18/24 12/06/23 Rx extended release (Wellbutrin XL) sodium hypochlorite 0.125 % 1 applic topical BID open wound 06/21/23 01/18/24 12/06/23 Rx solution (Dakin's Solution) #473 mL cholecalciferol (vitamin D3) 1,250 See Rx Instructions .Route 06/27/23 01/18/24 01/12/24 Rx mcg (50,000 unit) capsule .COMPLEX #4 caps duloxetine 60 mg capsule,delayed 60 mg PO BID #60 caps 06/29/23 01/18/24 12/06/23 Rx release blood-glucose meter,continuous #1 ea 11/09/23 01/18/24 Unknown Rx (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) clopidogrel 75 mg tablet 75 mg PO DAILY 12/06/23 01/18/24 11/30/23 History levothyroxine 112 mcg tablet 112 mcg PO DAILY 12/06/23 01/18/24 12/06/23 History insulin detemir U-100 100 unit/mL 30 unit SUBCUT QAM 12/14/23 01/18/24 Unknown History (3 mL) subcutaneous pen (Levemir FlexPen) insulin regular hum U-500 conc 500 100 unit (0.2 mL) SUBCUT .COMPLEX 12/14/23 01/18/24 Unknown Rx unit/mL(3 mL) subcut pen (Humulin #6 mL R U-500 (Conc) Insulin Kwikpen) nystatin 100,000 unit/gram topical 1 applic topical BID #60 grams 12/14/23 01/18/24 Unknown Rx powder zolpidem 5 mg tablet 5 mg PO BEDTIME PRN insomnia 12/15/23 01/18/24 Unknown History daptomycin 500 mg intravenous 500 mg IV DAILY 12/17/23 01/18/24 Unknown Rx solution gabapentin 600 mg tablet See Rx Instructions .Route 12/29/23 01/18/24 Unknown Rx .COMPLEX #90 tabs sodium chloride 0.9 % irrigation 1 irrig irrigation DAILY wound 30 01/05/24 01/18/24 Unknown Rx solution days #500 mL blood-glucose sensor (Dexcom G7 #1 ea 01/08/24 01/18/24 Unknown Rx Sensor device) isosorbide mononitrate 30 mg 30 mg PO DAILY #90 tabs 01/08/24 01/18/24 Unknown Rx tablet,extended release 24 hr metoprolol tartrate 25 mg tablet 25 mg PO DAILY #90 tabs 01/08/24 01/18/24 Unknown Rx oxycodone 10 mg tablet 10 mg PO TID PRN pain 30 days #90 01/09/24 01/18/24 Unknown Rx tabs rivaroxaban 20 mg tablet (Xarelto) 20 mg PO DAILY #90 tabs 01/12/24 01/18/24 Unknown Rx ciprofloxacin HCl 500 mg tablet 500 mg PO BID 1 week #14 tabs 01/15/24 01/18/24 Unknown Rx atorvastatin 40 mg tablet 40 mg PO DAILY 01/18/24 01/18/24 Unknown History nystatin 100,000 unit/mL oral See Rx Instructions .Route .COMPLEX 01/18/24 01/18/24 Unknown History suspension Allergies Allergy/AdvReac Type Severity Reaction Status Date / Time cephalexin Allergy Unknown Not Verified 01/17/24 13:14 Entered,Swelling,Diarrhea metformin Allergy Unknown Diarrhea,Not Verified 01/17/24 13:14 Entered,SWELLING Current Medications Generic Name Dose Route Start Last Admin Trade Name Freq PRN Reason Stop Dose Admin Bupropion HCl 150 mg 01/18/24 06:00 01/18/24 05:15 Bupropion Xl (24 Hr) 150 Mg Tablet PO 150 mg QAM EVELIO Administration Duloxetine HCl 60 mg 01/17/24 18:00 01/17/24 18:51 Duloxetine 60 Mg Capsule PO 60 mg BID EVELIO Administration Gabapentin 600 mg 01/17/24 21:00 01/17/24 21:34 Gabapentin 300 Mg Capsule PO 600 mg TID EVELIO Administration Sodium Chloride 1,000 mls @ 75 mls/hr 01/17/24 16:45 01/18/24 05:15 Sodium Chloride 0.9% IV 75 mls/hr .[id number] EVELIO Administration Vancomycin HCl 500 mg/ Sodium 100 mls @ 200 mls/hr 01/17/24 19:45 01/17/24 22:08 Chloride IV Infused Q12H EVELIO Infusion Insulin Human Lispro 0 unit 01/17/24 18:00 01/17/24 18:45 Insulin Lispro 100 Unit/1 Ml SUBCUT Not Given TIDWM [facility] Protocol Meropenem 500 mg 01/17/24 18:15 01/18/24 01:41 Meropenem 500 Mg Sdv IVP 500 mg Q8H EVELIO Administration Protocol Morphine Sulfate 2 mg 01/17/24 16:45 01/18/24 00:12 Morphine 4 Mg/Ml Sdv 1 Ml IVP 2 mg Q4H PRN Administration SEVERE PAIN Nystatin 1 applic 01/17/24 18:00 01/17/24 18:51 Nystatin Powder 15 Gm Btl TOPICAL 1 applic BID EVELIO Administration Pantoprazole Sodium 40 mg 01/17/24 16:45 01/17/24 18:51 Pantoprazole 40 Mg Sdv IVP 40 mg Q24H EVELIO Administration PFSH Acute 2 PFSH: Medical History Back pain Decubitus ulcer of sacral region, stage 4 Septic shock Hypotension Abscess of buttock, left Decubital ulcer Infected pressure ulcer Abscess of left buttock Mobility impaired Pressure ulcer of buttock Stage II pressure ulcer of left buttock DM type 2 causing complication Diabetes mellitus Bilateral pneumonia Influenza B UTI (urinary tract infection) COVID-19 Hypovolemic shock Pressure sore on buttocks UTI (urinary tract infection) Amputation leg, bilat Psychiatric care Anxiety Major depressive disorder, recurrent severe without psychotic features Coronary artery disease Polyuria Polydipsia Urgency incontinence Recurrent UTI Below-elbow amputation of right upper extremity Below-elbow amputation of left upper extremity 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 Enrolled in chronic care management Rheumatoid arthritis Phantom pain after amputation of lower extremity Chronic pain 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 Hypothyroidism Hyperlipemia, mixed HTN (hypertension), benign (~11/2022) 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, hand, bilateral Hx of sepsis Surgical History History of amputation of lower extremity History of skin graft History of appendectomy History of amputation of finger of both hands Family History Father , at age 47 CAD (coronary artery disease) Hypertension Mother , at age 64 Diabetes Lung disease Sister Diabetes Brother Diabetes Other Anxiety Major depressive disorder, recurrent severe without psychotic features Denies family history of Dementia Cancer Stroke Social History Smoking and tobacco/nicotine status: former use of tobacco/nicotine Quit status (tobacco/nicotine): has tried quititng Second hand smoke exposure: Yes Alcohol intake: current Alcohol intake frequency: holidays/special occasions only Alcohol type: wine Substance/Drug Use: never Adopted: No Caregiver/support person: Yes Lives independently: Yes Household members: significant other and family Housing: House Marital status: Single Marital status details: Life partner of 45 years Number of children: 0 Number of grandchildren: 0 Highest education level completed: High School Graduate service: No Current occupational status: disabled Pets and animals: Yes (lab, yorkie, beagle) Pets & animals: cat(s) and dog(s) Leisure activites: art, fishing and other Leisure activities details: writing, watch TV Sexually active: Yes Do you think of yourself as: Straight/Heterosexual Current gender identity: Female Keyonna/Advent: None Special keyonna needs: No Agree to transfusion: Yes Female Reproductive History: Para: 0 Vitals/I&O/Wt Last Vital Signs Temp 98.2 F 01/18/24 08:00 Pulse 68 01/18/24 08:00 Resp 16 01/18/24 08:00 BP 122/79 01/18/24 08:00 Pulse Ox 96 01/18/24 09:11 O2 Del Method Room Air 01/18/24 09:11 01/17/24 01/18/24 01/18/24 22:59 06:59 14:59 Intake Total 100 / 100 780 / 880 Output Total 500 / 500 200 / 700 Balance -400 / -400 580 / 180 Weight last 48 hrs Weight 93 lb 1.6 oz Weight 94 lb 3.2 oz Physical Exam 2 Narrative: Patient is alert but slightly disoriented GI: OTHER: Abdominal exam is benign she has a large ventral hernia Back/Pelvis: OTHER: There is a large stage IV decubitus ulcer with undermining at the level of the sacrum, the base is clean there is no purulence there is no evidence of foul- smelling discharge or abscess formation Extremity: NARRATIVE EXTREMITY EXAM: Bilateral upper extremities were evaluated at this time on the left foot loops healthy on the right the stump is also healthy which is a minimal amount of wound dehiscence measuring less than 1 cm. Lower extremities in the right lower extremity there is no evidence of fluctuance no evidence of drainable fluid collections at the level of the right ischial region there is also no evidence of drainable fluid collections. Left lower extremity stump has a area of dehiscence of the wound measuring almost 5 cm discolored with a small eschar there is some drainage from this area that appears to be just a retained hematoma. Urinary Catheter Management: Chirinos: Cath Placed During This Visit: no Reason for Continuing Indwelling Catheter: Chronic Indwelling Urinary Catheter on Admission Data 01/18/24 09:18 01/18/24 09:18 Micro: Microbiology 01/17/24 18:10 Blood Culture - Preliminary Blood SPECIMEN COLLECTED 01/17/24 18:22 Blood Culture - Preliminary Blood SPECIMEN COLLECTED A&P Assessment and plan (1) Osteomyelitis: Qualifiers: Osteomyelitis type: other chronic (2) Abscess of sacrum: (3) Sacral osteomyelitis: (4) Stage IV decubitus ulcer: Qualifiers: Pressure injury location: buttock Laterality: unspecified laterality Qualified Code(s): L89.304 - Pressure ulcer of unspecified buttock, stage 4 Plan After complete history, physical examination and review of all available clinical data the following is my assessment. This is a patient with multiple medical comorbidities and bilateral upper and lower extremity amputations who presents to the hospital with altered mental status, there was concern from the medical team of the possibility of a newly developed abscess as CT scan of the abdomen and pelvis that was done up to the level of the knee show evidence of a small fluid collections at the level of the right ischial tuberosity and right stump, there was also a small area of fluid collection in the left lower extremity stump. The case was initially discussed with my colleague Dr. Aguiar who has been following the patient as outpatient and who performed the revision of his left lower extremity stump, he has asked me to evaluate the patient he will be out of town over the weekend. According with my discussion with Dr. Aguiar left lower extremity stump appears to be stable from his last evaluation in the clinic. In my evaluation, I do not find any drainable fluid collections at the level of the right lower extremity stump or right ischial region there is no erythema on the skin there is no fluctuance or no tenderness I do not think it will be a good idea to proceed with debridement at this time as if I create an open wound on the right lower extremity stump this is great potential for becoming a nonhealing wound in the long-term, I would recommend that we continuing antibiotics as guided with infectious diseases and local wound care as needed. Regarding the sacral ulcer no debridement is needed local wound care can continue with twice a day wet-to-dry. I also evaluated the left lower extremity stump there is a small area of dehiscence of the wound in the area of the revision that is covered with a small eschar there is some sanguinous drainage from this area that likely represents a small retained hematoma, I will provide local wound care for these at the bedside and may provide compression therapy as these can help with wound healing. I will continue to evaluate the patient on a daily basis while she is in-house, after that she can continue to follow in the wound care clinic and with Dr. Aguiar for evaluation of left lower extremity stump revision site. Is important to note that overall patient has a very poor prognosis, it may be important to have a discussion regarding the possibility of transition to hospice at some point with the family, I do not explained the sacral wound will be able to heal and likely will just increase in size over time. Coding Level of Care Code 72249 Diagnoses Osteomyelitis M86.9 Osteomyelitis type: other chronic Abscess of sacrum M46.28 Sacral osteomyelitis M46.28 Pressure injury of buttock, stage 4, unspecified laterality L89.304 Pressure injury location: buttock Laterality: unspecified laterality
--- NOTE | 2024-01-18 10:11 | PC.CHAP ---
Pastoral Care Encounter/Spiritual Assessment Type of Contact [] Declined senior drafter visit [] Patient/Family/Request visit [] Outpatient visit [] Follow-up visit [] Physician referral [] Code/Alert [] Routine visit [] Staff referral [] Actively dying [] Patient sleeping [] Family support [] [] Out of room [] Palliative care [] [] Receiving care in room [] Pre-surgical visit [] Trauma [] Long length of stay [] ICU visit [x] Other:Contact precautions. No visit. Relational/Emotional Strength [] Patient feels connected with others/family/visitors/staff [] Distress [] Loneliness/isolation [] Abandonment Spirituality of Patient [] Person of Keyonna [] Attends Mosque of their Keyonna [] Believes in Prayer [] Reads Bible or Spiritism materials [] There are Spiritual issues to be addressed Studio Operation Engineer Interventions [] Prayer [] Active listening [] Non-anxious presence [] Spiritual/emotional support [] Crisis/trauma care [] Spiritual counseling [] Bereavement support [] Provided bereavement packet [] Provided Bible/devotional materials [] Provided toy/stuffed animal, coloring book to patient or family member [] Provided Communion [] Anointing/[place] [] Salvation [] Completed spiritual assessment [] Other: Impact on Illness or Injury [] Angry [] Fearful [] Anxious [] Often cries [] Exhaustion [] Unable to work [] Unable to attend gnosticist [] Unable to walk/stand [] Unable to read [] Unable to drive [] Unable to eat/drink [] Unable to sleep [] Unable to be with family [] Patient intubated [] Other: Summary Time spent with patient
[2024-01-18] MEDS: vancomycin 500 MG in sodium chloride 0.9% (plus) 100 ML 200 MG IV ×2 (10:14→20:33)
[2024-01-18] MEDS: duloxetine 60 mg Capsule PO ×2 (10:16→17:51)
[2024-01-18] MEDS: metoprolol tartrate 25 mg Tablet PO (10:16)
[2024-01-18] MEDS: levothyroxine 112 mcg Tablet PO (10:16)
[2024-01-18] MEDS: isosorbide mononitrate ER 30 mg Tablet PO (10:16)
[2024-01-18] MEDS: gabapentin 300 mg Capsule 600 MG PO ×3 (10:16→20:33)
[2024-01-18] MEDS: nystatin powder 15 gm Btl 1 APPLIC TOPICAL ×2 (10:17→17:51)
[2024-01-18] MEDS: fenofibrate 145 mg Tablet PO (10:18)
[2024-01-18 12:11] LABS: Glucose Point of Care 134 mg/dL (70-110)
--- NOTE | 2024-01-18 14:08 | P.PN_ITS ---
Subjective 2 Subjective: - Patient was examined this morning -With nursing staff -She is alert to person, to place not to time she does have episodes of hallucination she thinks she is in [place] she is shocked to learn that she is in [place] -On examination, sacral DTI, no evidence of tunneling, wound packing removed, looks clean and Vitals/I&O/Wt Last Vital Signs Temp 97.6 F 01/18/24 12:00 Pulse 82 01/18/24 12:00 Resp 16 01/18/24 12:00 BP 101/62 01/18/24 12:00 Pulse Ox 96 01/18/24 12:00 O2 Del Method Room Air 01/18/24 12:00 01/17/24 01/18/24 01/18/24 22:59 06:59 14:59 Intake Total 100 / 100 780 / 880 240 / 240 Output Total 500 / 500 200 / 700 Balance -400 / -400 580 / 180 240 / 240 Weight last 48 hrs Weight 42.229 kg Weight 42.728 kg Physical Exam 2 Const: COMMON NORMALS: no acute distress Resp: COMMON NORMALS: normal respiratory effort, No retractions, No use of accessory muscles and clear to auscultation bilaterally AUSCULTATION: clear to auscultation bilaterally Cardio: COMMON NORMALS: regular rate, regular rhythm, S1 normal heart sound present and S2 normal heart sound present RATE: regular rate RHYTHM: r egular rhythm HEART SOUNDS: S1 normal heart sound present and S2 normal heart sound present GI: COMMON NORMALS: Normal to inspection, nondistended, normoactive bowel sounds present and non-tender Extremity: COMMON NORMALS: no pedal edema Urinary Catheter Management: Chirinos: Cath Placed During This Visit: no Reason for Continuing Indwelling Catheter: Chronic Indwelling Urinary Catheter on Admission Data 01/18/24 09:18 01/18/24 09:18 Micro: Microbiology 01/17/24 18:10 Blood Culture - Preliminary Blood SPECIMEN COLLECTED 01/17/24 18:22 Blood Culture - Preliminary Blood SPECIMEN COLLECTED A&P Assessment and plan (1) Altered mental status: (2) Decubitus ulcer of upper extremity, stage 2: (3) Sacral decubitus ulcer, stage IV: (4) Dehiscence of closure of muscle or muscle flap: (5) Sacral decubitus ulcer: Plan Altered mental status -Etiology likely secondary to multiple abscesses -CT of the head, does complain of a headache, no acute findings, monitor Sacral DTI -CT scan shows CT/CT abdomen pelvis w con* [id number] IMPRESSION: 1. Large right sacral decubitus ulcer containing gas. The mid sacrum is absent, stable. No definitive fluid collection. -Will continue dressing changes, wet-to-dry -General Surgery on consult -Continue vancomycin, meropenem Right ischial decubitus ulcer CT scan shows 2. Right ischial decubitus ulcer with 3.3 cm area of phlegmon versus collection/abscess. -General Surgery on consult -Plan on medically management for now, IV antibiotics, wound care Right lower extremity stump CT scan 3. 2 fluid collections associated with the distal right stump, the anterior collection appears to be eroding the distal stump concerning for abscess and osteomyelitis. -General Surgery on consult -Plan on medical management for now, IV antibiotics, wound care Left lower extremity stump CT scan 4. 5 cm collection of fluid gas associated with the distal left stump. -General Surgeon consult -Plan on medical management for now, IV antibiotics, wound care -Concerns for multidrug-resistant infection? Given patient is on daptomycin, and ertapenem chronically -Follow cultures, -Currently on vancomycin, meropenem - Chronic indwelling Chirinos catheter -Monitor -Neurochecks -Aspiration precautions -Resume Xarelto, Plavix Malnutrition, hypoalbuminemia -Type 2 diabetes mellitus, moderate dose sliding scale -Full code -Xarelto for DVT prophylaxis, currently [facility] Medical Necessity Statement*: Plan for today, continue IV antibiotics, monitor mentation Diagnoses Altered mental status R41.82 Decubitus ulcer of upper extremity, stage 2 L89.892 Sacral decubitus ulcer, stage IV L89.154 Dehiscence of closure of muscle or muscle flap T81.328A Sacral decubitus ulcer L89.159
[2024-01-18] MEDS: clopidogrel 75 mg Tablet PO (15:12)
[2024-01-18] MEDS: pantoprazole 40 mg SDV IVP (15:18)
[2024-01-18 17:09] LABS: Glucose Point of Care 111 mg/dL (70-110)
[2024-01-18] MEDS: acetaminophen 325 mg Tablet 650 MG PO (18:31)
--- NOTE | 2024-01-18 19:05 | PC.NURSE ---
this nurse assumed care of this pt at approx. 1700
[2024-01-18] MEDS: zolpidem 5 mg Tablet PO (20:33)
[2024-01-18 20:35] LABS: Glucose Point of Care 155 mg/dL (70-110)
[2024-01-19] VITALS (9 sets, daily range): BP systolic 106–134; BP diastolic 60–82; PULSE 76–85; RESP 16–18; TEMP 36.6–37.4; O2SAT 95–97
[2024-01-19] MEDS: meropenem 500 mg SDV IVP ×3 (01:28→16:46)
[2024-01-19] MEDS: buPROPion XL (24 HR) 150 mg Tablet PO (06:02)
[2024-01-19 06:31] LABS: Glucose Point of Care 154 mg/dL (70-110)
[2024-01-19 07:14] LABS: Basophils # 0.1 10^3/uL (0.0-0.1); Basophils % 0.8 %; Eosinophils # 0.5 10^3/uL (0.0-0.8); Eosinophils % 7.3 %; Hematocrit 32.9 % (36-47); Lymphocytes # 1.4 10^3/uL (0.8-4.8); Mean Corpuscular HGB Conc 29.8 g/dL (30-55); Mean Corpuscular Hemoglobin 23.8 pg (27-33); Mean Corpuscular Volume 79.9 fl (85-98); Mean Platelet Volume 8.7 fL (7.4-10.4); Monocytes # 0.3 10^3/uL (0.2-0.9); Monocytes % 5.2 %; Neutrophils # 4.23 10^3/uL (1.8-7.7); Neutrophils % 64.4 %; Nucleated Red Blood Cells % 0 %; Platelet Count 784 10^3/cmm (157-399); Red Blood Count 4.12 10^6/uL (3.85-5.65); Red Cell Distribution Width 19.3 % (12.1-15.1); White Blood Count 6.56 10^3/uL (3.29-11.43)
[2024-01-19 07:33] LABS: Alanine Aminotransferase 10 U/L (0-33); Albumin Level 2.8 g/dL (3.5-5.2); Alkaline Phosphatase 123 U/L (35-105); Aspartate Amino Transferase 18 U/L (0-32); Blood Urea Nitrogen 9 mg/dL (8-23); C Reactive Protein 32.6 mg/L (0.0-4.9); Calcium 7.7 mg/dL (8.5-10.5); Carbon Dioxide 21 mmol/L (22-29); Chloride 110 mmol/L (98-107); Creatinine Clr Calc Pharmacy 130.5159; Globulin 3.8 g/dL (1.3-4.6); Glomerular Filtration Rate 226.9 mL/min (90-130); Glucose 167 mg/dL (65-115); Osmolality Calculated 292 mOsm/kg (285-295); Sodium 140 mmol/L (136-145); Total Bilirubin 0.2 mg/dL (0.15-1.2); Total Protein 6.6 g/dL (6.6-8.7); Vancomycin Trough 9.5 ug/mL (10-15)
[2024-01-19 08:19] LABS: Procalcitonin 0.05 ng/mL (0-0.5)
[2024-01-19] MEDS: fenofibrate 145 mg Tablet PO (09:20)
[2024-01-19] MEDS: rivaroxaban 10 mg Tablet 20 MG PO (09:20)
[2024-01-19] MEDS: insulin lispro 100 unit/1 mL SUBCUT (09:20)
[2024-01-19] MEDS: duloxetine 60 mg Capsule PO ×2 (09:20→15:07)
[2024-01-19] MEDS: vancomycin 500 MG in sodium chloride 0.9% (plus) 100 ML 200 MG IV ×2 (09:21→20:39)
[2024-01-19] MEDS: levothyroxine 112 mcg Tablet PO (09:21)
[2024-01-19] MEDS: clopidogrel 75 mg Tablet PO (09:21)
[2024-01-19] MEDS: isosorbide mononitrate ER 30 mg Tablet PO (09:21)
[2024-01-19] MEDS: gabapentin 300 mg Capsule 600 MG PO ×3 (09:21→20:39)
[2024-01-19] MEDS: metoprolol tartrate 25 mg Tablet PO (09:21)
[2024-01-19] MEDS: nystatin powder 15 gm Btl 1 APPLIC TOPICAL (09:22)
[2024-01-19] MEDS: sodium chloride 0.9% 1,000 ML 75 ML IV (09:23)
--- NOTE | 2024-01-19 09:29 | PC.NURSE ---
Dr. Garcia rounds on pt at this time and redresses left stump.
--- NOTE | 2024-01-19 09:48 | P.PN_ITS ---
Subjective 2 Subjective: Patient is doing very well this morning, she is alert and oriented x 3, in good spirits, no significant complaints. Vitals/I&O/Wt Last Vital Signs Temp 98.4 F 01/19/24 04:00 Pulse 80 01/19/24 05:29 Resp 17 01/19/24 04:00 BP 128/71 01/19/24 04:00 Pulse Ox 95 01/18/24 16:00 O2 Del Method Room Air 01/18/24 16:00 01/18/24 01/19/24 01/19/24 22:59 06:59 14:59 Intake Total 1460 / 1800 240 / 2040 961.25 / 961.25 Output Total 850 / 850 Balance 1460 / 1800 -610 / 1190 961.25 / 961.25 Weight last 48 hrs Weight 91 lb 6.4 oz Weight 93 lb 1.6 oz Weight 94 lb 3.2 oz Physical Exam 2 Extremity: NARRATIVE EXTREMITY EXAM: No changes in the examinations of bilateral upper extremities, right lower extremity there is no evidence of drainable fluid collections there is no evidence of erythema or any other concerning findings. In the left lower extremity stump the eschar over the area of dehiscence nunn has been removed exposing very small amount of subcutaneous fat, I did local wound care and subcutaneous retained hematoma was able to be removed from the wound. Urinary Catheter Management: Chirinos: Cath Placed During This Visit: no Reason for Continuing Indwelling Catheter: Chronic Indwelling Urinary Catheter on Admission Data 01/19/24 07:03 01/19/24 07:03 Micro: Microbiology 01/17/24 18:10 Blood Culture - Preliminary Blood NEGATIVE TO DATE 01/17/24 18:22 Blood Culture - Preliminary Blood NEGATIVE TO DATE 01/17/24 18:16 Gram Stain - Final Leg - Left A&P Assessment and plan (1) Abscess of sacrum: (2) Osteomyelitis: Qualifiers: Osteomyelitis type: other chronic (3) Decubitus ulcer, stage IV: Plan Patient is showing good progression from the surgical standpoint, fluid collections noted on the right leg are likely to represent abscess, these are likely small hematomas that had formed due to continuous patient positioning on that side as well as pressure points. On the left lower extremity stump there is a small area of dehiscence of the wound measuring about 1 x 4 cm, I was able to express about 3cc of clotted blood from the wound which represents a retained hematoma. After these I provided local wound care with Betadine and apply it double layer dressing for compression. Will continue to follow on a daily basis for local wound care, no other surgical intervention expected at this time Attestations 2 Medical Necessity Statement*: per medical team Coding Level of Care Code Acute Code for [facility] Fwd Diagnoses Abscess of sacrum M46.28 Osteomyelitis M86.9 Osteomyelitis type: other chronic Decubitus ulcer, stage IV L89.94
[2024-01-19 10:52] LABS: Glucose Point of Care 136 mg/dL (70-110)
--- NOTE | 2024-01-19 13:06 | PC.NURSE ---
Pt has been in chair most of morning, declining to return to bed. When pt returns to bed, this RN will change dressings
[2024-01-19] MEDS: pantoprazole 40 mg SDV IVP (15:07)
--- NOTE | 2024-01-19 15:16 | PC.SOCIAL ---
IMM Update pg 2 of IMM updated and reviewed w/ patient. Copy provided and copy dated, initialed and placed in chart.
--- NOTE | 2024-01-19 15:17 | PC.NURSE ---
Pt continues to stay in chair. Left stump dressing changed, d/t Dr. Murray dressing coming off. Right arm dressed.
--- NOTE | 2024-01-19 15:18 | PC.NURSE ---
Family requests conversation with physician about possibility of Hospice. Notified physician. Dr. Upton quickly responds and has lengthy conversation about plan of care with RN present.
--- NOTE | 2024-01-19 16:11 | P.PN_ITS ---
Subjective 2 Subjective: Patient was seen this morning, she denies any fevers, chills, no cough no pain -I had a detailed discussion with the pa santosh and her family this evening about her goals of care -We discussed her chronic lower extremit y infection, with sacral decubitus ulcers, she requires frequent arrangements, extensive wound care IV antibiotics -We discussed switching her to meropenem to cover for Pseudomonas -We did have a detailed discussion about hospice -Did discuss?currently she is receiving maximal medical therapy wound care, frequent debridements, broad-spectrum antibiotic therapy discussed goals of care, quality versus quantity of life, other options that are available, treating her pain treating her suffering, -Concerns for worsening infection, furth er deep tissue infections, bone infections, septic shock, morbidity and mortality associated -Discussed how aggressively we should ma nage her given her current clinical condition -For now family and patient wants to con tinue medical intervention, but they are open to hospice if she starts to suffer complications or if her condition starts to deteriorate -I did offer hospice consultation here i n the hospital patient wants to think about it, Vitals/I&O/Wt Last Vital Signs Temp 97.9 F 01/19/24 12:00 Pulse 76 01/19/24 12:00 Resp 18 01/19/24 12:00 BP 118/71 01/19/24 12:00 Pulse Ox 95 01/19/24 12:00 O2 Del Method Room Air 01/18/24 16:00 01/19/24 01/19/24 01/19/24 06:59 14:59 22:59 Intake Total 240 / 2040 1301.25 / 1301.25 Output Total 850 / 850 Balance -610 / 1190 1301.25 / 1301.25 Weight last 48 hrs Weight 41.458 kg Weight 42.229 kg Weight 42.728 kg Physical Exam 2 Const: COMMON NORMALS: no acute distress and patient oriented x3 Resp: COMMON NORMALS: normal respiratory effort, No retractions, No use of accessory muscles and clear to auscultation bilaterally AUSCULTATION: clear to auscultation bilaterally Cardio: COMMON NORMALS: regular rate, regular rhythm, S1 normal heart sound present and S2 normal heart sound present RATE: regular rate RHYTHM: r egular rhythm HEART SOUNDS: S1 normal heart sound present and S2 normal heart sound present GI: COMMON NORMALS: Normal to inspection, nondistended, normoactive bowel sounds present and non-tender Neuro: COMMON NORMALS: patient oriented x3 Psych: COMMON NORMALS: mental status grossly normal Urinary Catheter Management: Chirinos: Cath Placed During This Visit: no Reason for Continuing Indwelling Catheter: Chronic Indwelling Urinary Catheter on Admission Data 01/19/24 07:03 01/19/24 07:03 Micro: Microbiology 01/17/24 18:16 Gram Stain - Final Leg - Left Wound Culture - Preliminary 01/17/24 18:10 Blood Culture - Preliminary Blood NEGATIVE TO DATE 01/17/24 18:22 Blood Culture - Preliminary Blood NEGATIVE TO DATE A&P Assessment and plan (1) Altered mental status: (2) Decubitus ulcer of upper extremity, stage 2: (3) Sacral decubitus ulcer, stage IV: (4) Dehiscence of closure of muscle or muscle flap: (5) Sacral decubitus ulcer: (6) Encounter for hospice care discussion: Plan Altered mental status, back to baseline alert oriented x 3 -Etiology likely secondary to multiple abscesses -CT of the head, does complain of a headache, no acute findings, monitor Sacral DTI -CT scan shows CT/CT abdomen pelvis w con* [id number] IMPRESSION: 1. Large right sacral decubitus ulcer containing gas. The mid sacrum is absent, stable. No definitive fluid collection. -Will continue dressing changes, wet-to-dry -General Surgery on consult -Continue vancomycin, meropenem Right ischial decubitus ulcer CT scan shows 2. Right ischial decubitus ulcer with 3.3 cm area of phlegmon versus collection/abscess. -General Surgery on consult -Plan on medically management for now, IV antibiotics, wound care Right lower extremity stump CT scan 3. 2 fluid collections associated with the distal right stump, the anterior collection appears to be eroding the distal stump concerning for abscess and osteomyelitis. -General Surgery on consult -Plan on medical management for now, IV antibiotics, wound care Left lower extremity stump CT scan 4. 5 cm collection of fluid gas associated with the distal left stump. -General Surgeon consult -Plan on medical management for now, IV antibiotics, wound care -Concerns for multidrug-resistant infection? Given patient is on daptomycin, and ertapenem chronically -Follow cultures, -Currently on vancomycin, meropenem - Chronic indwelling Chirinos catheter -Monitor -Neurochecks -Aspiration precautions -Resume Xarelto, Plavix Malnutrition, hypoalbuminemia Had a detailed discussion with her about hospice care, she is open to the idea, but for now wants to continue medical interventions -Type 2 diabetes mellitus, moderate dose sliding scale -Full code -Xarelto for DVT prophylaxis, Spoke to patient, spoke to family spoke to nursing staff continue IV meropenem had a detailed discussion with patient and family about hospice, s Attestations 2 Medical Necessity Statement*: Patient requires hospitalization for left lower extremity stump infection, requiring surgical evaluation IV antibiotics, sacral DTI requiring IV antibiotics, altered mental status, arranging meropenem Diagnoses Altered mental status R41.82 Decubitus ulcer of upper extremity, stage 2 L89.892 Sacral decubitus ulcer, stage IV L89.154 Dehiscence of closure of muscle or muscle flap T81.328A Sacral decubitus ulcer L89.159 Encounter for hospice care discussion Z71.89
[2024-01-19] MEDS: morphine 4 mg/mL SDV 1 mL 2 MG IVP ×2 (16:47→23:37)
--- NOTE | 2024-01-19 16:51 | PC.NURSE ---
Wounds to coccyx and sides changed per order.
[2024-01-19 17:12] LABS: Glucose Point of Care 126 mg/dL (70-110)
[2024-01-19] MEDS: zolpidem 5 mg Tablet PO (20:40)
[2024-01-19 21:06] LABS: Glucose Point of Care 115 mg/dL (70-110)
[2024-01-19] MEDS: CLONazepam 0.5 mg Tablet PO (23:37)
[2024-01-20] VITALS (13 sets, daily range): BP systolic 91–138; BP diastolic 59–82; PULSE 74–84; RESP 14–22; TEMP 36.7–37.6; O2SAT 94–100
[2024-01-20] MEDS: meropenem 500 mg SDV IVP ×3 (01:33→17:37)
[2024-01-20 05:44] LABS: Basophils # 0.1 10^3/uL (0.0-0.1); Basophils % 0.6 %; Eosinophils # 0.6 10^3/uL (0.0-0.8); Eosinophils % 6.5 %; Hematocrit 27.4 % (36-47); Lymphocytes # 2.1 10^3/uL (0.8-4.8); Lymphocytes % 22.6 %; Mean Corpuscular HGB Conc 29.6 g/dL (30-55); Mean Corpuscular Volume 77.8 fl (85-98); Mean Platelet Volume 8.8 fL (7.4-10.4); Monocytes # 0.6 10^3/uL (0.2-0.9); Monocytes % 6.4 %; Neutrophils % 63.7 %; Nucleated Red Blood Cells % 0 %; Platelet Count 720 10^3/cmm (157-399); Red Blood Count 3.52 10^6/uL (3.85-5.65); Red Cell Distribution Width 18.9 % (12.1-15.1); White Blood Count 9.26 10^3/uL (3.29-11.43)
[2024-01-20 06:07] LABS: Alanine Aminotransferase 7 U/L (0-33); Albumin Level 2.4 g/dL (3.5-5.2); Alkaline Phosphatase 102 U/L (35-105); Anion Gap 11.2 (5-19); Aspartate Amino Transferase 15 U/L (0-32); Blood Urea Nitrogen 7 mg/dL (8-23); Calcium 8.1 mg/dL (8.5-10.5); Carbon Dioxide 23 mmol/L (22-29); Chloride 110 mmol/L (98-107); Creatinine Clr Calc Pharmacy 132.0869; Globulin 3.9 g/dL (1.3-4.6); Glomerular Filtration Rate 226.9 mL/min (90-130); Glucose 141 mg/dL (65-115); Osmolality Calculated 292 mOsm/kg (285-295); Potassium 3.2 mmol/L (3.5-5.1); Sodium 141 mmol/L (136-145); Total Bilirubin 0.2 mg/dL (0.15-1.2); Total Protein 6.3 g/dL (6.6-8.7)
[2024-01-20 06:11] LABS: Procalcitonin 0.06 ng/mL (0-0.5)
[2024-01-20 06:48] LABS: Glucose Point of Care 167 mg/dL (70-110)
[2024-01-20] MEDS: vancomycin 500 MG in sodium chloride 0.9% (plus) 100 ML 200 MG IV ×2 (06:51→20:24)
[2024-01-20] MEDS: buPROPion XL (24 HR) 150 mg Tablet PO (06:52)
[2024-01-20] MEDS: isosorbide mononitrate ER 30 mg Tablet PO (08:19)
[2024-01-20] MEDS: clopidogrel 75 mg Tablet PO (08:19)
[2024-01-20] MEDS: levothyroxine 112 mcg Tablet PO (08:19)
[2024-01-20] MEDS: potassium chloride ER 20 mEq Tablet 40 MEQ PO (08:19)
[2024-01-20] MEDS: metoprolol tartrate 25 mg Tablet PO (08:19)
[2024-01-20] MEDS: rivaroxaban 10 mg Tablet 20 MG PO (08:19)
[2024-01-20] MEDS: fenofibrate 145 mg Tablet PO (08:19)
[2024-01-20] MEDS: gabapentin 300 mg Capsule 600 MG PO ×3 (08:19→20:23)
[2024-01-20] MEDS: duloxetine 60 mg Capsule PO ×2 (08:19→17:37)
[2024-01-20] MEDS: insulin lispro 100 unit/1 mL SUBCUT (08:20)
[2024-01-20] MEDS: nystatin powder 15 gm Btl 1 APPLIC TOPICAL ×2 (11:27→17:37)
[2024-01-20] MEDS: morphine 4 mg/mL SDV 1 mL 2 MG IVP ×3 (11:37→20:24)
[2024-01-20 12:02] LABS: Glucose Point of Care 70 mg/dL (70-110)
--- NOTE | 2024-01-20 14:24 | P.PN_ITS ---
Subjective 2 Subjective: Patient was seen this morning, she is a bit teary this morning, she tells me that she really wants to go home, no fevers, chills, no cough, no nausea, no vomiting, discussed that we are trying to arrange for IV antibiotics as outpatient, following pleural cultures Vitals/I&O/Wt Last Vital Signs Temp 98.0 F 01/20/24 11:57 Pulse 74 01/20/24 11:57 Resp 15 01/20/24 11:57 BP 138/76 01/20/24 11:57 Pulse Ox 97 01/20/24 11:57 O2 Del Method Room Air 01/20/24 11:57 01/19/24 01/20/24 01/20/24 22:59 06:59 14:59 Intake Total 100 / 1401.25 100 / 100 Balance 100 / 1401.25 100 / 100 Weight last 48 hrs Weight 41.957 kg Weight 41.458 kg Physical Exam 2 Const: COMMON NORMALS: no acute distress and patient oriented x3 HENMT: COMMON NORMALS: normocephalic HEAD & SCALP: normocephalic Resp: COMMON NORMALS: normal respiratory effort, No retractions, No use of accessory muscles and clear to auscultation bilaterally AUSCULTATION: clear to auscultation bilaterally Cardio: COMMON NORMALS: regular rate, regular rhythm, S1 normal heart sound present and S2 normal heart sound present RATE: regular rate RHYTHM: r egular rhythm HEART SOUNDS: S1 normal heart sound present and S2 normal heart sound present GI: COMMON NORMALS: Normal to inspection, nondistended, normoactive bowel sounds present and non-tender Neuro: COMMON NORMALS: patient oriented x3 Psych: COMMON NORMALS: mental status grossly normal Urinary Catheter Management: Chirinos: Cath Placed During This Visit: no Reason for Continuing Indwelling Catheter: Chronic Indwelling Urinary Catheter on Admission Data 01/20/24 05:10 01/20/24 05:10 Micro: Microbiology 01/17/24 18:16 Gram Stain - Final Leg - Left Wound Culture - Preliminary A&P Assessment and plan (1) Altered mental status: (2) Decubitus ulcer of upper extremity, stage 2: (3) Sacral decubitus ulcer, stage IV: (4) Dehiscence of closure of muscle or muscle flap: (5) Sacral decubitus ulcer: (6) Encounter for hospice care discussion: Plan Altered mental status, back to baseline alert oriented x 3 -Etiology likely secondary to multiple abscesses -CT of the head, does complain of a headache, no acute findings, monitor Sacral DTI -CT scan shows CT/CT abdomen pelvis w con* [id number] IMPRESSION: 1. Large right sacral decubitus ulcer containing gas. The mid sacrum is absent, stable. No definitive fluid collection. -Will continue dressing changes, wet-to-dry -General Surgery on consult -Continue vancomycin, meropenem Right ischial decubitus ulcer CT scan shows 2. Right ischial decubitus ulcer with 3.3 cm area of phlegmon versus collection/abscess. -General Surgery on consult -Plan on medically management for now, IV antibiotics, wound care Right lower extremity stump CT scan 3. 2 fluid collections associated with the distal right stump, the anterior collection appears to be eroding the distal stump concerning for abscess and osteomyelitis. -General Surgery on consult -Plan on medical management for now, IV antibiotics, wound care Left lower extremity stump CT scan 4. 5 cm collection of fluid gas associated with the distal left stump. -General Surgeon consult -Plan on medical management for now, IV antibiotics, wound care -Concerns for multidrug-resistant infection? Given patient is on daptomycin, and ertapenem chronically -Follow cultures, -Currently on vancomycin, meropenem -Will likely discharge on daptomycin Discharge on meropenem to cover for Pseudomonas - Chronic indwelling Chirinos catheter -Monitor -Neurochecks -Aspiration precautions -Resume Xarelto, Plavix Malnutrition, hypoalbuminemia Had a detailed discussion with her about hospice care, she is open to the idea, but for now wants to continue medical interventions -Type 2 diabetes mellitus, moderate dose sliding scale -Full code -Xarelto for DVT prophylaxis, Plan for today, arranging daptomycin, meropenem as outpatient Attestations 2 Medical Necessity Statement*: Patient requires hospitalization for stump infection requiring IV antibiotics, Diagnoses Altered mental status R41.82 Decubitus ulcer of upper extremity, stage 2 L89.892 Sacral decubitus ulcer, stage IV L89.154 Dehiscence of closure of muscle or muscle flap T81.328A Sacral decubitus ulcer L89.159 Encounter for hospice care discussion Z71.89
[2024-01-20] MEDS: pantoprazole 40 mg SDV IVP (16:05)
[2024-01-20 17:11] LABS: Glucose Point of Care 115 mg/dL (70-110)
[2024-01-20 19:07] LABS: Vancomycin Trough 7.7 ug/mL (10-15)
[2024-01-20] MEDS: zolpidem 5 mg Tablet PO (20:24)
[2024-01-20 20:45] LABS: Glucose Point of Care 190 mg/dL (70-110)
[2024-01-21] VITALS (11 sets, daily range): BP systolic 96–118; BP diastolic 61–75; PULSE 72–82; RESP 15–19; TEMP 36.6–37.7; O2SAT 91–97
[2024-01-21] MEDS: meropenem 500 mg SDV IVP ×3 (01:23→17:08)
[2024-01-21 05:33] LABS: Basophils # 0.1 10^3/uL (0.0-0.1); Basophils % 0.7 %; Eosinophils # 0.8 10^3/uL (0.0-0.8); Eosinophils % 7.7 %; Mean Corpuscular HGB Conc 29.6 g/dL (30-55); Mean Corpuscular Hemoglobin 23.4 pg (27-33); Mean Corpuscular Volume 78.9 fl (85-98); Mean Platelet Volume 8.8 fL (7.4-10.4); Monocytes # 0.7 10^3/uL (0.2-0.9); Monocytes % 6.6 %; Neutrophils # 6.57 10^3/uL (1.8-7.7); Neutrophils % 64.7 %; Nucleated Red Blood Cells % 0 %; Platelet Count 742 10^3/cmm (157-399); Red Blood Count 3.55 10^6/uL (3.85-5.65); Red Cell Distribution Width 18.8 % (12.1-15.1); White Blood Count 10.15 10^3/uL (3.29-11.43)
[2024-01-21 05:57] LABS: Alanine Aminotransferase 7 U/L (0-33); Albumin Level 2.4 g/dL (3.5-5.2); Alkaline Phosphatase 98 U/L (35-105); Aspartate Amino Transferase 15 U/L (0-32); Blood Urea Nitrogen 8 mg/dL (8-23); C Reactive Protein 37.6 mg/L (0.0-4.9); Carbon Dioxide 24 mmol/L (22-29); Chloride 108 mmol/L (98-107); Glomerular Filtration Rate 226.9 mL/min (90-130); Glucose 160 mg/dL (65-115); Osmolality Calculated 294 mOsm/kg (285-295); Sodium 141 mmol/L (136-145); Total Bilirubin 0.2 mg/dL (0.15-1.2); Total Protein 6.4 g/dL (6.6-8.7)
[2024-01-21 06:04] LABS: Procalcitonin 0.05 ng/mL (0-0.5)
[2024-01-21 06:48] LABS: Glucose Point of Care 198 mg/dL (70-110)
[2024-01-21] MEDS: vancomycin 500 MG in sodium chloride 0.9% (plus) 100 ML 200 MG IV ×3 (06:57→23:28)
[2024-01-21] MEDS: buPROPion XL (24 HR) 150 mg Tablet PO (06:57)
[2024-01-21] MEDS: insulin lispro 100 unit/1 mL SUBCUT (09:05)
[2024-01-21] MEDS: fenofibrate 145 mg Tablet PO (09:06)
[2024-01-21] MEDS: gabapentin 300 mg Capsule 600 MG PO ×3 (09:06→20:21)
[2024-01-21] MEDS: duloxetine 60 mg Capsule PO ×2 (09:06→17:07)
[2024-01-21] MEDS: isosorbide mononitrate ER 30 mg Tablet PO (09:07)
[2024-01-21] MEDS: metoprolol tartrate 25 mg Tablet PO (09:07)
[2024-01-21] MEDS: morphine 4 mg/mL SDV 1 mL 2 MG IVP ×3 (09:07→20:21)
[2024-01-21] MEDS: rivaroxaban 10 mg Tablet 20 MG PO (09:07)
[2024-01-21] MEDS: clopidogrel 75 mg Tablet PO (09:07)
[2024-01-21] MEDS: levothyroxine 112 mcg Tablet PO (09:07)
[2024-01-21] MEDS: nystatin powder 15 gm Btl 1 APPLIC TOPICAL ×2 (09:17→17:07)
[2024-01-21 11:59] LABS: Glucose Point of Care 93 mg/dL (70-110)
--- NOTE | 2024-01-21 12:31 | P.PN_ITS ---
Subjective 2 Subjective: Patient was seen this morning, she is alert oriented x 3, following all commands, no nausea, no vomiting, she has no specific complaints Vitals/I&O/Wt Last Vital Signs Temp 97.8 F 01/21/24 12:00 Pulse 79 01/21/24 12:00 Resp 16 01/21/24 12:00 BP 106/66 01/21/24 12:00 Pulse Ox 97 01/21/24 12:00 O2 Del Method Room Air 01/21/24 12:00 01/20/24 01/21/24 01/21/24 22:59 06:59 14:59 Intake Total 100 / 200 480 / 480 Balance 100 / 200 480 / 480 Weight last 48 hrs Weight 42.275 kg Weight 41.957 kg Physical Exam 2 Const: COMMON NORMALS: no acute distress and patient oriented x3 Resp: COMMON NORMALS: normal respiratory effort, No retractions, No use of accessory muscles and clear to auscultation bilaterally AUSCULTATION: clear to auscultation bilaterally Cardio: COMMON NORMALS: regular rate, regular rhythm, S1 normal heart sound present and S2 normal heart sound present RATE: regular rate RHYTHM: r egular rhythm HEART SOUNDS: S1 normal heart sound present and S2 normal heart sound present GI: COMMON NORMALS: Normal to inspection, nondistended, normoactive bowel sounds present and non-tender Neuro: COMMON NORMALS: patient oriented x3 Psych: COMMON NORMALS: mental status grossly normal Urinary Catheter Management: Chirinos: Cath Placed During This Visit: no Reason for Continuing Indwelling Catheter: Chronic Indwelling Urinary Catheter on Admission Data 01/21/24 04:52 01/21/24 04:52 Micro: Microbiology 01/21/24 08:43 Occult Blood (FIT) - Final Stool Routine Collection 01/17/24 17:18 Urine Culture - Final Urine Catheterized Enterococcus faecium vre 01/17/24 18:16 Gram Stain - Final Leg - Left Wound Culture - Final A&P Assessment and plan (1) Altered mental status: (2) Decubitus ulcer of upper extremity, stage 2: (3) Sacral decubitus ulcer, stage IV: (4) Dehiscence of closure of muscle or muscle flap: (5) Sacral decubitus ulcer: (6) Encounter for hospice care discussion: Plan Altered mental status, back to baseline alert oriented x 3 -Etiology likely secondary to multiple abscesses -CT of the head, does complain of a headache, no acute findings, monitor Sacral DTI -CT scan shows CT/CT abdomen pelvis w con* [id number] IMPRESSION: 1. Large right sacral decubitus ulcer containing gas. The mid sacrum is absent, stable. No definitive fluid collection. -Will continue dressing changes, wet-to-dry -General Surgery on consult -Continue vancomycin, meropenem Right ischial decubitus ulcer CT scan shows 2. Right ischial decubitus ulcer with 3.3 cm area of phlegmon versus collection/abscess. -General Surgery on consult -Plan on medically management for now, IV antibiotics, wound care Right lower extremity stump CT scan 3. 2 fluid collections associated with the distal right stump, the anterior collection appears to be eroding the distal stump concerning for abscess and osteomyelitis. -General Surgery on consult -Plan on medical management for now, IV antibiotics, wound care Left lower extremity stump CT scan 4. 5 cm collection of fluid gas associated with the distal left stump. -General Surgeon consult -Plan on medical management for now, IV antibiotics, wound care -Concerns for multidrug-resistant infection? Given patient is on daptomycin, and ertapenem chronically -Follow cultures, -Currently on vancomycin, meropenem -Will likely discharge on daptomycin Discharge on meropenem to cover for Pseudomonas - Chronic indwelling Chirinos catheter -Monitor -Urine cultures growing VRE Enterococcus, will discuss with infectious disease -Neurochecks -Aspiration precautions -Resume Xarelto, Plavix Malnutrition, hypoalbuminemia Had a detailed discussion with her about hospice care, she is open to the idea, but for now wants to continue medical interventions -Type 2 diabetes mellitus, moderate dose sliding scale -Full code -Xarelto for DVT prophylaxis, Plan for today, arranging daptomycin, meropenem as outpatient to cover for Pseudomonas Attestations 2 Medical Necessity Statement*: Patient requires hospitalization for sacral DTI, left stump breakdown Diagnoses Altered mental status R41.82 Decubitus ulcer of upper extremity, stage 2 L89.892 Sacral decubitus ulcer, stage IV L89.154 Dehiscence of closure of muscle or muscle flap T81.328A Sacral decubitus ulcer L89.159 Encounter for hospice care discussion Z71.89
[2024-01-21] MEDS: collagenase oint 30 gm 1 APPLIC TOPICAL (15:03)
[2024-01-21] MEDS: pantoprazole 40 mg SDV IVP (16:26)
[2024-01-21 17:55] LABS: Glucose Point of Care 102 mg/dL (70-110)
[2024-01-21] MEDS: zolpidem 5 mg Tablet PO (20:21)
[2024-01-21 20:23] LABS: Glucose Point of Care 111 mg/dL (70-110)
[2024-01-21] MEDS: CLONazepam 0.5 mg Tablet PO (22:26)
[2024-01-22] VITALS (12 sets, daily range): BP systolic 100–129; BP diastolic 54–84; PULSE 18–88; RESP 16–18; TEMP 36.6–37.2; O2SAT 92–94
[2024-01-22] MEDS: meropenem 500 mg SDV IVP ×3 (01:50→17:57)
[2024-01-22] MEDS: buPROPion XL (24 HR) 150 mg Tablet PO (06:12)
[2024-01-22] MEDS: vancomycin 500 MG in sodium chloride 0.9% (plus) 100 ML 200 MG IV ×3 (06:12→23:13)
[2024-01-22 06:27] LABS: Glucose Point of Care 172 mg/dL (70-110)
[2024-01-22] MEDS: fenofibrate 145 mg Tablet PO (09:29)
[2024-01-22] MEDS: rivaroxaban 10 mg Tablet 20 MG PO (09:29)
[2024-01-22] MEDS: clopidogrel 75 mg Tablet PO (09:29)
[2024-01-22] MEDS: levothyroxine 112 mcg Tablet PO (09:29)
[2024-01-22] MEDS: insulin lispro 100 unit/1 mL SUBCUT (09:29)
[2024-01-22] MEDS: gabapentin 300 mg Capsule 600 MG PO ×3 (09:30→21:19)
[2024-01-22] MEDS: metoprolol tartrate 25 mg Tablet PO (09:30)
[2024-01-22] MEDS: duloxetine 60 mg Capsule PO ×2 (09:30→17:57)
[2024-01-22] MEDS: isosorbide mononitrate ER 30 mg Tablet PO (09:30)
[2024-01-22] MEDS: nystatin powder 15 gm Btl 1 APPLIC TOPICAL ×2 (11:18→17:57)
[2024-01-22] MEDS: collagenase oint 30 gm 1 APPLIC TOPICAL (11:23)
[2024-01-22] MEDS: morphine 4 mg/mL SDV 1 mL 2 MG IVP ×3 (12:12→22:00)
[2024-01-22 12:27] LABS: Glucose Point of Care 119 mg/dL (70-110)
[2024-01-22 12:38] LABS: Basophils # 0.1 10^3/uL (0.0-0.1); Basophils % 0.6 %; Eosinophils # 0.6 10^3/uL (0.0-0.8); Eosinophils % 3.9 %; Hematocrit 27.5 % (36-47); Lymphocytes % 13.6 %; Mean Corpuscular HGB Conc 29.5 g/dL (30-55); Mean Corpuscular Hemoglobin 23.5 pg (27-33); Mean Corpuscular Volume 79.7 fl (85-98); Mean Platelet Volume 8.9 fL (7.4-10.4); Monocytes # 0.8 10^3/uL (0.2-0.9); Monocytes % 5.3 %; Neutrophils # 11.12 10^3/uL (1.8-7.7); Neutrophils % 76.1 %; Nucleated Red Blood Cells % 0 %; Platelet Count 707 10^3/cmm (157-399); Red Blood Count 3.45 10^6/uL (3.85-5.65); White Blood Count 14.63 10^3/uL (3.29-11.43)
[2024-01-22 12:54] LABS: Alanine Aminotransferase 6 U/L (0-33); Albumin Level 2.3 g/dL (3.5-5.2); Alkaline Phosphatase 98 U/L (35-105); Anion Gap 10.9 (5-19); Aspartate Amino Transferase 14 U/L (0-32); Blood Urea Nitrogen 10 mg/dL (8-23); Calcium 7.6 mg/dL (8.5-10.5); Carbon Dioxide 24 mmol/L (22-29); Chloride 110 mmol/L (98-107); Creatinine Clr Calc Pharmacy 213.5531; Globulin 3.6 g/dL (1.3-4.6); Glomerular Filtration Rate 362.3 mL/min (90-130); Glucose 60 mg/dL (65-115); Osmolality Calculated 289 mOsm/kg (285-295); Potassium 3.9 mmol/L (3.5-5.1); Sodium 141 mmol/L (136-145); Total Bilirubin 0.3 mg/dL (0.15-1.2); Total Protein 5.9 g/dL (6.6-8.7)
--- NOTE | 2024-01-22 14:43 | PC.SOCIAL ---
IMM Updated Updated pt on IMM. No questions voiced. Provided pt a copy. Initialed ,dated, & timed copy in chart.
--- NOTE | 2024-01-22 15:36 | P.PN_ITS ---
Subjective 2 Subjective: Patient doing okay this morning no significant complaints. Vitals/I&O/Wt Last Vital Signs Temp 98.4 F 01/22/24 12:00 Pulse 74 01/22/24 12:00 Resp 18 01/22/24 12:12 BP 115/71 01/22/24 12:00 Pulse Ox 94 01/22/24 12:00 O2 Del Method Room Air 01/22/24 12:00 01/22/24 01/22/24 01/22/24 06:59 14:59 22:59 Intake Total 200 / 1600 600 / 600 Output Total 650 / 650 Balance 200 / 500 -50 / -50 Weight last 48 hrs Weight 99 lb 11.2 oz Weight 93 lb 3.2 oz Physical Exam 2 Back/Pelvis: OTHER: Right lower extremity evaluated again there is no evidence of drainable fluid collections there is no erythema on the skin at the level of the hip also no evidence of drainable fluid collections no erythema on the skin no fluctuance. Left lower extremity stump was evaluated wound care was provided there is 4 x 1 cm dehiscence on the lateral aspect no evidence of purulence. Urinary Catheter Management: Chirinos: Cath Placed During This Visit: no Reason for Continuing Indwelling Catheter: Chronic Indwelling Urinary Catheter on Admission Data 01/22/24 12:20 01/22/24 12:20 A&P Assessment and plan (1) Antibiotic-resistant bacterial infection: (2) Osteomyelitis: Qualifiers: Osteomyelitis type: other chronic (3) Abscess of sacrum: (4) Sacral osteomyelitis: Plan Patient is doing okay today, she is insistent that she will like to go home. Her urine cultures have been growing VRE and her white count has slowly trended up despite antibiotics. From the wound standpoint at the moment there is no evidence of any drainable abscess. Will continue with local wound care while the patient is in-house. Overall she has a poor prognosis that she has developed likely drug-resistant bacteria's as she has been chronically on antibiotics. All other management per primary team Attestations 2 Medical Necessity Statement*: Per medical team Coding Level of Care Code Acute Code for [facility] Diagnoses Antibiotic-resistant bacterial infection A49.9; Z16.30 Osteomyelitis M86.9 Osteomyelitis type: other chronic Abscess of sacrum M46.28 Sacral osteomyelitis M46.28
[2024-01-22] MEDS: pantoprazole 40 mg SDV IVP (16:14)
--- NOTE | 2024-01-22 16:40 | P.PN_ITS ---
Subjective 2 Subjective: Hospital course, labs appreciated. Today morning seen with multiple family numbers at bedside. Patient denies any nausea vomiting, headache. Has remained hemodynamically stable and afebrile. Stating she wants to go home today. Does have mild worsening leukocytosis. Wants to see if she can be followed up by her outpatient surgeon. Vitals/I&O/Wt Last Vital Signs Temp 98.4 F 01/22/24 12:00 Pulse 74 01/22/24 12:00 Resp 18 01/22/24 12:12 BP 115/71 01/22/24 12:00 Pulse Ox 94 01/22/24 12:00 O2 Del Method Room Air 01/22/24 12:00 01/22/24 01/22/24 01/22/24 06:59 14:59 22:59 Intake Total 200 / 1600 600 / 600 Output Total 650 / 650 Balance 200 / 500 -50 / -50 Weight last 48 hrs Weight 45.223 kg Weight 42.275 kg Physical Exam 2 Const: COMMON NORMALS: no acute distress and patient oriented x3 HENMT: COMMON NORMALS: normocephalic HEAD & SCALP: normocephalic Eye: COMMON NORMALS: Equal, round and reactive pupils present PUPIL: Yes Equal, round and reactive pupils present Neck/C-Spine: COMMON NORMALS: no JVD Resp: COMMON NORMALS: normal respiratory effort, No retractions, No use of accessory muscles and clear to auscultation bilaterally AUSCULTATION: clear to auscultation bilaterally Cardio: COMMON NORMALS: no JVD, regular rate, regular rhythm, S1 normal heart sound present and S2 normal heart sound present RATE: regular rate RHYTHM: regular rhythm HEART SOUNDS: S1 normal heart sound present and S2 normal heart sound present GI: COMMON NORMALS: Normal to inspection, nondistended, normoactive bowel sounds present, Soft to palpation and non-tender PALPATION: Yes Soft to palpation Extremity: COMMON NORMALS: no calf tenderness and no pedal edema Neuro: COMMON NORMALS: patient oriented x3 OTHER: Alert to person, to place, not to time has episodes of hallucinations during our conversation Psych: COMMON NORMALS: mental status grossly normal Skin: NARRATIVE SKIN EXAM: Right upper extremity stump site, has stump breakdown Left lower extremity, stump breakdown with wound dehiscence with foul discharge, bloody discharge Sacral DTI Urinary Catheter Management: Chirinos: Cath Placed During This Visit: no Reason for Continuing Indwelling Catheter: Chronic Indwelling Urinary Catheter on Admission Data 01/22/24 12:20 01/22/24 12:20 A&P Assessment and plan (1) Altered mental status: (2) Decubitus ulcer of upper extremity, stage 2: (3) Sacral decubitus ulcer, stage IV: (4) Dehiscence of closure of muscle or muscle flap: (5) Sacral decubitus ulcer: (6) Encounter for hospice care discussion: Plan Altered mental status: Resolved. Back to baseline alert oriented x 3 Most likely in setting of infectious encephalopathy. Patient does have sacral decubitus ulcer with concern for possible phlegmon/abscess at right ischial tuberosity. Also have concern for fluid collection with possible osteomyelitis at right lower extremity stump along with 5 cm collection of distal left stump. Blood cultures so far remain negative. Appreciate surgical recommendations. Wound cultures so far negative. Patient wants to be followed up by her outpatient surgeon if possible. Will discuss with Dr. Aguiar if possible to follow-up with the patient. Will follow-up further recommendations. Patient does have worsening leukocytosis today. UTI: Urine culture growing Enterococcus VRE. Daptomycin sensitivity not available. Discussed in detail with infectious disease. Will consult. For now we will continue with IV daptomycin and meropenem. Most likely will continue meropenem to cover for Pseudomonas. Chirinos catheter changed during this hospitalization. PICC line dressing to be changed. Type 2 diabetes mellitus: Recent A1c of 7. Insulin sliding scale. Anemia: Start on oral iron supplementation. Chronically hemoglobin around 8. Check iron panel, vitamin B12 and folate levels. -Etiology likely secondary to multiple abscesses -CT of the head, does complain of a headache, no acute findings, monitor Continue other chronic home medications. Goals of care discussion: Discussed in detail with the patient and family at bedside that chances of patient's symptoms due to infections are low because her cultures have so far remain negative. Could be in setting of UTI but given her body habitus, chronic Chirinos catheterization she is at a higher risk of further infection and she already has multiple drug-resistant infections. Discussed her poor baseline health. Patient for now would want to remain full code and if antibiotics do not work will like to transition over to hospice as an outpatient in few weeks. Will discuss further with her outpatient PCP. Discharge planning: Hopefully plan for discharge in next 24 hours to home with home health. Case management consulted. Carb consistent diet Xarelto for DVT prophylaxis Protonix OPD prophylaxis Attestations 2 Medical Necessity Statement*: Requires further hospitalization for management of Enterococcus VRE sacral decubitus ulcer, right stump abscess with osteomyelitis, left stump wound dehiscence Diagnoses Altered mental status R41.82 Decubitus ulcer of upper extremity, stage 2 L89.892 Sacral decubitus ulcer, stage IV L89.154 Dehiscence of closure of muscle or muscle flap T81.328A Sacral decubitus ulcer L89.159 Encounter for hospice care discussion Z71.89
[2024-01-22 16:57] LABS: Glucose Point of Care 113 mg/dL (70-110)
[2024-01-22 20:19] LABS: Glucose Point of Care 140 mg/dL (70-110)
[2024-01-22] MEDS: zolpidem 5 mg Tablet PO (23:15)
[2024-01-23] MEDS: meropenem 500 mg SDV IVP ×2 (01:31→10:48)
[2024-01-23 04:00] VITALS: BP 97/60; PULSE 88; RESP 16; TEMP 37; O2SAT 93
[2024-01-23 05:32] LABS: Basophils # 0.1 10^3/uL (0.0-0.1); Basophils % 0.5 %; Eosinophils # 0.7 10^3/uL (0.0-0.8); Eosinophils % 6.4 %; Hematocrit 30.9 % (36-47); Lymphocytes # 1.8 10^3/uL (0.8-4.8); Mean Corpuscular HGB Conc 29.1 g/dL (30-55); Mean Corpuscular Hemoglobin 23.3 pg (27-33); Mean Corpuscular Volume 79.8 fl (85-98); Mean Platelet Volume 8.9 fL (7.4-10.4); Monocytes # 0.5 10^3/uL (0.2-0.9); Monocytes % 5.1 %; Neutrophils # 7.42 10^3/uL (1.8-7.7); Neutrophils % 70.7 %; Nucleated Red Blood Cells % 0 %; Platelet Count 745 10^3/cmm (157-399); Red Blood Count 3.87 10^6/uL (3.85-5.65); Red Cell Distribution Width 18.9 % (12.1-15.1)
[2024-01-23 05:55] LABS: Alanine Aminotransferase 6 U/L (0-33); Albumin Level 2.5 g/dL (3.5-5.2); Alkaline Phosphatase 98 U/L (35-105); Anion Gap 11.4 (5-19); Aspartate Amino Transferase 9 U/L (0-32); Blood Urea Nitrogen 10 mg/dL (8-23); Calcium 8.1 mg/dL (8.5-10.5); Carbon Dioxide 23 mmol/L (22-29); Chloride 106 mmol/L (98-107); Creatinine Clr Calc Pharmacy 106.7765; Globulin 3.9 g/dL (1.3-4.6); Glomerular Filtration Rate 162.8 mL/min (90-130); Glucose 172 mg/dL (65-115); Osmolality Calculated 287 mOsm/kg (285-295); Potassium 3.4 mmol/L (3.5-5.1); Sodium 137 mmol/L (136-145); Total Bilirubin 0.2 mg/dL (0.15-1.2); Total Protein 6.4 g/dL (6.6-8.7)
[2024-01-23] MEDS: buPROPion XL (24 HR) 150 mg Tablet PO (06:17)
[2024-01-23] MEDS: vancomycin 500 MG in sodium chloride 0.9% (plus) 100 ML 200 MG IV (06:17)
[2024-01-23 06:19] LABS: Glucose Point of Care 174 mg/dL (70-110)
[2024-01-23 07:30] VITALS: BP 95/62; PULSE 72; RESP 16; TEMP 36.7
[2024-01-23] MEDS: gabapentin 300 mg Capsule 600 MG PO (08:35)
[2024-01-23] MEDS: fenofibrate 145 mg Tablet PO (08:35)
[2024-01-23] MEDS: isosorbide mononitrate ER 30 mg Tablet PO (08:35)
[2024-01-23] MEDS: rivaroxaban 10 mg Tablet 20 MG PO (08:35)
[2024-01-23] MEDS: clopidogrel 75 mg Tablet PO (08:35)
[2024-01-23] MEDS: levothyroxine 112 mcg Tablet PO (08:35)
[2024-01-23] MEDS: duloxetine 60 mg Capsule PO (08:35)
[2024-01-23] MEDS: metoprolol tartrate 25 mg Tablet PO (08:35)
[2024-01-23] MEDS: insulin lispro 100 unit/1 mL SUBCUT ×2 (08:41→12:31)
--- NOTE | 2024-01-23 10:05 | P.CONIM_ITS ---
Providers/Reason For Consult 2 Consulting Physician/Specialty*: Tila Molina MD / Infectious Disease Reason for Consult*: Multiple back and stump wounds. 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 Over the past year she has had a chronic decubitus sacral ulcer for which she has been following with wound care. Sacral ulcer has been waxing and waning during the course of the past year. Prior pelvic CTs did not reveal osteomyelitis until most recent imaging in November 2023. She has previously received 6 weeks of IV piperacillin/tazobactam in March 2023 at [facility] and more recently is completing 6 weeks of IV antibiotics with IV ertapenem and IV daptomycin via the infectious disease clinic at [facility] between December 08 to today. Most recent cultures from the sacrum had revealed MRSA and group B strep with previous cultures from July and dating back further revealing multiple other gram-negative's including Kleb pneumo, Morganella Vinicius I and Proteus mirabilis. Patient has had additional issues with intermittent wounds involving her left lower extremity, right lower extremity and left upper extremity stump. On December 17, 2023 she underwent anterior and posterior fasciocutaneous flap creation of her right forearm stump and left thigh stump for chronic decubitus ulcers. Additionally underwent excisional debridement of her stage IV sacral decub ulcer on this day. Thereafter she continued follow-up with the wound care clinic. She had a wound VAC in place over the sacrum which needed to be taken down on January 05, 2024 to give her wound VAC break. By January 12, 2024 she developed additional breakdown of the mid sacral region between her 2 previous wound. Unfortunately wound VAC was unable to be placed back due to anatomical constraints. Patient uses a wheelchair to ambulate and is unable to offload for bulk of the day. She presented in follow-up to the infectious disease clinic on January 17, 2024 where she was noted to be confused and disoriented. She was hallucinating, reaching for objects that were not present, her words were slurred and it appeared she was encephalopathic. Due to this change in mentation and noted wound dehiscence with concern for infection over the left stump she was sent in for a direct admit to the hospital. Overall her head CT was unremarkable. Incidentally noted acute sinusitis was seen. CT of the abdomen and pelvis showed large right sacral decubitus ulcer without definitive fluid collection, right ischial decubitus ulcer with 3.3 cm area of phlegmon, 2 fluid collections associated with the distal right stump with the anterior collection eroding the distal stump concerning for abscess and potential osteomyelitis, 5 cm collection of fluid gas associated with the distal left stump along with multiple prominent and mildly enlarged pelvic sidewall and retroperitoneal lymphadenopathy. Previously MRI on December 15, 2023 had shown complete chronic erosion of the coccyx. No prior stump imaging currently available for review to compare. Patient was seen on January 17 by general surgery where the left lower extremity stump appeared to be stable when compared to outpatient assessment. There were no drainable fluid collections at the level of the right lower extremity stump over the right ischial region. Debridement of the right lower extremity stump was deferred due to concern for its potential for becoming a nonvisual healing wound in the long-term. Local wound care was thought to be the best move forward. Her blood cultures revealed no growth. Pus was aspirated from the left stump at bedside which showed a few mixed superficial italai without a predominant organism. Urine culture revealed VRE E faecalis. Of note patient has a chronic indwelling Chirinos catheter. Patient received treatment with IV meropenem and IV vancomycin during the course of admission and is currently improved. She is currently awake alert oriented, mentation is back to baseline. She has remained afebrile. There is no leukocytosis currently. CRP noted to be at 37, improved from 105 on November 09, 2023. Her Picc line was pulled out last night accidentally Review of Systems 2 General: Reports: 10 or more systems reviewed and unremarkable except in HPI and below Const: Denies: fever(s), chills or body aches Eyes: Denies: change in vision, blurry vision or photophobia ENMT: Reports: hoarseness; Denies: throat pain, enlarged tonsils, odynophagia or nasal congestion Card: Denies: chest pain, palpitations, irregular heart rhythm, edema, swelling of feet/ankles, lightheadedness, pre-syncope, dyspnea on exertion or orthopnea Resp: Denies: dyspnea, productive cough, non-productive cough, wheezing, stridor, pain on inspiration, change in phlegm color, hemoptysis or chest congestion GI: Denies: abdominal pain, nausea, vomiting, hematemesis, coffee ground emesis, dysphagia, heartburn, diarrhea, constipation, GI cramping, change in stool character, hematochezia or melena : Denies: flank pain, difficulty voiding, dysuria, urinary frequency, urinary urgency, urinary hesitancy or hematuria Musc: Denies: neck pain, back pain, extremity pain, joint swelling, joint warmth or deformity Neuro: Denies: headache(s), numbness in extremities, weakness in extremities, sensory changes, difficulty walking, frequent falls, dizziness, vertigo, behavioral changes, Slurred speech present or seizure-like activity Psych: Denies: anxiety, depression, suicidal ideation or homicidal ideation Endo: Denies: polyuria, polydipsia, tired all the time, cold intolerance or hot flashes [place]/Lymph: Denies: easy bruising or easy bleeding Medications/Allergies Home Medications Medication Instructions Recorded Confirmed Last Taken Type prosthetic hands Bilateral #1 ea 05/02/19 01/18/24 Unknown Rx blood-glucose sensor #3 ea 05/08/20 01/18/24 Unknown Rx flash glucose scanning reader #1 ea 06/14/20 01/18/24 Unknown Rx (FreeStyle Maria M 2 [place]) pen needle, diabetic 31 gauge x #450 ea 07/01/20 01/18/24 Unknown Rx 3/16 (Sure-Fine Pen [place]) prosthetic legs #1 ea 12/11/20 01/18/24 Unknown Rx flash glucose sensor (FreeStyle #6 ea 10/19/21 01/18/24 Unknown Rx Maria M 2 Sensor kit) nitroglycerin 0.4 mg sublingual 0.4 mg sublingual Q5M PRN chest 04/12/22 01/18/24 12/06/23 Rx tablet pain #25 tabs Ear Pulse Ox #1 ea 04/25/22 01/18/24 Unknown Rx clonazepam 0.5 mg tablet 0.5 mg PO DAILY PRN anxiety 30 09/21/22 01/18/24 Unknown Rx days #30 tabs acetaminophen 325 mg tablet 325 mg PO QID PRN Pain 10/17/22 01/18/24 Unknown History diphenhydramine HCl 25 mg tablet 25 mg PO TID PRN Allergy Symptoms 10/17/22 01/18/24 Unknown History (Benadryl Allergy) wheelchair motorized #1 ea 12/16/22 01/18/24 Unknown Rx bupropion HCl 150 mg 24 hr tablet, 150 mg PO QAM #30 tabs 06/07/23 01/18/24 12/06/23 Rx extended release (Wellbutrin XL) sodium hypochlorite 0.125 % 1 applic topical BID open wound 06/21/23 01/18/24 12/06/23 Rx solution (Dakin's Solution) #473 mL cholecalciferol (vitamin D3) 1,250 See Rx Instructions .Route 06/27/23 01/18/24 01/12/24 Rx mcg (50,000 unit) capsule .COMPLEX #4 caps duloxetine 60 mg capsule,delayed 60 mg PO BID #60 caps 06/29/23 01/18/24 12/06/23 Rx release blood-glucose meter,continuous #1 ea 11/09/23 01/18/24 Unknown Rx (Dexcom G7 [employer]) clopidogrel 75 mg tablet 75 mg PO DAILY 12/06/23 01/18/24 11/30/23 History levothyroxine 112 mcg tablet 112 mcg PO DAILY 12/06/23 01/18/24 12/06/23 History insulin detemir U-100 100 unit/mL 30 unit SUBCUT QAM 12/14/23 01/18/24 Unknown History (3 mL) subcutaneous pen (Levemir FlexPen) insulin regular hum U-500 conc 500 100 unit (0.2 mL) SUBCUT .COMPLEX 12/14/23 01/18/24 Unknown Rx unit/mL(3 mL) subcut pen (Humulin #6 mL R U-500 (Conc) Insulin Kwikpen) nystatin 100,000 unit/gram topical 1 applic topical BID #60 grams 12/14/23 01/18/24 Unknown Rx powder zolpidem 5 mg tablet 5 mg PO BEDTIME PRN insomnia 12/15/23 01/18/24 Unknown History daptomycin 500 mg intravenous 500 mg IV DAILY 12/17/23 01/18/24 Unknown Rx solution gabapentin 600 mg tablet See Rx Instructions .Route 12/29/23 01/18/24 Unknown Rx .COMPLEX #90 tabs sodium chloride 0.9 % irrigation 1 irrig irrigation DAILY wound 30 01/05/24 01/18/24 Unknown Rx solution days #500 mL blood-glucose sensor (Dexcom G7 #1 ea 01/08/24 01/18/24 Unknown Rx Sensor device) isosorbide mononitrate 30 mg 30 mg PO DAILY #90 tabs 01/08/24 01/18/24 Unknown Rx tablet,extended release 24 hr metoprolol tartrate 25 mg tablet 25 mg PO DAILY #90 tabs 01/08/24 01/18/24 Unknown Rx oxycodone 10 mg tablet 10 mg PO TID PRN pain 30 days #90 01/09/24 01/18/24 Unknown Rx tabs rivaroxaban 20 mg tablet (Xarelto) 20 mg PO DAILY #90 tabs 01/12/24 01/18/24 Unknown Rx ciprofloxacin HCl 500 mg tablet 500 mg PO BID 1 week #14 tabs 01/15/24 01/18/24 Unknown Rx atorvastatin 40 mg tablet 40 mg PO DAILY 01/18/24 01/18/24 Unknown History nystatin 100,000 unit/mL oral See Rx Instructions .Route .COMPLEX 01/18/24 01/18/24 Unknown History suspension Allergies Allergy/AdvReac Type Severity Reaction Status Date / Time cephalexin Allergy Unknown Not Verified 01/17/24 13:14 Entered,Swelling,Diarrhea metformin Allergy Unknown Diarrhea,Not Verified 01/17/24 13:14 Entered,SWELLING Current Medications Generic Name Dose Route Start Last Admin Trade Name Freq PRN Reason Stop Dose Admin Acetaminophen 650 mg 01/17/24 16:45 01/18/24 18:31 Acetaminophen 325 Mg Tablet PO 650 mg Q6H PRN Administration Mild/Mod Pain Or Temp >/= 101 Bupropion HCl 150 mg 01/18/24 06:00 01/23/24 06:17 Bupropion Xl (24 Hr) 150 Mg Tablet PO 150 mg QAM EVELIO Administration Clonazepam 0.5 mg 01/17/24 17:12 01/21/24 22:26 Clonazepam 0.5 Mg Tablet PO 0.5 mg DAILY PRN Administration anxiety Clopidogrel Bisulfate 75 mg 01/18/24 14:15 01/23/24 08:35 Clopidogrel 75 Mg Tablet PO 75 mg DAILY EVELIO Administration Collagenase 1 applic 01/21/24 11:00 01/23/24 08:36 Collagenase Oint 30 Gm TOPICAL Not Given DAILY EVELIO Duloxetine HCl 60 mg 01/17/24 18:00 01/23/24 08:35 Duloxetine 60 Mg Capsule PO 60 mg BID EVELIO Administration Fenofibrate 145 mg 01/18/24 09:00 01/23/24 08:35 Fenofibrate 145 Mg Tablet PO 145 mg DAILY EVEILO Administration Gabapentin 600 mg 01/17/24 21:00 01/23/24 08:35 Gabapentin 300 Mg Capsule PO 600 mg TID EVELIO Administration Vancomycin HCl 500 mg/ Sodium 100 mls @ 200 mls/hr 01/21/24 15:00 01/23/24 06:51 Chloride IV Infused Q8H EVELIO Infusion Insulin Human Lispro 0 unit 01/17/24 18:00 01/23/24 08:41 Insulin Lispro 100 Unit/1 Ml SUBCUT 4 unit TIDWM EVELIO Administration Protocol Isosorbide Mononitrate 30 mg 01/18/24 09:00 01/23/24 08:35 Isosorbide Mononitrate Er 30 Mg Tablet PO 30 mg DAILY EVELIO Administration Levothyroxine Sodium 112 mcg 01/18/24 09:00 01/23/24 08:35 Levothyroxine 112 Mcg Tablet PO 112 mcg DAILY EVELIO Administration Meropenem 500 mg 01/17/24 18:15 01/23/24 01:31 Meropenem 500 Mg Sdv IVP 500 mg Q8H EVELIO Administration Protocol Metoprolol Tartrate 25 mg 01/18/24 09:00 01/23/24 08:35 Metoprolol Tartrate 25 Mg Tablet PO 25 mg DAILY EVELIO Administration Morphine Sulfate 2 mg 01/17/24 16:45 01/22/24 22:00 Morphine 4 Mg/Ml Sdv 1 Ml IVP 2 mg Q4H PRN Administration SEVERE PAIN Nystatin 1 applic 01/17/24 18:00 01/23/24 08:36 Nystatin Powder 15 Gm Btl TOPICAL Not Given BID EVELIO Pantoprazole Sodium 40 mg 01/17/24 16:45 01/22/24 16:14 Pantoprazole 40 Mg Sdv IVP 40 mg Q24H EVELIO Administration Rivaroxaban 20 mg 01/19/24 09:00 01/23/24 08:35 Rivaroxaban 10 Mg Tablet PO 20 mg DAILY EVELIO Administration Zolpidem Tartrate 5 mg 01/17/24 17:12 01/22/24 23:15 Zolpidem 5 Mg Tablet PO 5 mg BEDTIME PRN Administration insomnia PFSH Acute 2 PFSH: Medical History Back pain Decubitus ulcer of sacral region, stage 4 Septic shock Hypotension Abscess of buttock, left Decubital ulcer Infected pressure ulcer Abscess of left buttock Mobility impaired Pressure ulcer of buttock Stage II pressure ulcer of left buttock DM type 2 causing complication Diabetes mellitus Bilateral pneumonia Influenza B UTI (urinary tract infection) COVID-19 Hypovolemic shock Pressure sore on buttocks UTI (urinary tract infection) Amputation leg, bilat Psychiatric care Anxiety Major depressive disorder, recurrent severe without psychotic features Coronary artery disease Polyuria Polydipsia Urgency incontinence Recurrent UTI Below-elbow amputation of right upper extremity Below-elbow amputation of left upper extremity 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 Enrolled in chronic care management Rheumatoid arthritis Phantom pain after amputation of lower extremity Chronic pain 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 Hypothyroidism Hyperlipemia, mixed HTN (hypertension), benign (~11/2022) 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, hand, bilateral Hx of sepsis Surgical History History of skin graft History of appendectomy History of amputation of lower extremity History of amputation of finger of both hands Family History Father , at age 47 CAD (coronary artery disease) Hypertension Mother , at age 64 Diabetes Lung disease Sister Diabetes Brother Diabetes Other Anxiety Major depressive disorder, recurrent severe without psychotic features Denies family history of Dementia Cancer Stroke Social History Smoking and tobacco/nicotine status: former use of tobacco/nicotine Quit status (tobacco/nicotine): has tried quititng Second hand smoke exposure: Yes Alcohol intake: current Alcohol intake frequency: holidays/special occasions only Alcohol type: wine Substance/Drug Use: never Adopted: No Caregiver/support person: Yes Lives independently: Yes Household members: significant other and family Housing: House Marital status: Single Marital status details: Life partner of 45 years Number of children: 0 Number of grandchildren: 0 Highest education level completed: High School Graduate service: No Current occupational status: disabled Pets and animals: Yes (lab, yorkie, beagle) Pets & animals: cat(s) and dog(s) Leisure activites: art, fishing and other Leisure activities details: writing, watch TV Sexually active: Yes Do you think of yourself as: Straight/Heterosexual Current gender identity: Female Keyonna/Oriental Orthodox: None Special keyonna needs: No Agree to transfusion: Yes Female Reproductive History: Para: 0 Vitals/I&O/Wt Last Vital Signs Temp 98.1 F 01/23/24 07:30 Pulse 72 01/23/24 07:30 Resp 16 01/23/24 07:30 BP 95/62 01/23/24 07:30 Pulse Ox 93 01/23/24 04:00 O2 Del Method Room Air 01/23/24 04:00 01/22/24 01/23/24 01/23/24 22:59 06:59 14:59 Intake Total 580 / 1180 440 / 1620 240 / 240 Output Total 650 / 1300 150 / 1450 Balance -70 / -120 290 / 170 240 / 240 Weight last 48 hrs Weight 43.59 kg Weight 45.223 kg Physical Exam 2 Narrative: General: No acute distress, AO x3 HEENT: PERRLA, pupils bilaterally equal and reactive, pallors not present Chest: Normal vesicular breath sounds, no added sounds, equal good air entry bilaterally CVS: S1-S2 regular, no murmurs, no tachycardia, no gallops, no rubs Abdomen: Soft, non tender, no organomegaly, bowel sounds present Extremities: s/p amputation of all 4 limbs. multiple wounds over B/L LE Stumps, right arm stump and sacrum Urinary Catheter Management: Chirinos: Cath Placed During This Visit: no Reason for Continuing Indwelling Catheter: Chronic Indwelling Urinary Catheter on Admission Data 01/23/24 04:57 01/23/24 04:57 Micro: Microbiology 01/17/24 18:10 Blood Culture - Final Blood NO GROWTH AFTER 5 DAYS 01/17/24 18:22 Blood Culture - Final Blood NO GROWTH AFTER 5 DAYS A&P Assessment and plan (1) Sacral osteomyelitis: (2) Dehiscence of amputation stump: Plan 58F with complicated history as above presenting with history of sacral osteomyelitis as above. She has been treated in the past with IV piperacillin/tazobactam in March 2023 and then again with ertapenem and daptomycin over the past 6 weeks. Outpatient cultures prior to starting antibiotics had shown MRSA and group B strep. Most recent cultures from this admission are with no growth. No isolation of any particularly resistant or outliers at this admission. Follow chronic osteomyelitis, patient has completed an adequate 6 weeks course of antibiotic. The treatment of osteomyelitis in patients with stage IV sacral pressure ulcers is controversial. Patient has had 2 separate courses of 6 weeks of IV antibiotics. Her sacral wound at this time is not amenable to closure. Given this scenario the goal of therapy should be local wound care. there is no clear evidence supporting a role for prolonged antibiotic therapy. (Osteomyelitis Complicating Sacral Pressure Ulcers: Whether or Not to Treat With Antibiotic Therapy. Clinical Infectious Diseases, Volume 68, Issue 2, 24 April 2018) For her lower extremity stump wounds, there is no prior imaging available to compare. Possible that stump osteomyelitis and bony erosion might be pre- existing. Her CRP has trended down from 100-30 currently. Wound has been assessed by general surgery, no current indication for active debridement, additionally findings may represent hematoma versus postop fluid collection after recent flap surgery. In this setting unlikely that prolonged IV antibiotics would be of any additional benefit. Will transfer patient at this point to oral linezolid and ciprofloxacin for the next 10 days and then aim to discontinue antibiotics. Recommend close follow-up with wound care as outpatient. Overall it does not appear that her worsening sacral wounds and wound dehiscence over stumps is related to antibiotic failure. Unfortunately patient is exhibiting poor wound healing from a variety of factors such as continuous pressure, minimal offloading, poor nutritional status, loss of muscle bulk and adipose tissue. Overall her prognosis remains guarded. This was frankly discussed with the patient and her life partner. Stable for discharge from [facility] stanspurgeon Consult Attestations 2 Medical Necessity Statement: per admitting Coding Level of Care Code Acute Code for Chg Fwd High MDM includes number and complexity of problems actively addressed during encounter, amount and/or complexity of data reviewed/ordered and described risk of complication, morbidity or mortality of management as documented Diagnoses Sacral osteomyelitis M46.28 Dehiscence of amputation stump T87.81
[2024-01-23] MEDS: acetaminophen 325 mg Tablet 650 MG PO (10:47)
--- NOTE | 2024-01-23 11:01 | PM.DCS ---
Discharge Providers Date of Admission: 01/17/24 16:24 Date of Discharge: January 23, 2024 Attending Provider at Admission: Tila Molina MD Attending Provider at Discharge: Yordan Logan MD Consults: Surgery: Dr. Aguiar/Dr. Maynor Mcneil ID: Dr. 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 Over the past year she has had a chronic decubitus sacral ulcer for which she has been following with wound care. Sacral ulcer has been waxing and waning during the course of the past year. Prior pelvic CTs did not reveal osteomyelitis until most recent imaging in November 2023. She has previously received 6 weeks of IV piperacillin/tazobactam in March 2023 at [facility] and more recently is completing 6 weeks of IV antibiotics with IV ertapenem and IV daptomycin via the infectious disease clinic at [facility] between December 08 to today. Most recent cultures from the sacrum had revealed MRSA and group B strep with previous cultures from July and dating back further revealing multiple other gram-negative's including Kleb pneumo, Morganella Vinicius I and Proteus mirabilis. Patient has had additional issues with intermittent wounds involving her left lower extremity, right lower extremity and left upper extremity stump. On December 17, 2023 she underwent anterior and posterior fasciocutaneous flap creation of her right forearm stump and left thigh stump for chronic decubitus ulcers. Additionally underwent excisional debridement of her stage IV sacral decub ulcer on this day. Thereafter she continued follow-up with the wound care clinic. She had a wound VAC in place over the sacrum which needed to be taken down on January 05, 2024 to give her wound VAC break. By January 12, 2024 she developed additional breakdown of the mid sacral region between her 2 previous wound. Unfortunately wound VAC was unable to be placed back due to anatomical constraints. Patient uses a wheelchair to ambulate and is unable to offload for bulk of the day. She presented in follow-up to the infectious disease clinic on January 17, 2024 where she was noted to be confused and disoriented. She was hallucinating, reaching for objects that were not present, her words were slurred and it appeared she was encephalopathic. Due to this change in mentation and noted wound dehiscence with concern for infection over the left stump she was sent in for a direct admit to the hospital. Overall her head CT was unremarkable. Incidentally noted acute sinusitis was seen. CT of the abdomen and pelvis showed large right sacral decubitus ulcer without definitive fluid collection, right ischial decubitus ulcer with 3.3 cm area of phlegmon, 2 fluid collections associated with the distal right stump with the anterior collection eroding the distal stump concerning for abscess and potential osteomyelitis, 5 cm collection of fluid gas associated with the distal left stump along with multiple prominent and mildly enlarged pelvic sidewall and retroperitoneal lymphadenopathy. Previously MRI on December 15, 2023 had shown complete chronic erosion of the coccyx. No prior stump imaging currently available for review to compare. Patient was seen on January 17 by general surgery where the left lower extremity stump appeared to be stable when compared to outpatient assessment. There were no drainable fluid collections at the level of the right lower extremity stump over the right ischial region. Debridement of the right lower extremity stump was deferred due to concern for its potential for becoming a nonvisual healing wound in the long-term. Local wound care was thought to be the best move forward. Her blood cultures revealed no growth. Pus was aspirated from the left stump at bedside which showed a few mixed superficial italia without a predominant organism. Urine culture revealed VRE E faecalis. Of note patient has a chronic indwelling Chirinos catheter. Patient received treatment with IV meropenem and IV vancomycin during the course of admission and is currently improved. She is currently awake alert oriented, mentation is back to baseline. She has remained afebrile. There is no leukocytosis currently. CRP noted to be at 37, improved from 105 on November 09, 2023. Her Picc line was pulled out accidentally on the night of 01/21. Hospital Course Hospital Course She has been treated in the past with IV piperacillin/tazobactam in March 2023 and then again with ertapenem and daptomycin over the past 6 weeks. Outpatient cultures prior to starting antibiotics had shown MRSA and group B strep. Most recent cultures from this admission are with no growth. No isolation of any particularly resistant or outliers at this admission. Follow chronic osteomyelitis, patient has completed an adequate 6 weeks course of antibiotic. The treatment of osteomyelitis in patients with stage IV sacral pressure ulcers is controversial. Patient has had 2 separate courses of 6 weeks of IV antibiotics. Her sacral wound at this time is not amenable to closure. Given this scenario the goal of therapy should be local wound care. there is no clear evidence supporting a role for prolonged antibiotic therapy. For her lower extremity stump wounds, there is no prior imaging available to compare. Possible that stump osteomyelitis and bony erosion might be pre-existing. Her CRP has trended down from 100-30 currently. Wound has been assessed by general surgery, no current indication for active debridement, additionally findings may represent hematoma versus postop fluid collection after recent flap surgery. In this setting unlikely that prolonged IV antibiotics would be of any additional benefit. Will transfer patient at this point to oral linezolid and ciprofloxacin for the next 10 days and then aim to discontinue antibiotics. Recommend close follow-up with wound care as outpatient. Overall it does not appear that her worsening sacral wounds and wound dehiscence over stumps is related to antibiotic failure. Unfortunately patient is exhibiting poor wound healing from a variety of factors such as continuous pressure, minimal offloading, poor nutritional status, loss of muscle bulk and adipose tissue. Overall her prognosis remains guarded. This was frankly discussed with the patient and her life partner and hospice was offered though they want to continue with trial of antibiotics for now and will discuss hospice with PCP as an outpatient. She has been discharged in hemodynamically stable condition on oral linezolid and ciprofloxacin for 10 more days, following up with infectious disease clinic, surgical clinic and wound care clinic as an outpatient. Physical Exam Const: COMMON NORMALS: no acute distress and patient oriented x3 HENMT: COMMON NORMALS: normocephalic HEAD & SCALP: normocephalic Eye: COMMON NORMALS: Equal, round and reactive pupils present PUPIL: Yes Equal, round and reactive pupils present Neck/C-Spine: COMMON NORMALS: no JVD Resp: COMMON NORMALS: normal respiratory effort, No retractions, No use of accessory muscles and clear to auscultation bilaterally AUSCULTATION: clear to auscultation bilaterally Cardio: COMMON NORMALS: no JVD, regular rate, regular rhythm, S1 normal heart sound present and S2 normal heart sound present RATE: regular rate RHYTHM: regular rhythm HEART SOUNDS: S1 normal heart sound present and S2 normal heart sound present GI: COMMON NORMALS: Normal to inspection, nondistended, normoactive bowel sounds present, Soft to palpation and non-tender PALPATION: Yes Soft to palpation Extremity: COMMON NORMALS: no calf tenderness and no pedal edema Neuro: COMMON NORMALS: patient oriented x3 OTHER: Alert to person, to place, not to time has episodes of hallucinations during our conversation Psych: COMMON NORMALS: mental status grossly normal Skin: NARRATIVE SKIN EXAM: Right upper extremity stump site, has stump breakdown Left lower extremity, stump breakdown with wound dehiscence with foul discharge, bloody discharge Sacral DTI Urinary Catheter Management: Chirinos: Cath Placed During This Visit: no Reason for Continuing Indwelling Catheter: Chronic Indwelling Urinary Catheter on Admission Discharge Data Studies Completed and Pending Completed Studies During Hospitalization Category Date Time Status CT abdomen pelvis w con* [id number] Routine Cat Scan 01/17/24 16:[address] head wo con* [id number] Routine Cat Scan 01/17/24 16:50 Completed XR chest 1V portable [id number] Stat Exams 01/17/24 16:45 Completed Radiology Impressions Chest X-Ray 01/17/24 16:45 IMPRESSION: Stable radiographic appearance of the chest. Abdomen/Pelvis CT 01/17/24 16:50 IMPRESSION: 1. Large right sacral decubitus ulcer containing gas. The mid sacrum is absent, stable. No definitive fluid collection. 2. Right ischial decubitus ulcer with 3.3 cm area of phlegmon versus collection/abscess. 3. 2 fluid collections associated with the distal right stump, the anterior collection appears to be eroding the distal stump concerning for abscess and osteomyelitis. 4. 5 cm collection of fluid gas associated with the distal left stump. 5. Multiple prominent and mildly enlarged pelvic sidewall and retroperitoneal, likely reactive. 6. Other nonemergent findings above. COMMENTS: Consistent with the [employer]'s Incidental Findings Committee white paper (J Am Luca Radiol 2018): Any incidental renal lesion less than 1 cm or classified as too small to characterize, or any incidental cystic renal lesion characterized as simple-appearing, is likely benign. No follow-up imaging is recommended for these lesions per consensus recommendations based on imaging criteria. Head CT 01/17/24 16:50 IMPRESSION: 1. No acute intracranial pathology. 2. Fluid in the bilateral mastoid air cells. 3. Air-fluid levels in the maxillary sinuses and right sphenoid sinus. Correlate with acute sinusitis. Microbiology 01/17/24 18:10 Blood Blood Culture - Final NO GROWTH AFTER 5 DAYS 01/17/24 18:22 Blood Blood Culture - Final NO GROWTH AFTER 5 DAYS 01/21/24 08:43 Stool Routine Collection Occult Blood (FIT) - Final 01/17/24 17:18 Urine Catheterized Urine Culture - Final Enterococcus faecium vre 01/17/24 18:16 Leg - Left Gram Stain - Final 01/17/24 18:16 Leg - Left Wound Culture - Final Laboratory Results WBC 10.50 10^3/uL (3.29-11.43) 01/23/24 04:57 RBC 3.87 10^6/uL (3.85-5.65) 01/23/24 04:57 Hgb 9.00 g/dL (11.27-16.99) L 01/23/24 04:57 Hct 30.9 % (36-47) L 01/23/24 04:57 MCV 79.8 fl (85-98) L 01/23/24 04:57 MCH 23.3 pg (27-33) L 01/23/24 04:57 MCHC 29.1 g/dL (30-55) L 01/23/24 04:57 RDW 18.9 % (12.1-15.1) H 01/23/24 04:57 Plt Count 745 10^3/cmm (157-399) H 01/23/24 04:57 MPV 8.9 fL (7.4-10.4) 01/23/24 04:57 Neut % (Auto) 70.7 % 01/23/24 04:57 Lymph % (Auto) 17.0 % 01/23/24 04:57 Elk % (Auto) 5.1 % 01/23/24 04:57 Eos % (Auto) 6.4 % 01/23/24 04:57 Baso % (Auto) 0.5 % 01/23/24 04:57 Neut # (Auto) 7.42 10^3/uL (1.8-7.7) 01/23/24 04:57 Lymph # (Auto) 1.8 10^3/uL (0.8-4.8) 01/23/24 04:57 Elk # (Auto) 0.5 10^3/uL (0.2-0.9) 01/23/24 04:57 Eos # (Auto) 0.7 10^3/uL (0.0-0.8) 01/23/24 04:57 Baso # (Auto) 0.1 10^3/uL (0.0-0.1) 01/23/24 04:57 Nucleated RBC % (auto) 0 % 01/23/24 04:57 Nucleated RBCs # 0.0 /100WBC 01/23/24 04:57 ESR 61 mm/hr (0-15) H 01/17/24 18:10 PT 20.40 SECONDS (12.1-14.9) H 01/17/24 18:10 INR 1.69 (0.8-1.2) H 01/17/24 18:10 Sodium 137 mmol/L (136-145) 01/23/24 04:57 Potassium 3.4 mmol/L (3.5-5.1) L 01/23/24 04:57 Chloride 106 mmol/L (98-107) 01/23/24 04:57 Carbon Dioxide 23 mmol/L (22-29) 01/23/24 04:57 Anion Gap 11.4 (5-19) 01/23/24 04:57 BUN 10 mg/dL (8-23) 01/23/24 04:57 Creatinine 0.4 mg/dL (0.5-0.9) L 01/23/24 04:57 GFR Calculation 162.8 mL/min (90-130) H 01/23/24 04:57 Glucose 172 mg/dL (65-115) H 01/23/24 04:57 POC Glucose 174 mg/dL (70-110) H 01/23/24 06:10 Estimat Average Glucose 154 01/17/24 18:10 Hemoglobin A1c 7.0 % (4.0-6.0) H 01/17/24 18:10 Calculated Osmolality 287 mOsm/kg (285-295) 01/23/24 04:57 Lactic Acid 1.5 mmol/L (0.5-2.2) 01/17/24 18:10 Calcium 8.1 mg/dL (8.5-10.5) L 01/23/24 04:57 Phosphorus 4.3 mg/dL (2.5-4.5) 01/17/24 18:10 Magnesium 2.3 mg/dL (1.7-2.3) 01/17/24 18:10 Iron 13 ug/dL (37-145) L 01/17/24 18:10 Ferritin 199 ng/mL (15-150) H 01/17/24 18:10 Total Bilirubin 0.2 mg/dL (0.15-1.2) 01/23/24 04:57 AST 9 U/L (0-32) 01/23/24 04:57 ALT 6 U/L (0-33) 01/23/24 04:57 Alkaline Phosphatase 98 U/L (35-105) 01/23/24 04:57 Ammonia 26 umol/L (11-51) 01/17/24 18:22 Troponin T Baseline 53 ng/L (0-10) H 01/17/24 18:10 Troponin T 120 Minute 48.33 ng/L (0-10) H 01/17/24 21:10 Delta Troponin T -4.67 ABS# (0-10) L 01/17/24 21:10 Troponin T Hi Sens 6Hr 50.12 ng/L (0-10) H 01/18/24 00:29 Troponin T Hi Sens 6Hr Delta -2.88 ng/L (0-12) L 01/18/24 00:29 C-Reactive Protein 37.6 mg/L (0.0-4.9) H 01/21/24 04:52 NT-Pro-B Natriuret Pep 411 pg/mL (0-125) H 01/17/24 18:10 Total Protein 6.4 g/dL (6.6-8.7) L 01/23/24 04:57 Albumin 2.5 g/dL (3.5-5.2) L 01/23/24 04:57 Globulin 3.9 g/dL (1.3-4.6) 01/23/24 04:57 Triglycerides 189 mg/dL (0-150) H 01/17/24 18:10 Cholesterol 116 mg/dL (0-200) 01/17/24 18:10 LDL Cholesterol, Calc 60 mg/dL (50-129) 01/17/24 18:10 HDL Cholesterol 18 mg/dL (60-100) L 01/17/24 18:10 LDL/HDL Ratio 3.33 RATIO (0.00-3.22) H 01/17/24 18:10 Cholesterol/HDL Ratio 6.44 mg/dL (0.0-4.40) H 01/17/24 18:10 Procalcitonin 0.05 ng/mL (0-0.5) 01/21/24 04:52 TSH 1.18 uIU/mL (0.27-4.20) 01/17/24 18:10 Urine Color Dark yellow (Yellow) A 01/17/24 17:18 Urine Appearance Cloudy (CLEAR) A 01/17/24 17:18 Urine pH 5.5 (5-7) 01/17/24 17:18 Ur Specific [place] 1.024 (1.005-1.030) 01/17/24 17:18 Urine Protein 1+ (Negative) A 01/17/24 17:18 Urine Glucose (UA) Negative (Normal) 01/17/24 17:18 Urine Ketones Negative (Negative) 01/17/24 17:18 Urine Blood 3+ (Negative) A 01/17/24 17:18 Urine Nitrate Negative (Negative) 01/17/24 17:18 Urine Bilirubin Negative (Negative) 01/17/24 17:18 Urine Urobilinogen 1.0 mg/dL (Negative) 01/17/24 17:18 Ur Leukocyte Esterase 2+ (Negative) A 01/17/24 17:18 Urine RBC 51-100 /hpf (0-2) H 01/17/24 17:18 Urine WBC >100 /hpf (0-5) H 01/17/24 17:18 Ur Squamous Epith Cells 6-10 /hpf (0-5) 01/17/24 17:18 Amorphous Sediment Not Reportable 01/17/24 17:18 Urine Bacteria Trace /hpf (NONE) 01/17/24 17:18 Hyaline Casts 7.01 /lpf 01/17/24 17:18 Urine Yeast 1+ /hpf H 01/17/24 17:18 Vancomycin Trough 11.0 ug/mL (10-15) 01/21/24 22:56 Adenovirus (PCR) Not detected (NOT DETECT) 01/17/24 17:18 C. pneumoniae DNA (PCR) Not detected (NOT DETECT) 01/17/24 17:18 Coronavirus 229E (PCR) Not detected (NOT DETECT) 01/17/24 17:18 Human Metapneumovir PCR Not detected (NOT DETECT) 01/17/24 17:18 Influenza A (H1) PCR Not detected (NOT DETECT) 01/17/24 17:18 Influ A (H1/09) PCR Not detected (NOT DETECT) 01/17/24 17:18 Influenza A (H3) PCR Not detected (NOT DETECT) 01/17/24 17:18 Influenza Type A (PCR) Not detected (NOT DETECT) 01/17/24 17:18 Influenza Type B (PCR) Not detected (NOT DETECT) 01/17/24 17:18 M. pneumoniae (PCR) Not detected (NOT DETECT) 01/17/24 17:18 Parainfluenza 1 (PCR) Not detected (NOT DETECT) 01/17/24 17:18 Parainfluenza 2 (PCR) Not detected (NOT DETECT) 01/17/24 17:18 Parainfluenza 3 (PCR) Not detected (NOT DETECT) 01/17/24 17:18 Parainfluenza 4 (PCR) Not detected (NOT DETECT) 01/17/24 17:18 RSV Type A (PCR) Not detected (NOT DETECT) 01/17/24 17:18 RSV Type B (PCR) Not detected (NOT DETECT) 01/17/24 17:18 Entero/Rhino (PCR) Detected (NOT DETECT) A 01/17/24 17:18 SARS-CoV-2 (PCR) Not detected (NOT DETECT) 01/17/24 17:18 Vitals Last Vital Signs Temp 98.1 F 01/23/24 07:30 Pulse 72 01/23/24 07:30 Resp 16 01/23/24 07:30 BP 95/62 01/23/24 07:30 Pulse Ox 93 01/23/24 04:00 O2 Del Method Room Air 01/23/24 04:00 Discharge Plan Discharge Patient Disposition: Home Condition: Stable Prescriptions: New linezolid 600 mg tablet 600 mg PO BID 10 Days Qty: 20 0RF ciprofloxacin HCl [Cipro] 500 mg tablet 500 mg PO BID 10 Days Qty: 20 0RF Continued (DME) blood-glucose sensor Device See Rx Instructions .ROUTE .MEDSUPPLY Qty: 3 0RF Rx Instructions: As directed (DME) prosthetic legs See Rx Instructions .Route .MEDSUPPLY Qty: 1 0RF Rx Instructions: As directed (DME) FreeStyle Maria M 2 Grover Misc See Rx Instructions .ROUTE .MEDSUPPLY Qty: 1 0RF Rx Instructions: As directed nitroglycerin 0.4 mg tablet, sublingual 0.4 mg SUBLINGUAL Q5M PRN (Reason: chest pain) Qty: 25 3RF nystatin 100,000 unit/gram powder 1 applic topical BID Qty: 60 1RF Levemir FlexPen 100 unit/mL (3 mL) insulin pen 30 unit SUBCUT QAM Humulin R U-500 (Conc) Kwikpen 500 unit/mL (3 mL) insulin pen 100 unit SUBCUT .COMPLEX Qty: 6 0RF Rx Instructions: Inject 3 times daily with meals per sliding scale: 70-130=0 units, 131-180=2 units, 181-240= 4 units, 241-300= 6 units, 301-350= 8 units, 351-400= 10 units, >[address] acetaminophen 325 mg tablet 325 mg PO QID PRN (Reason: Pain) diphenhydramine HCl [Benadryl Allergy] 25 mg tablet 25 mg PO TID PRN (Reason: Allergy Symptoms) (DME) wheelchair motorized See Rx Instructions .Route .MEDSUPPLY Qty: 1 0RF Rx Instructions: As directed Dakin's Solution 0.125 % solution 1 applic topical BID Qty: 473 2RF (DME) prosthetic hands Bilateral Qty: 1 0RF Rx Instructions: As directed ([facility]) pen needle, diabetic [Sure-Fine Pen [place]] 31 gauge x 3/16 needle See Rx Instructions .ROUTE .MEDSUPPLY Qty: 450 3RF Rx Instructions: uses 5 times a day (DME) FreeStyle Maria M 2 Sensor Kit See Rx Instructions .ROUTE .MEDSUPPLY Qty: 6 3RF Rx Instructions: Change every 14 days. (DME) Ear Pulse Ox See Rx Instructions .Route .MEDSUPPLY Qty: 1 0RF Rx Instructions: As directed; continuous pulse ox clonazepam 0.5 mg tablet 0.5 mg PO DAILY PRN (Reason: anxiety) 30 Days Qty: 30 2RF bupropion HCl [Wellbutrin XL] 150 mg tablet extended release 24 hr 150 mg PO QAM Qty: 30 2RF cholecalciferol (vitamin D3) 1,250 mcg (50,000 unit) capsule See Rx Instructions .ROUTE .COMPLEX Qty: 4 0RF Dose Instruction: Take 1 capsule by mouth once a week Rx Instructions: Take 1 capsule by mouth once a week on Monday. duloxetine 60 mg capsule,delayed release(DR/EC) 60 mg PO BID Qty: 60 2RF (DME) Dexcom G7 Battery Container Inspector Misc See Rx Instructions .Route Qty: 1 0RF Rx Instructions: As directed gabapentin 600 mg tablet See Rx Instructions .ROUTE .COMPLEX Qty: 90 0RF Dose Instruction: TAKE 1 TABLET BY MOUTH THREE TIMES DAILY Rx Instructions: Take 1 tablet by mouth 3 times daily (DME) Dexcom G7 Sensor Device See Rx Instructions .Route Qty: 1 1RF Rx Instructions: As directed metoprolol tartrate 25 mg tablet 25 mg PO DAILY Qty: 90 0RF isosorbide mononitrate 30 mg tablet extended release 24 hr 30 mg PO DAILY Qty: 90 0RF oxycodone 10 mg tablet 10 mg PO TID PRN (Reason: pain) 30 Days Qty: 90 0RF Xarelto 20 mg tablet 20 mg PO DAILY Qty: 90 1RF atorvastatin 40 mg tablet 40 mg PO DAILY nystatin 100,000 unit/mL suspension See Rx Instructions .ROUTE .COMPLEX Rx Instructions: ADMINISTER 2.5 ML IN EACH SIDE OF THE MOUTH ONCE DAILY clopidogrel 75 mg tablet 75 mg PO DAILY levothyroxine 112 mcg tablet 112 mcg PO DAILY zolpidem 5 mg tablet 5 mg PO BEDTIME PRN (Reason: insomnia) Discontinued sodium chloride 0.9 % solution 1 irrig irrigation DAILY 30 Days Qty: 500 1RF Rx Instructions: if 500ml not on hand dispense quantity on hand ciprofloxacin HCl 500 mg tablet 500 mg PO BID 7 Days Qty: 14 0RF daptomycin 500 mg recon soln 500 mg IV DAILY Rx Instructions: administer over 30 mins Discharge Orders: Discharge Order (Routine); Ordered 01/23/24 Ordered By: Yordan Logan Other Ambulatory Orders: Miscellaneous Procedure (Order) Location: None Selected Ordered By: Will Upton Miscellaneous Test (Routine) Timeframe: 1 Week Location: Determined by Patient Ordered By: Will Upton Referrals: Infectious Disease Group [facility] [Provider Group] - 01/30/24 12:30 pm (This is a telephone visit only. ) Navdeep Aguiar DO [Physician] - 7-10 days (We have notified your physician's clinic of the need for a follow-up appointment to be scheduled. If you have not heard from them within the next 2 business days, please call them directly. ) Franca Garza FNP [Primary Care Provider] - 01/30/24 1:00 pm [facility], [Staff Physician] - 01/30/24 1:00 pm ([phone]) Discharge Diet: Diabetic Discharge Activity: Resume usual activity Patient Instructions: Ciprofloxacin (By mouth), Linezolid (By mouth), Acute Wound Care (DC), Opioid Safety, Post Anesthesia Care Discharge Attestations Time Spent in Discharge Care*: greater than 30 min Specific Discharge Activities: educating patient, educating and/or supporting family/caregiver, discussing with pcp/other providers, discussing with caser/social workers/dc planners, documenting/other paperwork and evaluating patient/reviewing data Status at Discharge: Cognitive status at discharge: cognitively intact, Behavioral status at discharge: cooperative, Functional status at discharge: bed bound, Overall status at discharge: patient is back to baseline Quality Metrics Clinical Quality Measures [ No reported AMI, CVA or VTE this stay] Coding Level of Care Code 84458 Total time (in minutes) for Discharge: 60 Diagnoses Sacral osteomyelitis M46.28 Dehiscence of amputation stump T87.81
[2024-01-23 11:06] LABS: Glucose Point of Care 173 mg/dL (70-110)
[2024-01-23 11:17] VITALS: BP 104/68
[2024-01-23 13:26] VITALS: BP 104/68; PULSE 72; RESP 16; TEMP 36.8; O2SAT 93
--- NOTE | 2024-01-24 10:36 | PC.NURSE ---
[facility] unavailable to fill linezolid prescription due to not having any in stock, after speaking with patient and Dr. Logan, medication was verbally called in to [facility] by this nurse. Patient notified of pharmacy change and stated she would have them picked up today.
== END 2024-01-23 13:40 | disposition home or self-care (01) | DRG 564 ==
PROVIDERS: Family Medicine; Internal Medicine; Admitting Provider Student in an Organized Health Care Education/Training Program; PCP Nurse Practitioner Family; Visit Provider Student in an Organized Health Care Education/Training Program
DX: T87.81 Dehiscence of amputation stump (principal); L89.154 Pressure ulcer of sacral region, stage 4; F33.9 Major depressive disorder, recurrent, unspecified; M46.28 Osteomyelitis of vertebra, sacral and sacrococcygeal region; E46 Unspecified protein-calorie malnutrition; N39.0 Urinary tract infection, site not specified; Z11.52 Encounter for screening for COVID-19; Z89.212 Acquired absence of left upper limb below elbow; Z89.211 Acquired absence of right upper limb below elbow; Z89.612 Acquired absence of left leg above knee; Z89.611 Acquired absence of right leg above knee; Z96.0 Presence of urogenital implants; Z79.02 Long term (current) use of antithrombotics/antiplatelets; Z79.4 Long term (current) use of insulin; Z87.01 Personal history of pneumonia (recurrent); Z87.440 Personal history of urinary (tract) infections; F41.9 Anxiety disorder, unspecified; I25.10 Atherosclerotic heart disease of native coronary artery without angina pectoris; M06.9 Rheumatoid arthritis, unspecified; G89.29 Other chronic pain; E03.9 Hypothyroidism, unspecified; E78.2 Mixed hyperlipidemia; I10 Essential (primary) hypertension; Z87.891 Personal history of nicotine dependence; R41.82 Altered mental status, unspecified; E11.69 Type 2 diabetes mellitus with other specified complication; Z68.38 Body mass index [BMI] 38.0-38.9, adult; E88.09 Other disorders of plasma-protein metabolism, not elsewhere classified; B95.2 Enterococcus as the cause of diseases classified elsewhere; D64.9 Anemia, unspecified
CPT/HCPCS: 36415; 36416; 36592; 70450; 71045; 74177; 80053; 80061; 80202; 81001; 82140; 82274; 82728; 82962; 83036; 83540; 83605; 83735; 83880; 84100; 84145; 84443; 84484; 85025; 85610; 85651; 86140; 87040; 87070; 87075; 87077; 87086; 87186; 87205; 87486; 87581; 87633; 93005; 94664; 96372; 99215; 99284; J1815; J2185; J2270; J2470; J3370; J7030

== ENCOUNTER → 2024-01-30 12:58 | Outpatient (BNVA) | payer MEDICARE, MEDICAID, SELFPAY ==
[2024-01-25 16:10] VITALS: BP 122/79; BMI 37.1
== END ==
PROVIDERS: PCP Nurse Practitioner Family; Visit Provider Thoracic Surgery (Cardiothoracic Vascular Surgery)
DX: L89.323 Pressure ulcer of left buttock, stage 3 (principal); L89.313 Pressure ulcer of right buttock, stage 3; L89.152 Pressure ulcer of sacral region, stage 2; L89.100 Pressure ulcer of unspecified part of back, unstageable; L89.893 Pressure ulcer of other site, stage 3; T87.81 Dehiscence of amputation stump; Y83.8 Other surgical procedures as the cause of abnormal reaction of the patient, or of later complication, without mention of misadventure at the time of the procedure; Z89.612 Acquired absence of left leg above knee; Z89.211 Acquired absence of right upper limb below elbow
CPT/HCPCS: 97597; 97598; A6220

== ENCOUNTER → 2024-02-01 10:33 | Outpatient (BNVA) | payer MEDICARE, MEDICAID, SELFPAY ==
[2024-01-25 16:10] VITALS: BP 122/79; BMI 37.1
== END ==
PROVIDERS: PCP Nurse Practitioner Family; Visit Provider Surgery
DX: Z09 Encounter for follow-up examination after completed treatment for conditions other than malignant neoplasm (principal); T87.81 Dehiscence of amputation stump; X58.XXXA Exposure to other specified factors, initial encounter
CPT/HCPCS: 99214

== ENCOUNTER → 2024-02-02 11:22 | Outpatient (BNVA) | payer MEDICARE, MEDICAID, SELFPAY ==
[2024-01-25 16:10] VITALS: BP 122/79; BMI 37.1
== END ==
PROVIDERS: PCP Nurse Practitioner Family; Visit Provider Nurse Practitioner Family
DX: N30.00 Acute cystitis without hematuria (principal)
CPT/HCPCS: 81000

== ENCOUNTER → 2024-02-06 13:00 | Outpatient (BNVA) | payer MEDICARE, MEDICAID, SELFPAY ==
[2024-01-25 16:10] VITALS: BP 122/79; BMI 37.1
== END ==
PROVIDERS: PCP Nurse Practitioner Family; Visit Provider Thoracic Surgery (Cardiothoracic Vascular Surgery)
DX: I96 Gangrene, not elsewhere classified (principal); L89.314 Pressure ulcer of right buttock, stage 4; L89.893 Pressure ulcer of other site, stage 3; L89.152 Pressure ulcer of sacral region, stage 2; T87.81 Dehiscence of amputation stump; Y83.8 Other surgical procedures as the cause of abnormal reaction of the patient, or of later complication, without mention of misadventure at the time of the procedure; Z89.612 Acquired absence of left leg above knee; Z89.512 Acquired absence of left leg below knee; L89.100 Pressure ulcer of unspecified part of back, unstageable
CPT/HCPCS: 97597; 97598; A6220; A6446